=== PATIENT | female | born 1965 | race Caucasian/White ===

== ENCOUNTER 2020-08-17 09:07 | Emergency (ER) | payer BC, SELFPAY ==
[2020-08-17] VITALS (8 sets, daily range): BP systolic 120–136; BP diastolic 76–77; PULSE 63–88; RESP 12–18; TEMP 37.3; O2SAT 98–100
--- NOTE | ~2020-08-17 | CT_ITS ---
EXAMINATION: CTA chest PE abdomen pel EXAM DATE: 08/17/2020 11:28 INDICATION: Chest pain, sob, abd pain, bloody diarrhea. TECHNIQUE: Spiral CTA of the chest (pulmonary arteries) was performed with 100 cc Omnipaque 350 intr avenous contrast injection. Images were acquired during the pulmonary arterial phase. Coronal maxi mum intensity projection 3D-reconstructions were created by the technologist on dedicated workstation . Axial, coronal and sagittal reformatted images were reviewed. Spiral CT of the abdomen and pelvis was then performed with the same intravenous contrast injection. Axial, coronal and sagittal reform atted images were reviewed. The dose-length product (DLP) for this examination was 629.63 mGy-cm. T he exposure was tailored according to patient size (auto mA exposure control), and iterative reconst ruction (ASIR) was used as additional dose reduction technique. There is no prior study for comparis on. FINDINGS: CHEST: Pulmonary arteries are well opacified and without intraluminal filling defects. No thoracic aortic dissection. The lungs are clear. There are no pleural or pericardial effusions. Tracheob ronchial tree is patent. There is no mediastinal, hilar or axillary lymphadenopathy. There is no pneumothorax. Heart normal in size. No evidence of coronary arterial calcification. ABDOMEN PELVIS: There is a 1.8 cm right adrenal gland adenoma. The liver, spleen, and pancreas are u nremarkable. Gallbladder is unremarkable. No biliary obstruction. Portal and splenic veins are pat ent. Kidneys enhance symmetrically. There is no hydronephrosis. The uterus is retroverted and mor phologically normal. The bladder is unremarkable. There is no retroperitoneal or pelvic lymphadeno lisa. The appendix is normal. The stomach and small bowel are unremarkable. There is descending and to a lesser extent sigmoid colonic edema suspected. There are some sigmoid colonic fluid. Appearance is co nsistent with enterocolitis. No free intraperitoneal gas. There are no osteoblastic or osteolytic lesions identified. IMPRESSION: 1. Enterocolitis, with some edema of the descending and sigmoid colon wall. 2. No pulmonary emboli. Reviewed, dictated and finalized at location B.
--- NOTE | 2020-08-17 09:21 | ECG_ITS ---
Measurements Intervals [place] Rate: 74 P: -6 OR: 126 QRS: 22 QRSD: 87 T: 15 QT: 383 QTc: 427 Interpretive Statements SINUS RHYTHM WITH SINUS ARRHYTHMIA BASELINE ARTIFACT- I, II, III, AVR, AVF, V1-V6 NORMAL ECG Electronically Signed On 08-17-2020 9:26:23 CDT by Lee Barnard D.O.
[2020-08-17 09:33] LABS: Basophils Percent Auto 0.4 % (0.2-1.2); Eosinophils Absolute Auto 0.1 K/mm3 (0-0.3); Eosinophils Percent Auto 1.4 % (0-4.4); Hematocrit 45.6 % (37.0-47.0); Hemoglobin 15.5 g/dL (12.0-15.0); Immature Granulocyte Absolute 0.02 K/mm3 (0.00-0.031); Immature Granulocyte Percent A 0.2 % (0-0.5); Lymphocytes Absolute Auto 1.25 K/mm3 (0.9-3.2); Lymphocytes Percent Auto 14.8 % (18.3-44.2); Mean Corpuscular Hemoglobin 31.4 pg (26-34); Mean Corpuscular Volume 92.3 fl (80-100); Mean Platelet Volume 10.3 fl (7.4-10.4); Monocytes Absolute Auto 0.5 K/mm3 (0.1-0.6); Monocytes Percent Auto 5.5 % (2.6-8.5); Neutrophils Absolute Auto 6.6 K/mm3 (1.3-6.7); Neutrophils Percent Auto 77.7 % (45.5-73.1); Platelet Count Result 237 k/mm3 (150-375); Red Blood Count 4.94 M/mm3 (4.2-5.4); Red Cell Distribution Width 12.5 % (11.5-14.5); White Blood Count 8.4 K/mm3 (4.5-10.0)
[2020-08-17 09:43] LABS: Alanine Aminotransferase 13 U/L (4-35); Albumin Level 4.3 g/dL (3.5-5.1); Alkaline Phosphatase 58 U/L (38-126); Anion Gap 8 mmol/L (8-16); Aspartate Amino Transferase 19 U/L (14-36); Bilirubin,Total 0.3 mg/dL (0.2-1.3); Blood Urea Nitrogen 22 mg/dL (7-17); Calcium 9.8 mg/dL (8.4-10.2); Carbon Dioxide 24 mmol/L (22-30); Chloride 110 mmol/L (98-107); Estimated CRCL calculation 92 ml/min; Estimated Glomerular Filt Rate > 60; Glucose 123 mg/dL (65-105); Lipase 64 U/L (23-300); Sodium 142 mmol/L (137-145)
[2020-08-17 10:01] LABS: Add Urine Microscopic? YES; Appearance Urine Clear (Clear); Bilirubin Urine Negative (Negative); Blood Urine 2+ (Negative); Color Urine Yellow (Yellow); Glucose Urine UA Negative (Negative); Ketones Urine Negative (Negative); Leukocyte Esterase Ur Trace LEU/UL (Negative); Nitrate Urine Negative (Negative); Protein Urine Negative (Negative); Specific Grav Ur 1.018 (1.001-1.035); Squamous Epithelial Cell Urine Rare /hpf (Few); Urobilinogen Urine Negative mg/dL (<2.0)
--- NOTE | 2020-08-17 10:48 | ED.ABDPAIN ---
HPI - Abdominal Pain General Chief Complaint: Abdominal Pain Stated Complaint: sob, back pain, abd pain, bloody stool Time Seen by Provider: 08/17/20 10:13 Source: patient Mode of arrival: ambulatory Limitations: no limitations History of Present Illness HPI narrative: This is a 55-year-old female that presents to the emergency department for chest pain and back pain intermittently over the last couple of months. Reports the pain is sharp in nature and lasts only briefly. No known alleviating or exacerbating factors. Does report a cough and some shortness of breath. She does have history of COPD and is a current smoker. Also reports since yesterday she has been having some abdominal discomfort. She had a couple of loose stools which contain bright red blood. Denies fever, chest pain, vomiting, or dysuria. Related Data Allergies Allergy/AdvReac Type Severity Reaction Status Date / Time No Known Drug Allergies Allergy Unknown Verified 10/28/17 12:04 Review of Systems Review of Systems: Narrative: CONSTITUTIONAL: Denies fever CARDIOVASCULAR: Reports chest pain. Denies edema. RESPIRATORY: Reports cough and dyspnea. GASTROINTESTINAL: Reports abdominal pain, diarrhea. Denies nausea or vomiting GENITOURINARY: Denies dysuria All systems reviewed & are unremarkable except as noted in HPI and below PMFSH Past Medical History Medical History (Updated 08/17/20 @ 12:36 by Griselda Canales PA-C) History of COPD Family History Family History (Updated 10/27/13 @ 07:13 by DOCTOR UNKNOWN) Grandparent Hypertension Father Family history of coronary artery disease Patient's father is Other Family history of malignant neoplasm of cervix Family history of malignant neoplasm of male breast Social History Social History (Updated 08/17/20 @ 10:51 by Griselda Canales PA-C) Smoking status: Current every day smoker Alcohol intake: never Substance use: current Substance use type: marijuana Exam Narrative: Exam Narrative: GENERAL: Well-appearing, well-nourished, and in no acute distress. HEAD: Normocephalic, atraumatic. EYES: EOMI. ENT: Nares clear, no rhinorrhea or epistaxis. Mucous membranes moist. Oropharynx without tonsillar hypertrophy exudate or other lesions. Bilateral TMs pearly abreu non-bulging NECK: Supple. No adenopathy or masses. CHEST: Clear to auscultation. No respiratory distress. No wheezes rales or rhonchi HEART: Regular rate and rhythm. No murmur heard. Normal peripheral pulses. ABDOMEN: Soft, nontender, nondistended, normal active bowel sounds. No CVA tenderness EXTREMITIES: Normal range of motion. No edema. SKIN: Warm, dry, no rash. NEURO: No focal deficits. Alert and oriented x3. PSYCH: Normal mood and affect RECTAL: Hemoccult positive. No hemorrhoids or fissures noted Course Vital Signs Vital signs: Vital Signs Temperature 99.2 F 08/17/20 09:11 Pulse Rate 85 08/17/20 09:11 Respiratory Rate 18 08/17/20 09:11 Blood Pressure 136/77 08/17/20 09:11 Pulse Oximetry 100 08/17/20 09:11 Temperature 99.2 F 08/17/20 09:11 Pulse Rate 88 08/17/20 11:00 Respiratory Rate 18 08/17/20 11:00 Blood Pressure 120/76 08/17/20 11:00 Pulse Oximetry 99 08/17/20 11:00 MDM - Abdominal Pain MDM Narrative Medical decision making narrative: Patient presents to the emergency department for chest pain and back pain ongoing for months. Also complaining of abdominal discomfort and blood in the stool. She is afebrile and nontoxic-appearing. Vitals are stable. CBC and metabolic panel without concerning findings. Lipase is normal. UA without evidence of infection. BNP is not elevated. EKG without concerning changes and baseline troponin is negative. She denies any current chest pain. CTA was obtained as D-dimer was elevated. This is without evidence of PE. Does show enterocolitis. Patient is Hemoccult positive. Her vitals are stable. She is not on any
[2020-08-17 10:57] LABS: INR 0.9; Prothrombin Time 12.6 Seconds (11.1-14.7)
[2020-08-17 10:58] LABS: Partial Thromboplastin Time 25.6 SECONDS (22.3-36.8)
[2020-08-17 11:00] LABS: D Dimer 0.58 ug/mL (<0.48)
[2020-08-17] MEDS: PANTOPRAZOLE SODIUM IV 40 MG VIAL IV PUSH (11:36)
[2020-08-17] MEDS: ONDANSETRON INJ 4 MG/2 ML VIAL IV PUSH (11:36)
[2020-08-17 12:01] LABS: NT Pro B Type Natriuretic Pept 34 pg/mL (5-100)
[2020-08-17 12:04] LABS: Troponin I < 0.012 ng/mL (0.000-0.034)
--- NOTE | 2020-08-17 12:40 | PC.NURSE ---
Pt.climbing out of bed, removing themselves off the monitor, stating You guys have done nothing for me . Pt. informed about RX for antibiotics for the infection and given a GI specialist and their PCP to follow up with. Pt. is being understanding.
== END 2020-08-17 12:50 | disposition home or self-care (01) ==
PROVIDERS: Physician Assistant; Emergency Provider Family Medicine; PCP Family Medicine
DX: R07.89 Other chest pain (principal); K52.9 Noninfective gastroenteritis and colitis, unspecified; J44.9 Chronic obstructive pulmonary disease, unspecified; F17.200 Nicotine dependence, unspecified, uncomplicated
CPT/HCPCS: 36415; 71275; 74177; 80053; 81001; 83690; 83880; 84484; 85025; 85380; 85610; 85730; 93005; 96374; 96375; 99284; C9113; J0131; J2405; Q9967

== ENCOUNTER 2021-12-23 13:30 | Outpatient (CLI) | payer BC, SELFPAY ==
--- NOTE | ~2021-12-23 | CT_ITS ---
EXAMINATION: CT abdomen pelvis wo/w con DATE: 12/23/2021 14:17 INDICATION: Gross hematuria. TECHNIQUE: Computed tomography (CT) of the abdomen and pelvis was performed without and with intraven ous contrast using a total of 130 mL Omnipaque-350 intravenous contrast with a double-bolus technique for simultaneous opacification of the renal parenchyma and renal collecting system. Automated exposu re control and iterative reconstruction technique were employed. The dose-length product was 1421.45 mGy-cm. COMPARISON: CT abdomen and pelvis 08/17/2020 FINDINGS: The visualized portions of the lung bases demonstrate mild atelectasis. No pleural effusion. The hear t size is normal. No pericardial effusion. There are cysts in the liver measuring up to 5 mm. The gal lbladder, spleen, pancreas, and left adrenal gland are normal. There is a 2.3 cm mass in right adrena l gland measuring low-attenuation, consistent with an adenoma. Right kidney is normal. There are cyst s in left kidney measuring up to 11 mm. There is no urolithiasis. The right ureter is not well opacif ied, but is normal. The distal left ureter is not well opacified, but is normal. There are masses at the anterior and left lateral wilson of the bladder with the larger measuring 2.4 x 1.7 cm. There are multiple fibroids in the uterus measuring up to 1.7 cm. There is a 2.6 cm cyst in right ovary, likely benign. There is diverticulosis of the colon without evidence of diverticulitis. There are no dilate d loops of bowel. The appendix is normal. There are no pathologically enlarged lymph nodes. There is no free intraperitoneal fluid. IMPRESSION: 1. Bladder masses, consistent with urothelial carcinoma. Reviewed, dictated and finalized at location A.
[2021-12-23 13:52] LABS: Estimated Glomerular Filt Rate > 60
== END 2021-12-23 13:31 ==
PROVIDERS: PCP Family Medicine; Visit Provider Nurse Practitioner
DX: R31.0 Gross hematuria (principal)
CPT/HCPCS: 74178; Q9967

== ENCOUNTER 2022-08-12 14:44 | Emergency (ER) | payer BC, SELFPAY ==
--- NOTE | ~2022-08-12 | CT_ITS ---
EXAMINATION: CT abdomen pelvis w con DATE: 08/12/2022 17:04 INDICATION: Fever. Nausea and vomiting. TECHNIQUE: Computed tomography (CT) of the abdomen and pelvis was performed with 100 mL Omnipaque 350 intravenous contrast. Automated exposure control and iterative reconstruction technique were employe d. The dose-length product was 412.19 mGy-cm. COMPARISON: CT abdomen and pelvis 12/23/2021 FINDINGS: The visualized portions of the lung bases demonstrate mild atelectasis. No pleural effusion . The heart size is normal. No pericardial effusion. There is a catheter tip in right atrium. There a re cysts in the liver measuring up to 4 mm. The gallbladder, spleen, pancreas, and adrenal glands are normal. There is mild right hydronephrosis. There is a delayed right-sided contrast nephrogram. Ther e is an ileal conduit. The right internal/external ureteral stent is kinked in the ileal conduit. The re are cysts in left kidney measuring up to 8 mm. There is a left internal/external ureteral stent in expected position. There is diverticulosis of the colon without evidence of diverticulitis. There is subcutaneous fat stranding in the epigastric region, likely inflammation at a recent surgical site. In the right extraperitoneal pelvis, there is a 8.1 x 2.9 x 3.2 cm fluid collection. There are no pat hologically enlarged lymph nodes. There is mild thoracic and lumbar spondylosis. IMPRESSION: 1. Mild right hydronephrosis with delayed contrast nephrogram. Note that the right internal/external ureteral stent is kinked. 2. 8.1 x 2.9 x 3.2 cm fluid collection in the right extraperitoneal pelvis, likely a subacute hematom a or seroma. Reviewed, dictated and finalized at location A. IMPRESSION: 1. Mild right hydronephrosis with delayed contrast nephrogram. Note that the ri ght internal/external ureteral stent is kinked. 2. 8.1 x 2.9 x 3.2 cm fluid collection in the right extraperitoneal pelvis, lik shweta a subacute hematoma or seroma.
[2022-08-12 14:49] VITALS: BP 118/60; PULSE 116; RESP 18; TEMP 36.9; O2SAT 97
[2022-08-12] MEDS: ONDANSETRON INJ 4 MG/2 ML VIAL IV PUSH (16:03)
[2022-08-12] MEDS: LACTATED RINGERS 1,000 ML 999 ML IV CONT ×2 (16:03→17:40)
--- NOTE | 2022-08-12 16:10 | ED.RECABL ---
HPI - Recheck/Abnormal Lab/Rx General Chief Complaint: Recheck/Abnormal Lab/Rx Stated Complaint: post op pain (bladder surgery at [facility]) Time Seen by Provider: 08/12/22 14:55 History of Present Illness HPI narrative: Patient had cystectomy with urostomy done at [facility] 2 weeks ago, several days ago she started feeling unwell, with malaise and fever, yesterday was nauseous and threw up and could not keep water or soda down. She called her doctor who told her to go to the ER. Related Data Allergies Allergy/AdvReac Type Severity Reaction Status Date / Time No Known Drug Allergies Allergy Unknown Unknown Verified 08/12/22 16:04 Review of Systems Review of Systems: CONST: Malaise HEENT: No sore throat C/V: No chest pain RESP: No cough GI: Nausea and vomiting : Normal urine output in urostomy M/S: No joint pain. SKIN: No rash. NEURO: [No headache or focal numbness or weakness] PSYCH: [No depression] [facility] Past Medical History Medical History History of COPD Family History Family History Grandparent Hypertension Father Family history of coronary artery disease Patient's father is Other Family history of malignant neoplasm of cervix Family history of malignant neoplasm of male breast Social History Social History Smoking status: Current every day smoker Alcohol intake: never Substance use: current Substance use type: marijuana Exam Narrative: EXAMINATION OF ORGAN SYSTEMS/BODY AREAS: Constitutional: Vital signs per nursing GENERAL:[No acute distress, non-toxic appearing.] HEAD: Normal with no signs of head trauma. EYES: EOMI, conjunctiva normal ENT: Hearing grossly intact LUNGS: Nonlabored breathing. HEART: [Regular rate and rhythm] ABD: [Soft], [nontender to palpation]; urostomy draining clear urine EXT: Normal range of motion SKIN: [No rashes or lesions.] NEURO: [Alert and oriented x 3. No gross focal sensory or strength deficits.] PSYCH: Normal affect Course Vital Signs Vital signs: Vital Signs Temperature 98.5 F 08/12/22 14:49 Pulse Rate 116 H 08/12/22 14:49 Respiratory Rate 18 08/12/22 14:49 Blood Pressure 118/60 08/12/22 14:49 Pulse Oximetry 97 08/12/22 14:49 Oxygen Delivery Room Air 08/12/22 14:49 Temperature 98.5 F 08/12/22 14:49 Pulse Rate 116 H 08/12/22 14:49 Respiratory Rate 18 08/12/22 14:49 Blood Pressure 118/60 08/12/22 14:49 Pulse Oximetry 97 08/12/22 14:49 Oxygen Delivery Room Air 08/12/22 14:49 MDM - Recheck/Abnormal Lab/Rx MDM Narrative Medical decision making narrative: 57-year-old female presenting after cystectomy with urostomy at outside hospital 13 days ago, feeling malaise with fevers, vital signs notable for tachycardia, on exam her abdomen is soft and nontender, urostomy in place, I am concerned for likely infection including UTI or postsurgical infection. Labs notable for leukocytosis of 20, UA with quite turbid urine and large amount of WBCs, RBCs, bacteria, leukocyte Estrace. She started on ceftriaxone, I did also obtain a CT to rule out any other issues, there is a collection which I suspect is likely postsurgical, however given her leukocytosis, I did call her urology team at [facility], discussed with Dr. Phan who recommended transferring the patient to [facility] since that she may need further care and possible drainage. He agrees with ceftriaxone only at this time. Patient updated on this plan and is agreeable with it. Lab Data 08/12/22 16:05 08/12/22 16:05 Labs: Lab Results 08/12/22 Range/Units 16:05 WBC 20.1 H (4.5-10.0) K/mm3 RBC 3.28 L (4.2-5.4) M/mm3 Hgb 10.8 L D (12.0-15.0) g/dL Hct 31.1 L (37.0-47.0) % MCV 94.8 (80-100) fl MCH 32.9 (26-34) pg MCHC 34.7 (32-36) g/d
[2022-08-12 16:11] LABS: Basophils Absolute Auto 0.1 K/mm3 (0.0-0.1); Basophils Percent Auto 0.3 % (0.2-1.2); Eosinophils Percent Auto 0.1 % (0-4.4); Hematocrit 31.1 % (37.0-47.0); Hemoglobin 10.8 g/dL (12.0-15.0); Immature Granulocyte Absolute 0.13 K/mm3 (0.00-0.031); Immature Granulocyte Percent A 0.6 % (0-0.5); Lymphocytes Absolute Auto 0.66 K/mm3 (0.9-3.2); Lymphocytes Percent Auto 3.3 % (18.3-44.2); Mean Corpuscular HGB Conc 34.7 g/dl (32-36); Mean Corpuscular Hemoglobin 32.9 pg (26-34); Mean Corpuscular Volume 94.8 fl (80-100); Mean Platelet Volume 9.6 fl (7.4-10.4); Monocytes Percent Auto 5.1 % (2.6-8.5); Neutrophils Absolute Auto 18.2 K/mm3 (1.3-6.7); Neutrophils Percent Auto 90.6 % (45.5-73.1); Platelet Count Result 346 k/mm3 (150-375); Red Blood Count 3.28 M/mm3 (4.2-5.4); Red Cell Distribution Width 11.9 % (11.5-14.5); White Blood Count 20.1 K/mm3 (4.5-10.0)
[2022-08-12 16:18] LABS: Alanine Aminotransferase 18 U/L (6-35); Albumin Level 3.8 g/dL (3.5-5.1); Alkaline Phosphatase 83 U/L (38-126); Anion Gap 6 mmol/L (8-16); Aspartate Amino Transferase 26 U/L (14-36); Bilirubin,Total 0.4 mg/dL (0.2-1.3); Blood Urea Nitrogen 18 mg/dL (7-17); Calcium 8.7 mg/dL (8.4-10.2); Carbon Dioxide 30 mmol/L (22-30); Chloride 99 mmol/L (98-107); Estimated CRCL calculation 59 ml/min; Estimated Glomerular Filt Rate > 60; Glucose 124 mg/dL (65-110); Potassium 3.7 mmol/L (3.4-5.0); Sodium 135 mmol/L (137-145)
[2022-08-12 16:26] LABS: Appearance Urine Turbid (Clear); Bacteria Urine 4+ /hpf; Bilirubin Urine Negative (Negative); Blood Urine 3+ (Negative); Color Urine Yellow (Yellow); Glucose Urine UA Negative (Negative); Ketones Urine Trace mg/dL (Negative); Leukocyte Esterase Ur 3+ LEU/UL (Negative); Need Manual Microscopic Reviewed; Nitrate Urine Positive (Negative); Protein Urine 2+ mg/dL (Negative); RBC Urine >100 /hpf (0-2); Specific Grav Ur 1.016 (1.001-1.035); Squamous Epithelial Cell Urine None seen /hpf (Few); Urobilinogen Urine 0.2 mg/dL (<2.0); WBC Urine >100 /hpf; pH Urine 5.5 (5.0-9.0)
[2022-08-12 16:27] LABS: Add Urine Microscopic? YES
--- NOTE | 2022-08-12 17:43 | PC.NURSE ---
1731 waiting for bed assignment.
[2022-08-12 19:00] VITALS: BP 99/47
[2022-08-12 19:15] VITALS: BP 99/49; PULSE 87; RESP 20; O2SAT 99
[2022-08-12 19:20] VITALS: O2SAT 99
[2022-08-12] MEDS: ACETAMINOPHEN 500 MG TABLET 1000 MG PO (19:29)
[2022-08-12 20:30] VITALS: BP 101/53; PULSE 92; RESP 18; O2SAT 99
== END 2022-08-12 20:30 | disposition short-term general hospital (02) ==
PROVIDERS: Emergency Provider Emergency Medicine; PCP Family Medicine
DX: N39.0 Urinary tract infection, site not specified (principal); Z98.890 Other specified postprocedural states; C67.9 Malignant neoplasm of bladder, unspecified; Z90.6 Acquired absence of other parts of urinary tract; Z93.6 Other artificial openings of urinary tract status; J44.9 Chronic obstructive pulmonary disease, unspecified; Z96.0 Presence of urogenital implants; F17.200 Nicotine dependence, unspecified, uncomplicated; N13.30 Unspecified hydronephrosis; R93.5 Abnormal findings on diagnostic imaging of other abdominal regions, including retroperitoneum
CPT/HCPCS: 36415; 74177; 80053; 81001; 85025; 87077; 87086; 87147; 87186; 96361; 96365; 96375; 99285; A9270; J0696; J2405; J7120; Q9967

== ENCOUNTER 2024-01-12 09:54 | Outpatient (CLI) | payer BC, SELFPAY ==
--- NOTE | ~2024-01-12 | XR_ITS ---
3 VIEWS LUMBAR SPINE Ordering provider: Shaji Sewell ([place]), History: . low back pain . Comparison: None. FINDINGS: VERTEBRAL BODIES: No visible fracture or subluxation. DISK SPACES: Normal. SOFT TISSUES: Normal. IMPRESSION: No acute osseous abnormality lumbar spine. Reviewed, dictated and finalized at location A. HT DISPATCHER
== END 2024-01-12 09:55 | disposition home or self-care (01) ==
LOC: ANHLAB 10:01 → ANHIMG 10:02
PROVIDERS: PCP Family Medicine; Visit Provider Internal Medicine
DX: M54.50 Low back pain, unspecified (principal)
CPT/HCPCS: 72100

== ENCOUNTER 2024-06-08 15:44 | Emergency (ER) | payer BC, SELFPAY ==
[2024-06-08 15:52] VITALS: BP 139/65; PULSE 73; RESP 16; TEMP 36.6; O2SAT 100
--- OUTSIDE RECORDS SUMMARY | 2024-06-08 16:57 | XMS_ITS ---
Author Organization [facility] [address] [place] [address] Care Team Providers Care Mink Farmer Name Role Phone Kim Griffiths MD Unavailable [phone] Anibal Sewell MD Primary Care Provider [phone] Active Problems Problem Noted Date Diagnosed Date Benign colon polyp 10/27/2023 Rectal pain 09/07/2023 Visual disturbance 03/25/2023 Hydronephrosis with ureteral stricture 3 Hydronephrosis 12/08/2022 GERD (gastroesophageal reflux disease) 3 Assessment & Plan (09/25/2022 6:58 PM CDT): Takes prilosec at home Will substitute with oral pantoprazole while inpatient Bacteremia due to Klebsiella pneumoniae 09/25/19 23 Assessment & Plan (09/28/2022 12:02 AM CDT): 1 week prior to presentation, she was having foul smelling urine and fever, followed by non-blood vomiting, she started that her urostomy has had cloudy and very smelly urine for the past few weeks as well, of note that she recently finished a course of Macrobid on 08/29. labs notable for cr 3.79, wbc 28.3, UA + for wbc, rbc, bacteria + 4 -initially stared on vanc and cefe. Vanc dc'ed. S/p 1 dose of amikacin -BCx2 from 09/23 growing K. Pneumonia. UC >100,000 K. Pneumo -repeat BCx2 09/25 NTD -s/p cefepime. Will transition to po cipro 500mg bid starting tomorrow for 7 days based on susceptibilities -US kidney 09/24 - Mild right-sided hydronephrosis, not significantly changed from 08/12/2022 CT -CT abd/p w/o contrast - Mild bilateral, R>L, hydronephrosis increased from prior CT. No stone seen. Slight increase in right perinephric and periureteral stranding, unclear whether related to obstruction or superimposed infection. - follow cultures. - cancelled TTE that was ordered by prior MD rule out IE. No murmur on exam or other supportive findings. Klebsiella not known to be a common cause of IE - Urology following, appreciate recs. FL Loopogram showed delayed reflux into the right ureter but no obvious stenosis seen. Per radiology team, if stricture present it would be at the distal most end of ureter which was difficult to image as that part was obscured by surgical anastomosis site. 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 They stated they will follow up in 2 weeks with further investigation SARAH (acute kidney injury) 09/24/2022 Assessment & Plan (09/25/2022 6:59 PM CDT): Cr 3.79 on arrival, baseline around 0.8 - continue IVF, downtrending, likely prerenal in setting of sepsis and nausea/vomiting prior to admission - complaining of dry mouth. Likely dehydrated. Ordered prn artificial saliva - HAGMA likely from SARAH, NAGMA likely from RTA (positive urine anion gap) and ureteroiliostomy. S/p bicarbx1; administer as clinically warranted, improving Hx of bladder cancer 09/23/2022 Pelvic fluid collection 08/12/2022 Bladder cancer 07/30/2022 Generalized anxiety disorder 04/02/2022 Severe episode of recurrent major depressive disorder, without psychotic features 04/02/2022 Malignant neoplasm of overlapping sites of bladd er 03/05/2022 Malignant neoplasm of overlapping sites of bladd er 02/12/2022 Assessment & Plan (09/24/2022 6:26 AM CDT): bladder cancer s/p neoadjuvant and cystectomy (07/30/22) with bladder conduits - onc hx detained in history section, fup with Dr malcolm, and dr Patricia Bladder mass 12/31/2021 Overview (12/31/2021): Added automatically from request for surgery [id number] Chronic obstructive pulmonary disease 10/07/2021 Pseudophakia of right eye 03/24/2018 Postop check 03/11/2018 Pseudophakia of left eye 01/06/2018 Overview (01/06/2018): - status post (s/p) phaco/IOL OS 01/06/18 Assessment & Plan (01/07/2018 10:37 AM UI APPLICATION DEVELOPER): POD1 EXTRACTION CATARACT - PHACOEMULSIFICATION AND LENS IMPLANT - Left Postoperative instructions were given. The patient is to use: ofloxacin QID X 1 week Prednisolone Acetate 1% QID Ketorolac QID Patient is to wear the shield at bedtime X 1 week. Signs, symptoms of retinal detachment, tear, hole, and endophthalmitis were reviewed and the patient is to call immediately for concerns. We discussed that things should improve until they stabilize. Should there be any worsening of pain, vision, or redness the patient is to call. Followup 1 week or sooner prn issues for DC oflox, taper PF, finish NSAID OD scheduled but wants to reschedule Nuclear sclerotic cataract of both eyes 12/05/19 18 Overview (12/04/2017): Added automatically from request for surgery [id number] Nuclear sclerosis of both eyes 12/01/2017 Assessment & Plan (12/01/2017 2:36 PM CDT): Limited vision ? left eye (OS) optic neuropathy. Discussed NS/PSC left eye (OS) may be contributing to vision loss but uncertain. Discussed left eye (OS) first then right eye (OD) to follow. The patient understands the risks, benefits, alternatives and wishes to proceed with cataract surgery. We discussed the target and the patient elects target plano. We discussed toric and multifocal lens options as well as laser assisted wounds however I prefer a manual technique here. The patient understands glasses are a possibility and is comfortable proceeding with a monofocal lens. Book Phaco/IOL/ left eye. right eye (OD) to follow 3 weeks later. IOLM Optic neuropathy, left 10/19/2017 Functional visual loss 10/19/2017 Optic neuritis 10/19/2017 Allergic rhinitis 09/08/2017 Chronic obstructive lung disease 09/08/2017 Depressive disorder 09/08/2017 Nicotine dependence 09/08/2017 Overweight 09/08/2017 Pain in thoracic spine 09/08/2017 Vitamin D deficiency 09/08/2017 Breast pain 11/20/2016 Mitral valve disease 07/08/2014 Chest pain 06/29/2014 Perimenopause 10/17/2013 Depression 07/16/2013 Overview (06/06/2016): Depression Assessment & Plan (09/24/2022 6:25 AM CDT): Continue wellbutrin Menstrual migraine 07/16/2013 Overview (06/06/2016): Menstrual migraine Atypical angina 06/24/2013 Abnormal electrocardiography 06/24/2013 Hyperlipidemia 06/24/2013 Pain in shoulder 06/23/2013 Current Treatment and Therapy Plans ALTEPLASE (CATHFLO ACTIVASE) - ORDERS FOR OCCLUDED CATHETERS* Plan Start Date: 04/14/2022 Plan Provider:Mychal Moeller MD PhD Linked Problems Malignant neoplasm of overla pping sites of bladder (HCC) Treatment Medications No medications scheduled. Alteplase (CATHFLO ACTIVASE) - orders for occluded catheters* Plan Start Date: 05/05/2022 Plan Provider:Az Rae MD PhD Linked Problems Malignant neoplasm of overla pping sites of bladder (HCC) Treatment Medications No medications scheduled. Hydration Therapy Plan* Plan Start Date:05/26/2022 Plan Provider:Kim Griffiths MD Linked Problems Malignant neoplasm of overla pping sites of bladder (HCC)Malignant neoplasm of overlapping sites of bladder (HCC) Treatment Medications No medications scheduled. Past Treatment and Therapy Plans Oncology Chemotherapy Treatment Plan Name Start Date Discontinue Date Treatment Medications Discontinue Reason Plan Provider Cycles Nivolumab 480 mg 28 Day Cycles 3 05/18/2024 nivolumab (OPDIVO)nivoluma b (OPDIVO) in 50 mL IVPB Therapy Complete Kim Griffiths MD 12 of 12 cycles started Gemcitabine / CISplatin 21 Day Cycles - Bladder 03/10/2022 09/05/2022 CISplatin (PLATINOL)CISpla tin (PLATINOL) IVPB in 250 mLgemcitabine (GEMZAR)gemcitab ine IVPB in 250 mL (using 100 mg/ml gemcitabine) ([id number]) Therapy Complete Kim Griffiths MD 4 of 4 cycles started Lifetime Dose Tracking * Chemical Lifetime Dose Automatic Entry Manual Entr y Fluoro Time 4.3 minutes 4.3 minutes 0 minutes Air kerma at the reference point (Ka,r) 96.5 mGy 9 6.5 mGy 0 mGy DLP 8,247 mGycm 8,247 mGycm 0 mGycm Resolved Problems Problem Noted Date Diagnosed Date Resolved Date High grade urothelial carcin kelsy present on urine cytology 02/12/2022 02/12/2022
--- OUTSIDE RECORDS SUMMARY | 2024-06-08 16:57 | XMS_ITS | Encounter Summary ---
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 Name Role Phone Marcus Bentley MD Primary Care Provider [phone] Kim Griffiths MD Unavailable [phone] Chapin Patricia MD Unavailable [phone] No, Physician Primary Care Provider [phone] Anibal Sewell MD Primary Care Provider [phone] Encounter Details Date Type Department Care Team (Late st Contact Info) Description 08/04/2022 Telephone [facility] Surgeon [address] [place] [address] Anatoly Leija MD [address] [place], [place] [id number] Social History Tobacco Use Types Packs/Day Years Used Date Smoking Tobacco: Every Day Cigarettes 0.5 40 Passive Smoke Exposure: Past Smokeless Tobacco: Never Comments:Counseled on import ance of quitting, advised to speak with pcp for assistance, instructed not to smoke for 24 hrs prior to surgery. Hasn't smoked in 1.5 weeks 04/14/2022 Alcohol Use Standard Drinks/Week Comments No 0 (1 standard drink = 0.6 oz pure alcohol) recovering alcoholic- none in 26 years AUDIT-C Answer Date Recorded Q1: How often do you have a drink containing alcohol? Never 07/16/2022 Q2: How many drinks containi ng alcohol do you have on a typical day when you are drinking? Patient does not drink 05/17/202 3 Q3: How often do you have si x or more drinks on one occasion? 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 Was working for [employer] in [employer] (until 11/2021). Not on file Not on file Not on file documented as of this encounter Plan of Treatment Not on file documented as of this encounter Visit Diagnoses Not on filedocumented in this encounter Additional Health Concerns Infection Onset Date Last Indicated Resolved Time COVID: Suspected 08/13/2022 08/13/2022 08/13/2022 9:55 AM CDT documented as of this encounter Care Teams Mold Car Pusher Relationship Specialty Start Date End Date Marcus Bentley MD [address] [place] [address] [place] [address] PCP - General Family Medicine 07/08/20 07/12/23 No, Physician PCP - General 07/16/23 08/09/23 Anibal Sewell MD [address] [place] [address] [address] [place] [address] PCP - General Internal Medicine 08/10/23 Kim Griffiths MD [address] [place] [address] [place] [address] Medical Oncologist/Customer Success Director Medical Oncology 02/27/22 Chapin Patricia MD [address] [place] [address] [place] [address] Consulting Physician Urology 08/04/22 10/11/23 documented as of this encounter
--- OUTSIDE RECORDS SUMMARY | 2024-06-08 16:57 | XMS_ITS | Data Portability ---
Author Organization [facility] [employer] Address [address] [facility] [address] [place] [address] Care Team Providers Care Mobile Crane Operator Name Role Phone CYDNEY UNDERWOOD International Editorial Producer [phone] MISHA RIDER Psychiatrist KIM GRIFFITHS Medical Oncologist VENANCIO PATRICIA Urologist Assessment Encounter Date Assessment Date Assessment LastModified by Organization Details LastModified Time 07/28/2023 07/28/[address] Evelyn Elizondo -- Not available 07/28/2023 16:07:35 10/07/2023 10/07/2023 Patient presented for follow up. Studies ordered as below. Discussed plan with patient/careg romulo, who expressed understanding . Follow up as noted below. PCP Dr Evelyn Elizondo -- Not available 10/07/2023 11:56:42 01/14/2024 01/14/2024 Patient presented for follow up. Studies ordered as below. Discussed plan with patient/careg romulo, who expressed understanding . Follow up as noted below. Not available 01/14/2024 11:04:06 05/05/2024 05/05/2024 Patient presented for follow up. Studies ordered as below. Discussed plan with patient/careg iver, who expressed understanding . Follow up as noted below. Not available 05/05/2024 21:34:01 Plan of Treatment Reminders Order Date Submit Date Provider Last Modified By Organization Details Last Modified Time Details Appointments None recorded. Lab HbA1c (hemoglobi n A1c), blood 2024 025 [employer] [facility], [address], [address], [place], [address], 5 21:32:25 uric acid, serum or plasma 2024 025 [facility], [facility], [facility] [address], [address], [place], [address], 5 21:32:25 lipid panel, serum 2023 024 [facility], [address], [address], [place], [address], 4 11:30:08 CBC w/ auto diff 2023 024 [facility], [facility] [address], [address], [place], [address], 4 11:30:09 CMP, serum or plasma 2023 024 [facility], [address], [address], [place], [address], 4 08:43:22 urinalysis complete, reflex culture 2023 024 [facility], [address], [address], [place], [address], 4 08:43:22 uric acid, serum or plasma 2023 024 [facility], [address], [address], [place], [address], 4 11:30:10 HIV 1 + 2, meaningful use set 2023 024 [facility], [address], [address], [place], [address], 4 08:43:22 HbA1c (hemoglobi n A1c), blood 2023 024 [facility], [address], [address], [place], [address], 4 11:30:11 hepatitis C virus Ab, serum 2023 024 [facility], [address], [address], [place], [address], 4 11:30:06 vitamin B6 (pyridoxin e), plasma 2023 024 [facility], [address], [address], [place], [address], 4 08:20:12 vitamin B1 (thiamine) , blood 2023 024 [facility], [address], [address], [place], [address], 4 08:20:12 vitamin B12, serum 2023 024 [facility], [address], [address], [place], [address], 4 08:20:12 HIV 1 + 2, meaningful use set 2023 024 [facility], [address], [address], [place], [address], 4 08:20:11 vitamin D, 25-hydroxy , total, serum 2023 024 [facility], [address], [place], [address], 4 08:20:12 hepatitis C virus Ab, serum 2023 024 [facility], [address], [place], [address], 4 03:29:51 TSH + free T4, serum 2023 024 [facility], [address], [address], [place], [address], 4 08:20:12 T3, free, serum or plasma 2023 024 [facility], [address], [address], [place], [address], 4 08:20:12 CBC w/ auto diff 2023 024 [facility], [address], [place], [address], 4 03:29:51 CMP, serum or plasma 2023 024 [facility], [address], [address], [place], [address], 4 08:20:12 lipid panel, serum 2023 024 [facility], [address], [place], [address], 4 03:29:46 vitamin B1 (thiamine) , blood [address], [address] [place] [address], [address], 4 08:29:18 vitamin B6 (pyridoxin e), plasma [address], [address] [place] [address], [address], 4 08:29:18 vitamin B12, serum [address], [address] [place] [address], [address], 4 08:29:18 HIV 1 + 2, meaningful use set 2023 024 [facility], [address] [place] [address], [address], 4 16:18:42 vitamin D, 25-hydroxy , total, serum [address], [address] [place] [address], [address], 4 08:29:17 hepatitis C virus Ab, serum 2023 024 [facility], [address] [place] [address], [address], 4 16:18:42 TSH + free T4, serum [address], [address] [place] [address], [address], 4 08:29:18 T3, free, serum or plasma [address], [address] [place] [address], [address], 4 08:29:18 CBC w/ auto diff 2023 024 [facility], [address] [place] [address], [address], 4 16:18:42 CMP, serum or plasma [address], [address] [place] [address], [address], 4 08:29:18 lipid panel, serum 2023 024 [facility], [address] [place] [address], [address], 16:18:43 urinalysis complete, reflex culture 2017 018 [email or web address] Not available 8 08:38:[address] referral 2024 025 fátima Wynn MD, [address], [place], [address], 07:57:28 physical therapist referral 2024 025 [facility] [place], [address], [place], [address], 21:49:55 dermatolog ist referral 2024 025 [facility], [facility], [place], [address], 21:52:[address] referral [address] [facility] Simeon Wynn MD, [address], [place], [address], 11:29:24 pain management referral 2023 024 [facility], [facility] [address], [place], [address], 4 10:29:[address] referral 2023 024 [email or web address] Simeon Wynn MD, [address], [place], [address], 19:05:33 oncologist referral 2023 024 [facility] Kim Griffiths MD, [address], [facility], [place], [address], 20:28:28 urologist referral 2023 024 ARTHUR Ortega MD, [address], [address], [place], [address], 4 15:50:02 ophthalmol ogist referral 2023 024 [email or web address] Vilchis, [address] [place], [address], 4 20:38:[address] referral 2023 024 fát[place], [address], [address], [place], [address], 4 08:23:[address] referral 2023 024 [email or web address] Wynn MD, [address], [place], [address], 4 17:11:04 oncologist referral 2023 024 fátima Griffiths MD, [address] [facility], [address], [place], [address], 4 16:33:42 urologist referral 2023 024 fátima Ortega MD, [address] [facility] [address], [address] [place], [address], 4 16:33:42 ophthalmol ogist referral 2023 024 fátima Vilchis, [address] [place], [address], 4 09:54:[address] referral 2023 024 [email or web address], [address], [address], [place], [address], 4 17:11:03 gastroente rologist referral - -- pt has diarrhea 2023 fátima Patricia MD, 3 [facility], [address], [address], 4 16:33:42 Procedures None recorded. Surgeries None recorded. Imaging MRI, lumbar spine, w/o contrast 2024 [facility], [address] [place] [address], [address], 5 08:10:59 LDCT, chest, for lung cancer screening - -- due on 04/29/242024 [facility], [address] [place] [address], [address], 5 08:10:59 US, screening for abdominal aortic aneurysm 2024 [facility], [address] [place] [address], [address], 5 08:10:59 XR, foot, 3 or more view - -- Rt great toe pain 2024 [facility], [address] [place] [address], [address], 5 08:10:59 DEXA 2024 025 [facility], [address] [place] [address], [address], 5 08:10:59 MAMMO, screening, digital, bilateral 2024 [facility], [address] [place] [address], [address], 5 21:34:34 XR, foot, 3 or more view 2023 024 [facility], [address] [place], [address], 4 08:43:15 LDCT, chest, for lung cancer screening - -- due on 04/29/242023 025 [facility], [address] [place] [address], [address], 5 08:26:47 US, screening for abdominal aortic aneurysm 2023 024 [facility], [address] [place] [address], [address], 4 08:43:15 DEXA 2023 [facility], [address] [place] [address], [address], 4 08:43:15 MAMMO, screening, digital, bilateral 2023 024 [facility], [address] [place] [address], [address], 4 11:33:00 XR, lumbar spine 2023 024 [facility], [address] [place] [address], [address], 4 08:20:03 MAMMO, screening, digital, bilateral 2023 024 [facility], [address] [place] [address], [address], 4 12:05:11 MAMMO, screening, digital, bilateral 2023 024 [facility], [address] [place] [address], [address], 4 16:33:41 Medication Orders duloxetine 30 mg capsule,de layed release 2023 025 [facility], [address] [place] [address], [id number], 5 20:59:48 duloxetine 60 mg capsule,de layed release 2023 025 [facility]53646, [address] [place] [address], [id number], 5 21:00:40 clotrimazo le 1 % topical cream 2023 025 [facility]00956, [address] [place] [address], [id number], 5 17:14:30 Diflucan 150 mg tablet 2023 025 [facility] #15369, [address] [place] [address], [id number], 5 17:21:31 duloxetine 30 mg capsule,de layed release [address] [facility]98708, [address] [place] [address], [id number], 5 20:59:38 duloxetine 60 mg capsule,de layed release [address] [facility]44869, [address] [place] [address], [id number], 5 21:00:32 Breztri Aerosphere 160 mcg-9mcg-4 .8mcg/actu ation HFA aerosol inhaler [address] [facility]36299, [address] [place], [place], [id number], 4 13:45:48 Airsupra 90 mcg-80 mcg/actuat ion HFA aerosol inhaler [address] [facility]87733, [address] [place], [place], [id number], 4 13:45:01 Breztri Aerosphere 160 mcg-9mcg-4 .8mcg/actu ation HFA aerosol inhaler [address] [facility]09989, [address] [place], [place], [id number], 4 13:45:48 Airsupra 90 mcg-80 mcg/actuat ion HFA aerosol inhaler [address] [facility]36775, [address] [place], [place], [id number], 4 13:45:01 duloxetine 30 mg capsule,de layed release [address] [facility]66101, [address] [place], [place], [id number], 5 20:59:38 duloxetine 60 mg capsule,de layed release [address] [facility] #49947, [address] [place], [place], [id number], 5 21:00:32 Auvelity 45 mg-105 mg tablet, extended release [address] [facility] [employer], [facility], [address] [facility], [address] [address], [place], [address], 4 11:45:21 Chantix Starting Month Box 0.5 mg (11)-1 mg (42) tablets in dose pack [address]3259, [address] [place], [address], 4 11:46:31 Chantix Continuing Month Box 1 mg tablet [address]3259, [address] [place], [address], 4 11:46:55 amitriptyl ine 25 mg tablet [address] #3259, [address] [place], [address], 11:47:03 Patient TargetsNo targets recorded. Patient Instructions Encounter Date Encounter Id Patient Instructions Last Modified By Organization Details Last Modified Time 08/20/2017 [id number] frequent urination: care instructions [facility] Not available 08/20/2017 16:36:34 learning about mood disorders Not available 08/20/2017 16:36:34 chronic obstructive pulmonary disease (COPD): care instructions [facility] Not available 08/20/2017 16:36:34 learning about copd and how to prevent lung infections Not available 08/20/2017 16:36:34 07/28/2023 [id number] spirometry testing* BI Not available 07/31/2023 09:37:38 advised to quit smoking Not available 07/28/2023 16:17:06 advised to lose weight Not available 07/28/2023 16:17:06 .opened chart around 12:30 pm, entered room around 1:50 pm, and finished charting around 3:18 pm Not available 07/28/2023 16:18:30 10/07/2023 [id number] advised to quit smoking Not available 10/07/2023 11:57:31 advised to lose weight Not available 10/07/2023 11:57:32 01/14/2024 [id number] advised to quit smoking Not available 01/14/2024 11:29:23 advised to lose weight Not available 01/14/2024 11:29:23 05/05/2024 [id number] advised to quit smoking Not available 05/05/2024 21:31:43 advised to lose weight Not available 05/05/2024 21:31:44 I spent 1 hour 9 min w/ patient on Telehealth (not including charting) Not available 05/05/2024 21:44:02 Reason for Referral Referring Physician: Rylie Sal, Encounter Date: 07/28/2023 Hvac Services Professional Referral for Pe rineal pain Referring Physician: Rylie Sal, Encounter Date: 07/28/2023 International Editorial Producer Referral for Functional visual loss Referring Physician: Rylie Sal, Encounter Date: 07/28/2023 Urologist Referral for 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 Referring Physician: Rylie Sal, Encounter Date: 07/28/2023 Hvac Services Professional Referral for Gy necologic examination Referring Physician: Rylie Sal, Encounter Date: 07/28/2023 Real Estate Office Supervisor Referral for Screening for malignant neoplasm of colon -- pt has diarrhea Referring Physician: Rylie Sal, Encounter Date: 07/28/2023 Referring Physician: Rylie Sal, Encounter Date: 10/07/2023 Hvac Services Professional Referral for Pe rineal pain Referring Physician: Rylie Sal, Encounter Date: 10/07/2023 International Editorial Producer Referral for Functional visual loss Referring Physician: Rylie Sal, Encounter Date: 10/07/2023 Urologist Referral for 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 Referring Physician: Rylie Sal, Encounter Date: 10/07/2023 Hvac Services Professional Referral for Gy necologic examination Referring Physician: Rylie Sal, Encounter Date: 10/07/2023 Pain Management Referral for Trochanteric bursitis of right hip Referring Physician: [facility], Encounter Date: 01/14/2024 Hvac Services Professional Referral for Gy necologic examination Referring Physician: [facility], Encounter Date: 01/14/2024 Hvac Services Professional Referral for Gy necologic examination Referring Physician: [facility], Encounter Date: 05/05/2024 Mold Machine Operator Referral for P ruritic rash Referring Physician: An[facility], Encounter Date: 05/05/2024 Physical Therapist Referral for Low back pain Referring Physician: An[facility], Encounter Date: 05/05/2024 Results Created Date Observation Date Name Description Value Unit Range Abnormal Flag Note LastModifiedBy Organization Detail LastModifiedTime 08/04/1908/04/2023 paula metry testi ng* Spirometry Not Available [facility], [facility] [address] [facility] [address], [place], [address], 07/28/2023 16:09:23 01/12/20 24 01/16/2024 LIPID PANEL , STAND MINNIE cholesterol, total 178 mg/dL <200 normal Not Available [employer] [address] [address] [place], [address], 01/16/2024 03:29:46 01/12/20 24 01/16/2024 LIPID PANEL , STAND MINNIE HDL cholesterol 55 mg/dL > or = 50 normal Not Available [facility] [address] [place], [address], 01/16/2024 03:29:46 01/12/20 24 01/16/2024 LIPID PANEL , STAND MINNIE triglyceride s 152 mg/dL <150 high Not Available [facility] [address] [place], [address], 01/16/2024 03:29:46 01/12/20 24 01/16/2024 LIPID PANEL , STAND MINNIE LDL-choleste rol 98 mg/dL _(corey c) normal Refer ence range : <100 Patrick able range <100 mg/dL for prima ry preve ntion ; <70 mg/dL for patie nts with CHD or diabe tic patie nts with > or = 2 CHD risk facto rs. LDL-C is now calcu lated using the Liz n-Hop kins calcu robert n, which is a valid ated novel metho d provi ding rashad r accur acy than the Fried lily equat ion in the estim ation of LDL-C . Liz covington SS et al. TITO. 2013; 310(2 9): 2061- 2068 (http ://ed ucati on.[employer] shannanROI land investment. com/f aq/FA Q164) Not Available [facility] [address] [address] [place], [address], 01/16/2024 03:29:46 01/12/20 24 01/16/2024 LIPID PANEL , STAND MINNIE chol/HDLC ratio 3.2 (calc ) <5.0 normal Not Available [facility] [address] [place], [address], 01/16/2024 03:29:46 01/12/20 24 01/16/2024 LIPID PANEL , STAND MINNIE non HDL cholesterol 123 mg/dL _(corey c) <130 normal For patie nts with diabe vane plus 1 major ASCVD risk facto r, treat ing to a non-H DL-C goal of <100 mg/dL (LDL- C of <70 mg/dL ) is consi dered a thera peuti c optio n. Not Available [facility] [address] [place], [address], 01/16/2024 03:29:46 01/12/20 24 01/16/2024 HIV 1/2 ANTIG EN/AN TIBOD Y,FOU RTH GENER ATION W/RFL HIV Ag/Ab, 4TH gen NON-RE ACTIVE non-re active normal HIV-1 antig en and HIV-1 /HIV- 2 antib odies were not detec dilan. There is no labor atory evide nce of HIV infec tion. PLEAS E NOTE: This infor matio n has been discl osed to you from recor ds whose confi denti ality may be prote cted by state law. If your state requi res such prote ction , then the state law prohi bits you from norma tim schwab furth er discl osure of the infor matio n witho ut the speci fic writt en conse nt of the perso n to whom it perta ins, or as other cuenca permi tted by law. A gener al autho rizat ion for the relea se of medic al or other infor matio n is NOT suffi cient for this purpo se. For addit ional infor matio n pleas e refer to http: //[facility] catzina n.que stdia gnost ics.c om/fa q/FAQ 106 (This link is being provi ded for infor matio nal/ educa leeann l purpo ses only. ) The perfo rmanc e of this assay has not been clini toñito valid ated in patie nts less than 2 years old. Not Available [facility] [employer] [facility] [address], [address], 01/16/2024 03:29:48 01/12/20 24 01/16/2024 TSH+F REE T4 TSH 0.72 mIU/L 0.40-4 .50 normal Not Available [facility] [address], [address], 01/16/2024 03:29:48 01/12/20 24 01/16/2024 TSH+F REE T4 T4, free 1.3 NG/dL 0.8-1. 8 normal Not Available [employer] [facility] [address], [address], 01/16/2024 03:29:48 01/12/20 24 01/16/2024 COMPR EHENS TENZIN METAB OLIC PANEL glucose 105 mg/dL 65-99 high Fasti ng refer ence inter niya For someo ne witho ut known diabe vane, a gluco se value betwe en 100 and 125 mg/dL is consi stent with predi abete s and shoul d be confi rmed with a follo w-up test. Not Available [address] [address] [place], [address], 01/16/2024 03:29:50 01/12/20 24 01/16/2024 COMPR EHENS TENZIN METAB OLIC PANEL urea nitrogen (BUN) 16 mg/dL 7-25 normal Not Available [facility] [address] [address] [place], [address], 01/16/2024 03:29:50 01/12/20 24 01/16/2024 COMPR EHENS TENZIN METAB OLIC PANEL creatinine 0.89 mg/dL 0.50-1 .03 normal Not Available [address] [address] [place], [address], 01/16/2024 03:29:50 01/12/20 24 01/16/2024 COMPR EHENS TENZIN METAB OLIC PANEL eGFR 75 mL/mi n/1.7 3m2 > or = 60 normal Not Available [address] [address] [place], [address], 01/16/2024 03:29:50 01/12/20 24 01/16/2024 COMPR EHENS TENZIN METAB OLIC PANEL BUN/creatini ne ratio SEE NOTE: (calc ) 6-22 Not Repor dilan: BUN and Creat inine are withi n refer ence range . Not Available [facility] [address] [address] [place], [address], 01/16/2024 03:29:50 01/12/20 24 01/16/2024 COMPR EHENS TENZIN METAB OLIC PANEL sodium 141 mmol/ L 135-14 6 normal Not Available [facility] [address] [address] [place], [address], 01/16/2024 03:29:50 01/12/20 24 01/16/2024 COMPR EHENS TENZIN METAB OLIC PANEL potassium 3.9 mmol/ L 3.5-5. 3 normal Not Available [address], [address], 01/16/2024 03:29:50 01/12/20 24 01/16/2024 COMPR EHENS TENZIN METAB OLIC PANEL chloride 107 mmol/ L 98-110 normal Not Available [address], [address], 01/16/2024 03:29:50 01/12/20 24 01/16/2024 COMPR EHENS TENZIN METAB OLIC PANEL carbon dioxide 23 mmol/ L 20-32 normal Not Available [address], [address], 01/16/2024 03:29:50 01/12/20 24 01/16/2024 COMPR EHENS TENZIN METAB OLIC PANEL calcium 9.7 mg/dL 8.6-10 .4 normal Not Available [address], [address], 01/16/2024 03:29:50 01/12/20 24 01/16/2024 COMPR EHENS TENZIN METAB OLIC PANEL protein, total 7.0 g/dL 6.1-8. 1 normal Not Available [address], [address], 01/16/2024 03:29:50 01/12/20 24 01/16/2024 COMPR EHENS TENZIN METAB OLIC PANEL albumin 4.4 g/dL 3.6-5. 1 normal Not Available [address], [address], 01/16/2024 03:29:50 01/12/20 24 01/16/2024 COMPR EHENS TENZIN METAB OLIC PANEL globulin 2.6 g/dL_ (calc ) 1.9-3. 7 normal Not Available [address], [address], 01/16/2024 03:29:50 01/12/20 24 01/16/2024 COMPR EHENS TENZIN METAB OLIC PANEL albumin/glob ulin ratio 1.7 (calc ) 1.0-2. 5 normal Not Available [address], [address], 01/16/2024 03:29:50 01/12/20 24 01/16/2024 COMPR EHENS TENZIN METAB OLIC PANEL bilirubin, total 0.7 mg/dL 0.2-1. 2 normal Not Available [address], [address], 01/16/2024 03:29:50 01/12/20 24 01/16/2024 COMPR EHENS TENZIN METAB OLIC PANEL alkaline phosphatase 78 U/L 37-153 normal Not Available [address], [address], 01/16/2024 03:29:50 01/12/20 24 01/16/2024 COMPR EHENS TENZIN METAB OLIC PANEL AST 17 U/L 10-35 normal Not Available [address], [address], 01/16/2024 03:29:50 01/12/20 24 01/16/2024 COMPR EHENS TENZIN METAB OLIC PANEL ALT 15 U/L 6-29 normal Not Available [address], [address], 01/16/2024 03:29:50 01/12/20 24 01/16/2024 CBC (INCL UDES DIFF/ PLT) white blood cell count 8.2 thous and/u L 3.8-10 .8 normal Not Available [address], [address], 01/16/2024 03:29:50 01/12/20 24 01/16/2024 CBC (INCL UDES DIFF/ PLT) red blood cell count 4.92 seven on/uL 3.80-5 .10 normal Not Available [address], [address], 01/16/2024 03:29:50 01/12/20 24 01/16/2024 CBC (INCL UDES DIFF/ PLT) hemoglobin 15.5 g/dL 11.7-1 5.5 normal Not Available [address], [address], 01/16/2024 03:29:50 01/12/20 24 01/16/2024 CBC (INCL UDES DIFF/ PLT) hematocrit 46.3 % 35.0-4 5.0 high Not Available [address], [address], 01/16/2024 03:29:50 01/12/20 24 01/16/2024 CBC (INCL UDES DIFF/ PLT) MCV 94.1 fL 80.0-1 00.0 normal Not Available [address], [address], 01/16/2024 03:29:50 01/12/20 24 01/16/2024 CBC (INCL UDES DIFF/ PLT) MCH 31.5 pg 27.0-3 3.0 normal Not Available [address], [address], 01/16/2024 03:29:50 01/12/20 24 01/16/2024 CBC (INCL UDES DIFF/ PLT) MCHC 33.5 g/dL 32.0-3 6.0 normal For adult s, a sligh t decre ase in the calcu lated MCHC value (in the range of 30 to 32 g/dL) is most likel y not clini toñito signi wilbur t; howev er, it shoul d be inter prete d with cauti on in corre [facility] n with other red cell lewis eters and the patie nt's clini corey condi tion. Not Available [address], [address], 01/16/2024 03:29:50 01/12/20 24 01/16/2024 CBC (INCL UDES DIFF/ PLT) RDW 12.8 % 11.0-1 5.0 normal Not Available [address], [address], 01/16/2024 03:29:50 01/12/20 24 01/16/2024 CBC (INCL UDES DIFF/ PLT) platelet count 225 thous and/u L 140-40 0 normal Not Available [address], [address], 01/16/2024 03:29:50 01/12/20 24 01/16/2024 CBC (INCL UDES DIFF/ PLT) MPV 10.5 fL 7.5-12 .5 normal Not Available [address], [address], 01/16/2024 03:29:50 01/12/20 24 01/16/2024 CBC (INCL UDES DIFF/ PLT) absolute neutrophils 6298 cells /uL 1500-7 800 normal Not Available [address], [address], 01/16/2024 03:29:50 01/12/20 24 01/16/2024 CBC (INCL UDES DIFF/ PLT) absolute lymphocytes 1419 cells /uL 850-39 00 normal Not Available [address], [address], 01/16/2024 03:29:50 01/12/20 24 01/16/2024 CBC (INCL UDES DIFF/ PLT) absolute monocytes 287 cells /uL 200-95 0 normal Not Available [address], [address], 01/16/2024 03:29:50 01/12/20 24 01/16/2024 CBC (INCL UDES DIFF/ PLT) absolute eosinophils 148 cells /uL 15-500 normal Not Available [address], [address], 01/16/2024 03:29:50 01/12/20 24 01/16/2024 CBC (INCL UDES DIFF/ PLT) absolute basophils 49 cells /uL 0-200 normal Not Available [address], [address], 01/16/2024 03:29:50 01/12/20 24 01/16/2024 CBC (INCL UDES DIFF/ PLT) neutrophils 76.8 % normal Not Available [address], [address], 01/16/2024 03:29:50 01/12/20 24 01/16/2024 CBC (INCL UDES DIFF/ PLT) lymphocytes 17.3 % normal Not Available [address], [address], 01/16/2024 03:29:50 01/12/20 24 01/16/2024 CBC (INCL UDES DIFF/ PLT) monocytes 3.5 % normal Not Available [address], [address], 01/16/2024 03:29:50 01/12/20 24 01/16/2024 CBC (INCL UDES DIFF/ PLT) eosinophils 1.8 % normal Not Available [address], [address], 01/16/2024 03:29:50 01/12/20 24 01/16/2024 CBC (INCL UDES DIFF/ PLT) basophils 0.6 % normal Not Available [address], [address], 01/16/2024 03:29:50 01/12/20 24 01/16/2024 HEPAT ITIS C AB W/REF L TO HCV RNA, QN, PCR hepatitis C antibody NON-RE ACTIVE non-re active normal HCV antib guero was non-r eacti ve. There is no labor atory evide nce of HCV infec tion. In most cases , no furth er actio n is requi red. Howev er, if recen t HCV expos ure is suspe cted, a test for HCV RNA (test code 75050 ) is sugge sted. For addit ional infor madhav covington pleas e refer to http: //[facility] esa fernandez stdia gnost ics.c om/fa q/FAQ 22v1 (This link is being provi ded for infor madhav layne/ educa leeann l purpo ses only. ) Not Available [address], [address], 01/16/2024 03:29:51 01/12/20 24 01/16/2024 VITAM IN B12 vitamin B12 418 pg/mL 200-11 00 normal Not Available [address], [address], 01/16/2024 03:29:52 01/12/20 24 01/16/2024 T3, FREE T3, free 3.8 pg/mL 2.3-4. 2 normal Not Available [address], [address], 01/16/2024 03:29:53 01/12/20 24 01/16/2024 VITAM IN D,25- OH,TO LAM,I A vitamin D,25-oh,tota l,ia 12 NG/mL 30-100 low Vitam in D Statu s 25-OH Vitam in D: Defic iency : <20 ng/mL Insuf ficie ncy: 20 - 29 ng/mL Optim al: > or = 30 ng/mL For 25-OH Vitam in D testi ng on patie nts on D2-breen pplem entat ion and patie nts for whom quant itati on of D2 and D3 fract ions is requi red, the [facility] Ass[facility] eD(TM ) 25-OH VIT D, (D2,D 3), LC/MS /MS is recom jameson d: order code 47726 (greta ents >2yrs ). See Note 1 Note 1 For addit ional infor coco coronado refer to http: //[facility] esa covington.Hever stDia gnost ics.c om/fa q/FAQ 199 (This link is being provi ded for infor madhav layne/ educariana guamanleeann l purpo ses only. ) Not Available [employer] [facility] [address] [place], [address], 01/16/2024 03:29:54 01/12/20 24 01/16/2024 VITAM IN B6, PLASM A vitamin B6, plasma 6.7 NG/mL 2.1-21 .7 (Note ) Vitam in suppl ement ation withi n 24 hours prior to blood draw may affec t the accur acy of resul ts. This test was devevelyn barcenased and its addie tical perfo rmanc e kathleen cteri stics have been deter mined by [facility]. It has not been clear ed or appro nereyda by the FDA. This assay has been valid ated pursu ant to the CLIA regul ation s and is used for clini corey purpo ses. MDF med fusio n [address] [facility] [address] [facility] [address] [phone] Aaliyah Stark MD, PhD Not Available [employer] [facility] [address] [place], [address], 01/16/2024 03:29:54 01/12/20 24 01/16/2024 VITAM IN B1 (THIA MINE) , BLOOD , LC/MS /MS vitamin B1 (thiamine), blood, lc/MS/MS 93 nmol/ L 78-185 (Note ) Vitam in suppl ement ation withi n 24 hours prior to blood draw may affec t the accur acy of the resul ts. This test was devel oped and its addie tical perfo rmanc e kathleen cteri stics have been deter mined by [facility]. It has not been clear ed or appro nereyda by FDA. This assay has been valid ated pursu ant to the CLIA regul ation s and is used for clini corey purpo ses. MDF med fusio n [address] [facility] [address] [place] [address] [phone] Ithie l Reddy Stark MD, PhD Not Available [employer] [facility] [address] [place], [address], 01/16/2024 03:29:55 07/28/19 24 04/30/2023 CT, chest + abdom en + pelvi s, w/ contr ast No observ ation record ed. [email or web address] Not Available 2023 16:21:18 07/31/19 24 07/28/2023 paula metry testi ng* No observ ation record ed. [facility], [facility] [address], [place], [address], 08/04/2023 13:47:10 01/15/20 24 01/12/2024 XR, lumba r spine No observ ation record ed. [facility] [address] [address], [place], [address], 05/05/2024 21:20:16 05/10/19 25 02/26/2024 CT, chest + abdom en + pelvi s, w/ contr ast No observ ation record ed. [email or web address] Not Available 2024 18:32:15 Result Notes None recorded. Problems Name Problem SNOMED Code Status Onset Date Resolution Date Notes Provider Name and Address Organization Details Recorded Time Trochante scarlet bursitis of right hip 060965977224 100 Active 2024 Anibal Sewell MD [address], [place], [address], [facility] 03/06/202 5 21:31:59 Depressiv e disorder 64111807 [facility] 14:[facility] Pain in thoracic spine 695320635 [facility] 14:49:22 Allergic rhinitis 45919754 [facility] 14:49:34 Chronic obstructi ve pulmonary disease 66249442 [facility] 14:49:43 Vitamin D deficienc y 97042366 [facility] 14:49:52 Overweigh t 660751361 [facility] 14:50:00 Nicotine dependenc e 02521293 Active [facility] 14:50:12 Optic neuritis 03377234 Active [address] Cydney Underwood on 09/2017. Pt has stable neuro ophthalmi c exam. 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 Does have cataracts that are symtomati c. Dr Underwood referred pt to Dr Dennison for cataract extractio n. See pt in 1 year or as needed Anibal Sewell MD [address], [place], [address], [facility] 8 16:08:33 Problem Notes None recorded. Procedures Surgical History Date Name Laterality Status Provider Name and Address Organization Details Recorded Time 01/13/20 24 Date of Last Pap Smear completed Mary Alcantara [facility] 01/13/2024 18:06:29 07/31/19 23 radical cystectomy completed Anibal Sewell MD [address], [place], [address], [facility] 07/28/2023 15:49:13 03/02/19 23 ureterectomy completed Mary Alcantara [facility] 07/29/2023 19:23:22 01/15/20 22 Date of Last Mammogram completed Mary Alcantara [facility] 07/28/2023 15:26:06 10/29/19 Hysteroscopy completed Anibal Sewell MD [address], [place], [address], [place] [facility] 11/06/2017 22:23:15 Imaging Results Imaging Date Name Status LastModified by Organiz ation Details LastModified Time 04/30/2023 CT, chest + abdomen + pelvis, w/ contrast completed [email or web address] Information not available 07/28/2023 16:21:18 07/28/2023 [facility] [address], [place], [address], 08/04/2023 13:47:10 01/12/2024 XR, lumbar spine completed [facility] [address], [address], 05/05/2024 21:20:16 02/26/2024 CT, chest + abdomen + pelvis, w/ contrast completed Information not available 05/10/2024 18:32:15 Procedure Notes None recorded. Medical Equipment None Reported. Allergies Allergen ID Allergen Name Allergen Category Reaction Reaction Severity Criticality Documentation Date Start Date Code Code System Note Provider Name and Address Organization Details Recorded Time 3237 Prozac medicatio n Not available Not available Not available 10/05/2015 59069 RxNorm -- pt carol fy that Proza c makes her nervo us ( no angio edema or anaph ylaxi s) Anibal Sewell MD [address], [place], [address], [facility] 7 16:28:50 3238 Substance with sulfonami de structure and antibacte rial mechanism of action (substanc e) medicatio n Not available Not available Not available 10/05/2015 28360 8003 SNOMED Mary minaya, [facility] 6 14:48:59 Medications Name Sig Start Date Stop Date Status Note LastModified by Organization Details LastModified Time quetiapin e 25 mg tablet TAKE 1 TABLET BY MOUTH AT BEDTIME active Not Available Not Available No t Available bupropion HCl SR 150 mg tablet,12 hr sustained -release TAKE 1 TABLET BY MOUTH TWICE DAILY active Not Available Not Available No t Available fluticaso ne 250 mcg-salme terol 50 mcg/dose blistr powdr for inhalatio n Inhale 1 puff twice a day by inhalati on route. active Not Available Not Available No t Available fluconazo le 150 mg tablet 03/20 completed Not Available Not Available Not Available meloxicam 15 mg tablet TAKE 1 TABLET BY MOUTH DAILY active Not Available Not Available No t Available triamcino lone acetonide 0.025 % lotion active Not Available Not Available Not Available hydroxyzi ne HCl 50 mg tablet Take 1 tablet every 12 hours by oral route. 10/06 completed Not Available Not Available Not Available ciproflox acin 500 mg tablet TAKE 1 TABLET BY MOUTH TWICE DAILY FOR 7 DAYS 07/27 completed Not Available Not Available Not Available sulfameth oxazole 800 mg-trimet hoprim 160 mg tablet 08/20 completed Not Available Not Available Not Available peg-elect rolyte solution 420 gram oral solution active Not Available Not Available Not Available triamcino lone acetonide 0.1 % topical cream APPLY TO DRY ITCHY AREAS FOUR TIMES DAILY 10/06 completed -- on lotion now Not Available Not Available Not Available amitripty line 25 mg tablet Take 1 tablet every day by oral route. 10/06 completed Not Available Not Available Not Available magnesium oxide 400 mg (241.3 mg magnesium ) tablet TAKE 2 TABLETS BY MOUTH FOR 1 DOSE 07/27 completed Not Available Not Available Not Available estradiol 1 mg tablet 07/27 completed Not Available Not Available Not Available meclizine 25 mg tablet Take 1 tablet 3 times a day by oral route for 30 days. 10/06 completed Not Available Not Available Not Available cephalexi n 500 mg capsule 07/27 completed Not Available Not Available Not Available pantopraz ole 40 mg tablet,de layed release 07/27 completed Not Available Not Available Not Available clotrimaz ole-betam ethasone 1 %-0.05 % topical cream APPLY TOPICALL Y TO THE AFFECTED AND SURROUND ING AREAS TWICE DAILY IN THE MORNING AND IN THE EVENING FOR 2 WEEKS active Not Available Not Available No t Available nicotine 21 mg/24 hr daily transderm al patch active Not Available Not Available Not Available hydroxyzi ne HCl 25 mg tablet TAKE 1 TABLET BY MOUTH THREE TIMES DAILY NEEDED active Not Available Not Available No t Available gabapenti n 100 mg capsule TAKE 1 CAPSULE BY MOUTH THREE TIMES DAILY active Not Available Not Available No t Available Transderm -Scop 1 mg over 3 days transderm al patch 02/11 completed Not Available Not Available Not Available polyethyl shana glycol 3350 17 gram/dose oral powder 07/27 completed Not Available Not Available Not Available estradiol 0.01% (0.1 mg/gram) vaginal cream active Not Available Not Available Not Available albuterol sulfate HFA 90 mcg/actua tion aerosol inhaler 2 puffs up to 4 times a days as needed only; Must go to the Emergenc [facility] Room if no relief after the 4th treatmen t. active Not Available Not Available No t Available ondansetr on 4 mg disintegr ating tablet 07/27 completed Not Available Not Available Not Available cefdinir 300 mg capsule 1 pill every 12 hours 08/20 completed Not Available Not Available Not Available fluticaso ne propionat e 50 mcg/actua tion nasal spray,margarita pension 07/27 completed Not Available Not Available Not Available clotrimaz ole 1 % topical cream APPLY TOPICALL Y TO THE AFFECTED AND SURROUND ING AREAS TWICE DAILY IN THE MORNING AND IN THE EVENING 03/20 completed -- changed to clotrima zole-bet amethaso ne combo cream Not Available Not Available Not Available cholecalc iferol (vitamin D3) 125 mcg (5,000 unit) capsule Take 1 capsule every day by oral route. 2023 active Not Available Not Available Not Avai lable amoxicill in 875 mg-potass ium clavulana te 125 mg tablet 02/11 completed Not Available Not Available Not Available oxycodone 5 mg tablet 07/27 completed Not Available Not Available Not Available escitalop manjula 20 mg tablet TAKE 1 TABLET BY MOUTH EVERY EVENING 10/06 completed -- pt self d/c bc of fatigue Not Available Not Available Not Available bupropion HCl XL 300 mg 24 hr tablet, extended release 07/27 completed Not Available Not Available Not Available bupropion HCl XL 150 mg 24 hr tablet, extended release Take 1 tablet every day by oral route. 10/06 completed -- pt reports it did not work Not Available Not Available Not Available nitrofura ntoin monohydra te/macroc rystals 100 mg capsule 07/27 completed Not Available Not Available Not Available duloxetin e 30 mg capsule,d elayed release 1 pill once daily x 10 days; then 2 pills daily until finished 05/05 completed -- not efficaci ous Not Available Not Available Not Available duloxetin e 60 mg capsule,d elayed release Take 1 capsule every day by oral route. 05/05 completed -- pt states it did not work Not Available Not Available Not Available Xopenex HFA 45 mcg/actua tion aerosol inhaler Inhale 2 puffs every 6 hours by inhalati on route for 30 days. 07/27 completed Not Available Not Available Not Available Mucinex 1,200 mg tablet, extended release Take 1 tablet every 12 hours by oral route. 08/20 completed Not Available Not Available Not Available Chantix Continuin g Month Box 1 mg tablet Take 1 tablet twice a day by oral route. 10/06 completed -- pt now taking Not Available Not Available Not Available Chantix Starting Month Box 0.5 mg (11)-1 mg (42) tablets in dose pack ud 10/06 completed Not Available Not Available Not Available Eliquis 5 mg tablet 07/27 completed Not Available Not Available Not Available Trintelli x 10 mg tablet TAKE 1 TABLET BY MOUTH EVERY DAY 07/27 completed Not Available Not Available Not Available Spravato 56 mg (28 mg x 2) nasal spray active -- pt reported she is no longer on it as she did not feel it worked. Not Available Not Available Not Available Spravato 84 mg (28 mg x 3) nasal spray active Not Available Not Available Not Available Breztri Aerospher e 160 mcg-9mcg- 4.8mcg/ac tuation HFA aerosol inhaler Inhale 2 puffs twice a day by inhalati on route. 01/29 completed Changed Breztri to Fluticas one-Salm eterol due to cost. Not Available Not Available Not Available Auvelity 45 mg-105 mg tablet, extended release Take by oral route for 90 days. 10/06 completed -- pt reports that she back on Howiebutri n as the Auvelity is not working. Not Available Not Available Not Available Airsupra 90 mcg-80 mcg/actua tion HFA aerosol inhaler 2 puffs up to 4 times a days as needed only; Must go to the Emergenc y Room if no relief after the 4th treatmen t. 01/29 completed Changed Airsupra to Albutero l due to cost. Not Available Not Available Not Available Vitals Date Recorded Body weight Body mass index (BMI) Body height Respiratory rate Body temperature Heart rate Systolic blood pressure Diastolic blood pressure Provider Name and Address Organization Details Last Updated DateTime 4 [address]506.4 1 g 26.8 kg/m2 162.56 cm 16 /min 97.8 [degF] 82 /min 127 mm[Hg] 86 mm[Hg] [facility] 4 15:28:44 Date Recorded Body height Heart rate Respiratory rate Body temperature Body mass index (BMI) Body weight Systolic blood pressure Diastolic blood pressure Provider Name and Address Organization Details Last Updated DateTime 4 162.56 cm 99 /min 16 /min 97.5 [degF] 26.8 kg/m2 89768.4 1 g 112 mm[Hg] 62 mm[Hg] [facility] 4 17:34:22 Date Recorded Body height Respiratory rate Body temperature Body mass index (BMI) Body weight Systolic blood pressure Diastolic blood pressure Provider Name and Address Organization Details Last Updated DateTime 4 162.56 cm 16 /min 97.1 [degF] 26.4 kg/m2 55394.2 2 g 107 mm[Hg] 73 mm[Hg] [facility] 4 10:30:06 Date Recorded Heart rate Provider Name an d Address Organization Details Last Updated DateTime 10/07/2023 80 /min Anibal Sewell MD [address] [facility] [address], [place], [address], [facility] 10/07/2023 11:39:51 Date Recorded Body height Heart rate Respiratory rate Body temperature Body mass index (BMI) Body weight Systolic blood pressure Diastolic blood pressure Provider Name and Address Organization Details Last Updated DateTime 4 162.56 cm 82 /min 16 /min 97.3 [degF] 25.4 kg/m2 48607.6 7 g 127 mm[Hg] 82 mm[Hg] Mary Alcantara [facility] 4 10:03:41 Date Recorded Body height Respiratory rate Body mass index (BMI) Body weight Heart rate Systolic blood pressure Diastolic blood pressure Provider Name and Address Organization Details Last Updated DateTime 8 162.56 cm 16 /min 29.7 kg/m2 02672.4 8 g 73 /min 124 mm[Hg] 85 mm[Hg] Raysa Loza [facility] 8 15:55:33 Social History Question Answer Notes LastModified by Organization Details LastModified Time Tobacco Smoking Status Current Every Day Smoker Not Available [facility] 12/16/2019 03:11:40 Do You Have An Advance Directive? No Information not available 07/28/2023 What Is Your Level Of Alcohol Consumption? None Recovering Alcoholic...s astrid For 32 Years Now Information not available 07/29/2023 Do You Wear A Helmet When Biking? No Information not available 07/28/2023 Are You Blind Or Do You Have Difficulty Seeing? 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 Yes Information not available 07/28/2023 What Is Your Level Of Caffeine Consumption? Heavy Information not available 07/28/2023 What Type Of Door Glass Installer Do You Use? None Information not available 07/28/2023 What Is Your Code Status? DNR Information not available 07/28/2023 In The 14 Days Before Symptom Onset, Have You Had Close Contact With A Laboratory-confi ed COVID-19 While That Case Was Ill? No Information not available 07/28/2023 In The 14 Days Before Symptom Onset, Have You Had Close Contact With A Person Who Is Under Investigation For COVID-19 While That Person Was Ill? No Information not available 07/28/2023 Have You Been To An Area Known To Be High Risk For COVID-19? No Information not available 07/28/2023 Are You Currently Employed? No [employer]//off Work Due To Cancer Information not available 07/28/2023 Are You Deaf Or Do You Have Serious Difficulty Hearing? No Information not available 07/28/2023 What Type Of Diet Are You Following? REGULAR Information not available 07/28/2023 Which Illicit Or Recreational Drugs Have You Used? Marijuana Information not available 07/29/2023 Have You Processed Blood Or Body Fluids From An Ebola Virus Disease Patient Without Appropriate PPE? No Information not available 07/28/2023 Do You Reside In Or Have You Traveled To An Area Where Ebola Virus Transmission Is Active? No Information not available 07/28/2023 What Is The Highest Grade Or Level Of School You Have Completed Or The Highest Degree You Have Received? [id number] Information not available 07/29/2023 Have There Been Any Changes To Your Family Or Social Situation? Yes Mother 4 Months Ago Information not available 07/28/2023 What Is The Fluoride Status Of Your Home? Fluoridated Information not available 07/28/2023 Are There Any Guns Present In Your Home? No Information not available 07/28/2023 Do You Use Insect Repellent Routinely? No Information not available 07/28/2023 What Was The Date Of Your Most Recent Tobacco Screening? 01/14/2024 Information not available 01/14/2024 How Many Children Do You Have? 0 Information not available 07/28/2023 Do You Have Any Pets? Yes Information not available 07/28/2023 What Is Your Relationship Status? Single Information not available 07/28/2023 Do You Use Your Seat Belt Or Car Seat Routinely? Yes Information not available 07/28/2023 Are You Sexually Active? No Information not available 07/28/2023 Do You Have Smoke And Carbon Monoxide Detectors In Your Home? Yes Information not available 07/28/2023 At What Age Did You Start Smoking Tobacco? 12 Information not available 07/28/2023 Are You Passively Exposed To Smoke? No Information not available 07/28/2023 How Much Tobacco Do You Smoke? 1 PPD [id number] Information not available 12/16/2019 What Types Of Sporting Activities Do You Participate In? No Information not available 07/28/2023 Do You Feel Stressed (tense, Restless, Nervous, Or Anxious, Or Unable To Sleep At Night)? [id number] Information not available 07/28/2023 Do You Use Any Illicit Or Recreational Drugs? Yes Information not available 07/29/2023 Do You Use Sunscreen Routinely? No Information not available 07/28/2023 How Many Years Have You Smoked Tobacco? 18 [id number] Information not available 12/16/2019 Do You Or Have You Ever Used Any Other Forms Of Tobacco Or Nicotine? No Information not available 07/28/2023 Sex: Unknown Functional Status Question Answer Note LastModified by Organizat ion Details LastModified Time Do you have difficulty walking or climbing stairs? Yes Information not available 07/28/2023 Do you have transportation difficulties? Yes gets medical rides Information not available 07/28/2023 Do you have difficulty doing errands alone? Yes Information not available 07/28/2023 Are you able to care for yourself? Yes needs help at times Information not available 07/28/2023 Do you have difficulty dressing or bathing? Yes sometimes Information not available 07/28/2023 What is your exercise level? None Information not available 07/28/2023 Mental Status Question Answer Note LastModified by Organization D etails LastModified Time Do you have difficulty concentrating, remembering or making decisions? Yes Information no t available 07/28/2023 Family History Relationship Description Onset Age of this Age Resolved Age Notes LastModified by Organization Details LastModified Time Maternal Aunt Malignant tumor of breast [email or web address] Not available 2015 14:51:10 Mother Asthma [email or web address] Not available 14:31:21 Mother Hypertensive disorder [email or web address] Not available 2023 14:31:37 Mother Arthritis [email or web address] Not available 07/28/2023 14:32:38 Maternal Grandmother Arthritis [email or web address] Not available 07/01 14:32:37 Maternal Grandmother Depressive disorder [email or web address] Not available 2023 14:32:52 Maternal Grandfather Alcohol abuse [email or web address] Not available 2023 14:33:22 Maternal Grandfather Heart disease [email or web address] Not available 2023 14:34:45 Father Alcohol abuse [email or web address] Not available 2023 14:33:22 Father Osteoporosis [email or web address] Not availa ble 07/28/2023 14:35:10 Paternal Grandfather Family history of malignant neoplasm brain mbenfer Not available 2023 14:34:05 Paternal Grandfather Heart disease mbenfer Not available 2023 14:34:45 Medical History Condition Response Anxiety Disorder Y Cancer Y Pulmonary Embolism Gynecological History Statement/Question Response If Post Menopausal, Age at Menopause 55 Date of Last Pap Smear 01/13/2024 Date of Last Mammogram 01/14/2022 Date of Last Colonoscopy Obstetrics History GPAL:G 0 P 0 0 0 0 Past Encounters Encounter ID Performer Location Encounter Start Date Encounter Closed Date Diagnosis/Indication Diagnosis SNOMED-CT Code Diagnosis ICD10 Code Diagnosis Note [id number] Anibal Sewell MD [facility], [facility] [address] [place] [address] 01/17/2016 15:58:39 01/17/2016 18:18:02 Depressive disorder 52318065 F32.89 -- pt willing to add Bupropion b/c she has lack of motivation . Chronic ob structive pulmonary disease 31102517 J44.9 -- stable w/o exascerbat ion Vitamin D deficiency 347 69278 E55.9 Nicotine dependence 5629 4008 F17.200 -- advised to Quit smoking Optic neuritis 95164331 H46.9 (almost blind in her left eye) -- saw Ophthalmol ogist at [place] Dr Underwood Hyperlipid emia screening 253459529 Z13.220 Serum hansa min B12 below reference range 593589661 R79.89 Screening for cancer 158 95571 Z12.9 Active or passive immunization 888511594 Z23 [id number] Anibal Sewell MD [facility], [facility] [address] [place] [address] 10/06/2016 15:01:35 10/06/2016 16:26:23 Depressive disorder 54534618 F32.9 -- pt willing to add Bupropion b/c she has lack of motivation . Adult heal th examination 709634720 Z00.00 Chronic ob structive pulmonary disease 98537127 J44.9 -- stable w/o exascerbat ion Optic neuritis 32689044 H46.9 (almost blind in her left eye) -- saw Ophthalmol ogist at [place] Dr Underwood Nicotine dependence 5629 4008 F17.200 -- advised to Quit smoking because of increased risk for Stroke, cancers, emphysema/ bronchitis , aneurysm, & premature . Vitamin D deficiency 347 52846 E55.9 Serum hansa min B12 below reference range 315367157 R79.89 Hyperlipid emia screening 341126551 Z13.220 Active or passive immunization 770788607 Z23 Screening for malignant neoplasm of colon 795893375 Z12.11 Screening for malignant neoplasm of breast 334403727 Z12.31 Screening for malignant neoplasm of cervix 937178457 Z12.4 Body mass index 30+ - obesity 724333641 Z68.39 -- advised weight loss; pt lost 4 # since her last visit-- pt's BMI today is 30 (ideal is between 20-25). Acute sinusitis 86742565 J01.90 [id number] Anibal Sewell MD [facility], [employer] [address] [place] [address] 08/20/2017 14:52:26 08/20/2017 16:38:58 Migraine 64534432 G43.909 (15 to 20 days of migraines a month) Chronic ob structive pulmonary disease 82234964 J44.9 -- stable w/o exascerbat ion Depressive disorder 3548 9007 F32.9 -- Psychiatri st Dr Daphney Esposito has got insurance approval to have pt start Transcrani al Magnetic Stimulatio n. Increased frequency of urination 401196371 R35.0 ? interstitu al cystitis Nicotine dependence 5629 4008 F17.200 -- advised to Quit smoking because of increased risk for Stroke, cancers, emphysema/ bronchitis , aneurysm, & premature . 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 Reviewed at [facility]. There are filling defects in the left lateral and anterior bladder. Left lateral bladder mass measures 2.9 x 1.5 cm. There is fat stranding adjacent to mass best appreciate d on the coronal plane. An additional anterior dome bladder mass measures 0.8 x 0.3 cm. Jan 03 2022: CT A/P with contrast. Multiple bladder masses are suspicious for malignancy . Stranding adjacent to the left lateral mass is concerning for extramural invasion. Jan 07 2022: cystoscopy and TURBT with Dr. Sunny Vasquez at [facility]. Tumor measuring 4 cm involving the left lateral wall, 1.5 mg tumor anteriorly . Resection of both tumors performed. Pathology reviewed at [facility]. High grade invasive papillary urothelial carcinoma. Tumor invades lamina propria and muscularis propria. At least pT2. Feb 27 2022: CT chest without contrast. No definite evidence of thoracic metastatic disease. CT urogram with changes of transureth ral resection of 2 bladder tumors with persistent nodular tissue within the left lateral wall of the bladder. There is also persistent polypoid soft tissue within the inferior bladder near the urethra, which would be better assessed on cystoscopy . No evidence of upper urinary tract tumors or metastatic disease within the abdomen or pelvis. underwent chemothera py Apr 30 2023: CT C/A/P with contrast. No evidence of metastatic disease in the chest abdomen pelvis. Postsurgic al changes of cystectomy and right lower quadrant ileal conduit with interval removal of right sided nephrouret eral stent but mild residual urothelial enhancemen t and thickening . Following oncologist Kim Griffiths @ [facility]. Last appt on 07/13/2023 -- currently has Urostomy Bag with clean stoma and clear light urine Pt supposed to f/u w/ urologist as well Perineal pain 077117848 R10.2 described as left sided gluteal pain. She is not sure if it vaginal pain.Per oncologist , no concerning findings on most recent CT scan to correlate with symptoms. Peripheral sensory neuropathy 758799509 G62.9 involving the bilateral feet- unchanged- continue gabapentin 100 mg TID. 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 Pt has been stable for over 8 years with no further visual or neurologic events. Dr Underwood suggested patient to f/u w/ Dr Vilchis in August 2023 to establish a [facility] eye care provider. Severe ivanna or depression 339612135 F32.2 Patient has previously tried: Prozac-SEs Zoloft-SEs (no appetite) Effexor-SE s Celexa-SEs Lexapro-SE s Cymbalta-S Es Remeron-SE s Viibryd--S Es Amitriptyl ine About 10 years ago she was hospitaliz ed for depression and suicidal ideation.R eceived ECT and it was helpful. Had headaches and some confusion as side effects.[facility] program twice one years agoDid intensive outpatient program via zoom last year through [facility] ( records on file)She had TMS with Dr. Barrios in [facility] 5 - 6 year ago. She improved. Maintain Wellbutrin XL 300mg/day for mood and Hydroxyzin e 10mg TID PRN anxiety. On TMS waitlist. -- will start pt on Auvelity samples while consider Ketamin.-- Auvelity needs to be started 1 tab every AM x 3 days; then 1 tab every 12 hours Nicotine dependence 5629 4008 F17.200 -- advised to Quit smoking because of increased risk for Stroke, cancers, emphysema/ bronchitis , aneurysm, & premature . 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 Hepatitis C screening 41 2926193 Z11.59 HIV screening 480526395 Z11.4 CDC recommends that everyone between the ages of 13 and 64 get tested for HIV at least once as part of routine health care. 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 Reviewed at [facility]. There are filling defects in the left lateral and anterior bladder. Left lateral bladder mass measures 2.9 x 1.5 cm. There is fat stranding adjacent to mass best appreciate d on the coronal plane. An additional anterior dome bladder mass measures 0.8 x 0.3 cm. Jan 03 2022: CT A/P with contrast. Multiple bladder masses are suspicious for malignancy . Stranding adjacent to the left lateral mass is concerning for extramural invasion. Jan 07 2022: cystoscopy and TURBT with Dr. Sunny Vasquez at [facility]. Tumor measuring 4 cm involving the left lateral wall, 1.5 mg tumor anteriorly . Resection of both tumors performed. Pathology reviewed at [facility]. High grade invasive papillary urothelial carcinoma. Tumor invades lamina propria and muscularis propria. At least pT2. Feb 27 2022: CT chest without contrast. No definite evidence of thoracic metastatic disease. CT urogram with changes of transureth ral resection of 2 bladder tumors with persistent nodular tissue within the left lateral wall of the bladder. There is also persistent polypoid soft tissue within the inferior bladder near the urethra, which would be better assessed on cystoscopy . No evidence of upper urinary tract tumors or metastatic disease within the abdomen or pelvis. underwent chemothera py Feb 29 2024: CT C/A/P with contrast. No evidence of metastatic disease in the chest abdomen pelvis. Postsurgic al changes of cystectomy and right lower quadrant ileal conduit with interval removal of right sided nephrouret eral stent but mild residual urothelial enhancemen t and thickening . Following oncologist Kim Griffiths @ [facility]. Last appt on 07/13/2023 -- currently has Urostomy Bag with clean stoma and clear light urine Pt supposed to f/u w/ urologist as well Perineal pain 995206624 R10.2 described as left sided gluteal pain. She is not sure if it vaginal pain.Per oncologist , no concerning findings on most recent CT scan to correlate with symptoms. Peripheral sensory neuropathy 611155760 G62.9 involving the bilateral feet- unchanged - continue gabapentin 100 mg TID. Functional visual loss 704718926 H54.7 w/ optic neuropathy (L)Was seen by ophthal Dr Cydney Underwood on 03/25/2023 . Pt has been stable for over 8 years with no further visual or neurologic events. Dr Underwood suggested patient to f/u w/ Dr Vilchis in August 2023 [facility]. Severe ivanna or depression 191079259 F32.2 Patient has previously tried: Prozac-SEs Zoloft-SEs (no appetite) Effexor-SE s Celexa-SEs Lexapro-SE s Cymbalta-S Es Remeron-SE s Viibryd--S Es Amitriptyl ine About 10 years ago she was hospitaliz ed for depression and suicidal ideation.R eceived ECT and it was helpful. Had headaches and some confusion as side effects.[facility] program twice one years agoDid intensive outpatient program via zoom last year through [facility] ( records on file)She had TMS with Dr. Barrios in [place] 5 - 6 year ago. She improved. Maintain Wellbutrin XL 300mg/day for mood and Hydroxyzin e 10mg TID PRN anxiety. On TMS waitlist. -- will start pt on Auvelity samples while consider Ketamin.-- Auvelity needs to be started 1 tab every AM x 3 days; then 1 tab every 12 hours Nicotine dependence 5629 4008 F17.200 -- advised to Quit smoking because of increased risk for Stroke, cancers, emphysema/ bronchitis , aneurysm, & premature . 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 Hepatitis C screening 41 6688159 Z11.59 HIV screening 879378515 Z11.4 CDC recommends that everyone between the ages of 13 and 64 get tested for HIV at least once as part of routine health care. Active or passive immunization 781866350 Z23 Screening for malignant neoplasm of colon 584807049 Z12.11 -- pt reported she has colonoscop y scheduled for [place] 2 weeks from 10/07/23 Screening for malignant neoplasm of breast 357068916 Z12.31 Gynecologi c examination 87021828 Z01.419 [id number] Anibal Sewell MD [facility] [address] [place] [address] 01/14/2024 09:13:21 01/14/2024 11:10:33 Low back pain 710370865 M54.50 -- pt just had xrays at [facility] but report not available- - has not taken her Duloxetine recently as she lost her pills Trochanter ic bursitis of right hip 9859804600 50073 M70.61 -- tender to touch at Rt lateral hip, and cannot lay on Rt hip at night. Tinea corporis 18870410 B35.4 (under Rt Breast) Pain of to e of right foot 1929353613 23798 M79.674 Chronic ob structive pulmonary disease 46528732 J44.9 -- stable w/o exacerbati on Body mass index 25-29 - overweight 980797567 Z68.25 -- pt lost 6 # since her last visit & is minimally overweight -- pt's BMI today is 25.4 (ideal is between 20-25) Hepatitis C screening 41 3283558 Z11.59 HIV screening 792002473 Z11.4 CDC recommends that everyone between the ages of 13 and 64 get tested for HIV at least once as part of routine health care. Active or passive immunization 353232108 Z23 Screening for malignant neoplasm of colon 412383582 Z12.11 -- pt reported she had colonoscop y scheduled for [place] 2 weeks from 10/07/23 Screening for malignant neoplasm of breast 316997621 Z12.31 Gynecologi c examination 76633744 Z01.419 -- on 01/14/24, pt reported she has female wellness exam with Dr. Bush yesterday. Screening for osteoporosis 393433760 Z13.820 Depressive disorder 3548 9007 F32.9 -- Previously pt reported that her psychiatri st Dr Daphney Esposito has got insurance approval to have pt start Transcrani al Magnetic Stimulatio n.-- today, pt reported she has major depression & anxiety; and she is starting ketamine treatments next Thursday01/18/24 Pain of ri ght knee region 7919058552 93336 M25.561 -- pt has appt w/ Ortho Dr. Padilla on 01/25/24.- - pt has no apparent difficulty getting up from chair or walking out in the hallway. 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 Reviewed at [facility]. There are filling defects in the left lateral and anterior bladder. Left lateral bladder mass measures 2.9 x 1.5 cm. There is fat stranding adjacent to mass best appreciate d on the coronal plane. An additional anterior dome bladder mass measures 0.8 x 0.3 cm. Jan 03 2022: CT A/P with contrast. Multiple bladder masses are suspicious for malignancy . Stranding adjacent to the left lateral mass is concerning for extramural invasion. Jan 07 2022: cystoscopy and TURBT with Dr. Sunny Vasquez at [facility]. Tumor measuring 4 cm involving the left lateral wall, 1.5 mg tumor anteriorly . Resection of both tumors performed. Pathology reviewed at [facility]. High grade invasive papillary urothelial carcinoma. Tumor invades lamina propria and muscularis propria. At least pT2. Feb 27 2022: CT chest without contrast. No definite evidence of thoracic metastatic disease. CT urogram with changes of transureth ral resection of 2 bladder tumors with persistent nodular tissue within the left lateral wall of the bladder. There is also persistent polypoid soft tissue within the inferior bladder near the urethra, which would be better assessed on cystoscopy . No evidence of upper urinary tract tumors or metastatic disease within the abdomen or pelvis. underwent chemothera py Apr 30 2023: CT C/A/P with contrast. No evidence of metastatic disease in the chest abdomen pelvis. Postsurgic al changes of cystectomy and right lower quadrant ileal conduit with interval removal of right sided nephrouret eral stent but mild residual urothelial enhancemen t and thickening . Following oncologist Kim Griffiths @ [facility]. Last appt on 07/13/2023 -- currently has Urostomy Bag with clean stoma and clear light urine -- pt reported that she is still followng w/ urologist Nicotine d ependence with current use 244758839 F17.210 Optic neuritis 93176978 H46.9 (blind in her left eye) -- saw Ophthalmol ogist at [place] Dr Underwood around Apr 2023 Hyperlipid emia screening 626792159 Z13.220 [id number] Anibal Sewell MD [facility], [facility] [address] [place] [address] 05/05/2024 16:08:00 05/12/2024 16:28:20 Low back pain 047444018 M54.50 -- pt just had xrays at [facility] but report not available- - previously , pt has not taken her Duloxetine ; on her 01/14/24 clinic visit she said she lost her pills-- today 05/05/24, pt reports that the Duloxetine is not working; pt states she not taking it anymore. When I asked pt how she is taking her Duloxetine , pt got furious and accused me of calling her a liar. Pt states she is not taking it (Duloxetin e) anymore.-- later on in the telehealth visit pt states her psych has put her on Cymbalta 90 mg and her mood & energy has improved (pt did not realized that Cymbalta is Duloxetine ).-- pt has written down the phone # of the physical therapist I referred her to Trochanter ic bursitis of right hip 7008136356 21572 M70.61 -- tender to touch at Rt lateral hip, and cannot lay on Rt hip at night.-- pain has improved a lot and is very mild (rates it 1-2/10)-- pt also does not want any shot to her hip due to cost (and sx is almost gone) Tinea corporis 73560736 B35.4 (under Rt Breast) -- A1c ordered but pt states she had not done it yet-- pt reports the Clotirmazo le and Diflucan clears the rash; but rash comes back later; pt does not want med refill-- pt states she will discuss this w/ her Dermatolog y Pain of to e of right foot 7032990285 09119 M79.674 -- uric acid lab ordered but pt did not get done.-- pt felt that her Rt foot has also improved a lot Chronic ob structive pulmonary disease 92001514 J44.9 -- stable w/o exacerbati on and has not used her rescue inhaler for over 2 months.-- pt feels her breathing has improved since she has cut down her smoking to half ppd 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 Reviewed at [facility]. There are filling defects in the left lateral and anterior bladder. Left lateral bladder mass measures 2.9 x 1.5 cm. There is fat stranding adjacent to mass best appreciate d on the coronal plane. An additional anterior dome bladder mass measures 0.8 x 0.3 cm. Jan 03 2022: CT A/P with contrast. Multiple bladder masses are suspicious for malignancy . Stranding adjacent to the left lateral mass is concerning for extramural invasion. Jan 07 2022: cystoscopy and TURBT with Dr. Sunny Vasquez at [facility]. Tumor measuring 4 cm involving the left lateral wall, 1.5 mg tumor anteriorly . Resection of both tumors performed. Pathology reviewed at [facility]. High grade invasive papillary urothelial carcinoma. Tumor invades lamina propria and muscularis propria. At least pT2. Feb 27 2022: CT chest without contrast. No definite evidence of thoracic metastatic disease. CT urogram with changes of transureth ral resection of 2 bladder tumors with persistent nodular tissue within the left lateral wall of the bladder. There is also persistent polypoid soft tissue within the inferior bladder near the urethra, which would be better assessed on cystoscopy . No evidence of upper urinary tract tumors or metastatic disease within the abdomen or pelvis. underwent chemothera py Apr 30 2023: CT C/A/P with contrast. No evidence of metastatic disease in the chest abdomen pelvis. Postsurgic al changes of cystectomy and right lower quadrant ileal conduit with interval removal of right sided nephrouret eral stent but mild residual urothelial enhancemen t and thickening . Following oncologist Kim Griffiths @ [facility]. Last appt on 07/13/2023 -- currently has Urostomy Bag with clean stoma and clear light urine -- pt reported that she is still followng w/ urologist Pain of ri ght knee region 6966865786 40691 M25.561 -- pt has appt w/ Ortho Dr. Padilla on 01/25/24.- - pt has no apparent difficulty getting up from chair or walking out in the hallway. Optic neuritis 94838274 H46.9 (blind in her left eye) -- saw Ophthalmol ogist at [place] Dr Underwood around 02/29/24 Nicotine d ependence with current use 223099803 F17.210 -- pt reports she has decreased her cigarettes to 0.5 ppd now Body mass index 25-29 - overweight 451880034 Z68.25 -- pt lost 6 # since her last visit & is minimally overweight -- pt's BMI today is 25.4 (ideal is between 20-25) Hyperlipid emia screening 051200521 Z13.220 -- LDL was 90 on 01/12/24; based on BP of 127/82 the current ASCVD risk calculatio n is Screening for osteoporosis 636323005 Z13.820 Hepatitis C screening 41 8669329 Z11.59 -- tested negative for Hepatitis C on 01/12/24 HIV screening 865321297 Z11.4 -- tested negative for HIV on 01/12/24 Active or passive immunization 237581507 Z23 Screening for malignant neoplasm of colon 795447120 Z12.11 -- pt reported she had colonoscop y done fall but colonoscop y was incomplete as her bowel still had stool; pt reported she has not made appt for repeat colonoscop y yet. Screening for malignant neoplasm of breast 313912507 Z12.31 Gynecologi c examination 88100205 Z01.419 -- on 01/14/24, pt reported she has female wellness exam with Dr. Bush yesterday. Pruritic rash 23576303 L 28.2 (hard to evaluate due to pt in dark room) -- pt request referral to Dermatolog y-- pt feels she has itching and dry skin all over-- she has not made appt w/ wound clinic as advised by Urology (for the Urostomy Bag)-- pt has written down the phone # of the Dermatolog ist I referred her to Mixed anxi ety and depressive disorder 723413259 F41.8 -- pt reported she had ECT at [place] over 10 years ago (but does not want to do ECT anymore due to nobody to drive her there).-- Previously pt reported that her psychiatri st Dr Evan Barrios has got insurance approval to have pt start Transcrani al Magnetic Stimulatio n, but it cost a lot and she does not want it.-- Spravato did not help her but increased her energy-- pt started on Ketamine at [place] but she does not want to drive to [place] anymore (no longer with Dr Evan Barrios; Dr Barrios has discharged her due to her not pay a bill and will not accept her back as a patient.-- today, pt reported that since starting Cymbalta, her depression & anxiety has improved but very slowly Health Concerns Section Related Observation LastModified by Organization Detai ls LastModified Time None Recorded Concern Status LastModified by Organization Details LastModified Time None Recorded Advance Directives Directive N: Payers Encounter Date Sequence Insurance Name Policy Number Policy Perdomo Covered Member ID Perdomo Member ID Guarantor Name 08/20/2017 1 [place] [id number] Gladys L Haven [id number] Gladys L Haven 07/28/2023 1 [place] [id number] Gladys L Haven [id number] Gladys L Haven 10/07/2023 1 [employer]) [id number] [address] [id number] 01/14/2024 1 [place]) [id number] Gladys L [address] [id number] 05/05/2024 1 [place] [id number] Gladys L [address] [id number] Notes Date Note Type Note Provider Name and Address Organization Details Recorded Time 08/20/2017 text/html HeadacheReported bypatient.Location:uni lateral (start unillaterally then bilaterally) Quality:not the worst headache ever; similar to previous headaches;throbbing Severity:-- mild to severe Duration:intermittent Onset/Timing:gradual; intermittent episodes lasting: Context:not related to trauma Aggravating factors:loud noise Alleviating factors:laying in a dark room Associated Symptoms:tearing/water y eyes; no confusion; no slurred speech; no double vision; normal feeling/sensation;naus ea(occasional);photoph obia Anibal Sewell MD [address], [place], [address], [facility] 08/20/2017 16:43:04 07/28/2023 text/html Pt with h/o prim nicole urothelial carcinoma, perineal pain, peripheral neuropathy, depression and several other issues, comes in to get re-aquainted medically. Her PCP has just . Pt feels well overall and has no new c/o in the last 6 months.. Pt has no new sx and no increasing sx. Patient denies any jaw or neck discomfort, left arm pain/left arm discomfort, chest discomfort/pain, diaphoresis, breathing symptoms/chest tightness, indigestion sx, n/v, any angina equivalent symptoms, etc. Anibal Sewell MD [address], [place], [address], [facility] 07/28/2023 16:24:58 10/07/2023 text/html Pt comes in for LBP, COPD, Vit D def, and weight monitoring. Pt feels well and has no c/o. Pt has no new sx and no increasing sx. Patient denies any jaw or neck discomfort, left arm pain/left arm discomfort, chest discomfort/pain, diaphoresis, breathing symptoms/chest tightness, indigestion sx, n/v, any angina equivalent symptoms, etc. Anibal Sewell MD [address], [place], [address], [facility] 10/07/2023 12:06:52 01/14/2024 text/html Pt reported she has major depression & anxiety; and she is starting ketamine treatments next Thursday.Pt also experiencing extreme right knee Rt knee pain pt has appt w/ Ortho Dr. Padilla on 01/25/24. Pt also reported she has female wellness exam with Dr. Bush yesterday. Today, she is here for toes pain, right lateral hip pain & LBP radiating to Rt buttock. Pt also reports that she has rashes beneath her Rt breast. Pt has not been using her Breztri or Airsupra as she lost her prescriptions. Patient denies any jaw or neck discomfort, left arm pain/left arm discomfort, chest discomfort/pain, diaphoresis, breathing symptoms/chest tightness, indigestion sx, n/v, any angina equivalent symptoms, etc. Anibal Sewell MD [address] [facility] [address], [place], [address], [facility] 01/14/2024 11:31:49 05/05/2024 text/html Pt on Node1 for itch rash all over but now it is only dry skin. Pt also on Telehealth to f/u on LBP, Rt hip pain (almost gone), Rt foot/toe pain (barely any sx), COPD, Nicotine dependence (cut down to 0.5 ppd), anxiety/depression (some improvement). Pt feels well and has no c/o. Pt has no new sx and no increasing sx. Patient denies any jaw or neck discomfort, left arm pain/left arm discomfort, chest discomfort/pain, diaphoresis, breathing symptoms/chest tightness, indigestion sx, n/v, or confusion. Anibal Sewell MD [address], [place], [address], [facility] 05/05/2024 21:44:17 OBGyn Episode No OBEpisode recorded.
--- OUTSIDE RECORDS SUMMARY | 2024-06-08 16:57 | XMS_ITS | Referral Summary ---
Author Organization [facility] 2 Address [address] [place] [address] Care Team Providers Care Business Controller Name Role Phone Kim Griffiths MD Unavailable [phone] Anibal Sewell MD Primary Care Provider [phone] Encounters Date Type Department Care Team Description 06/08/2024 2:15 PM CDT Office Visit [facility] Medical [facility] Care at [address] [address] Lorin Valentine PA Dizziness (Primary Dx); Rectal mass 06/01/2024 Telephone [facility] Radiology [address] [place] [address] Sonya Ross, ALICIA 05/30/2024 11:15 AM CDT Clinical Support [facility] - Lab Collection [address] [place] [id number] Malignant neoplasm of overlapping sites of bladder (HCC); Malignant neoplasm of urinary bladder, unspecified site (HCC) 05/30/2024 1:00 PM CDT Office Visit [facility] Oncology [address] [place] [address] 5 [place] [address] Kim Griffiths MD Malignant neoplasm of overlapping sites of bladder (HCC) (Primary Dx); Malignant neoplasm of urinary bladder, unspecified site (HCC) 05/30/2024 12:00 PM CDT Clinical Support [facility] On[facility] Lab [address] [place] [phone] Malignant neoplasm of overlapping sites of bladder (HCC); Malignant neoplasm of urinary bladder, unspecified site (HCC) 05/30/2024 9:57 AM CDT - 05/30/2024 11:59 PM CDT Hospital Encounter [facility] - [place] [address] [facility] Floor 8 [place] [address] Malignant neoplasm of overlapping sites of bladder (HCC); Malignant neoplasm of urinary bladder, unspecified site (HCC) Discharge Disposition: Discharge to home or self care 05/27/2024 1:00 PM CDT Telemedicine [facility] Psychiatry [address] [place] [address] Outpatient Health [address] [place] [phone] Merry Hunter NP Major depressive disorder, recurrent episode, moderate (HCC) (Primary Dx); Generalized anxiety disorder; Grief; Nicotine use disorder 05/26/2024 Orders Only [facility] Oncology [address] [place] [address] 5 [place] [address] Kim Griffiths MD Malignant neoplasm of overlapping sites of bladder (HCC) (Primary Dx); Malignant neoplasm of urinary bladder, unspecified site (HCC) 2024 Social Work [facility] Oncology [facility] 5 [place] [address] Lucy Cabrera LCSW 05/18/2024 Telephone [facility] Oncology [address] [place] [address] 5 [place] [address] Kim Griffiths MD 05/18/2024 Orders Only [facility] Oncology [address] [place] [address] 5 [place] [address] Kim Griffiths MD 04/29/2024 1:00 PM [facility] Telemedicine [facility] Psychiatry [address] [place] [address] Outpatient Health [address] [place] [phone] Merry Hunter NP Severe episode of recurrent major depressive disorder, without psychotic features (HCC) (Primary Dx); Generalized anxiety disorder; Grief; Nicotine use disorder 04/04/2024 2:30 PM [facility]S Telemedicine [facility] Psychiatry [address] [place] [address] Outpatient Health [address] [place] [phone] Merry Hunter, TWIN Severe episode of recurrent major depressive disorder, without psychotic features (HCC) (Primary Dx); Generalized anxiety disorder; Grief; Nicotine use disorder 03/29/2024 Telephone [facility] Psychiatry [facility] Out[facility] Health [address] [place] [address] Merry Hunter, TWIN 03/29/2024 Telephone [facility] Psychiatry [facility] [address] [place] [address] Merry Hunter, TWIN 03/18/2024 Documentation [facility] Ophthalmology [facility] Health 6th [place] [address] Virginia Guo 03/11/2024 1:00 PM [facility] Telemedicine [facility] Psychiatry [facility] [address] [place] [address] Merry Hunter NP Severe episode of recurrent major depressive disorder, without psychotic features (HCC) (Primary Dx); Generalized anxiety disorder; Grief; Nicotine use disorder from Last 3 Months Allergies No known active allergies Medications dextrose-fructose- sod citrate (Nauzene) [phone] mg tablet,chewableInd ications:Dyspepsia ,nausea Take 230 mg by mouth as needed (nausea) Active simethicone (Gas Relief, simethicone,) 125 mg capsuleIndications :Flatulence Take 1 capsule (125 mg total) by mouth as needed for flatulence Active ondansetron ODT (ZOFRAN-ODT) 4 mg disintegrating tablet Take 1 tablet (4 mg total) by mouth every 8 (eight) hours as needed for nausea or vomiting 30 tablet 1 12/23/19 Active Additional Information Patient not taking.Informant: Self, Reported on 06/08/2024 polyethylene glycol (MIRALAX) 17 gram/dose bulk powder Take 17 g by mouth daily as needed (constipation, while taking narcotic medications) 200 g 12/27/19 Active famotidine (PEPCID) 20 mg tablet Take 1 tablet (20 mg total) by mouth daily 30 tablet 11 11/20/20 23 Active estradioL (ESTRACE) 0.01 % (0.1 mg/gram) vaginal cream Insert 2 g into the vagina daily 06/17/19 24 Active hydrOXYzine (ATARAX) 25 mg tabletIndications: anxiety Take 1 tablet (25 mg total) by mouth every 8 (eight) hours as needed for anxiety Take 1-2 tablets three times daily as needed for anxiety 90 tablet 1 01/06/20 24 Active esketamine (Spravato) 14 mg/actuation nasal sprayIndications:M hemalatha depressive disorder, recurrent severe without psychotic features (HCC) Administer 3 sprays into each nostril 2 (two) times a week 3 each 3 01/21/20 24 Active nicotine (NICODERM CQ) [address] 1 patch on the skin daily 30 patch 02/12/20 24 Active clotrimazole 1 % cream APPLY TOPICALLY TO THE AFFECTED AND SURROUNDING AREAS TWICE DAILY IN THE MORNING AND IN THE EVENING 02/21/20 24 Active QUEtiapine (SEROquel) 25 mg tabletIndications: Depression Treatment Adjunct,Generalize d Anxiety Disorder Take 0.5 tablets (12.5 mg total) by mouth nightly 04/29/[address] (CYMBALTA) 60 mg capsule 06/01/[address] (CYMBALTA) 30 mg capsule Take 1 capsule (30 mg total) by mouth daily 03/20/19 25 Active fluticasone propion-salmeteroL (ADVAIR DISKUS) 250-50 mcg/dose diskus inhaler Inhale 1 puff twice a day by inhalation route. Active gabapentin (NEURONTIN) 100 mg capsule Take 1 capsule (100 mg total) by mouth 3 (three) times a day Active meloxicam (MOBIC) 15 mg tablet Take 1 tablet (15 mg total) by mouth daily 03/20/19 25 Active triamcinolone acetonide 0.025 % lotion Active cholecalciferol (VITAMIN D-3) 5,000 unit capsule Take 1 capsule every day by oral route. 01/24/20 24 Active Hospital, Clinic, or Other Facility Administered Medication Ordered Dose Route Frequency Start Date End Date Status esketamine (SPRAVATO) 14 mg/actuation nasal spray 3 sprayIndications:Ivory penny depressive disorder, recurrent episode, moderate (HCC) 3 spray each nostril Once per day on Thursday01/25/2024 Active Active Problems Problem Noted Date Diagnosed Date [...] was obscured by surgical anastomosis site. 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 They stated they will follow up in 2 weeks with further investigation SARAH (acute kidney injury) 09/24/2022 Assessment & Plan (09/25/2022 6:59 PM CDT): Cr 3.79 on arrival, baseline around 0.8 - continue IVF, downtrending, likely prerenal in setting of sepsis and nausea/vomiting prior to admission - complaining of dry mouth. Likely dehydrated. Ordered prn artificial saliva - HAGMA likely from [facility], NAGMA likely from [facility] (positive urine anion [...] (12/31/2021): Added automatically from request for surgery [id number] Chronic obstructive pulmonary disease 10/07/2021 Pseudophakia of right eye 03/24/2018 Postop check 03/11/2018 Pseudophakia of left eye 01/06/2018 Overview (01/06/2018): - status post (s/p) phaco/IOL OS 01/06/18 Assessment & Plan (01/07/2018 10:37 AM PEGGER DOBBY LOOMS): POD1 EXTRACTION CATARACT - PHACOEMULSIFICATION AND LENS [...] (12/04/2017): Added automatically from request for surgery [id number] Nuclear sclerosis of both eyes 12/01/2017 Assessment [...] 06/24/2013 Hyperlipidemia 06/24/2013 Pain in shoulder 06/23/2013 Resolved Problems Problem Noted Date Diagnosed Date Resolved Date 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 Hasn't smoked in 1.5 weeks 04/14/2022 Alcohol Use Standard Drinks/Week Comments No 0 (1 standard drink = 0.6 oz pure alcohol) recovering alcoholic- none in 26 years OASIS D0700: Social Isolation Answer Da te Recorded Frequency of experiencing loneliness or isolatio n Never 09/16/2022 OASIS A1250: Transportation Answer Date Recorded Lack of Transportation (Medical) No 09/16/2022 Lack of Transportation (Non-Medical) No 09/16/2022 Patient Unable or Declines to Respond No 09/16/2022 OASIS B1300: Health Literacy Answer Peterson e Recorded Frequency of needing help to read materials from doctor or pharmacy Never 09/16/2022 Social Connection and Isolat ion Panel [NHANES] Answer Date Recorded In a typical week, how many times do you talk on the phone with family, friends, or neighbors? More than three times a week 08/13/2022 How often do you get togethe r with friends or relatives? More than three times a week 08/13/2022 How often do you attend chur ch or christianity services? Never 08/13/2022 Do you belong to any clubs o r organizations such as jewish groups, unions, fraternal or athletic groups, or school groups? No 08/13/2022 How often do you attend meet ings of the clubs or organizations you belong to? Never 08/13/2022 Are you , , di vorced, , never , or living with a partner? Never 08/13/2022 AUDIT-C Answer Date Recorded Q1: How often do you have a drink containing alcohol? Never 02/29/2024 Q2: How many drinks containi ng alcohol do you have on a typical day when you are drinking? Patient does not drink Q3: How often do you have si x or more drinks on one occasion? Never 02/29/2024 Overall Financial Resource Strain (CARDIA) Answe r Date Recorded How hard is it for you to pa y for the very basics like food, housing, medical care, and heating? Not hard at all 08/13/2022 PHQ-2 Answer Date Recorded PHQ-2 Total Score (If total score is 3 or more points, staff should administer the PHQ-9) 0 08/13/2022 Hunger Vital Sign Answer Date Recorded Within the past 12 months, y ou worried that your food would run out before you got the money to buy more. Never true 08/14/19 Within the past 12 months, t he food you bought just didn't last and you didn't have money to get more. Never true 08/13/2022 PRAPARE - Transportation Answer Date Re corded In the past 12 months, has l ack of transportation kept you from medical appointments or from getting medications? No 07/31 In the past 12 months, has l ack of transportation kept you from meetings, work, or from getting things needed for daily living? No 08/13/2022 Housing Stability Vital Sign Answer Peterson e Recorded In the last 12 months, was t here a time when you were not able to pay the mortgage or rent on time? No 08/13/2022 In the last 12 months, how many places have you lived? 1 08/13/2022 In the last 12 months, was t here a time when you did not have a steady place to sleep or slept in a care home (including now)? No 08/13/2022 Personal Safety Answer Date Recorded Have you ever been in or are you currently in a harmful physical or emotional relationship or is someone making you feel afraid or unsafe? Denies 10/23/2023 Comments No Sex and Gender Information Value Date Recorded Sex Assigned at Not on file Legal Sex Female 2:13 AM [facility] [employer]S Gender Identity Not on file Sexual Orientation Not on file Occupation Industry Job Start Date Job End Date Unemployed/working on [employer]. Was working for [employer] in [place] (until 11/2021). Not on file Not on file Not on file Last Filed Vital Signs Vital Sign Reading Time Taken Comments Blood Pressure 120/75 06/08/2024 2:07 PM CDT Pulse 78 06/08/2024 2:07 PM CDT Temperature 36.7 C (98 F) 06/08/2024 2:07 PM CDT Respiratory Rate 20 06/08/2024 2:07 PM CDT Oxygen Saturation 99% 06/08/2024 2:07 PM CDT Inhaled Oxygen Concentration - - Weight 68.5 kg (151 lb) 06/08/2024 2:07 PM CDT Height 162.6 cm (5' 4 ) 06/08/2024 2:07 PM CDT Body Mass Index 25.92 06/08/2024 2:07 PM CDT Plan of Treatment Not on file Medical Devices Implanted Type Area Lead Neurodiagnostic Technologist Device Identifier Shelf Expiration Date Model / Serial / Lot [employer] Symmetry Vesolock Large Clip Internal [id number] - Sn/A - [id number] Implanted:Qty: 1 on 07/30/2022 by Chapin Patricia MD at [facility] Clip N/A: Pelvis [employer] [id number] 03/02/2025 [id number] / N/A / [id number] [employer] Symmetry Vesolock Large Clip Internal [id number] - Sn/A - [id number] Implanted:Qty: 1 on 07/30/2022 by Chapin Patricia MD at [facility] Clip N/A: Pelvis [employer] [id number] 03/02/2025 [id number] / N/A / [id number] [employer] Symmetry Vesolock Large Clip Internal [id number] - Sn/A - [id number] Implanted:Qty: 1 on 07/30/2022 by Chapin Patricia MD at [facility] Clip N/A: Pelvis [employer] [id number] 03/02/2025 [id number] / N/A / [id number] [employer] Sn60wf.235 Acrysof Iq Natural Stableforce Acrysert 6mm 13mm 1 Piece Foldable - [id number] - [id number] Implanted:Qty: 1 on 01/06/2018 by Nora Dennison MD at [facility] Lens Left: Eye [employer] [id number] 07/30/2022 SN60WF .23 5 / [id number] / 0 [employer] Sn60wf.240 Acrysof Iq Natural Stableforce Acrysert 6mm 13mm 1 Piece Foldable - [id number] - [id number] Implanted:Qty: 1 on 03/10/2018 by Nora Dennison MD at [facility] Lens Right: Eye [employer] [id number] 07/30/2022 SN60WF .24 0 / [id number] / 0 [employer] Estee 7fr 80cm Open Tip Luer Lock Adapter Guidewire Graduate Straight Latex Free 160-210 - Sn/A - [id number] Implanted:Qty: 2 on 07/30/2022 by Chapin Patricia MD at [facility] Explanted:Qty: 1 on 12/25/2022 by Chapin Patricia MD Stent Bilateral: Kidney [employer] [id number] 03/26/2026 160-210 / N/A / [id number] Description:Right J stent re placed in surgery on 12/25/22 leaving Left J stent inplace. Angio Dynamics Xcela Power Port 8fr [id number] - [id number] Implanted:Qty: 1 on 03/04/2022 at [facility] Ang[employer] 11/19/2026 [id number] / / [id number] Explanted Type Area Lead Neurodiagnostic Technologist Device Identifier Shelf Expiration Date Model / Serial / Lot [employer] Estee 7fr 80cm Open Tip Luer Lock Adapter Guidewire Graduate Straight Latex Free 160-210 - [id number] - [id number] Implanted:Qty: 1 on 12/25/2022 by Chapin Patricia MD at [facility] Explanted:Qty: 1 on 01/26/2023 by Chapin Patricia MD Stent Right: Ureter [employer]ee [id number] 08/31/2026 [id number] / [id number] / [id number] Description:Left J stent in place from 07/30/22 per op notes Procedures Procedure Name Priority Date/Time Associated Diagnosis Comments DIFFERENTIAL AUTO Routine 05/30/2024 12: 09 PM CDT Malignant neoplasm of overlapping sites of bladder (HCC) Malignant neoplasm of urinary bladder, unspecified site (HCC) CBC WITH AUTO DIFFERENTIAL Routine 05/30/2024 12:09 PM CDT Malignant neoplasm of overlapping sites of bladder (HCC) Malignant neoplasm of urinary bladder, unspecified site (HCC) EGFR Routine 05/30/2024 12:03 PM CDT Malignant neoplasm of overlapping sites of bladder (HCC) Malignant neoplasm of urinary bladder, unspecified site (HCC) COMPREHENSIVE METABOLIC PANEL Routine 05/30/2024 12:03 PM CDT Malignant neoplasm of overlapping sites of bladder (HCC) Malignant neoplasm of urinary bladder, unspecified site (HCC) SIGNATERA ONLY Routine 05/30/2024 11:55 AM CDT Malignant neoplasm of overlapping sites of bladder (HCC) Malignant neoplasm of urinary bladder, unspecified site (HCC) CT CHEST ABDOMEN PELVIS W CONTRAST Schedule Routine, Read Routine (OP Routine) 05/30/2024 10:36 AM CDT Malignant neoplasm of overlapping sites of bladder (HCC) Malignant neoplasm of urinary bladder, unspecified site (HCC) COLONOSCOPY 10/23/2023 2:31 PM CDT PAP AND HIGH RISK HPV, REFLEX TO GENOTYPING Routine 01/01/2022 11:12 AM CDT Screening for malignant neoplasm of cervix SCREENING MAMMOGRAM W ADIEL Routine 10/17/2013 2:31 PM CDT from Last 3 Months or Most Recently Relevant to Health Maintenance Results * Differential, auto (05/30/2024 12:09 PM CDT) Neutrophil abs 5.2 1.5 - 6.5 K/cumm Comment:Testing performed by : [facility], [address] [place] [address] Lymphocyte abs 1.2 0.8 - 3.3 K/cumm [facility] Comment:Testing performed by : [facility], [address] [place] [phone] Monocyte abs 0.3 0.2 - 0.8 K/cumm [facility] Comment:Testing performed by : [facility], [address] [place], [place] [id number] Eosinophil abs 0.1 0.0 - 0.5 K/cumm [facility] Comment:Testing performed by : [facility], [address] [place] [phone] Basophil abs 0.0 0.0 - 0.1 K/cumm [facility] Comment:Testing performed by : [facility], [address] [place], [place] [phone] Neutrophil pct 76.2 % [facility] Comment: Interpretive Data Percent cell count reference ranges are not reported, since discordance with absolute values may lead to misinterpretation of CBC data. Current Interpretive Data was last revised on 2017. Testing performed by: [facility], [address] [place] [phone] Lymphocyte pct 17.1 % [facility] Comment: Interpretive Data Percent cell count reference ranges are not reported, since discordance with absolute values may lead to misinterpretation of CBC data. Current Interpretive Data was last revised on 2017. Testing performed by: [facility], [address] [place] [phone] Monocyte pct 4.4 % [facility] Comment: Interpretive Data Percent cell count reference ranges are not reported, since discordance with absolute values may lead to misinterpretation of CBC data. Current Interpretive Data was last revised on 2017. Testing performed by: [facility], [address] [place] [phone] Eosinophil pct 1.6 % [facility] Comment: Interpretive Data Percent cell count reference ranges are not reported, since discordance with absolute values may lead to misinterpretation of CBC data. Current Interpretive Data was last revised on 2017. Testing performed by: [facility], [address] [place] [phone] Basophil pct 0.7 % [facility] Comment: Interpretive Data Percent cell count reference ranges are not reported, since discordance with absolute values may lead to misinterpretation of CBC data. Current Interpretive Data was last revised on 2017. Testing performed by: [facility], [address] [place] [phone] Blood 05/30/2024 12:0 9 PM CDT 05/30/2024 12:11 PM CDT us Kim Griffiths MD LAB BLOOD ORDERABLES F inal Result [facility] Department [place] [address] * CBC with auto differential (05/30/2024 12:09 PM CDT) WBC 6.8 3.8 - 9.9 K/cumm Comment:Testing performed by : [facility], [address] [place] [phone] Hgb 14.2 11.9 - 15.5 g/dL [facility] Comment:Testing performed by : [facility], [address] [place] [phone] Hct 41.2 35.6 - 45.5 % [facility] Comment:Testing performed by : [facility], [address] [place] [phone] Plt 197 150 - 400 K/cumm [facility] Comment:Testing performed by : [facility], [address] [place] [phone] MPV 8.2 6.8 - 10.4 fL [facility] Comment:Testing performed by : [facility], [address] [place], [place] [phone] RBC 4.39 3.90 - 5.20 M/cumm [facility] Comment:Testing performed by : [facility], [address] [place], [place] [phone] MCV 93.7 81.3 - 96.4 fL [facility] Comment:Testing performed by : [facility], [address] [place], [place] [phone] MCH 32.3 27.1 - 33.3 pg [facility] Comment:Testing performed by : [facility], [address] [place] [address] MCHC 34.4 32.3 - 35.7 g/dL [facility] Comment:Testing performed by : [facility], [address] [place], [place] [phone] RDW CV 13.3 11.1 - 14.9 % [facility] Comment:Testing performed by : [facility], [address] [place], [place] [phone] NRBC abs 0.00 0.00 - 0.01 K/cumm [facility] Comment:Testing performed by : [facility], [address] [place], [place] [phone] Blood 05/30/2024 12:0 9 PM CDT 05/30/2024 12:11 PM CDT us Kim Griffiths MD LAB BLOOD ORDERABLES F inal Result [facility] Department [place] [address] * eGFR (05/30/2024 12:03 PM CDT) eGFR 73 >=60 mL/min/1. 73 m2 Comment: Interpretive Data Reference Interval Normal >/= 90 mL/min/1.73m2 Mildly decreased* 60 - 89 mL/min/1.73m2 Mildly to moderately decreased 45 - 59 mL/min/1.73m2 Moderately to severely decreased 30 - 44 mL/min/1.73m2 Severely decreased 15 - 29 mL/min/1.73m2 Kidney Failure < 15 mL/min/1.73m2 *Relative to young adult level Estimated glomerular filtration rate is determined by the 2020 CKD-EPI equation recommended by the National Kidney Foundation (A Unifying Approach to GFR Estimation: Recommendations of the NKF-ASK Task Force on Reassessing the Inclusion of Race in Diagnosing Kidney Disease, JASN 2020). The CKD-EPI equation should not be used for patients with unstable renal function and has not been validated in children and those over 70. Current interpretive data was last reviewed 2020. Blood 05/30/2024 12:0 3 PM CDT 05/30/2024 12:12 PM CDT us Kim Griffiths MD LAB BLOOD ORDERABLES F inal Result [facility] Department [place] [address] * Comprehensive metabolic panel (05/30/2024 12:03 PM CDT) Sodium 140 135 - 145 mmol/L Potassium, pl 4.2 3.3 - 4.9 mmol/L [facility] Chloride 104 97 - 110 mmol/L [facility] CO2 26 22 - 32 mmol/L [facility] Anion gap 10 2 - 15 mmol/L [facility] BUN 25 6 - 25 mg/dL [facility] Creatinine 0.91 0.60 - 1.10 mg/dL [facility] Glucose 137 70 - 199 mg/dL [facility] Comment: Interpretive Data Fasting glucose >/= 126 mg/dl is diagnostic for diabetes. Fasting is defined as no caloric intake for at least 8 hours. Fasting glucose between 100 mg/dl to 125 mg/dl is diagnostic of prediabetes. In a patient with classic symptoms of hyperglycemia or hyperglycemic crisis, a random glucose >/= 200 mg/dl is diagnostic for diabetes. In the absence of unequivocal hyperglycemia, results should be confirmed by repeat testing. The classification and Diagnosis of Diabetes Diabetes Care 202; 46: S19-S40. Current interpretive data was last revised 2022. Calcium 9.4 8.5 - 10.3 mg/dL [facility] Bilirubin, total 0.2 0.1 - 1.2 mg/dL [facility] Protein, pl 7.0 6.5 - 8.5 g/dL [facility] Albumin 3.9 3.5 - 5.0 g/dL [facility] Alk phos 85 40 - 130 Units/L [facility] ALT 17 7 - 45 Units/L [facility] AST 19 10 - 45 Units/L [facility] Blood 05/30/2024 12:0 3 PM CDT 05/30/2024 12:12 PM CDT us Kim Griffiths MD LAB BLOOD ORDERABLES F inal Result [facility] Department [place] [address] * Signatera Only Single Draw (05/30/2024 11:55 AM CDT) SIGNATERA TEST RESULT NEGATIVE 07/2024 10:13 PM CDT [facility] SIGNATERA MTM READOUT 0 MTM/ml 07/2024 10:13 PM CDT [facility] Comment: Limitations Signatera is a personalized, tumor-informed test for the longitudinal detection of circulating tumor DNA (ctDNA). Interval testing is recommended for all patients. Studies have demonstrated that when ctDNA is detected (Signatera Positive) following surgery or definitive treatment, the risk for disease relapse is high without further treatment. Conversely, when ctDNA is not detected, the patient may be considered at lower risk for relapse. For those with multiple timepoints, upward trending ctDNA levels are suggestive of increasing tumor burden (1,2). For a single time point in isolation, the absolute MTM/mL value has no known clinical significance and should not be compared across patients. Test results should be interpreted in context of other clinicopathological features. ctDNA detection sensitivity may be limited due to blood collection within two weeks of surgery and while the patient is on therapy. Signatera is a quantitative test and reports in units of mean tumor molecules per ml (MTM/mL), which is comprised of three measured components (plasma volume, cell free DNA (cfDNA) concentration, and Variant Allele Frequency (VAF)). The MTM/mL number will be qualified if any measured component falls outside the analytical measurement range for that component. The analytical sensitivity is 95% at the limit of detection (0.3 MTM/mL). Results obtained are specific to the assessed time point. A negative test result does not definitively indicate the absence of cancer. This test is not designed to detect or report germline variation, nor does it infer hereditary cancer risk for the patient. Each Signatera assay is designed to a single tumor for a given patient. At this time, multiple personalized Signatera assays cannot be developed for the same patient. This test is designed to detect ctDNA from the assayed tumor only; new primary tumors will not be detected. There is a low risk that a new primary may share a variant that could interfere with the Signatera test. Testing cannot be performed in patients who are , have a history of bone marrow transplant, or history of blood transfusion within three months. This test is expected to have limited sensitivity in cancer types such as GIST, renal cell carcinomas, primary brain tumors, and lymphoma due to limited ctDNA shed. 1 Nguyen SV, Jamal PATTENC, Masha SAAVEDRA, et al. Personalized circulating tumor DNA analysis as a predictive biomarker in solid tumor patients treated with pembrolizumab. Nature Cancer. 2020;1(9):873-881. 2 Luis Alberto SANCHEZ, Elissa Covington, et al., Circulating Tumor DNA in Stage III Colorectal Cancer, beyond Minimal Residual Disease Detection, toward Assessment of Adjuvant Therapy Efficacy and Clinical Behavior of Recurrences. Clin Cancer Res. 2020; 28(3):507-517. Methodology FFPE samples are assessed by a pathologist to identify tumor margins and percent tumor content. Tumor DNA is extracted using Qiagen AllPrep. Whole genomic DNA is isolated from peripheral blood using QIAamp DNA Blood Mini Kit to provide a baseline DNA sequence. Circulating tumor DNA (ctDNA) is extracted from plasma derived from whole blood samples collected in cell-free DNA blood tubes (Derivix) using the QIAsymphony automated or manual extraction method (Qiagen). Using a proprietary algorithm, putative, clonal variants present in the tumor but absent in the germline DNA are identified to design the customized multiplex PCR assay. Whole-exome sequencing is performed on tumor and peripheral blood DNA using the proprietary Trak.io whole-exome sequencing assay. Pathology services are performed at [facility], [address] [place] [address], [address], [address], and whole exome sequencing is performed at [facility] (CLIA ID# [id number]), [address] [place] [address]. Disclaimer The extraction, library preparation, and sequencing for this test were performed by [facility] [address] [facility] [address], [place] [address] (CLIA ID [id number]). The data analysis and reporting for this test were performed by [facility] [address], [place] [address] (CLIA ID [id number]). This test was developed and its performance characteristics determined by [facility]. The test has not been cleared or approved by the U.S. Food and Drug Administration (FDA). CAP accredited, ISO 06206 certified, and CLIA certified. Pathology services and whole exome sequencing for this test were performed by [facility], [address] [place] [id number] (CLIA ID [id number]). 2020 [employer]. All Rights Reserved. Blood specimen (specimen) Venous blood specimen / Unknown 05/30/2024 11:55 AM CDT 06/05/2024 10:12 PM CDT us Kim Griffiths MD LAB GENETIC TESTING Fi nal Result [facility] [address] [place] [address], [facility] * CT Chest Abdomen Pelvis W Contrast (05/30/2024 10:36 AM CDT) Anatomical Region Laterality Modality Body N/A Computed Tomogra phy 05/30/2024 10:5 0 AM CDT Impressions 05/30/2024 10:50 AM CDT 1. Surgical changes of cystectomy. No evidence of recurrent or metastatic disease in the chest abdomen or pelvis. Electronically signed by: Kinjal Mckeon M.D. Narrative 05/30/2024 10:50 AM CDT EXAMINATION: Computed tomography of the chest, abdomen and pelvis with intravenous contrast HISTORY: Bladder cancer surveillance TECHNIQUE: Transaxial computed tomographic images of the chest, abdomen and pelvis were obtained with intravenous contrast according to the standard protocol after the uneventful administration of 68 mL Opti-Ray 350 intravenous contrast. COMPARISON: CT chest abdomen and pelvis, 02/26/2024 FINDINGS: Chest: Central airways are clear. Calcified granuloma in the right lower lobe. No soft tissue nodule/masses, consolidation, pleural effusion or pneumothorax. No central pulmonary embolism. The thoracic aorta is normal in caliber with mild atherosclerosis. No coronary artery opacification. The heart is normal in size without pericardial effusion. There is a right subclavian approach chest wall medical port with distal tip terminating within the superior cavoatrial junction. Stable 1.2 cm hypoattenuating lesion in the left thyroid gland. The esophagus is within normal limits. No thoracic lymphadenopathy. Abdomen/Pelvis: 4 mm hypoattenuating lesion in hepatic segment 6 which is too small to characterize but may represent a simple cyst. No suspicious hepatic lesions. Gallbladder, spleen, left adrenal gland, and pancreas are within normal limits. 2.1 cm and 0.5 cm hypoenhancing right adrenal gland lesions which have remained stable since 12/23/2021 and likely represent adenomas. Atrophic appearance of the right kidney. The left kidney is normal in size and enhancement with hypoattenuating lesions which are favored to represent simple cysts. No hydronephrosis or nephrolithiasis. Postsurgical changes of cystectomy with formation of an ileal conduit. The uterus is present. There are fibroids present. No adnexal masses. The stomach is normal. The small and large bowel are normal in caliber and without focal wall thickening. Colonic diverticulosis. The appendix is normal. No ascites or pneumoperitoneum. No lymphadenopathy. The abdominal aorta is normal in caliber with mild atherosclerosis. No suspicious osseous lesions. Procedure Note Kinjal Mckeon MD - 05/30/2024 EXAMINATION: Computed tomography of the chest, abdomen and pelvis with intravenous contrast HISTORY: Bladder cancer surveillance TECHNIQUE: Transaxial computed tomographic images of the chest, abdomen and pelvis were obtained with intravenous contrast according to the standard protocol after the uneventful administration of 68 mL Opti-Ray 350 intravenous contrast. COMPARISON: CT chest abdomen and pelvis, 02/26/2024 FINDINGS: Chest: Central airways are clear. Calcified granuloma in the right lower lobe. No soft tissue nodule/masses, consolidation, pleural effusion or pneumothorax. No central pulmonary embolism. The thoracic aorta is normal in caliber with mild atherosclerosis. No coronary artery opacification. The heart is normal in size without pericardial effusion. There is a right subclavian approach chest wall medical port with distal tip terminating within the superior cavoatrial junction. Stable 1.2 cm hypoattenuating lesion in the left thyroid gland. The esophagus is within normal limits. No thoracic lymphadenopathy. Abdomen/Pelvis: 4 mm hypoattenuating lesion in hepatic segment 6 which is too small to characterize but may represent a simple cyst. No suspicious hepatic lesions. Gallbladder, spleen, left adrenal gland, and pancreas are within normal limits. 2.1 cm and 0.5 cm hypoenhancing right adrenal gland lesions which have remained stable since 12/23/2021 and likely represent adenomas. Atrophic appearance of the right kidney. The left kidney is normal in size and enhancement with hypoattenuating lesions which are favored to represent simple cysts. No hydronephrosis or nephrolithiasis. Postsurgical changes of cystectomy with formation of an ileal conduit. The uterus is present. There are fibroids present. No adnexal masses. The stomach is normal. The small and large bowel are normal in caliber and without focal wall thickening. Colonic diverticulosis. The appendix is normal. No ascites or pneumoperitoneum. No lymphadenopathy. The abdominal aorta is normal in caliber with mild atherosclerosis. No suspicious osseous lesions. IMPRESSION: 1. Surgical changes of cystectomy. No evidence of recurrent or metastatic disease in the chest abdomen or pelvis. Electronically signed by: Kinjal Mckeon M.D. us Kim Griffiths MD IM CT PROCEDURES Catarina l Result * Colonoscopy (10/23/2023 2:31 PM CDT) Anatomical Region Laterality Modality Other Narrative Procedure Note Rajeev Martin MD PhD - 10/23/2023 2:31 PM CDT [facility] END[facility] Patient Name: Gladys Salmon Procedure Date: 10/23/2023 2:31 PM Date of : 1965 Admit Type: Outpatient Age: 58 Gender: Female Attending MD: Rajeev Martin MD,PHD Room: [facility] ENDOSCOPY ROOM 8 Note Status: Finalized Procedure: Colonoscopy Indications: Screening for colorectal malignant neoplasm.Diarrhea and received recent nivolimab. Referring MD: Kim Griffiths M.D. Providers: Rajeev Martin MD, PHD Medicines: Monitored Anesthesia Care Complications: No immediate complications. Estimated Blood Loss: Estimated blood loss was minimal. Procedure: Pre-Anesthesia Assessment: - Prior to the procedure, a History and Physicalwas performed, and patient medications, allergies and sensitivities were reviewed. The patient'stolerance of previous anesthesia was reviewed. - The risks and benefits of the procedure and the sedation options and risks were discussed with the patient. All questions were answered and informed consent was obtained. - After reviewing the risks and benefits, thepatient was deemed in satisfactory condition to undergo the procedure. - Immediately prior to administration ofmedications, the patient was re-assessed for adequacy to receive sedatives. The benefits, risks and alternatives of theprocedure and sedation were discussed and informed consentwas obtained. All questions were answered. Please referto the signed informed consent document in the medical record. The scope was passed under direct vision.The CF [id number] endoscope was introduced through the anus with the intention of advancing to thececum. The scope was advanced to the splenic flexurebefore the procedure was aborted. Medications were notgiven. The colonoscopy was performed with difficulty dueto poor bowel prep. The bowel preparation used was GoLYTELY via split dose instruction. The quality of the bowel preparation was poor. Findings: The perianal and digital rectal examinations were normal. A 10 mm polyp was found in the descending colon. The polyp was semi-pedunculated. The polyp was removed with a cold snare. Resection and retrieval were complete. Copious quantities of stool was found in the entire colon. Biopsieswere taken with a cold forceps for histology. Internal hemorrhoids were found during retroflexion. Impression: Normal appearing mucosa as far as I could go until encountering solid stool and procedure was aborted.I biopsied to rule out checkpoint inhibitor related diarrhea or microscopic colitis. I took off onepolyp I saw; however, most of the mucosa was obscrued by stool this was not adequate for screening., Therectum was also full of stool and as such I couldn'tevaluate for her complaints or rectal pain. - One 10 mm polyp in the descending colon, removed with a cold snare. Resected and retrieved. - Stool in the entire examined colon. Biopsied. - Internal hemorrhoids. Recommendation: - Await pathology results. - Will need two day prep for screening colonoscopyif one is desired - Cancer history noted. This was inadequate for screening and procedure wasprematurely aborted. Electronically signed by Rajeev Martin MD PHD Rajeev Martin MD, PHD 10/23/2023 3:03:10 PM . Number of Addenda: 0 Note Initiated On: 10/23/2023 2:31 PM us Rajeev Martin MD PhD ENDOSCOPY PROCEDURES F inal Result * Pap and High Risk HPV, reflex to Genotyping (01/01/2022 11:12 AM CDT) Thin prep (Pap test) 01/01/2022 11:12 AM CDT 01/01/2022 11:12 AM CDT Narrative PATHOLOGY [facility] - 01/03/2022 12:28 PM CDT [facility] Department of Pathology [address] [place], [place] [id number] Final Report with Addendum Note to Patients: This report may contain a detailed description of human tissue sent by a health care provider to the laboratory for pathologic evaluation. The content of this report is essential for diagnosis and may provide important critical findings. This information may be unfamiliar to patients to review without a medical professional present. It is advised that the patient review this report in the presence of a health care provider who can answer questions and explain the details. Patient Name: GLADYS SALMON Address: [address] [place] [address] Gender: F : 1965 (Age: 56) Service: Laboratory Location: [facility] #: [id number] Patient Type: SPECIMEN Taken: 01/01/2022 Received: 01/01/2022 Accessioned:: 01/02/2022 Reported: 01/03/2022 Physician(s): Melva Vallejo Diagnosis: Source of Specimen: SCREENING THIN PREP IMAGED PAP w/ HPV Specimen Adequacy: - Specimen satisfactory for interpretation; indeterminate endocervical component due to marked atrophy General Category: - Negative for intraepithelial lesion or malignancy Interpretation/Results: - Numerous inflammatory cells present EMANUEL Carter(ASCP) Report Electronically Reviewed and Signed Out By EMANUEL Carter(ASCP) 01/03/2022 12:28:18Addenda: HPV Test Interpretation NEGATIVE for types 16, 18, 31, 33, 35, 39, 45, 51, 52, 56, 58, 59, 66 and 68. Test performed utilizing Gen-Probe Aptima assay. EMANUEL Tipton(ASCP)Report Electronically Reviewed and Signed Out By EMANUEL Tipton(ASCP) 01/03/2022 10:10:18 Specimen(s) Received: A: SCREENING THIN PREP IMAGED PAP w/ HPV Clinical History: Last Menstrual Period: 2017 Menstrual History: Post-menopausal The Pap test is a screening test used to aid in the detection of cervical cancer and its precursors. It should not be the sole means by which malignant and premalignant lesions are diagnosed. Both false negative and false positive results may occur. It also has poor sensitivity for the detection of endometrial lesions and should not be used to evaluate suspected endometrial abnormalities. For these reasons it is most important to obtain Pap tests at regular intervals. The performance characteristics of some immunohistochemical stains, fluorescence in-situ hybridization tests and immunophenotyping by flow cytometry cited in this report (if any) were determined by the Surgical Pathology Department at [facility] as part of an ongoing clinical quality rn program and in compliance with federally mandated regulations drawn from the Clinical Laboratory Improvement Act of 1988 (CLIA '88). Some of these tests rely on the use of analyte specific reagents and are subject to specific labeling requirements by the US Food and Drug Administration. Such diagnostic tests may only be performed in a facility that is certified by the Department of Health and Human Services as a high complexity laboratory under CLIA '88. The FDA has determined that such clearance or approval is not necessary. This test is used for clinical purposes. It should not be regarded as investigational or for research. Nevertheless, federal rules concerning the medical use of analyte specific reagents require that the following disclaimer be attached to the report: This test was developed and its performance characteristics determined by the Surgical Pathology Department [facility]. It has not been cleared or approved by the U. S. Food and Drug Administration. Melva Vallejo MD LAB CYTOLOGY ORDERABLES Final Result PATHOLOGY [address] [place] [address] * Screening Mammogram W Adiel (10/17/2013 2:31 PM CDT) Anatomical Region Laterality Modality Breast N/A Mammography 10/17/2013 2:31 PM CDT Narrative 10/18/2013 9:48 AM CDT LORIN HALL M.D. FINAL REPORT ACC# Date Time Exam [id number] Oct 17, 2013 14:31:00 [facility] [id number] Bilateral screen w adiel Technologist(s): Antonietta Solis; ; EXAMINATION: Mammogram Technique: Bilateral Bilateral Full-Field Digital Screening Mammogram and Digital Breast Tomosynthesis were performed. Views obtained: bilateral craniocaudal and bilateral mediolateral oblique. Computer Aided Detection of the 2D images was performed with Livemap.3 version 9.3. Mammogram Findings: The present examination has been compared to prior imaging studies performed at [facility] on 04/21/2011, 10/18/2009 and 09/25/2009. The breasts are heterogeneously dense which could obscure a lesion on mammography. There is no suspicious abnormality in either breast. IMPRESSION: Annual screening mammography is recommended. OVERALL FINAL ASSESSMENT: BI-RADS CATEGORY 1: Negative. Requested By: Dictated By: LORIN AHLL M.D. on Oct 18 2013 9:48A This document has been electronically signed by: LORIN HALL M.D. on Oct 18 2013 9:47A Procedure Note Provider, MD Radha - 06/29/2016 LORIN HALL M.D. FINAL REPORT ACC# Date Time Exam [id number] Oct 17, 2013 14:31:00 [facility] [id number] Bilateral screen w adiel Technologist(s): Antonietta Solis; ; EXAMINATION: Mammogram Technique: Bilateral Bilateral Full-Field Digital Screening Mammogram and Digital Breast Tomosynthesis were performed. Views obtained: bilateral craniocaudal and bilateral mediolateral oblique. Computer AidedDetection of the 2D images was performed with Livemap.3 version 9.3. Mammogram Findings: The present examination has been compared to prior imaging studies performed at [facility] on 04/21/2011, 10/18/2009 and 09/25/2009. The breasts are heterogeneously dense which could obscure a lesion on mammography. There is no suspicious abnormality in either breast. IMPRESSION: Annual screening mammography is recommended. OVERALL FINAL ASSESSMENT: BI-RADS CATEGORY 1: Negative. Requested By: Dictated By: LORIN AHLL M.D. on Oct 18 2013 9:48A This document has been electronically signed by: LORIN HALL M.D. on Oct 18 2013 9:47A us Historical Provider MD [facility] MAMMO PROCEDURES Catarina l Result from Last 3 Months or Most Recently Relevant to Health Maintenance Insurance [employer] Member Subscriber Plan / Payer (Ef fective 2022-Present) Name:Gladys Salmon Relation to Subscriber:Self Name:Gladys Salmon Payer ID:[id number] (NAIC) Type:Flight[employer] Address: [address] PLAN [employer] OOS Advance Directives For more information, please contact: [phone] * Full Code (Latest Code Status on File) Date Activated Date Inactivated Comments 10/23/2023 1:19 PM 10/23/2023 8:07 PM * Full Code Date Activated Date Inactivated Comments 12/25/2022 8:21 PM 12/26/2022 5:13 PM * Full Code Date Activated Date Inactivated Comments 09/24/2022 7:34 AM 09/27/2022 10:27 PM * Full Code Date Activated Date Inactivated Comments 08/12/2022 9:31 PM 08/15/2022 6:20 PM * Full Code Date Activated Date Inactivated Comments 07/30/2022 8:27 PM 08/04/2022 5:31 PM Care Teams Business 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
--- OUTSIDE RECORDS SUMMARY | 2024-06-08 16:57 | XMS_ITS | Clinical Summary ---
Author Organization [facility] 2 Address [address] [facility] JAKUB [place] [address] Care Team Providers Care Pharmacy Services Representative Name Role Phone Kim Griffiths MD Unavailable [phone] Anibal Sewell MD Primary Care Provider Allergies No known active allergies Medications dextrose-fructose- [...] nausea or vomiting 30 tablet 1 12/23/19 23 Active Additional Information Patient not taking.Informant: Self, Reported on 06/08/2024 polyethylene glycol (MIRALAX) 17 gram/dose bulk powder Take 17 g by mouth daily as needed (constipation, while taking narcotic medications) 200 g 12/27/19 23 Active famotidine (PEPCID) 20 mg tablet Take 1 tablet (20 mg total) by mouth daily 30 tablet 11 01/20/20 23 Active estradioL (ESTRACE) 0.01 % (0.1 mg/gram) vaginal cream Insert 2 g into the vagina daily 06/17/19 24 Active hydrOXYzine (ATARAX) 25 mg tabletIndications: anxiety Take 1 tablet (25 mg total) by mouth every 8 (eight) hours as needed for anxiety Take 1-2 tablets three times daily as needed for anxiety 90 tablet 1 01/06/20 24 Active esketamine (Spravato) 14 mg/actuation nasal sprayIndications:Ivory penny depressive disorder, recurrent severe without psychotic features (HCC) Administer 3 sprays into each nostril 2 (two) times a week 3 each 3 01/21/20 Active nicotine (NICODERM CQ) [address] [...] capsule every day by oral route. 01/24/20 Active Hospital, Clinic, or Other Facility Administered [...] was obscured by surgical anastomosis site. 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 They stated they will follow [...] (12/31/2021): Added automatically from request for surgery [id number] Chronic obstructive pulmonary disease 10/07/2021 Pseudophakia of right eye 03/24/2018 Postop check 03/11/2018 Pseudophakia of left eye 01/06/2018 Overview (01/06/2018): - status post (s/p) phaco/IOL OS 01/06/18 Assessment & Plan (01/07/2018 10:37 AM [employer]): POD1 EXTRACTION CATARACT - PHACOEMULSIFICATION AND LENS [...] (12/04/2017): Added automatically from request for surgery [id number] Nuclear sclerosis of both eyes 12/01/2017 Assessment [...] kelsy present on urine cytology 02/12/2022 02/12/2022 Encounters Date Type Department Care Team Description 06/08/2024 2:15 PM CDT Office Visit [facility] [address] [address] Lorin Valentine PA Dizziness (Primary Dx); Rectal mass 06/01/2024 Telephone [facility] Radiology 1 [place] [address] Sonya Ross RN 05/30/2024 1:00 PM CDT Office Visit [facility] Oncology [facility] Floor 5 [place] [address] Kim Griffiths MD Malignant neoplasm of overlapping sites of bladder (HCC) (Primary Dx); Malignant neoplasm of urinary bladder, unspecified site (HCC) 05/30/2024 12:00 PM CDT Clinical Support [facility] Oncology Lab [address] [facility] Floor 5 [place] [address] Malignant neoplasm of overlapping sites of bladder (HCC); Malignant neoplasm of urinary bladder, unspecified site (HCC) 05/30/2024 11:15 AM CDT Clinical Support [facility] - Lab Collection [address] [facility] Floor 5 [place] [address] Malignant neoplasm of overlapping sites of bladder (HCC); Malignant neoplasm of urinary bladder, unspecified site (HCC) 05/30/2024 9:57 AM CDT - 05/30/2024 11:59 PM CDT Hospital Encounter [facility] [place] [address] [facility] [address] [place] [address] Malignant neoplasm of overlapping sites of bladder (HCC); Malignant neoplasm of urinary bladder, unspecified site (HCC) Discharge Disposition: Discharge to home or self care 05/27/2024 1:00 PM CDT Telemedicine [facility] Psychiatry [address] [facility] [address] [place] [phone] Merry Hunter NP Major depressive disorder, recurrent episode, moderate (HCC) (Primary Dx); Generalized anxiety disorder; Grief; Nicotine use disorder 05/26/2024 Orders Only [facility] Oncology [facility] 5 [place] [address] Kim Griffiths MD Malignant neoplasm of overlapping sites of bladder (HCC) (Primary Dx); Malignant neoplasm of urinary bladder, unspecified site (HCC) 2024 Social Work [facility] Oncology [facility] 5 [place] [address] Lucy Cabrera LCSW 05/18/2024 Telephone [facility] Oncology [address] [place] [phone] Kim Griffiths MD 05/18/2024 Orders Only [facility] Oncology [address] [place] [phone] Kim Griffiths MD 04/29/2024 1:00 PM [employer] Telemedicine [facility] Psychiatry [address] [place] [address] Outpatient Health [facility] [place] [address] Merry Hunter NP Severe episode of recurrent major depressive disorder, without psychotic features (HCC) (Primary Dx); Generalized anxiety disorder; Grief; Nicotine use disorder 04/04/2024 2:30 PM [employer] Telemedicine [facility] Psychiatry [address] [place] [address] Outpatient Health [address] [place] [address] Merry Hunter NP Severe episode of recurrent major depressive disorder, without psychotic features (HCC) (Primary Dx); Generalized anxiety disorder; Grief; Nicotine use disorder 03/29/2024 Telephone [facility] Psychiatry [address] [place] [address] for Outpatient Health [address] [address] Merry Hunter NP 03/29/2024 Telephone [facility] Psychiatry [address] [place] [address] Outpatient Health [address] [phone] Merry Hunter NP 03/18/2024 Documentation [facility] Ophthalmology [address] [place] [address] Outpatient Health [address] [place] [phone] Virginia Guo 03/11/2024 1:00 PM [employer] Telemedicine [facility] Psychiatry [address] [facility] [address] [place] [address] Merry Hunter NP Severe episode of recurrent major depressive disorder, without psychotic features (HCC) (Primary Dx); Generalized anxiety disorder; Grief; Nicotine use disorder from Last 3 Months Immunizations Immunization Administration Dates Next Due Moderna SARS-CoV-2 Monovalent Vaccination (12+ Y RS) 07/05/2020 Surgical History Surgery Date Site/Laterality Comments SURGICAL TREATMENT FOR Surgical Treatment For - (Added by TW Conv) SINUS SURGERY TONSILLECTOMY CATARACT EXTRACTION W/ INTRAOCULAR LENS IMPLANT Left PORT PLACEMENT CHEST >5 YEARS 03/04/2022 N/A CYSTECTOMY W/ URETEROILEAL CONDUIT 06/30/2022 - 07/30/2022 ENDOMETRIAL ABLATION COLONOSCOPY Medical History Medical History Date Comments Personal history of other en docrine, nutritional and metabolic disease Other disorders of lung Chronic lung disease - (Added by TW Conv) Other specified anxiety disorders Depression with anxiety - (Added by TW Conv) Personal history of other di seases of the digestive system History of irritable bowel s yndrome - (Added by TW Conv) Hyperlipemia Gross hematuria Bladder mass Cancer (HCC) Depression Bladder cancer (HCC) GERD (gastroesophageal reflux disease) Smoker Family History Medical History Relation Name Comments Heart attack Father Heart disease Father Family history of heart disease - (Added by TW Conv) Heart disease Maternal Grandmother Family history of heart disease - (Added by TW Conv) Hypertension Maternal Grandmother Family history of hypertension - (Added by TW Conv) Deep vein thrombosis Mother Breast cancer Mother's Sister Family hist ory of malignant neoplasm of breast - DX AT AGE 61 (Added by TW Conv) Brain cancer Paternal Grandfather Anesthesia problems Neg Hx Malig Hypertension Neg Hx Malig Hyperthermia Neg Hx Pseudochol deficiency Neg Hx Relation Name Status Comments Father Maternal Grandmother Mother Alive Mother's Sister Paternal Grandfather Social History Tobacco Use Types Packs/Day Years [...] often do you attend chur ch or jain services? Never 08/13/2022 Do you belong to any clubs o r organizations such as buddhist groups, unions, fraternal or athletic groups, or [...] place to sleep or slept in a skilled nursing (including now)? No 08/13/2022 Personal Safety Answer Date Recorded Have you ever been in or are you currently in a harmful physical or emotional relationship or is someone making you feel afraid or unsafe? Denies 10/23/2023 Comments No Sex and Gender Information Value Date Recorded Sex Assigned at Not on file Legal Sex Female 2:13 AM [employer] Gender Identity Not on file Sexual Orientation Not on file Occupation Industry Job Start Date Job End Date Unemployed/working on [employer]. Was working for [employer] in [place] (until 11/2021). Not on file Not on file Not on file Obstetrics History Para Term AB IAB SAB Ectopic Multiple Livin g Live Births 2 2 2 0 0 0 Date Outcome GA Total Labor Labor/2nd/3rd Weight Sex Type Anes PTL Lucía A1 A5 Name Clin IAB D&C IAB D&C Last Filed Vital Signs Vital Sign Reading [...] 06/08/2024 2:07 PM CDT Plan of Treatment Health Maintenance Due Date Last Done Comments Hepatitis C Screening 1965 DTaP/Tdap/Td Vaccine (1 - Tdap) 1976 Hepatitis B Screening 05/26/1983 Regular Well Visit/Exam 18-64 05/26/1983 Pneumococcal vaccine <65 (1 of 2 - PCV) 1984 Breast Cancer Screening-Mammogram 10/17/2014 014 Lung Cancer Screening 05/26/2015 Zoster Vaccine (1 of 2) 05/26/2015 Cervical Cancer Screening 01/01/2023 01/01/2022 Depression Screening 08/13/2023 08/12/2022 Covid-19 Vaccine ( - 2023-2 5 season) 2023 05/01/2021, 07/05/2020, 07/05/2020, Additional history exists Influenza Vaccine (Season Ended) 2024 Colon Cancer Screening-Colonoscopy 10/22/2033 10/23/2023 Colon Cancer Screening-CT Colonography Discontinued 10/23/2023 Colon Cancer Screening-DNA Stool Discontinued 10/23/19 Colon Cancer Screening-FIT Discontinued 10/23/2023 Colon Cancer Screening-Sigmoidoscopy Discontinued 10/23/2023 Medical Devices Implanted Type Area Superintendent Overhead Distribution Device Identifier Shelf Expiration Date Model / Serial / Lot [employer] Symmetry Vesolock Large Clip Internal 33133s - Sn/A - [id number] Implanted:Qty: 1 on 07/30/2022 by Chapin Patricia MD at [facility] Clip N/A: Pelvis [employer] [id number] 03/02/2025 [id number] / N/A / [id number] [employer] Symmetry Vesolock Large Clip Internal 08122g - Sn/A - [id number] Implanted:Qty: 1 on 07/30/2022 by Chapin Patricia MD at [facility] Clip N/A: Pelvis [employer] [id number] 03/02/2025 [id number] / N/A / [id number] [employer] Symmetry Vesolock Large Clip Internal 60672b - Sn/A - [id number] Implanted:Qty: 1 on 07/30/2022 by Chapin Patricia MD at [facility] Clip N/A: Pelvis [employer] [id number] 03/02/2025 [id number] / N/A / [id number] [employer] Sn60wf.235 Acrysof Iq Natural Stableforce Acrysert 6mm 13mm 1 Piece Foldable - [id number] - [id number] Implanted:Qty: 1 on 01/06/2018 by Nora Dennison MD at [facility] Advanced Medicine Lens Left: Eye [employer] [id number] 07/30/2022 SN60WF .23 5 / [id number] / 0 [employer] Sn60wf.240 Acrysof Iq Natural Stableforce Acrysert 6mm 13mm 1 Piece Foldable - [id number] - [id number] Implanted:Qty: 1 on 03/10/2018 by Nora Dennison MD at [facility] Medicine Lens Right: Eye [employer] [id number] 07/30/2022 SN60WF .24 0 / [id number] / 0 Timber [employer] Estee 7fr 80cm Open Tip Luer Lock Adapter Guidewire Graduate Straight Latex Free 160-210 - Sn/A - [id number] Implanted:Qty: 2 on 07/30/2022 by Chapin Patricia MD at [facility] Explanted:Qty: 1 on 12/25/2022 by Chapin Patricia MD Stent Bilateral: Kidney [employer] Estee [id number] 03/26/2026 160-210 / N/A / [id number] Description:Right J stent re placed in surgery on 12/25/22 leaving Left J stent inplace. Angio Dynamics Xcela Power Port 8fr [id number] - [id number] Implanted:Qty: 1 on 03/04/2022 at [facility] Angio Dynamics 11/19/2026 [id number] / / [id number] Explanted Type Area Superintendent Overhead Distribution Device Identifier Shelf Expiration Date Model / Serial / Lot [employer] Estee 7fr 80cm Open Tip Luer Lock Adapter Guidewire Graduate Straight Latex Free 160-210 - [id number] - [id number] Implanted:Qty: 1 on 12/25/2022 by Chapin Patricia MD at [facility] Explanted:Qty: 1 on 01/26/2023 by Chapin Patricia MD Stent Right: Ureter [employer] Estee [id number] 08/31/2026 [id number] / [id number] Description:Left J stent in place from 07/30/22 [...] - 6.5 K/cumm Comment:Testing performed by : [facility], [address] [place] [address] Lymphocyte abs 1.2 0.8 - 3.3 K/cumm [facility] Comment:Testing performed by : [facility], [address] [place], [place] [phone] Monocyte abs 0.3 0.2 - 0.8 K/cumm [facility] Comment:Testing performed by : [facility], [address] [place], [place] [phone] Eosinophil abs 0.1 0.0 - 0.5 K/cumm [facility] Comment:Testing performed by : [facility], [address] [place] [phone] Basophil abs 0.0 0.0 - 0.1 K/cumm [facility] Comment:Testing performed by : [facility], [address] [place] [phone] Neutrophil pct 76.2 % [facility] Comment: Interpretive Data Percent cell count reference ranges are not reported, since discordance with absolute values may lead to misinterpretation of CBC data. Current Interpretive Data was last revised on 2017. Testing performed by: [facility], [address] [place] [phone] Lymphocyte pct 17.1 % [facility] Comment: Interpretive Data Percent cell count reference ranges are not reported, since discordance with absolute values may lead to misinterpretation of CBC data. Current Interpretive Data was last revised on 2017. Testing performed by: [facility], [address] [place] [phone] Monocyte pct 4.4 % AXEL LYNCH Comment: Interpretive Data Percent cell count reference ranges are not reported, since discordance with absolute values may lead to misinterpretation of CBC data. Current Interpretive Data was last revised on 2017. Testing performed by: [facility], [address] [place] [phone] Eosinophil pct 1.6 % AXEL LYNCH Comment: Interpretive Data Percent cell count reference ranges are not reported, since discordance with absolute values may lead to misinterpretation of CBC data. Current Interpretive Data was last revised on 2017. Testing performed by: [facility], [address] [place] [phone] Basophil pct 0.7 % AXEL LYNCH Comment: Interpretive Data Percent cell count reference ranges are not reported, since discordance with absolute values may lead to misinterpretation of CBC data. Current Interpretive Data was last revised on 2017. Testing performed by: [facility], [address] [place] [phone] Blood 05/30/2024 12:0 9 PM CDT 05/30/2024 12:11 PM CDT us Kim Griffiths MD LAB BLOOD ORDERABLES F inal Result AXEL LYNCH [facility] [place] [address] * CBC with auto differential (05/30/2024 12:09 PM CDT) WBC 6.8 3.8 - 9.9 K/cumm Comment:Testing performed by : [facility], [address] [place] [phone] Hgb 14.2 11.9 - 15.5 g/dL AXEL MARIE Comment:Testing performed by : [facility], [address] [place] [phone] Hct 41.2 35.6 - 45.5 % [facility]ER [facility] Comment:Testing performed by : [facility], [address] [place], [place] [phone] Plt 197 150 - 400 K/cumm [facility] Comment:Testing performed by : [facility], [address] [place], [place] [phone] MPV 8.2 6.8 - 10.4 fL [facility] Comment:Testing performed by : [facility], [address] [place], [place] [phone] RBC 4.39 3.90 - 5.20 M/cumm [facility] Comment:Testing performed by : [facility], [address] [place], [place] [phone] MCV 93.7 81.3 - 96.4 fL [facility] Comment:Testing performed by : [facility], [address] [place], [place] [phone] MCH 32.3 27.1 - 33.3 pg [facility] Comment:Testing performed by : [facility], [address] [place] [address] MCHC 34.4 32.3 - 35.7 g/dL [facility] Comment:Testing performed by : [facility], [address] [place] [address] RDW CV 13.3 11.1 - 14.9 % [facility] Comment:Testing performed by : [facility], [address] [place], [place] [phone] NRBC abs 0.00 0.00 - 0.01 K/cumm [facility]EL [facility] Comment:Testing performed by : [facility], [address] [place], [place] [phone] Blood 05/30/2024 12:0 9 PM CDT 05/30/2024 12:11 PM CDT us Kim Griffiths MD LAB BLOOD ORDERABLES F inal Result AXEL LYNCH [facility] [place] [address] * eGFR (05/30/2024 12:03 PM CDT) eGFR [...] LAB BLOOD ORDERABLES F inal Result [facility] [place] [address] * Comprehensive metabolic panel (05/30/2024 12:03 PM CDT) Sodium 140 135 - 145 mmol/L Potassium, pl 4.2 3.3 - 4.9 mmol/L [facility] Chloride 104 97 - 110 mmol/L [facility] CO2 26 22 - 32 mmol/L [facility] Anion gap 10 2 - 15 mmol/L [facility] BUN 25 6 - 25 mg/dL [facility] Creatinine 0.91 0.60 - 1.10 mg/dL [facility] Glucose 137 70 - 199 mg/dL [facility] Comment: Interpretive Data Fasting glucose >/= 126 [...] classification and Diagnosis of Diabetes Diabetes Care 2021; 46: S19-S40. Current interpretive data was last revised 2022. Calcium 9.4 8.5 - 10.3 mg/dL [facility] Bilirubin, total 0.2 0.1 - 1.2 mg/dL [facility] Protein, pl 7.0 6.5 - 8.5 g/dL [facility] Albumin 3.9 3.5 - 5.0 g/dL [facility] Alk phos 85 40 - 130 Units/L [facility] ALT 17 7 - 45 Units/L [facility] AST 19 10 - 45 Units/L [facility] Blood 05/30/2024 12:0 3 PM CDT 05/30/2024 12:12 PM CDT us Kim Griffiths MD LAB BLOOD ORDERABLES F inal Result [facility] [place] [address] * Signatera Only Single Draw (05/30/2024 11:55 AM CDT) Pathologist [facility] SIGNATERA TEST RESULT NEGATIVE 07/2024 10:13 PM [...] Cancer. 2020;1(9):873-881. 2 Luis Alberto SANCHEZ, Elissa Roche, et al., Circulating Tumor DNA in Stage III Colorectal Cancer, beyond Minimal Residual Disease Detection, toward Assessment of Adjuvant Therapy Efficacy and Clinical Behavior of Recurrences. Clin Cancer Res. 202; 28(3):507-517. Methodology FFPE samples are assessed by a pathologist to identify tumor margins and percent tumor content. Tumor DNA is extracted using Qiagen AllPrep. Whole genomic DNA is isolated from peripheral blood using QIAamp DNA Blood Mini Kit to provide a baseline DNA sequence. Circulating tumor DNA (ctDNA) is extracted from plasma derived from whole blood samples collected in cell-free DNA blood tubes ([employer]com) using the QIAsymphony automated or manual extraction method (Qiagen). Using a proprietary algorithm, putative, clonal variants present in the tumor but absent in the germline DNA are identified to design the customized multiplex PCR assay. Whole-exome sequencing is performed on tumor and peripheral blood DNA using the proprietary [employer] whole-exome sequencing assay. Pathology services are performed at [facility], [address] [place] [address] A, [address], and whole exome sequencing is performed at [employer] (CLIA ID# [id number]), [address] [place] [address]. Disclaimer The extraction, library preparation, and sequencing for this test were performed by [employer] [address] [facility] [address], [place] [address] (CLIA ID [id number]). The data analysis and reporting for this test were performed by [employer] [address], [place] [address] (CLIA ID [id number]). This test was developed and its performance characteristics determined by [employer]. The test has not been cleared or approved by the U.S. Food and Drug Administration (FDA). CAP accredited, ISO 71535 certified, and CLIA certified. Pathology services and whole exome sequencing for this test were performed by [employer] [facility], [address] [place] [address] (CLIA ID [id number]). 2020 [employer]. All Rights Reserved. Blood specimen (specimen) Venous blood specimen / Unknown 05/30/2024 11:55 AM CDT 06/05/2024 10:12 PM CDT us Kim Griffiths MD LAB GENETIC TESTING Fi nal Result JEANINE BARON [address] [place] [address], [facility] * CT Chest Abdomen Pelvis W Contrast (05/30/2024 10:36 AM CDT) Anatomical Region Laterality Modality Body N/A Computed Tomogra phy 05/30/2024 10:5 0 AM CDT Impressions 05/30/2024 10:50 AM CDT 1. Surgical changes of cystectomy. No evidence of recurrent or metastatic disease in the chest abdomen or pelvis. Electronically signed by: Kinjal Mcekon M.D. Narrative 05/30/2024 10:50 AM CDT EXAMINATION: [...] atherosclerosis. No suspicious osseous lesions. Procedure Note Mike, Kinjal Nielsen MD - 05/30/2024 EXAMINATION: Computed tomography of [...] Kinjal Mckeon M.D. us Kim Griffiths MD IMG CT PROCEDURES Catarina l Result * Colonoscopy (10/23/2023 2:31 PM CDT) Anatomical Region Laterality Modality Other Narrative Procedure Note Rajeev Martin MD PhD - 10/23/2023 2:31 PM CDT [facility] Patient Name: Gladys Salmon Procedure Date: 10/23/2023 2:31 PM Date of : 1965 Admit Type: Outpatient Age: 58 Gender: Female Attending MD: Rajeev Maritn MD,PHD Room: [facility] ENDOSCOPY ROOM 8 Note Status: Finalized [...] The scope was passed under direct vision.The [id number] endoscope was introduced through the anus [...] PATHOLOGY CH - 01/03/2022 12:28 PM CDT [facility] Department of Pathology [address] [place], [place] [id number] Final Report with Addendum Note to Patients: [...] the details. Patient Name: GLADYS SALMON Address: [address] [place] [address] Gender: F : 1965 (Age: 56) Service: Laboratory Location: [facility] #: [id number] Patient Type: SPECIMEN Taken: 01/01/2022 Received: 01/01/2022 Accessioned:: 01/02/2022 Reported: 01/03/2022 Physician(s): Melva Vallejo Diagnosis: Source of Specimen: SCREENING THIN PREP IMAGED PAP w/ HPV Specimen Adequacy: - Specimen satisfactory for interpretation; indeterminate endocervical component due to marked atrophy General Category: - Negative for intraepithelial lesion or malignancy Interpretation/Results: - Numerous inflammatory cells present EMANUEL Carter(ASCP) Report Electronically Reviewed and Signed Out By LAURITA CarterASCP) 01/03/2022 12:28:18Addenda: HPV Test Interpretation NEGATIVE for types 16, 18, 31, 33, 35, 39, 45, 51, 52, 56, 58, 59, 66 and 68. Test performed utilizing Gen-Probe Aptima assay. EMANUEL Tipton(ASCP)Report Electronically Reviewed and Signed Out By LAURITA [facility]) 01/03/2022 10:10:18 Specimen(s) Received: A: SCREENING THIN [...] determined by the Surgical Pathology Department at [facility] as part of an ongoing quality assurance advisor program and in compliance with federally mandated [...] characteristics determined by the Surgical Pathology Department [facility]. It has not been cleared or approved by the U. S. Food and Drug Administration. Melva Vallejo MD LAB CYTOLOGY ORDERABLES Final Result PATHOLOGY [address] [place] [address] * Screening Mammogram W Adiel (10/17/2013 2:31 PM CDT) Anatomical Region Laterality Modality Breast N/A Mammography 10/17/2013 2:31 PM CDT Narrative 10/18/2013 9:48 AM CDT LORIN HALL M.D. FINAL REPORT ACC# Date Time Exam [id number] Oct 17, 2013 14:31:00 [facility] [id number] Bilateral screen w adiel Technologist(s): Antonietta Solis; ; EXAMINATION: Mammogram Technique: Bilateral Bilateral Full-Field Digital Screening Mammogram and Digital Breast Tomosynthesis were performed. Views obtained: bilateral craniocaudal and bilateral mediolateral oblique. Computer Aided Detection of the 2D images was performed with [email or web address] version 9.3. Mammogram Findings: The present examination has been compared to prior imaging studies performed at [facility] on 04/21/2011, 10/18/2009 and 09/25/2009. The breasts are heterogeneously dense which could obscure a lesion on mammography. There is no suspicious abnormality in either breast. IMPRESSION: Annual screening mammography is recommended. OVERALL FINAL ASSESSMENT: BI-RADS CATEGORY 1: Negative. Requested By: Dictated By: LORIN HALL M.D. on Oct 18 2013 9:48A This document has been electronically signed by: LORIN HALL M.D. on Oct 18 2013 9:47A Procedure Note Provider, MD Radha - 06/29/2016 LORIN HALL M.D. FINAL REPORT ACC# Date Time Exam [id number] Oct 17, 2013 14:31:00 [facility] [id number] Bilateral screen w adiel Technologist(s): Antonietta Solis; ; EXAMINATION: Mammogram Technique: Bilateral Bilateral Full-Field Digital Screening Mammogram and Digital Breast Tomosynthesis were performed. Views obtained: bilateral craniocaudal and bilateral mediolateral oblique. Computer AidedDetection of the 2D images was performed with [email or web address] version 9.3. Mammogram Findings: The present examination has been compared to prior imaging studies performed at [facility] on 04/21/2011, 10/18/2009 and 09/25/2009. The breasts are heterogeneously dense which could obscure a lesion on mammography. There is no suspicious abnormality in either breast. IMPRESSION: Annual screening mammography is recommended. OVERALL FINAL ASSESSMENT: BI-RADS CATEGORY 1: Negative. Requested By: Dictated By: LORIN HALL M.D. on Oct 18 2013 9:48A This document has been electronically signed by: LORIN HALL M.D. on Oct 18 2013 9:47A [facility] Provider MD POSADAS MAMMO PROCEDURES Catarina l Result from Last 3 Months or Most Recently Relevant to Health Maintenance Insurance [employer] OOS [employer] O[employer] Member Subscriber Plan / Payer (Ef fective 2022-Present) Name:Gladys Salmon Relation to Subscriber:Self Name:Gladys Salmon Payer ID:[id number] ([facility]) Type:[employer] Address: [address] PLAN [employer] OOS Advance Directives For more information, please contact: [phone] * Full Code (Latest Code Status on [...] 8:27 PM 08/04/2022 5:31 PM Care Teams Pharmacy Services Representative Relationship Specialty Start Date End Date Anibal Sewell MD [address] [facility] [address] [place] [address] PCP - General Internal Medicine 08/10/23 Kim Griffiths MD Medical Oncologist/Hoop Puncher Medical Oncology 02/27/22
--- OUTSIDE RECORDS SUMMARY | 2024-06-08 16:57 | XMS_ITS | Encounter Summary ---
Author Organization [facility] Healthcare Address [address] [place] [address] Care Team Providers Care Lens Gauger Name Role Phone Kim Griffiths MD Unavailable [phone] Anibal Sewell MD Primary Care Provider [phone] Reason for Visit * Reason Comments Dizziness Not constant. Ears f eel clogged. Has been going on since last week. Boils On anus. No leakage. Encounter Details Date Type Department Care Team (Late st Contact Info) Description 06/08/2024 2:15 PM CDT Office Visit [facility] at [address] [address] Ksenia Valentine PA [address] [place] [address] [address] [place] [address] Dizziness (Primary Dx); Rectal mass Social History Tobacco Use Types Packs/Day Years [...] often do you attend chur ch or pentecostal services? Never 08/13/2022 Do you belong to any clubs o r organizations such as roman catholic groups, unions, fraternal or athletic groups, or [...] money to buy more. Never true 08/14/19 23 Within the past 12 months, t he [...] place to sleep or slept in a alf (including now)? No 08/13/2022 Personal Safety Answer Date Recorded Have you ever been in or are you currently in a harmful physical or emotional relationship or is someone making you feel afraid or unsafe? 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 Was working for [employer] in [place] (until 11/2021). Not on file Not on file Not on file documented as of this encounter Last Filed Vital Signs Vital Sign Reading [...] Mass Index 25.92 06/08/2024 2:07 PM CDT documented in this encounter Progress Notes * Ksenia Valentine PA - 06/08/2024 2:15 PM CDT Images from the original note were not included. Subjective/Objective Patient ID: Gladys Herrera is a 59 y.o. female. Chief Complaint Dizziness (Not constant. Ears feel clogged. Has been going on since last week. ) and Boils (On anus. No leakage. ) Pt presents w/ dizziness x 1 week. States it is worst when she moves her head around. Describes it as room spinning. Also admits to nasal congestion, ear fullness. No fever. No cp, sob. 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 No paraesthesias. Also reports boil on her anus. States it has been there x couple of weeks but worsened 1 week ago when she tried to pop it. Having normal bowel movements without significant pain. In remission from bladder cancer s/p bladder removal. Review of Systems All systems reviewed and are negative or non contributory for this patient's presentation today other than as stated in the HPI . Physical Exam Constitutional: General: She is not in acute distress. HENT: Head: Normocephalic and atraumatic. Right Ear: Tympanic membrane, ear canal and external ear normal. Left Ear: Tympanic membrane, ear canal and external ear normal. Mouth/Throat: Pharynx: Oropharynx is clear. Eyes: Extraocular Movements: Extraocular movements intact. Pupils: Pupils are equal, round, and reactive to light. Cardiovascular: Rate and Rhythm: Normal rate. Pulmonary: Effort: Pulmonary effort is normal. Musculoskeletal: General: Normal range of motion. Cervical back: Normal range of motion. Skin: General: Skin is warm and dry. Neurological: General: No focal deficit present. Mental Status: She is alert and oriented to person, place, and time. Cranial Nerves: No cranial nerve deficit. Motor: No weakness. Coordination: Coordination normal. Gait: Gait normal. Psychiatric: Mood and Affect: Mood normal. Behavior: Behavior normal. Vitals: 06/08/24 1407 BP: 120/75 Pulse: 78 Resp: 20 Temp: 36.7 ??C (98 ??F) TempSrc: Oral SpO2: 99% Weight: 68.5 kg (151 lb) Height: 162.6 cm (5' 4 ) Assessment/Plan -pt w/ hx of bladder CA, optic nerve damage, presents w/ dizziness x 1 week. 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 No focal neuro deficits, however unable to r/o cardiac or neurologic etiology -in addition to the dizziness, pt is also c/o boil on her anus. States it has been there a few weeks but she tried to pop it last week and it has gotten larger and more painful since that time. Concern for rectal abscess. Discussed with patient and will defer exam at this time as the plan is already for ER referral. -pt to ER for further evaluation of dizziness and possible rectal abscess Diagnoses and all orders for this visit: Dizziness (Primary) Rectal mass No results found for this or any previous visit (from the past 4 hours). Disposition ER - MILENA Rodriguez 06/08/24 2:42 PM Cosigned by Brain Blum MD at 06/08/2024 3:33 PM CDT documented in this encounter Plan of Treatment Not on file documented as of this encounter Visit Diagnoses Diagnosis Dizziness- Primary Dizziness and giddiness Rectal mass Other symptoms involving digestive system documented in this encounter Historical Medications * This list may reflect changes made after this encounter. cholecalciferol (VITAMIN D-3) 5,000 unit capsule Take 1 capsule every day by oral route. 01/24/2024 triamcinolone acetonide 0.025 % lotion meloxicam (MOBIC) 15 mg tablet Take 1 tablet (15 mg total) by mouth daily 03/20/2024 gabapentin (NEURONTIN) 100 mg capsule Take 1 capsule (100 mg total) by mouth 3 (three) times a day fluticasone propion-salmeter oL (ADVAIR DISKUS) 250-50 mcg/dose diskus inhaler Inhale 1 puff twice a day by inhalation route. DULoxetine DR (CYMBALTA) 30 mg capsule Take 1 capsule (30 mg total) by mouth daily 03/20/[address] (CYMBALTA) 60 mg capsule 05/31/2024 added in this encounter Care Teams Lens Gauger Relationship Specialty Start Date End Date Anibal Sewell MD [address] [place] [address] [place] [address] PCP - General Internal Medicine 08/10/23 Kim Griffiths MD Medical Oncologist/Electrical Troubleshooter Medical Oncology 02/27/22 documented as of this encounter
--- OUTSIDE RECORDS SUMMARY | 2024-06-08 16:57 | XMS_ITS | Encounter Summary ---
Author Organization [facility] Address [address] [place] [address] Phone Care Team Providers Care Addiction Treatment Counselor Name Role Phone Kim Griffiths MD Unavailable [phone] Anibal Sewell MD Primary Care Provider [phone] Encounter Details Date Type Department Care Team (Latest Contact Info) Description 11/30/2023 Orders Only [facility] Scanning, Provider Social History Tobacco Use Types Packs/Day Years [...] often do you attend chur ch or oriental orthodox services? Never 08/13/2022 Do you belong to any clubs o r organizations such as rastafari groups, unions, fraternal or athletic groups, or school groups? No 08/13/2022 How often do you attend meet ings of the clubs or organizations you belong to? Never 08/13/2022 Are you , , di vorced, , never , or living with a partner? Never 08/13/2022 AUDIT-C Answer Date Recorded Q1: How often do you have a drink containing alcohol? Never 10/23/2023 Q2: How many drinks containi ng alcohol do you have on a typical day when you are drinking? Patient does not drink Q3: How often do you have si x or more drinks on one occasion? Never 10/23/2023 Overall Financial Resource Strain (CARDIA) Answe r [...] place to sleep or slept in a [place] [facility] [place] (including now)? No 08/13/2022 Personal Safety Answer Date Recorded Have you ever been in or are you currently in a harmful physical or emotional relationship or is someone making you feel afraid or unsafe? 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 Was working for [employer] in [employer] (until 11/2021). Not on file Not on file Not on file documented as of this encounter Plan of Treatment Not on file documented as of this encounter Procedures Procedure Name Priority Date/Time Associated Diagnosis Comments SCAN - PATHOLOGY 11/30/2023 documented in this encounter Results * SCAN - PATHOLOGY (11/30/2023) us Provider Scanning Final Result documented in this encounter Visit Diagnoses Not on filedocumented in this encounter Care Teams Addiction Treatment Counselor Relationship Specialty Start Date End Date Anibal Sewell MD [address] [place] [address] [address] [place] [address] PCP - General Internal Medicine 08/10/23 Kim Griffiths MD Medical Oncologist/Molybdenum Steamer Operator Medical Oncology 02/27/22 documented as of this encounter
--- OUTSIDE RECORDS SUMMARY | 2024-06-08 16:57 | XMS_ITS | Encounter Summary ---
Author Organization [facility] Address [address] [place] [address] Phone Care Team Providers Care Community Specialist Name Role Phone Kim Griffiths MD Unavailable [phone] Anibal Sewell MD Primary Care Provider [phone] Encounter Details Date Type Department Care Team (Latest Contact Info) Description 12/11/2023 Orders Only [facility] Scanning, Provider [...] often do you attend chur ch or scientology services? Never 08/13/2022 Do you belong to any clubs o r organizations such as pentecostalism groups, unions, fraternal or athletic groups, or [...] place to sleep or slept in a snf (including now)? No 08/13/2022 Personal Safety Answer Date Recorded Have you ever been in or are you currently in a harmful physical or emotional relationship or is someone making you feel afraid or unsafe? 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 Was working for [employer] in [place] (until 11/2021). Not on file Not on file Not on file documented as of this encounter Plan of Treatment Not on file documented as of this encounter Procedures Procedure Name Priority Date/Time Associated Diagnosis Comments SCAN - PATHOLOGY 12/11/2023 11:45 AM CDT documented in this encounter Results * SCAN - PATHOLOGY (12/11/2023 11:45 AM CDT) us Provider Scanning Final Result documented in this encounter Visit Diagnoses Not on filedocumented in this encounter Care Teams Community Specialist Relationship Specialty Start Date End Date Anibal Sewlel MD [address] [facility] [address] [place] [address] PCP - General Internal Medicine 08/10/23 Kim Griffiths MD Medical Oncologist/Flatwork Washer Medical Oncology 02/27/22 documented as of this encounter
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
--- OUTSIDE RECORDS SUMMARY | 2024-06-08 16:57 | XMS_ITS | Encounter Summary ---
Author Organization [facility] Address [address] [place] [address] Phone Care Team Providers Care [employer] Director Name Role Phone Kim Griffiths MD Unavailable [phone] Anibal Sewell MD Primary Care Provider [phone] Encounter Details Date Type Department Care Team (Latest Contact Info) Description 02/29/2024 Orders Only [facility] Scanning, Provider [...] often do you attend chur ch or jehovah's witness services? Never 08/13/2022 Do you belong to any clubs o r organizations such as mu-ism groups, unions, fraternal or athletic groups, or [...] place to sleep or slept in a usp (including now)? No 08/13/2022 Personal Safety Answer Date Recorded Have you ever been in or are you currently in a harmful physical or emotional relationship or is someone making you feel afraid or unsafe? Denies 10/23/2023 Comments No Sex and Gender Information Value Date Recorded Sex Assigned at Not on file Legal Sex Female 2:13 AM [employer] Gender Identity Not on file Sexual Orientation Not on file Occupation Industry Job Start Date Job End Date Unemployed/working on [email or web address]. Was working for [employer] in [employer] (until 11/2021). Not on file Not on file Not on file documented as of this encounter Functional Status documented as of this encounter Plan of Treatment Not on file documented as of this encounter Procedures Procedure Name Priority Date/Time Associated Diagnosis Comments SCAN - PATHOLOGY 02/29/2024 documented in this encounter Results * SCAN - PATHOLOGY (02/29/2024) us Provider Scanning Edited Result - Final documented in this encounter Visit Diagnoses Not on filedocumented in this encounter Care Teams [employer] Director Relationship Specialty Start Date End Date Anibal Sewell MD [address] [facility] [address] [place] [address] PCP - General Internal Medicine 08/10/23 Kim Griffiths MD Medical Oncologist/Ssn/Ssbn Assistant Navigator Medical Oncology 02/27/22 documented as of this encounter
--- OUTSIDE RECORDS SUMMARY | 2024-06-08 16:58 | XMS_ITS | Data Portability ---
Author Organization [place] [facility] [employer], Main Office Address [address] [place] [address] Assessment No assessment recorded. Plan of Treatment Reminders Order Date Submit Date Provider Last Modified By Organization Details Last Modified Time Details Appointments None record ed. Lab None record ed. Referral None record ed. Procedures None record ed. Surgeries None record ed. Imaging None record ed. Medication Orders None record ed. Patient TargetsNo targets recorded. Patient InstructionsNo instructions recorded. Reason for Referral None Reported. Results Created Date Observation Date Name Description Value Unit Range Abnormal Flag Note LastModifiedBy Organization Detail LastModifiedTime 07/07/1907/06/2020 CMP, serum or plasm a sodium 139 mmol/ L 137-14 5 Not Available [facility] (Lab) [address] [place], [address], 07/06/2020 19:20:42 07/07/1907/06/2020 CMP, serum or plasm a potassium 4.1 mmol/ L 3.5-5. 1 Not Available [facility] (Lab) [address] [place], [address], 07/06/2020 19:20:42 07/07/1907/06/2020 CMP, serum or plasm a chloride 108 mmol/ L 98-107 high Not Available [facility] (Lab) [address] [place], [address], 07/06/2020 19:20:42 07/07/1907/06/2020 CMP, serum or plasm a carbon dioxide 25 mmol/ L 22-30 Not Available [facility] (Lab) [address] [place], [address], 07/06/2020 19:20:42 07/07/19 21 07/06/2020 CMP, serum or plasm a agap 10.1 mmol/ L 14-22 low Not Available [facility] (Lab) [address] [place], [address], 07/06/2020 19:20:42 07/07/19 21 07/06/2020 CMP, serum or plasm a glucose 107 mg/dL 70-99 high Not Available [facility] (Lab) [address] [place], [address], 07/06/2020 19:20:42 07/07/19 21 07/06/2020 CMP, serum or plasm a BUN 28 mg/dL 8-19 high Not Available [facility] (Lab) [address] [place], [address], 07/06/2020 19:20:42 07/07/19 21 07/06/2020 CMP, serum or plasm a creatinine 0.52 mg/dL 0.66-1 .25 low Not Available [facility] (Lab) [address] [place], [address], 07/06/2020 19:20:42 07/07/19 21 07/06/2020 CMP, serum or plasm a GFR >60 Refer ence Range : [place] ge GFR Healt hy Adult : >60 mL/mi n/1.7 3 m2 Chron ic Kidne y Disea se: 15-60 mL/mi n/1.7 3 m2 Kidne y Failu re: <15/m L/min /1.73 m2 www.n iddk. nih.g ov MDRD study equat ion hasn' t been valid ated in child julia <18 yrs of age, pregn ant women , the elder ly >85 yrs of age, or in some racia l or ethni c subgr oups, suc as Hispa nics. Outsi de the valid ated lewis eters , estim ated GFR is less accur ate requi ring clini corey judgm ent on a case by case basis . Clini corey inter preta tion for other races and ages must be made by the clini chacorta . Futhe rmore , any of th e limit ation s with the use of serum creat inine relat ed to nutri leeann l statu s o r medic ation usage hasn' t accou nted for the MDRD Study equat ion. For perso ns < 18 yrs of age, a pedia tric GFR calcu lator can be locat ed on the [facility] websi te: https ://ezequiel w.kid mariam.o rg/pr ofess ional s/kdo qi/gf r_cal culat or Not Available [facility] (Lab) [address] [place], [address], 07/06/2020 19:20:42 07/07/19 21 07/06/2020 CMP, serum or plasm a alkaline phosphatase 67 U/L 38-126 Not Available [facility] (Lab) [address] [place], [address], 07/06/2020 19:20:42 07/07/19 21 07/06/2020 CMP, serum or plasm a alanine aminotransfe rase 19 U/L 0-35 Not Available [facility] (Lab) [address] [place], [address], 07/06/2020 19:20:42 07/07/19 21 07/06/2020 CMP, serum or plasm a aspartate aminotransfe rase 24 U/L 15-37 Not Available [facility] (Lab) [address] [place], [address], 07/06/2020 19:20:42 07/07/19 21 07/06/2020 CMP, serum or plasm a bilirubin, total 0.90 mg/dL 0.20-1 .30 Not Available [facility] (Lab) [address] [place], [address], 07/06/2020 19:20:42 07/07/19 21 07/06/2020 CMP, serum or plasm a calcium 9.5 mg/dL 8.4-10 .2 Not Available [facility] (Lab) [address] [place], [address], 07/06/2020 19:20:42 07/07/19 21 07/06/2020 CMP, serum or plasm a total protein 7.1 g/dL 6.3-8. 2 Not Available [facility] (Lab) [address] [place], [address], 07/06/2020 19:20:42 07/07/19 21 07/06/2020 CMP, serum or plasm a albumin 4.6 g/dL 3.4-5. 0 Not Available [facility] (Lab) [address] [place], [address], 07/06/2020 19:20:42 07/07/19 21 07/06/2020 CMP, serum or plasm a globulin 2.5 g/dL 2.6-4. 2 low Not Available [facility] (Lab) [address] [place], [address], 07/06/2020 19:20:42 07/07/19 21 07/06/2020 CMP, serum or plasm a A/G ratio 1.8 ratio 1.0-2. 0 Not Available [facility] (Lab) [address] [place], [address], 07/06/2020 19:20:42 07/07/19 21 07/06/2020 lipid panel , serum cholesterol 188 mg/dL 140-19 9 [facility] SINCERE NSUS RECOM MENDA TION FOR FIOR STERO L: ADULT CHILD LOW RISK: <200 <170 BORDE RLINE : <200- 239 ----- HIGH RISK: >240 >200 Not Available [facility] (Lab) [address] [place], [address], 07/06/2020 19:20:35 07/07/19 21 07/06/2020 lipid panel , serum triglyceride s 97 mg/dL 0-150 NIH SINCERE NSUS REPOR T RECOM MENDA TION FOR TRIGL YCERI ONEAL: ADULT CHILD LOW RISK: <150 ----- BODER LINE: 150-1 99 ----- HIGH RISK: >200 ----- Not Available [facility] (Lab) [address] [place], [address], 07/06/2020 19:20:35 07/07/19 21 07/06/2020 lipid panel , serum HDL cholesterol 63 mg/dL 40- Not Available [facility] (Lab) [address] [place], [address], 07/06/2020 19:20:35 07/07/19 21 07/06/2020 lipid panel , serum LDL cholesterol, calculated 106 mg/dL 0-130 [facility] SINCERE NSUS REPOR T RECOM MENDA TIONS FOR LDL: ADULT CHILD LOW RISK <130 <110 (OPTI MAL LDL) <100 ----- BORDE RLINE : 130-1 59 ----- HIGH RISK: >160 >130 A TRIGL YCERI DE RESUL T >400 INVAL IDATE S THE CALCU LATIO N FOR LDL FRACT IONAT ION - THE LDL RESUL T WILL NOT BE REPOR NATALYA. Not Available [facility] (Lab) [address] [place], [address], 07/06/2020 19:20:35 07/07/19 21 07/06/2020 C react tenzin prote in, QN, serum or plasm a C-reactive protein 0.09 mg/dL 0.0-0. 5 Not Available [facility] (Lab) [address] [place], [address], 07/06/2020 19:19:45 10/22/19 22 10/21/2021 LIPID PANEL cholesterol 183 mg/dL 140-19 9 [facility] SINCERE NSUS RECOM MENDA TION FOR FIOR STERO L: ADULT CHILD LOW RISK: <200 <170 BORDE RLINE : <200- 239 ----- HIGH RISK: >240 >200 Not Available [facility] (Lab) [address] [place], [address], 10/21/2021 13:07:57 10/22/19 22 10/21/2021 LIPID PANEL triglyceride s 89 mg/dL 0-150 [facility] SINCERE NSUS REPOR T RECOM MENDA TION FOR TRIGL YCERI ONEAL: ADULT CHILD LOW RISK: <150 ----- BODER LINE: 150-1 99 ----- HIGH RISK: >200 ----- Not Available [facility] (Lab) [address] [place], [address], 10/21/2021 13:07:57 10/22/19 22 10/21/2021 LIPID PANEL HDL cholesterol 72 mg/dL 40- Not Available [facility] (Lab) [address] [place], [address], 10/21/2021 13:07:57 10/22/19 22 10/21/2021 LIPID PANEL LDL cholesterol, calculated 93 mg/dL 0-130 [facility] SINCERE NSUS REPOR T RECOM MENDA TIONS FOR LDL: ADULT CHILD LOW RISK <130 <110 (OPTI MAL LDL) <100 ----- BORDE RLINE : 130-1 59 ----- HIGH RISK: >160 >130 A TRIGL YCERI DE RESUL T >400 INVAL IDATE S THE CALCU LATIO N FOR LDL FRACT IONAT ION - THE LDL RESUL T WILL NOT BE REPOR NATALYA. Not Available [facility] (Lab) [address] [place], [address], 10/21/2021 13:07:57 10/22/19 22 10/21/2021 COMPR EHENS TENZIN METAB OLIC PANEL sodium 137 mmol/ L 137-14 5 Not Available [facility] (Lab) [address] [place], [address], 10/21/2021 13:07:54 10/22/19 22 10/21/2021 COMPR EHENS TENZIN METAB OLIC PANEL potassium 4.7 mmol/ L 3.5-5. 1 Not Available [facility] (Lab) [address] [place], [address], 10/21/2021 13:07:54 10/22/19 22 10/21/2021 COMPR EHENS TENZIN METAB OLIC PANEL chloride 103 mmol/ L 98-107 Not Available [facility] (Lab) [address] [place], [address], 10/21/2021 13:07:54 10/22/19 22 10/21/2021 COMPR EHENS TENZIN METAB OLIC PANEL carbon dioxide 28 mmol/ L 22-30 Not Available [facility] (Lab) [address] [place], [address], 10/21/2021 13:07:54 10/22/19 22 10/21/2021 COMPR EHENS TENZIN METAB OLIC PANEL anion gap 10.7 mmol/ L 14-22 low Not Available [facility] (Lab) [address] [place], [address], 10/21/2021 13:07:54 10/22/19 22 10/21/2021 COMPR EHENS TENZIN METAB OLIC PANEL glucose 117 mg/dL 70-99 high Not Available [facility] (Lab) [address] [place], [address], 10/21/2021 13:07:54 10/22/19 22 10/21/2021 COMPR EHENS TENZIN METAB OLIC PANEL BUN 18 mg/dL 8-19 Not Available [facility] (Lab) [address] [place], [address], 10/21/2021 13:07:54 10/22/19 22 10/21/2021 COMPR EHENS TENZIN METAB OLIC PANEL creatinine 0.53 mg/dL 0.66-1 .25 low Not Available [facility] (Lab) [address] [place], [address], 10/21/2021 13:07:54 10/22/19 22 10/21/2021 COMPR EHENS TENZIN METAB OLIC PANEL GFR >60 Refer ence Range : [place] ge GFR Healt hy Adult : >60 mL/mi n/1.7 3 m2 Chron ic Kidne y Disea se: 15-60 mL/mi n/1.7 3 m2 Kidne y Failu re: <15/m L/min /1.73 m2 www.n iddk. nih.g ov The MDRD study equat ion has not been valid ated in child julia <18 years of age; pregn ant women ; the elder ly >85 years of age; or in some racia l or ethni c subgr oups, such as Hispa nics. Outsi de the valid ated lewis eters , estim ated GFR is less accur ate, requi ring clini corey judgm ent on a case- by-ca se basis . Clini corey inter preta tion for other races and ages must be made by the clini chacorta. The MDRD study equat ion has not been valid ated for the evalu ation of serum creat inine relat ed to nutri leeann l statu s or medic ation usage . For perso ns <18 years of age, a pedia tric GFR calcu lator is avail able on the [facility] websi te: https ://ezequiel solis.trudy becerra.o rg/pr ofess ional s/kdo qi/gf r_cal culat or Not Available [facility] (Lab) [address] [place], [address], 10/21/2021 13:07:54 10/22/19 22 10/21/2021 COMPR EHENS TENZIN METAB OLIC PANEL alkaline phosphatase 78 U/L 38-126 Not Available [facility] (Lab) [address] [place], [address], 10/21/2021 13:07:54 10/22/19 22 10/21/2021 COMPR EHENS TENZIN METAB OLIC PANEL alanine aminotransfe rase 19 U/L 0-35 Not Available [facility] (Lab) [address] [place], [address], 10/21/2021 13:07:54 10/22/19 22 10/21/2021 COMPR EHENS TENZIN METAB OLIC PANEL aspartate aminotransfe rase 24 U/L 15-37 Not Available [facility] (Lab) [address] [place], [address], 10/21/2021 13:07:54 10/22/19 22 10/21/2021 COMPR EHENS TENZIN METAB OLIC PANEL bilirubin, total 0.40 mg/dL 0.20-1 .30 Not Available [facility] (Lab) [address] [place], [address], 10/21/2021 13:07:54 10/22/19 22 10/21/2021 COMPR EHENS TENZIN METAB OLIC PANEL calcium 9.3 mg/dL 8.4-10 .2 Not Available [facility] (Lab) [address] [place], [address], 10/21/2021 13:07:54 10/22/19 22 10/21/2021 COMPR EHENS TENZIN METAB OLIC PANEL total protein 7.0 g/dL 6.3-8. 2 Not Available [facility] (Lab) [address] [place], [address], 10/21/2021 13:07:54 10/22/19 22 10/21/2021 COMPR EHENS TENZIN METAB OLIC PANEL albumin 4.3 g/dL 3.4-5. 0 Not Available [facility] (Lab) [address] [place], [address], 10/21/2021 13:07:54 10/22/19 22 10/21/2021 COMPR EHENS TENZIN METAB OLIC PANEL globulin 2.7 g/dL 2.6-4. 2 Not Available [facility] (Lab) [address] [place], [address], 10/21/2021 13:07:54 10/22/19 22 10/21/2021 COMPR EHENS TENZIN METAB OLIC PANEL A/G ratio 1.6 ratio 1.0-2. 0 Not Available [facility] (Lab) [address], [place], [address], 10/21/2021 13:07:54 12/17/1912/16/2021 hemog lobin A1C, finge rstic k HgbA1C 5.2% Not Available [facility] [address] , [address], [place], [address], 12/16/2021 12:31:57 12/17/1912/16/2021 urina lysis , dipst ick Leukocytes (reference range: negative ranjith/ l) Trace Not Available [facility] [address] , [address], [place], [address], 12/16/2021 12:28:29 12/17/19 22 12/16/2021 urina lysis , dipst ick Nitrite (reference rage: negative mg/dl) negati ve Not Available [facility] [address] , [address], [place], [address], 12/16/2021 12:28:29 12/17/19 22 12/16/2021 urina lysis , dipst ick Urobilinogen (reference range: 0.2-1 mg/dl) 0.2 Not Available [facility] [address] , [address], [place], [address], 12/16/2021 12:28:29 12/17/19 22 12/16/2021 urina lysis , dipst ick Protein (reference range: negative mg/dl) 30 Not Available [facility] [address] , [address], [place], [address], 12/16/2021 12:28:29 12/17/19 22 12/16/2021 urina lysis , dipst ick pH (reference range: 5-7) 5.5 Not Available [address] , [address], [place], [address], 12/16/2021 12:28:29 12/17/19 22 12/16/2021 urina lysis , dipst ick Blood (reference range: negative Serjio/ l) Large Not Available [address] , [address], [place], [address], 12/16/2021 12:28:29 12/17/1912/16/2021 urina lysis , dipst ick Specific [place] (reference range: 1.005-1.030) 1.025 Not Available [address] , [address], [place], [address], 12/16/2021 12:28:29 12/17/19 22 12/16/2021 urina lysis , dipst ick Ketone (reference range: negative mg/dl) Negati ve Not Available [address] , [address], [place], [address], 12/16/2021 12:28:29 12/17/19 22 12/16/2021 urina lysis , dipst ick Bilirubin (reference range: negative mg/dl) Negati ve Not Available [address] , [address], [place], [address], 12/16/2021 12:28:29 12/17/1912/16/2021 urina lysis , dipst ick Glucose (reference range: negative mg/dl) Negati ve Not Available [address] , [address], [place], [address], 12/16/2021 12:28:29 12/17/19 22 12/16/2021 urina lysis , dipst ick Appearance Cloudy Not Available [address] , [address], [place], [address], 12/16/2021 12:28:29 12/17/19 22 12/16/2021 urina lysis , dipst ick Color Pale Yellow Not Available [address] , [address], [place], [address], 12/16/2021 12:28:29 08/18/19 21 08/17/2020 LDCT, chest , for lung cance r scree esther No observ ation record ed. [id number] [facility] (Imaging) [address] [facility], [place], [address], 04/30/2022 23:07:29 12/25/19 22 12/23/2021 CT, abdom en + pelvi s, w/o contr ast No observ ation record ed. [id number] [facility] [address], [place], [address], 04/30/2022 23:07:29 12/25/19 22 12/23/2021 imagi ng/di agnos tic resul t No observ ation record ed. [id number] [facility] [address], [place], [address], 04/30/2022 23:07:29 12/25/19 22 12/23/2021 imagi ng/di agnos tic resul t No observ ation record ed. [id number] [facility] [address], [place], [address], 04/30/2022 23:07:29 01/21/20 22 12/23/2021 imagi ng/di agnos tic resul t No observ ation record ed. [id number] [facility] [address], [place], [address], 04/30/2022 23:07:29 01/21/20 22 12/23/2021 imagi ng/di agnos tic resul t No observ ation record ed. [id number] [facility] [address], [place], [address], 04/30/2022 23:07:29 08/13/19 23 08/12/2022 CT, abdom en + pelvi s, w/ contr ast No observ ation record ed. [address], [place], [address], 08/14/2022 08:26:21 01/12/20 24 01/12/2024 XR, lumbo sacra l spine , 2 or 3 view, bendi ng only No observ ation record ed. [email or web address], [place], [address], 01/12/2024 13:50:01 Result Notes None recorded. Problems Name Problem SNOMED Code Status Onset Date Resolution Date Notes Provider Name and Address Organization Details Recorded Time Chronic obstructive pulmonary disease 23700840 Active 2020 Not Available [facility] 23:05:35 Problem Notes None recorded. Procedures Surgical History None recorded. Imaging Results Imaging Date Name Status LastModified by Organiz ation Details LastModified Time 08/17/2020 LDCT, chest, for lung cancer screening completed [id number] [facility] (Imaging) [address] [place], [address], 04/30/2022 23:07:29 12/23/2021 CT, abdomen + pelvis, w/o contrast completed [id number] [facility] [address], [place], [address], 04/30/2022 23:07:29 12/23/2021 imaging/diagnos tic result completed [id number] [facility] [address], [place], [address], 04/30/2022 23:07:29 12/23/2021 imaging/diagnos tic result completed [id number] [facility] [address], [place], [address], 04/30/2022 23:07:29 12/23/2021 imaging/diagnos tic result completed [id number] [facility] [address], [place], [address], 04/30/2022 23:07:29 12/23/2021 imaging/diagnos tic result completed [id number] [facility] [address], [place], [address], 04/30/2022 23:07:29 08/12/2022 CT, abdomen + pelvis, w/ contrast completed [address] [place] [address], [address], 08/14/2022 08:26:21 01/12/2024 XR, lumbosacral spine, 2 or 3 view, bending only completed [id number], [address], 01/12/2024 13:50:01 Procedure Notes None recorded. Medical Equipment None Reported. Medications Name Sig Start Date Stop Date Status Note LastModified by Organization Details LastModified Time trazodone 50 mg tablet active Not Available Not Available Not Available azithromyci n 250 mg tablet TAKE 2 TABLETS (500 MG) BY ORAL ROUTE ONCE DAILY FOR 1 DAY THEN 1 TABLET (250 MG) BY ORAL ROUTE ONCE DAILY FOR 4 DAYS 12/16 completed Not Available Not Available Not Available fluconazole 150 mg tablet TAKE 1 TABLET BY MOUTH TODAY 01/30 completed Not Available Not Available Not Available benzonatate 200 mg capsule 10/21 completed Not Available Not Available Not Available hydrocodone 5 mg-acetamin ophen 325 mg tablet TAKE 1 TABLET BY MOUTH EVERY 6 HOURS NEEDED FOR PAIN active Not Available Not Available No t Available phenazopyri dine 200 mg tablet TAKE 1 TABLET BY MOUTH THREE TIMES DAILY NEEDED FOR BLADDER SPASMS active Not Available Not Available No t Available terconazole 0.8 % vaginal cream INSERT ONE APPLICATO RFUL VAGINALLY AT BEDTIME FOR 3 CONSECUTI VE DAYS active Not Available Not Available No t Available lidocaine 4 % topical cream APPLY TO THE AFFECTED AREA EXTERNALL Y TWICE DAILY NEEDED 10/21 completed Not Available Not Available Not Available metronidazo le 500 mg tablet TAKE 1 TABLET BY MOUTH TWICE DAILY 10/21 completed Not Available Not Available Not Available sulfamethox azole 800 mg-trimetho prim 160 mg tablet TAKE 1 TABLET BY MOUTH EVERY 12 HOURS FOR 7 DAYS 10/21 completed Not Available Not Available Not Available cephalexin 500 mg capsule 12/16 completed Not Available Not Available Not Available albuterol sulfate HFA 90 mcg/actuati on aerosol inhaler INHALE 2 PUFFS BY MOUTH EVERY 6 HOURS NEEDED FOR WHEEZING active Not Available Not Available No t Available amoxicillin 875 mg-potassiu m clavulanate 125 mg tablet Take 1 tablet every 12 hours by oral route. active Not Available Not Available No t Available hydroxyzine pamoate 25 mg capsule active Not Available Not Available N ot Available cyclobenzap rine 5 mg tablet Take 1 tablet 3 times a day by oral route. 10/21 completed Not Available Not Available Not Available bupropion HCl XL 150 mg 24 hr tablet, extended release active Not Available Not Available Not Available nitrofurant oin monohydrate /macrocryst als 100 mg capsule TAKE 1 CAPSULE BY MOUTH TWICE DAILY FOR 7 DAYS 10/21 completed Not Available Not Available Not Available Breztri Aerosphere 160 mcg-9mcg-4. 8mcg/actuat ion HFA aerosol inhaler Inhale 2 puffs twice a day by inhalatio n route for 30 days. active Not Available Not Available No t Available Vitals Date Recorded Body mass index (BMI) Body height Oxygen saturation Oxygen saturation in Arterial blood by Pulse oximetry Heart rate Body temperature Body weight Systolic blood pressure Diastolic blood pressure Provider Name and Address Organization Details Last Updated DateTime 1 25.7 kg/m2 162.56 cm 98 % 98 % 86 /min 97.1 [degF] 65265.8 6 g 127 mm[Hg] 64 mm[Hg] Not Available [facility] 3 23:04:32 Date Recorded Body mass index (BMI) Body height Oxygen saturation Oxygen saturation in Arterial blood by Pulse oximetry Heart rate Body temperature Body weight Systolic blood pressure Diastolic blood pressure Provider Name and Address Organization Details Last Updated DateTime 2 26.6 kg/m2 162.56 cm 96 % 96 % 91 /min 96.4 [degF] 26969.8 2 g 122 mm[Hg] 80 mm[Hg] Not Available [facility] 3 23:04:33 Date Recorded Body mass index (BMI) Body height Oxygen saturation Oxygen saturation in Arterial blood by Pulse oximetry Heart rate Body temperature Body weight Systolic blood pressure Diastolic blood pressure Provider Name and Address Organization Details Last Updated DateTime 2 27.1 kg/m2 162.56 cm 98 % 98 % 90 /min 97.4 [degF] 19845.5 9 g 116 mm[Hg] 80 mm[Hg] Not Available [facility] 3 23:04:33 Date Recorded Body mass index (BMI) Body height Oxygen saturation Oxygen saturation in Arterial blood by Pulse oximetry Heart rate Body temperature Body weight Systolic blood pressure Diastolic blood pressure Provider Name and Address Organization Details Last Updated DateTime 2 27.1 kg/m2 162.56 cm 98 % 98 % 94 /min 97.4 [degF] 26026.5 9 g 140 mm[Hg] 80 mm[Hg] Not Available [facility] 3 23:04:33 Social History Question Answer Notes LastModified by Organizat ion Details LastModified Time Tobacco Smoking Status Former Smoker Not Available [facility] 04/30/2022 23:03:56 What Is Your Level Of Alcohol Consumption? None [id number] Information not available 04/30/2022 What Is Your Level Of Caffeine Consumption? Moderate [id number] Information not available 04/30/2022 How Much Tobacco Do You Chew? None [id number] Information not available 04/30/2022 In The 14 Days Before Symptom Onset, Have You Had Close Contact With A Laboratory-confir med COVID-19 While That Case Was Ill? No [id number] Information not available 04/30/2022 In The 14 Days Before Symptom Onset, Have You Had Close Contact With A Person Who Is Under Investigation For COVID-19 While That Person Was Ill? No [id number] Information not available 04/30/2022 What Type Of Diet Are You Following? REGULAR [id number] Information not available 04/30/2022 Do You Or Have You Ever Used E-cigarettes Or Vape? Never Used Electronic Cigarettes [id number] Information not available 04/30/2022 Do You Or Have You Ever Used Smokeless Tobacco? Never Used Smokeless Tobacco [id number] Information not available 04/30/2022 How Much Tobacco Do You Smoke? 1 PPW [id number] Information not available 04/30/2022 How Many Years Have You Smoked Tobacco? 40 [id number] Information not available 04/30/2022 Sex: Unknown Functional Status None recorded. Mental Status None recorded. Family History Relationship Description Onset Age of this Age Resolved Age Notes LastModified by Organization Details LastModified Time Father Heart disease [id number] Not available 04/30/2022 23:04:17 Medical History No medical history recorded. Gynecological HistoryNo gynecological history recorded. Obstetrics History GPAL:G 0 P 0 0 0 0 Immunizations Vaccine Type Date Status Note Provider Nam e and Address Organization Details Recorded Time COVID-19, mRNA, LNP-S, PF, 100 mcg/0.5mL dose or 50 mcg/0.25mL dose 07/05/2020 completed Not Available [facility]10 Past Encounters Encounter ID Performer Location Encounter Start Date Encounter Closed Date Diagnosis/Indication Diagnosis SNOMED-CT Code Diagnosis ICD10 Code Diagnosis Note [id number] S_GMG [facility] Edyta nair [address] [facility] [place] [id number] 07/06/2020 00:00:00 07/06/2020 10:34:19 [id number] [facility] Edyta nair [address] [facility] [place] [id number] 10/21/2021 00:00:00 10/21/2021 10:47:16 [id number] [facility] Edyta nair [address] [place], [place] [address] [id number] 12/16/2021 00:00:00 12/16/2021 19:34:43 [id number] [facility] Edyta nair [address] [place] [address] 01/30/2022 00:00:00 01/31/2022 05:51:58 Health Concerns Section Related Observation LastModified by Organization Detai ls LastModified Time None Recorded Concern Status LastModified by Organization Details LastModified Time None Recorded Advance Directives Directive None Recorded Payers None recorded. OBGyn Episode No OBEpisode recorded.
--- OUTSIDE RECORDS SUMMARY | 2024-06-08 16:58 | XMS_ITS | Clinical Summary ---
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
--- OUTSIDE RECORDS SUMMARY | 2024-06-08 16:58 | XMS_ITS | Encounter Summary ---
Author Organization [facility] Address 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
--- OUTSIDE RECORDS SUMMARY | 2024-06-08 16:58 | XMS_ITS | Clinical Summary ---
Author Organization [facility] Address [address] [place] [address] Care Team Providers Care Antisqueak Chalker Name Role Phone Anibal Sewell MD Primary Care Provider [phone] Source Comments [facility],non-owned Affiliates and Associated Physician Practices is amultiple site organization consisting of ambulatory clinics and hospital sitesin [place], [place], [place] and [place]. This disclosure is being madepursuant to the Care Everywhere program and may not contain all information available regarding this patient. Last updated 17.[facility] Allergies No known active allergies Medications Be aware that medications may not be up to date on this document. Always verify current medications with the patient. No known medications Social History Tobacco Use Types Packs/Day Years Used Date Smoking Tobacco: Every Day Sex and Gender Information Value Date Recorded Sex Assigned at Not on file Gender Identity Not on file Sexual Orientation Not on file Last Filed Vital Signs Vital Sign Reading Time Taken Comments Blood Pressure 112/68 08/07/2017 9:57 AM CDT Pulse 84 08/07/2017 9:57 AM CDT Temperature 37 C (98.6 F) 08/07/2017 9:57 AM CDT Respiratory Rate - - Oxygen Saturation 97% 08/07/2017 9:57 AM CDT Inhaled Oxygen Concentration - - Weight 78 kg (172 lb) 08/07/2017 9:57 AM CDT Height 162.6 cm (5' 4 ) 08/07/2017 9:57 AM CDT Body Mass Index 29.52 08/07/2017 9:57 AM CDT Plan of Treatment Health Maintenance Due Date Last Done Comments KE (AGES 45-75) - COL ON CA SCREENING 1965 COLON MONITORING 1965 COLONOSCOPY - COLON CA SCREENING 1965 CT COLONOGRAPHY - COLON CA SCREENING 1965 Colorectal Cancer Screening 1965 FIT - COLON CA SCREENING 1965 FLEX SIG - COLON CA SCREENING 1965 LIPID TESTING 1965 MAMMOGRAM 1965 PAP SMEAR 1965 HIV SCREENING 1980 HEPATITIS C SCREENING 05/21/1983 DTAP/TDAP/TD VACCINES (1 - Tdap) 1984 HEPATITIS B VACCINE (1 of 3 - 19+ 3-dose series) 1984 PNEUMOCOCCAL VACCINE (1 of 2 - PCV) 1984 PNEUMOCOCCAL VACCINE 50+ (1 of 1 - PCV) 05/26/2015 ZOSTER VACCINE (1 of 2) 05/26/2015 SCREENING FOR DIABETES 08/07/2017 COVID-19 VACCINE (1 - 2023-2 5 season) 2023 DEPRESSION SCREENING 03/02/2024 INFLUENZA VACCINE (Season Ended) 2024 HIB VACCINE Aged Out No longer eligi ble based on patient's age to complete this topic HPV VACCINE Aged Out No longer eligi ble based on patient's age to complete this topic MENINGOCOCCAL (Group B) VACC INE SHARED DECISION-MAKING Aged Out No longer eligibl e based on patient's age to complete this topic MENINGOCOCCAL GROUPS A/C/Y/W VACCINE Aged Out No longer eligible b ased on patient's age to complete this topic Care Teams Antisqueak Chalker Relationship Specialty Start Date End Date Anibal Sewell MD [address] [place] [address] [address] [place] [address] PCP - General Internal Medicine 03/21/16
--- OUTSIDE RECORDS SUMMARY | 2024-06-08 17:45 | XMS_ITS | Clinical Summary ---
Author Organization 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
--- OUTSIDE RECORDS SUMMARY | 2024-06-08 17:45 | XMS_ITS | Encounter Summary ---
Author Organization [facility] Address [address] [place] [address] Care Team Providers Care Fire Prevention Captain Name Role Phone Unavailable Primary Care Provider Unavailabl e Encounter Details Date Type Department Care Team (Late st Contact Info) Description 05/18/2003 Outpatient Historical 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
--- OUTSIDE RECORDS SUMMARY | 2024-06-08 17:46 | XMS_ITS | Clinical Summary ---
Author Organization [facility] Address [address] [place] [address] Care Team Providers Care Dried Fruit Washer Name Role Phone Anibal Sewell MD Primary Care Provider Source Comments [facility],non-owned Affiliates and Associated Physician Practices is amultiple site organization consisting of ambulatory clinics and hospital sitesin [place], [place], [place] and [place]. This disclosure is being madepursuant to the Care Everywhere program and may not contain all information available regarding this patient. Last updated 17.[facility] Allergies No known active allergies Medications Be [...] age to complete this topic Care Teams Dried Fruit Washer Relationship Specialty Start Date End Date Anibal Sewell MD [address] [place] [address] [address] [place] [address] PCP - General Internal Medicine 03/21/16
[2024-06-08 18:10] VITALS: BP 121/61; PULSE 64; RESP 14; TEMP 36.6; O2SAT 100
--- NOTE | 2024-06-08 18:48 | ECG_ITS ---
Test Date: 2024-06-08 19:19:12 Measurements Intervals [place] Rate: 63 P: -21 TX: 155 QRS: -2 QRSD: 78 T: 5 QT: 396 QTc: 408 Interpretive Statements SINUS RHYTHM POSSIBLE RIGHT VENTRICULAR CONDUCTION DELAY BORDERLINE ST-T WAVE ABNORMALITY- INFERIOR LEADS BORDERLINE ECG No previous ECG available for comparison Electronically Signed On 06-08-2024 20:09:37 CDT by Lee Barnard D.O.
--- NOTE | 2024-06-08 18:50 | ED_ITS ---
HPI - General Adult General Chief complaint: Unspecified Stated complaint: bump on anus dizzy Time Seen by Provider: 06/08/24 17:27 History of Present Illness HPI narrative: 59-year-old female with a reported history of bladder cancer in remission for 1 year, cystectomy with urostomy bag, vertigo presents to emergency department for intermittent dizziness for the past week and ?bumps? to her anus for the past couple of weeks. Patient states when she turns her head she gets dizzy for a few seconds and then the dizziness self-resolves. She reportedly has not had vertigo in several years and is not taking anything for her vertigo. She states she did have some tinnitus in her ears 1 week ago but has not had any since. She also notes bilateral ear fullness and intermittent pain to the left ear. No vision changes, focal numbness or weakness. Patient also reporting to bumps to her anus and states 1 is painful. She has not noticed any drainage, melena or hematochezia. Denies abdominal pain or fever. Related Data Allergies Allergy/AdvReac Type Severity Reaction Status Date / Time No Known Drug Allergies Allergy Unknown Unknown Verified 01/25/24 07:48 Review of Systems 2 Review of Systems: All systems reviewed & are unremarkable except as noted in HPI and below PMFSH Past Medical History Medical History History of COPD Family History Family History Grandparent Hypertension Father Family history of coronary artery disease Patient's father is Other Family history of malignant neoplasm of cervix Family history of malignant neoplasm of male breast Social History Social History Smoking status: Current every day smoker Alcohol intake: never Substance use: current Substance use type: marijuana Exam 2 Narrative: GENERAL: Well-appearing, well-nourished, and in no acute distress. HEAD: Normocephalic, atraumatic. EYES: PERRLA and EOMI. No nystagmus ENT: Nares clear, no rhinorrhea or epistaxis. Mucous membranes moist. Bilateral TMs are abreu and nonbulging with normal canals NECK: Supple. CHEST: Clear to auscultation. No respiratory distress. HEART: Regular rate and rhythm. No murmur heard. Normal peripheral pulses. ABDOMEN: Soft, nontender, nondistended, normal active bowel sounds. No rebound, guarding or rigidity. Urostomy bag to the right lower quadrant draining clear yellow urine with no surrounding skin changes. RECTAL: Chaperoned by Mirna Juan: 2 external hemorrhoids to the posterior aspect of the anus, 1 of the hemorrhoids is small and thrombosed and tender to palpation. No active drainage no gross melena hematochezia EXTREMITIES: Normal range of motion. No edema. SKIN: Warm, dry, no rash. NEURO: No focal deficits. Alert and oriented x4. Cranial nerves 2-12 intact. Strength 5/5 in BUE and BLE. Sensation intact throughout. Course Vital Signs Vital signs: Vital Signs Temperature 97.9 F 06/08/24 15:52 Pulse Rate 73 06/08/24 15:52 Respiratory Rate 16 06/08/24 15:52 Blood Pressure 139/65 06/08/24 15:52 Pulse Oximetry 100 06/08/24 15:52 Oxygen Delivery Room Air 06/08/24 15:52 Temperature 98 F 06/08/24 18:10 Pulse Rate 69 06/08/24 19:12 Respiratory Rate 18 06/08/24 21:20 Blood Pressure 116/63 06/08/24 19:12 Pulse Oximetry 100 06/08/24 19:12 Oxygen Delivery Room Air 06/08/24 18:10 Medical Decision Making MDM Narrative Medical decision making narrative: 59-year-old female presents to the emergency department for intermittent vertigo for the past week and to ?bumps? to her anus the past couple of weeks. Triage vitals are stable. Patient is neurovascularly intact without focal deficits. She does have a history of vertigo and is describing benign vertigo - worse with position change, lasts seconds and immediately resolves. She has no neurologic deficits, TM exam is unremarkable. Her lab work shows no leukocytosis and no electrolyte derangements. Her EKG shows nonspecific ST and T-wave abnormalities to the inferior leads, no ST elevations or depressions. Troponin undetectable. Rectal exam shows 2 external hemorrhoids, 1 of which appears small nonthrombosed. I did offer to I&D the thrombosed hemorrhoid, however patient politely declines and would like to trial topical steroids and follow-up with GI. Patient received meclizine for vertigo. When I went to evaluate the patient, she was very hostile, dressed in her street clothes and stating she is ready to leave. She became verbally aggressive and stated several times that no one had been in to check on her and that she had pressed the call light several times without any responses. She told me she felt she was not taken care of despite the fact that I had examined her on 2 separate occasions. I apologized to the patient several times and attempted to deescalate the situation by explaining the busy state of the department and that we want her to feel cared for, however she persistently was verbally aggressive. She is ambulatory with a steady gait and discharged with prescription for meclizine, preparation H and GI follow up. Vital Signs Vital Signs: Vital Signs Temperature 97.9 F 06/08/24 15:52 Pulse Rate 73 06/08/24 15:52 Respiratory Rate 16 06/08/24 15:52 Blood Pressure 139/65 06/08/24 15:52 Pulse Oximetry 100 06/08/24 15:52 Oxygen Delivery Room Air 06/08/24 15:52 Temperature 98 F 06/08/24 18:10 Pulse Rate 69 06/08/24 19:12 Respiratory Rate 18 06/08/24 21:20 Blood Pressure 116/63 06/08/24 19:12 Pulse Oximetry 100 06/08/24 19:12 Oxygen Delivery Room Air 06/08/24 18:10 Lab Data 06/08/24 19:16 06/08/24 19:16 Labs: Lab Results 06/08/24 Range/Units 19:16 WBC 7.5 (4.5-10.0) K/mm3 RBC 4.28 (4.2-5.4) M/mm3 Hgb 13.6 (12.0-15.0) g/dL Hct 40.5 (37.0-47.0) % MCV 94.6 (80-100) fl MCH 31.8 (26-34) pg MCHC 33.6 (32-36) g/dl RDW 12.3 (11.5-14.5) % Plt Count 205 (150-375) k/mm3 MPV 9.7 (7.4-10.4) fl Immature Gran % (Auto) 0.4 (0-0.5) % Neut % (Auto) 67.8 (45.5-73.1) % Lymph % (Auto) 23.3 (18.3-44.2) % Woodward % (Auto) 5.7 (2.6-8.5) % Eos % (Auto) 2.3 (0-4.4) % Baso % (Auto) 0.5 (0.2-1.2) % Lymph # (Auto) 1.75 (0.9-3.2) K/mm3 Woodward # (Auto) 0.4 (0.1-0.6) K/mm3 Eos # (Auto) 0.2 (0-0.3) K/mm3 Baso # (Auto) 0.0 (0.0-0.1) K/mm3 Abs Immat Gran (auto) 0.03 (0.00-0.031) K/mm3 Absolute Neuts (auto) 5.1 (1.3-6.7) K/mm3 Absolute Nucleated RBC 0.000 (0.0-0.012) K/mm3 Nucleated RBC % 0.0 (0.0-0.2) % Sodium 140 (137-145) mmol/L Potassium 3.7 (3.4-5.0) mmol/L Chloride 108 H (98-107) mmol/L Carbon Dioxide 26 (22-30) mmol/L Anion Gap 6 (4-12) mmol/L BUN 20 H (7-17) mg/dL Creatinine 0.95 (0.7-1.0) mg/dL Estim Creat Clear Calc 48 ml/min Estimated GFR 60 (59 - ) Glucose 99 (65-110) mg/dL Calcium 9.1 (8.4-10.2) mg/dL Total Bilirubin 0.4 (0.2-1.3) mg/dL AST 23 (14-36) U/L ALT 20 (6-35) U/L Alkaline Phosphatase 74 (38-126) U/L Troponin I < 0.012 (0.000-0.034) ng/mL Total Protein 7.0 (6.3-8.2) g/dL Albumin 4.0 (3.5-5.1) g/dL Discharge Plan Discharge Clinical Impression: External hemorrhoid Benign paroxysmal positional vertigo Qualifiers: Laterality: unspecified laterality Qualified Code(s): H81.10 - Benign paroxysmal vertigo, unspecified ear Patient Disposition: Home Condition: Stable Instructions: Antibiotic Form, Hemorrhoids (DC), Benign Paroxysmal Positional Vertigo (DC) Additional Instructions: Return to the emergency department for any new or worsening symptoms. Patient Language: Mexican Prescriptions: New Preparation H 0.25-14-74.9 % ointment 1 applic RECTAL QAM AND QHS Qty: 28 0RF meclizine 25 mg tablet 25 mg PO BID PRN (Reason: dizziness) Qty: 14 0RF No Action ciprofloxacin HCl 500 mg tablet 500 mg PO Q12H 5 Days Qty: 10 0RF metronidazole [Flagyl] 500 mg tablet 500 mg PO Q8H 5 Days Qty: 15 0RF Follow-up/Referrals: Micheal Long MD [Physician] - UNKNOWN,DOCTOR [Primary Care Provider] -
[2024-06-08 19:12] VITALS: BP 116/63; PULSE 69; RESP 16; O2SAT 100
[2024-06-08 19:21] LABS: Basophils Percent Auto 0.5 % (0.2-1.2); Eosinophils Absolute Auto 0.2 K/mm3 (0-0.3); Eosinophils Percent Auto 2.3 % (0-4.4); Hematocrit 40.5 % (37.0-47.0); Hemoglobin 13.6 g/dL (12.0-15.0); Immature Granulocyte Absolute 0.03 K/mm3 (0.00-0.031); Immature Granulocyte Percent A 0.4 % (0-0.5); Lymphocytes Absolute Auto 1.75 K/mm3 (0.9-3.2); Lymphocytes Percent Auto 23.3 % (18.3-44.2); Mean Corpuscular HGB Conc 33.6 g/dl (32-36); Mean Corpuscular Hemoglobin 31.8 pg (26-34); Mean Corpuscular Volume 94.6 fl (80-100); Mean Platelet Volume 9.7 fl (7.4-10.4); Monocytes Absolute Auto 0.4 K/mm3 (0.1-0.6); Monocytes Percent Auto 5.7 % (2.6-8.5); Neutrophils Absolute Auto 5.1 K/mm3 (1.3-6.7); Neutrophils Percent Auto 67.8 % (45.5-73.1); Platelet Count Result 205 k/mm3 (150-375); Red Blood Count 4.28 M/mm3 (4.2-5.4); Red Cell Distribution Width 12.3 % (11.5-14.5); White Blood Count 7.5 K/mm3 (4.5-10.0)
[2024-06-08] MEDS: MECLIZINE HCL 25 MG TABLET PO (19:27)
[2024-06-08 19:34] LABS: Alanine Aminotransferase 20 U/L (6-35); Alkaline Phosphatase 74 U/L (38-126); Anion Gap 6 mmol/L (4-12); Aspartate Amino Transferase 23 U/L (14-36); Bilirubin,Total 0.4 mg/dL (0.2-1.3); Blood Urea Nitrogen 20 mg/dL (7-17); Calcium 9.1 mg/dL (8.4-10.2); Carbon Dioxide 26 mmol/L (22-30); Chloride 108 mmol/L (98-107); Estimated CRCL calculation 48 ml/min; Estimated Glomerular Filt Rate 60; Glucose 99 mg/dL (65-110); Potassium 3.7 mmol/L (3.4-5.0); Sodium 140 mmol/L (137-145)
[2024-06-08 20:50] LABS: Troponin I < 0.012 ng/mL (0.000-0.034)
[2024-06-08 21:20] VITALS: RESP 18
== END 2024-06-08 21:20 | disposition home or self-care (01) ==
PROVIDERS: Emergency Provider Physician Assistant
DX: H81.10 Benign paroxysmal vertigo, unspecified ear (principal); K64.4 Residual hemorrhoidal skin tags; J44.9 Chronic obstructive pulmonary disease, unspecified
CPT/HCPCS: 36415; 80053; 84484; 85025; 93005; 99284; A9270

== ENCOUNTER 2024-08-22 00:30 | Day surgery (SDC) | payer BC, MEDICARE, SELFPAY ==
[2024-08-10 15:23] VITALS: BMI 25.8
[2024-08-22 13:10] VITALS: BP 137/93; PULSE 64; RESP 18; TEMP 37.1; O2SAT 100; BMI 25.4
[2024-08-22] MEDS: LACTATED RINGERS 1,000 ML 150 ML IV CONT (13:31)
[2024-08-22] MEDS: SIMETHICONE ORAL SUSPENSION 20 MG/0.3 ML 30 ML BOTTLE 1.8 ML PO (13:32)
--- NOTE | 2024-08-22 14:46 | PM.IMHP ---
H&P: HPI History of Present Illness Date/Time: 08/22/24 14:46 Chief Complaint: History of bladder cancer -screening colonoscopy-nausea Narrative: the patient was diagnosed with bladder cancers 3 years ago, undergoing chemotherapy, radical cystectomy and immunotherapy which finished in November 2023. Screening colonoscopy was attempted last year and was not prepped. In addition she has been complaining of persistent nausea and was referred for EGD in addition to her screening colonoscopy which was prepped for 2 days. Review of Systems Review of Systems: All systems reviewed & are unremarkable except as noted in HPI and below PMFSH Past Medical History Medical History (Updated 08/20/24 @ 13:05 by Jose Mirza DO) Bladder cancer Colitis History of COPD Family History Family History Grandparent Hypertension Father Family history of coronary artery disease Patient's father is Other Family history of malignant neoplasm of cervix Family history of malignant neoplasm of male breast Social History Social History Years smoked: 40 Smoking status: Current some day smoker Tobacco type: cigarettes Alcohol intake: never Substance use: current Substance use type: marijuana Other substance usage details: smoke and uses edibles Living arrangements: with family Meds Home Medications and Allergies Home Medications ?Medication ?Instructions ?Recorded ?Confirmed ?Type meclizine 25 mg tablet 25 mg PO BID PRN dizziness #14 tabs 06/08/24 08/22/24 Rx phenylephrine 0.25 %-mineral oil 1 applic RECTAL QAM AND QHS #28 06/08/24 08/22/24 Rx 14 %-petrolatm 74.9 % rectal grams ointment (Preparation H) Allergies Allergy/AdvReac Type Severity Reaction Status Date / Time No Known Drug Allergies Allergy Unknown Unknown Verified 08/22/24 13:21 Vital Signs Vital Signs - 24 hr 08/22/24 13:10 Temperature 98.7 F Pulse Rate 64 Respiratory Rate 18 Blood Pressure 137/93 H Pulse Oximetry 100 Oxygen Delivery Room Air Exam Narrative: urostomy bag in the right lower quadrant. Const: General: cooperative and healthy appearing Resp: Effort & Inspection: normal respiratory effort and able to speak in complete sentences Auscultation: clear to auscultation bilaterally Cardio: Rate: regular rate Rhythm: regular rhythm GI: Inspection: normal to inspection GI Palp: No No hepatosplenomegaly present Auscultation: normal bowel sounds Rectal Exam: deferred Skin: General skin exam: normal color Psych: Appearance: grossly normal Mental Status: mental status grossly normal Assessment and Plan Assessment and plan (1) Colon cancer screening: Code(s): Z12.11 - Encounter for screening for malignant neoplasm of colon Status: Acute Assessment and Plan: The patient is deemed a good candidate for the procedure. Consent signed. Will proceed. (2) Nausea: Code(s): R11.0 - Nausea Status: Acute
--- NOTE | 2024-08-22 15:04 | S_PTH ---
PATIENT: Gladys Herrera LOC: JULIANE Davis#:[id number] AGE/SX: 59/F ROOM: RE08/22/[address]: Cm Joseph MD : 1965 BED: DIS: 08/22/2024 SPEC #: [id number] RECD: 08/23/24 07:58 STATUS: ELEANOR RE #: [id number] SHANTANU: 08/22/24 15:[address]: Cm Joseph DEPT: [facility] Surgical RECD BY: Malinda Billy ENTERED: 08/23/24 07:59 SP TYPE: Surgical OTHR DR: Robin ValenciaMD Tissues: A - Gastric Biopsy B - Gastric Biopsy C - Colon Polypectomy D - Colon Polypectomy Procedures: Hematoxylin and Eosin Stain Gross and Microscopic Level 4 H.Pylori
--- NOTE | 2024-08-22 15:05 | SUR.OPER ---
EGD start 1453 end 1458, Colonoscopy start 150
--- NOTE | 2024-08-22 15:06 | SUR.OPER ---
SCHOOL PHOTOGRAPHER used oral suction during procedure for excess oral secretions.
[2024-08-22] MEDS: SIMETHICONE ORAL SUSPENSION 20 MG/0.3 ML 30 ML BOTTLE 0.6 ML IRRIGATION (15:10)
[2024-08-22 15:41] VITALS: BP 106/63; PULSE 78; RESP 24; O2SAT 94
[2024-08-22 15:51] VITALS: BP 111/78; PULSE 75; RESP 20
[2024-08-22 16:01] VITALS: BP 136/76; PULSE 72; RESP 20
--- NOTE | 2024-08-22 16:25 | SUR.PHASEII ---
going over discharge instructions and gave her the card for the resolution clip that was placed during colonoscopy. instructed pt that she would need to present this if she was to have an mri. pt mentioned she has an mri scheduled in one week. strongly recommended she call the place where she is getting the mri and tell them she had a clip placed. pt upset, states she needs this done and will loses insurance after next week. again, strongly recomend she call and speak with the facility that does the mri and they would be able to make the decision on the mri. pt also had to call sergio to drive her and her friend home.it took some time for her to connect with a bobcat driver/labor. pt did voice understanding of all instructions. left per sergio accompained by friend.
--- NOTE | 2024-08-23 08:19 | P.PNAN_ITS ---
Anes - Initial Pre Proc Eval Procedure: Operation Date: 08/22/24 14:15 Proposed Procedures p EGD & Screening Colonoscopy - Cm Joseph MD Date/Time: 08/23/24 08:19 Surgeon: Cm Joseph MD Pre Op Diagnosis: Unspecified hemorrhoids, Nausea, Screening Patient Data Age: 59 Gender: F Height: 1.63 m Weight: 67.2 kg Last Vital Signs Temp 37.1 C 08/22/24 13:10 Pulse 72 08/22/24 16:01 Resp 20 08/22/24 16:01 BP 136/76 08/22/24 16:01 Pulse Ox 94 08/22/24 15:41 O2 Del Method Room Air 08/22/24 16:01 Allergies Allergy/AdvReac Type Severity Reaction Status Date / Time No Known Drug Allergies Allergy Unknown Unknown Verified 08/22/24 13:21 Home Medications ?Medication ?Instructions ?Recorded ?Confirmed ?Type meclizine 25 mg tablet 25 mg PO BID PRN dizziness #14 tabs 06/08/24 08/22/24 Rx phenylephrine 0.25 %-mineral oil 1 applic RECTAL QAM AND QHS #28 06/08/24 08/22/24 Rx 14 %-petrolatm 74.9 % rectal grams ointment (Preparation H) Patient hx anesthesia problems: none Family hx anesthesia problems: none Results Review: All pre-operative results and documents have been reviewed as part of the pre- operative evaluation. [facility] Past Medical History Medical History Bladder cancer Colitis History of COPD Family History Family History Grandparent Hypertension Father Family history of coronary artery disease Patient's father is Other Family history of malignant neoplasm of cervix Family history of malignant neoplasm of male breast Social History Social History Years smoked: 40 Smoking status: Current some day smoker Tobacco type: cigarettes Alcohol intake: never Substance use: current Substance use type: marijuana Other substance usage details: smoke and uses edibles Living arrangements: with family Anes - Eval Final PreProcedure Day of Procedure 08/23/24 08:19 Patient weight: normal Heart: regular rate and rhythm Lungs: decreased breath sounds Airway: Mallampati scale class II Neurological: alert and oriented Last oral intake: >/= 8 hours ASA classification: III Emergent: no Anesthetic plan: proceed Anesthesia type and monitoring: general GIVS and standard monitoring Results Review: All pre-operative results and documents have been reviewed as part of the pre- operative evaluation. Informed Consent: The patient's anesthetic plan and its attendant risks and benefits were discussed with the patient/family/POA. Questions were solicited and answers provided to the satisfaction of the patient/family/POA.
== END 2024-08-22 16:25 | disposition home or self-care (01) ==
PROVIDERS: PCP Family Medicine; Referring Provider Nurse Practitioner Family; Visit Provider Internal Medicine Gastroenterology
PROC: 0DJ08ZZ Inspection of Upper Intestinal Tract, Via Natural or Artificial Opening Endoscopic (ICD-10-PCS; CPT 45378; principal; 2024-08-22 14:15)
DX: Z09 Encounter for follow-up examination after completed treatment for conditions other than malignant neoplasm (principal); D12.2 Benign neoplasm of ascending colon; K57.30 Diverticulosis of large intestine without perforation or abscess without bleeding; K29.30 Chronic superficial gastritis without bleeding; B96.81 Helicobacter pylori [H. pylori] as the cause of diseases classified elsewhere; Z85.51 Personal history of malignant neoplasm of bladder; Z92.21 Personal history of antineoplastic chemotherapy; F17.210 Nicotine dependence, cigarettes, uncomplicated; F12.90 Cannabis use, unspecified, uncomplicated
CPT/HCPCS: 45381; 45385; 43239; 88305; 88342; J2003; J2704; J7120

== ENCOUNTER 2024-12-01 11:55 | Outpatient (CLI) | payer MEDICARE, SELFPAY ==
--- OUTSIDE RECORDS SUMMARY | 2024-12-01 12:06 | XMS_ITS | Encounter Summary ---
Author Organization [facility] Healthcare Address [address] [place] [address] Care Team Providers Care Dot Etcher Apprentice Name Role Phone Marcus Bentley MD Primary Care Provider + [phone] Kim Griffiths MD Unavailable [phone] Chapin Patricia MD Unavailable [phone], Physician Primary Care Provider Anibal Sewell MD Primary Care Provider [phone] Robin Valencia MD Primary Care Provider Diego Tavarez MD Unavailable [phone] Mackenzie Ortega MD Unavailable [phone] Kim Griffiths MD Unavailable [phone] Merry Hunter NP Unavailable [phone] Encounter Details Date Type Department Care Team (Late st Contact Info) Description 08/04/[address] 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 Was working for [employer] in [employer] (until 11/2021). Not on file Not on file Not on file documented as of this encounter Plan of Treatment Not on file documented as of this encounter Visit Diagnoses Not on filedocumented in this encounter Additional Health Concerns Infection Onset Date Last Indicated Resolved Time COVID: Suspected 08/13/2022 08/13/2022 08/13/2022 9:55 AM CDT documented as of this encounter Care Teams Dot Etcher Apprentice Relationship Specialty Start Date End Date Marcus Bentley MD [facility] [place] [address] PCP - General Family Medicine 07/08/20 07/12/23 No, Physician PCP - General 07/16/23 08/09/23 Anibal Sewell MD [address] [facility] [address] [place] [address] PCP - General Internal Medicine 08/10/23 07/13/24 Robin Valencia MD [address] [facility] [address] [place] [address] PCP - General Family Medicine 07/14/24 Kim Griffiths MD [address] [place] [address] Medical Oncologist/Data Processing Systems Project Planner Medical Oncology 02/27/22 Chapin Patricia MD [address] [place] [address] Consulting Physician Urology 08/04/22 10/11/23 Diego Tavarez MD [address] [facility] [address] [place] [address] Surgeon Ophthalmology 07/14/24 Mackenzie Ortega MD [address] [facility] [place] [address] Urology 07/14/24 Kim Griffiths MD [address] [place] [address] Medical Oncologist/Data Processing Systems Project Planner Medical Oncology 07/14/24 07/14/24 Merry Hunter NP [address] [place] [address] Nurse Practitioner Psychiatry 07/14/24 documented as of this encounter
--- OUTSIDE RECORDS SUMMARY | 2024-12-01 12:06 | XMS_ITS ---
Author Organization [facility] [address] [place] [address] Care Team Providers Care Hydropress Operator Name Role Phone Kim Griffiths MD Unavailable [phone] Robin Valencia MD Primary Care Provider Diego Tavarez MD Unavailable [phone] Mackenzie Ortega MD Unavailable [phone] Merry Hunter NP Unavailable [phone] Active Problems Problem Noted Date Diagnosed Date Trochanteric bursitis of right hip 10/17/2024 Assessment & Plan (10/25/2024 1:48 PM CDT): Chronic pain involving right hip (trochanteric bursitis), right knee, and hands Chronic pain in multiple joints, including right hip, right knee, and hands. Right hip pain previously managed with an injection six months ago, which provided temporary relief. Right knee pain is severe, causing difficulty standing. Pain in hands is significant, affecting daily activities. Differential includes possible inflammatory arthritis given family history of rheumatoid arthritis. She is not seeking pain medication and is looking for affordable treatment options. - Order rheumatologic blood tests to evaluate for inflammatory arthritis - Order x-rays of right hip and right knee --> done 09/2024 with results as shown below - recommend Orthopedics, referral placed for steroid trochanteric bursa injection which will likely alleviate her symptoms XR HIP RIGHT 2 OR 3 VIEWS 10/17/2024 Normal right hip joint space evaluation Orders: Ambulatory referral to Orthopedic Surgery; Future Assessment & Plan (10/17/2024 5:27 AM CDT): Chronic pain involving right hip (trochanteric bursitis), right knee, and hands Chronic pain in multiple joints, including right hip, right knee, and hands. Right hip pain previously managed with an injection six months ago, which provided temporary relief. Right knee pain is severe, causing difficulty standing. Pain in hands is significant, affecting daily activities. Differential includes possible inflammatory arthritis given family history of rheumatoid arthritis. She is not seeking pain medication and is looking for affordable treatment options. - Order rheumatologic blood tests to evaluate for inflammatory arthritis - Order x-rays of right hip and right knee - Consider referral for physical therapy if affordable options are available - Offer injection for right hip pain if needed Polyarthralgia 09/27/2024 Assessment & Plan (10/25/2024 1:48 PM CDT): Multiple joint pains raise suspicion for inflammatory arthritis, especially given family history of rheumatoid arthritis. Blood tests are necessary to confirm diagnosis. - reports family hx of mother with Rheumatoid arthritis - limited rheumatological workup for polyarthralgia with unremarkable findings 09/2024 - If interested, offered potential for further evaluation via rheumatology but declined Assessment & Plan (10/17/2024 5:30 AM CDT): Multiple joint pains raise suspicion for inflammatory arthritis, especially given family history of rheumatoid arthritis. Blood tests are necessary to confirm diagnosis. - reports her mother had severe Rheumatoid arthritis - Order rheumatologic blood tests Chronic pain of right knee 09/27/2024 Assessment & Plan (10/25/2024 1:48 PM CDT): Chronic right knee pain, affected by prolonged standing - Has already had lab work to look for inflammatory arthritis and rheumatological conditions - obtained x-rays of right knee --> done 09/2024 as shown below, shows mild OA changes only - referral placed to orthopedics XR KNEE RIGHT 4 OR MORE VIEWS 10/17/2024 Minimal medial and mild patellofemoral bicompartmental right knee osteoarthritis. Orders: Ambulatory referral to Orthopedic Surgery; Future Assessment & Plan (10/17/2024 5:32 AM CDT): Right knee pain is severe, causing difficulty standing. Pain in hands is significant, affecting daily activities. Differential includes possible inflammatory arthritis given family history of rheumatoid arthritis. She is not seeking pain medication and is looking for affordable treatment options. - Order rheumatologic blood tests to evaluate for inflammatory arthritis - Order x-rays of right hip and right knee - Consider referral for physical therapy if affordable options are available - Offer injection for right hip pain if needed Chronic right hip pain 09/27/2024 Overview (10/25/2024): Used to see [facility] Assessment & Plan (10/17/2024 5:33 AM CDT): Chronic pain involving right hip (trochanteric bursitis), right knee, and hands Chronic pain in multiple joints, including right hip, right knee, and hands. Right hip pain previously managed with an injection six months ago, which provided temporary relief. However, due to cost she has not gone back to them. She was also referred by them to physical therapy which was not done - Order rheumatologic blood tests to evaluate for inflammatory arthritis - Order x-rays of right hip and right knee - Consider referral for physical therapy if affordable options are available - Offer injection for right hip pain if needed Gastritis without bleeding 09/27/2024 Assessment & Plan (10/17/2024 5:28 AM CDT): Nausea and gastritis, likely H. pylori-associated Nausea occurring daily, possibly related to gastritis and H. pylori infection. Previous endoscopy showed gastritis, and treatment for H. pylori was initiated. Follow-up testing is needed to confirm eradication of H. pylori. - Advise follow-up breath test for H. pylori after completing antibiotics - Continue current medications for gastritis - Advise dietary modifications to avoid exacerbating gastritis Menopausal vaginal dryness 07/14/2024 Assessment & Plan (07/14/2024 8:58 AM CDT): - uses Estradiol vaginal cream as needed for menopausal vaginal dryness Alternating constipation and diarrhea 07/14/2024 Overview (07/14/2024): Following with GI at [place] Assessment & Plan (07/14/2024 10:09 AM CDT): Likely Irritable bowel syndrome Long-standing diarrhea and constipation. Scheduled for a colonoscopy and endoscopy in July 2024 to further evaluate gastrointestinal symptoms. Reports nausea and heartburn post-surgery and chemotherapy. - Proceed with scheduled colonoscopy and endoscopy in July 2024 Neuropathy 07/14/2024 Assessment & Plan (07/14/2024 10:10 AM CDT): Experiencing chronic pain, including neuropathy in the left foot post-bladder surgery. Pain management is challenging due to financial constraints and preference to avoid opioids. Gabapentin is used for neuropathy. Reports pain in the hip and foot, with a history of receiving a hip injection for pain relief. - Continue gabapentin as needed for neuropathy, Prescribed 100 mg TID but only taking it daily per patient as it has improved Recovering alcoholic in remission 07/14/2024 Assessment & Plan (07/14/2024 10:12 AM CDT): - recovering alcoholic, sober for decades per patient - keep it up Presence of urostomy 07/14/2024 Assessment & Plan (10/25/2024 1:48 PM CDT): - follows with Urology - post-radical cystectomy for bladder cancer - doing well with mild skin irritation and redness around the urostomy site. Reports she was Advised to visit wound clinic at [place] by Urology but has not yet done so. Currently managing with head and shoulders soap and calamine lotion. --> referral placed to wound care locally via [facility] for peristomal dermatitis again for her, printed and provided contact information for her as well Assessment & Plan (10/17/2024 5:27 AM CDT): - follows with Urology - post-radical cystectomy for bladder cancer - doing well with mild skin irritation and redness around the urostomy site. Reports she was Advised to visit wound clinic at [place] by Urology but has not yet done so. Currently managing with head and shoulders soap and calamine lotion. --> referral placed to wound care locally via [facility] for peristomal dermatitis Assessment & Plan (07/14/2024 10:16 AM CDT): - follows with Urology - post-radical cystectomy for bladder cancer - doing well with mild skin irritation and redness around the urostomy site. Reports she was Advised to visit wound clinic at [place] by Urology but has not yet done so. Currently managing with head and shoulders soap and calamine lotion. She would benefit eventually with wound care at [facility] when it opens History of colon polyps 10/27/2023 Overview (07/14/2024): has Colonoscopy scheduled for 07/2024 via [facility] Assessment & Plan (10/17/2024 5:24 AM CDT): - up to date with colonoscopy S/P Colonoscopy 08/22/2024 at [facility], Polyps removed 7 mm and 12 mm polyp, repeat in 3 years Colonoscopy 10/2023 Impression: Normal appearing mucosa as far as I could go until encountering solid stool and procedure was aborted. I biopsied to rule out checkpoint inhibitor related diarrhea or microscopic colitis. I took off one polyp I saw; however, most of the mucosa was obscrued by stool this was not adequate for screening., The rectum was also full of stool and as such I couldn't evaluate for her complaints or rectal pain. - One 10 mm polyp in the descending colon, removed with a cold snare. Resected and retrieved. - Stool in the entire examined colon. Biopsied. - Internal hemorrhoids. Recommendation: - Await pathology results. - Will need two day prep for screening colonoscopy if one is desired - Cancer history noted. This was inadequate for screening and procedure was prematurely aborted. Assessment & Plan (07/14/2024 9:02 AM CDT): - past due for repeat colonoscopy, has Colonoscopy scheduled for 07/2024 via [facility] - last colonoscopy as shown below, hx of colon polyp and was incompelte prep Colonoscopy 10/2023 Impression: Normal appearing mucosa as far as I could go until encountering solid stool and procedure was aborted. I biopsied to rule out checkpoint inhibitor related diarrhea or microscopic colitis. I took off one polyp I saw; however, most of the mucosa was obscrued by stool this was not adequate for screening., The rectum was also full of stool and as such I couldn't evaluate for her complaints or rectal pain. - One 10 mm polyp in the descending colon, removed with a cold snare. Resected and retrieved. - Stool in the entire examined colon. Biopsied. - Internal hemorrhoids. Recommendation: - Await pathology results. - Will need two day prep for screening colonoscopy if one is desired - Cancer history noted. This was inadequate for screening and procedure was prematurely aborted. Rectal pain 09/07/2023 Assessment & Plan (07/14/2024 10:15 AM CDT): - States she was told she has hemorrhoids vitamin ER doctor, has been seen by Gastroenterology but has not had a rectal exam as scheduled for colonoscopy in few weeks Visual disturbance 03/25/2023 Overview (07/14/2024): Left eye, chronic, legally blind per patient Assessment & Plan (07/14/2024 9:00 AM CDT): - got evaluated by Neuro editing intern - legally blind in left eye, has optic neuritis in left eye - had to go back and see neuro editing intern for insurance and legal issue for disability according to patient - has been told nothing that can be done GERD (gastroesophageal reflux disease) Assessment & Plan (07/14/2024 10:09 AM CDT): - chronic condition, not at goal - has stopped taking Famotidine - has EGD set up with GI via [place] provider - reports worse since chemotherapy/immunotherapy for bladder cancer - has been told will not be prescribe until she does procedure Experiencing waves of nausea and heartburn, particularly post-surgery and chemotherapy. Not currently on medication for GERD as GI specialist requires endoscopy results before prescribing. 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 Underwent six months of chemotherapy followed by radical cystectomy. Experienced complications post-surgery including kidney infections and urethral blockage. Currently cancer-free but at high risk for recurrence, with a 50% risk of recurrence within five years. Smoking history is a significant risk factor for recurrence. Undergoing CT scans of chest, abdomen, and pelvis every three months. - Continue CT scans of chest, abdomen, and pelvis every three months - Follow up with oncologist Dr. Kim Griffiths every three months Bladder cancer 07/30/2022 Generalized anxiety disorder 04/02/2022 Overview (07/14/2024): Follows with psychiatry Assessment & Plan (10/25/2024 1:48 PM CDT): - chronic condition, not at goal with persistent symptoms - diagnosed with treatment resistant depression and anxiety - Underwent ECT, TMS, and ketamine treatments with limited success. Currently on Cymbalta 120 mg daily and hydroxyzine 25 mg PRN for anxiety. Reports ongoing issues with motivation, agitation, anger, and sleep disturbances. Recently completed a partial hospitalization program for depression and anxiety. - states the TMS worked and the others did not but was not convenient and expensive as well - Continue Cymbalta 120 mg daily - Use hydroxyzine 25 mg as needed for anxiety - follows and managed by Psychiatry, but clearly still having significant anxiety along with personal and financial situation that is impacting her day-to-day functioning Assessment & Plan (07/14/2024 10:18 AM CDT): - chronic condition, not at goal with persistent symptoms - diagnosed with treatment resistant depression and anxiety - Underwent ECT, TMS, and ketamine treatments with limited success. Currently on Cymbalta 120 mg daily and hydroxyzine 25 mg PRN for anxiety. Reports ongoing issues with motivation, agitation, anger, and sleep disturbances. Recently completed a partial hospitalization program for depression and anxiety. - states the TMS worked and the others did not but was not convenient and expensive as well - Continue Cymbalta 120 mg daily - Use hydroxyzine 25 mg as needed for anxiety - follows and managed by Psychiatry Severe episode of recurrent major depressive disorder, without psychotic features 04/02/2022 Overview (07/14/2024): Follows with psychiatry Assessment & Plan (07/14/2024 10:18 AM CDT): - chronic condition, not at goal with persistent symptoms - diagnosed with treatment resistant depression and anxiety - Underwent ECT, TMS, and ketamine treatments with limited success. Currently on Cymbalta 120 mg daily and hydroxyzine 25 mg PRN for anxiety. Reports ongoing issues with motivation, agitation, anger, and sleep disturbances. Recently completed a partial hospitalization program for depression and anxiety. - states the TMS worked and the others did not but was not convenient and expensive as well - Continue Cymbalta 120 mg daily - Use hydroxyzine 25 mg as needed for anxiety - follows and managed by Psychiatry Malignant neoplasm of overlapping sites of bladd er 03/05/2022 Malignant neoplasm of overlapping sites of bladd er 02/12/2022 Assessment & Plan (09/24/2022 6:26 AM CDT): bladder cancer s/p neoadjuvant and cystectomy (07/30/22) with bladder conduits - onc hx detained in history section, fup with Dr malcolm, and dr Patricia Chronic obstructive pulmonary disease 10/07/2021 Assessment & Plan (10/25/2024 1:48 PM CDT): - Chronic condition, stable - Reports improvement of symptoms with decrease in summer heat - Question if she is taking the Breztri consistently but discussed that she should be taking the Breztri maintenance inhaler regularly - Uses air supra for flare-ups as well as acute treatment - Counseled and aware of the importance of tobacco smoking cessation as she has an active daily tobacco smoker, trying to quit, currently smoking 5-10 cigarettes on a daily basis Orders: Airsupra 90-80 mcg/actuation HFA aerosol inhaler; Inhale 1 each every 6 (six) hours as needed (wheezing, shortness of breath) Assessment & Plan (07/14/2024 10:09 AM CDT): Managed with inhalers. Uses fluticasone daily and an emergency inhaler as needed. Reports shortness of breath but no wheezing during the visit. - Continue fluticasone daily - Use emergency inhaler as needed - Counseled and aware of the importance of tobacco smoking cessation as she has an active daily tobacco smoker, trying to quit Optic neuropathy, left 10/19/2017 Overview (07/14/2024): - evaluated by neuro editing intern Assessment & Plan (07/14/2024 9:01 AM CDT): - got evaluated by Neuro editing intern - legally blind in left eye, has optic neuritis in left eye - had to go back and see neuro editing intern for insurance and legal issue for disability according to patient - has been told nothing that can be done Functional visual loss 10/19/2017 Allergic rhinitis 09/08/2017 Nicotine dependence with current use 09/08/2017 Assessment & Plan (07/14/2024 8:56 AM CDT): Social History Tobacco Use Smoking Status Former Current packs/day: 0.50 Average packs/day: 2.0 packs/day for 42.9 years (84.2 ttl pk-yrs) Types: Cigarettes Start date: 1980 Quit date: 12/2021 Passive exposure: Past Smokeless Tobacco Never Tobacco Comments Counseled on importance of quitting, advised to speak with pcp for assistance, instructed not to smoke for 24 hrs prior to surgery. Hasn't smoked in 1.5 weeks 04/14/2022 - chronic condition, not at goal - assessed patient readiness for tobacco smoking cessation - discussed the importance of tobacco smoking cessation with goal of being tobacco free - known bladder cancer, getting CT Chest Abdomen pelvis every 3 months via Oncology - has known bladder cancer - she was given nicotine patches but due to fear has not tried them Vitamin D deficiency 09/08/2017 Assessment & Plan (10/25/2024 1:48 PM CDT): - chronic, not goal - hx of vitamin D deficiency - has not been taking vitamin D3 5000 international units supplementation, refill provided to restart therapy Lab Results Component Value Date 25HYDROVITD 26.0 (L) 10/17/2024 Orders: cholecalciferol (VITAMIN D-3) 5,000 unit tablet; Take 1 tablet (5,000 Units total) by mouth daily Assessment & Plan (07/14/2024 10:18 AM CDT): - chronic, uncontrolled - hx of vitamin D deficiency - has not been taking vitamin D3 5000 international units supplementation - recheck labs, order placed No results found for: 25HYDROVITD Current Treatment and Therapy Plans ALTEPLASE (CATHFLO [...] mGy 9 6.5 mGy 0 mGy DLP 8,771 mGycm 8,771 mGycm 0 mGycm Resolved Problems Problem Noted Date Diagnosed Date Resolved Date Hydronephrosis with ureteral stricture 12/25/2022 07/14/2024 Hydronephrosis 12/08/2022 07/14/2024 Bacteremia due to Klebsiella pneumoniae 09/24/2022 07/14/2024 Assessment & Plan (09/28/2022 12:02 AM CDT): [...] was obscured by surgical anastomosis site. Updated manager decision support urology fellow. They stated they will follow [...] S/p bicarbx1; administer as clinically warranted, improving Pelvic fluid collection 08/12/202206/30 High grade urothelial carcin kelsy present on urine cytology 02/12/2022 02/12/2022 Bladder mass 12/31/2021 07/14/2024 Overview (12/31/2021): Added automatically from request for surgery [id number] Pseudophakia of right eye 03/24/2018 Postop check 03/11/2018 07/14/2024 Pseudophakia of left eye 01/06/2018 Overview (01/06/2018): - status post (s/p) phaco/IOL OS 01/06/18 Assessment & Plan (01/07/2018 10:37 AM DIRECTOR MBA): POD1 EXTRACTION CATARACT - PHACOEMULSIFICATION AND LENS [...] reschedule Nuclear sclerotic cataract of both eyes 12/04/2017 07/14/2024 Overview (12/04/2017): Added automatically from request for surgery [id number] Nuclear sclerosis of both eyes 12/01/2017 07/14/2024 Assessment & Plan (12/01/2017 2:36 PM CDT): [...] to follow 3 weeks later. IOLM Optic neuritis 10/19/2017 07/14/2024 Chronic obstructive lung disease 09/08/2017 07/14/2024 Depressive disorder 09/08/2017 07/15/19 25 Overweight 09/08/2017 07/14/2024 Pain in thoracic spine 09/08/201707/14 Breast pain 11/20/2016 07/14/2024 Mitral valve disease 07/08/2014 025 Chest pain 06/29/2014 07/14/2024 Perimenopause 10/17/2013 07/14/2024 Depression 07/16/2013 07/14/2024 Assessment & Plan (09/24/2022 6:25 AM CDT): Continue wellbutrin Menstrual migraine 07/16/2013 Atypical angina 06/24/2013 07/14/2024 Abnormal electrocardiography 06/24/2013 07/14/2024 Hyperlipidemia 06/24/2013 07/14/2024 Pain in shoulder 06/23/2013 07/14/2024
--- OUTSIDE RECORDS SUMMARY | 2024-12-01 12:06 | XMS_ITS | Data Portability ---
Author Organization [facility] Address [address] [place] [address] Care Team Providers Care Hard Hat Diver Name Role Phone UBALDO DIANNE Primary Care Provider Assessment Encounter Date Assessment [...] 0.01% (0.1 mg/gram) vaginal cream 2023 024 [place] [id number], [address], [place], [id number], 16:05:29 Patient TargetsNo targets recorded. Patient InstructionsNo [...] Repor t Case: [id number] Autho tony g Provi sudeep: Nicolette Wynn MD Colle cted: 01/12 1638 Order ing Locat ion: [place] [facility] loggurmeet Recei nereyda: 01/13 0211 First Scree n: [...] Atrop hic cell amadou dill. Elect anthony xie by Meena Roberson, CT on 01/20 at [...] as clini toñito warra nted. Not Available [facility] ([facility]) [address], [place], [address], 01/21/2024 10:43:17 Result Notes None recorded. Problems Name Problem SNOMED Code Status Onset Date Resolution Date Notes Provider Name and Address Organization Details Recorded Time Malignant neoplasm of urinary bladder 911287599 Active 2023 had cystectomy 07/30/2022 they removed bladder and patient had bag. Patient went through Chemo. Kristin minaya [facility] 15:49:09 Problem Notes None recorded. Procedures Surgical History Date Name Laterality Status Provider Name and Address Organization Details Recorded Time 07/31/19 23 complete cystectomy completed Kristin Reeves [facility] 05/11/2023 15:57:05 04/02/19 23 shunt of portal vein to vena cava completed Kristin Reeves [facility] 05/11/2023 16:00:02 03/02/19 23 chemotherapy completed [facility] 05/11/2023 16:02:41 03/02/19 23 immune checkpoint inhibitor therapy completed [facility] 05/11/2023 16:04:35 03/02/19 16 Endometrial Ablation completed [facility] 05/11/2023 16:00:51 03/02/19 11 sinusotomy, multiple completed [facility] 05/11/2023 16:01:43 03/02/18 90 termination of completed [facility] 05/11/2023 16:07:55 03/02/18 80 termination of completed [facility] 05/11/2023 16:07:49 03/02/18 71 Tonsillectomy completed [facility] 05/11/2023 16:01:06 Imaging Results [...] Available estradiol 0.01% (0.1 mg/gram) vaginal cream APPLY 1 GRAM IN THE VAGINA EVERY NIGHT FOR 1 MONTH, THEN TWICE A WEEK THEREAFTE R 2024 active Not Available Not Available Not Avai lable ondansetron 4 mg disintegrat ing tablet 01/12 [...] Body mass index (BMI) Body weight Systolic And Diastolic Provider Name and Address Organization Details Last Updated DateTime 05/11/2023 161.29 cm 27.5 kg/m2 33633.59 g 93/64 mm[Hg] Kristin Reeves [facility] 05/11/2023 15:47:06 Date Recorded Body height Body mass index (BMI) Body weight Systolic And Diastolic Provider Name and Address Organization Details Last Updated DateTime 01/13/2024 161.29 cm 26.3 kg/m2 31125.45 g 133/88 mm[Hg] Karin Snyder [facility] 01/13/2024 15:57:57 Social History Question Answer Notes LastModified by Organizat ion Details LastModified Time Tobacco Smoking Status Current Some Day Smoker Kristin Reeves [facility], [facility] 05/11/2023 15:54:44 Are You Blind Or Do You Have Difficulty Seeing? No [email or web address] Information not available 05/11/2023 What Is Your Level Of Caffeine Consumption? Occasional [email or web address] Information not available 05/11/2023 In The 14 Days Before Symptom Onset, Have You Had Close Contact With A Laboratory-confir med COVID-19 While That Case Was Ill? No [email or web address] Information not available 05/11/2023 In The 14 Days Before Symptom Onset, Have You Had Close Contact With A Person Who Is Under Investigation For COVID-19 While That Person Was Ill? No Information not available 05/11/2023 Have You Been To An Area Known To Be High Risk For COVID-19? No [email or web address] Information not available 05/11/2023 Are You Deaf Or Do You Have Serious Difficulty Hearing? No [email or web address] Information not available 05/11/2023 What Type Of Diet Are You Following? REGULAR [email or web address] Information not available 05/11/2023 Do You Use Your Seat Belt Or Car Seat Routinely? Yes [email or web address] Information not available 05/11/2023 Are You Sexually Active? Yes [email or web address] Information not available 05/11/2023 Do You Have Smoke And Carbon Monoxide Detectors In Your Home? Yes [email or web address] Information not available 05/11/2023 Do You Use Sunscreen Routinely? Yes [email or web address] Information not available 05/11/2023 Has Tobacco Cessation Counseling Been Provided? No [email or web address] Information not available 05/11/2023 Do You Have Difficulty Walking Or Climbing Stairs? No [email or web address] Information not available 05/11/2023 Sex: Unknown Functional Status Question Answer Note LastModified by Organizat ion Details LastModified Time Do you use any illicit or recreational drugs? Yes marijuana [email or web address] Information not available 05/11/2023 Do you or have you ever used any other forms of tobacco or nicotine? No [email or web address] Information not available 05/11/2023 What is your level of alcohol consumption? None recovering alcoholic quit in 1990 [email or web address] Information not available 05/11/2023 Are you able to walk independently without assistance or assistive devices? YESWOREST [email or web address] Information not available 05/11/2023 Are you able to care for yourself independently? Yes [email or web address] Information not available 05/11/2023 Do you have difficulty dressing, bathing, grooming, or toileting? No [email or web address] Information not available 05/11/2023 What is your exercise level? Occasional [email or web address] Information not available 05/11/2023 Mental Status Question Answer Note LastModified by Organization D etails LastModified Time Do you feel stressed (tense, restless, nervous, or anxious, or unable to sleep at night)? [id number] [email or web address] Information not available 05/11/2023 Family History Relationship Description Onset Age of this Age Resolved Age Notes LastModified by Organization Details LastModified Time Maternal Aunt Malignant neoplasm of breast [email or web address] Not available 05/10 15:52:31 Medical History Condition Response Allergies (Food, seasonal, environmental ) N Other N Breast Cancer N Drug/Latex Allergies/Reactions N Blood Transfusion N Dermatologic Disorders N Lung Disease N Defects or Inherited Disease N Breast Problem N Gestational Diabetes N Hematologic disorders N Anesthesia Complications N History of STI N Deep Vein Thrombosis N Polycystic ovary syndrome N Anxiety Disorder Y Autoimmune disease N Arthritis N Infertility N Polyps N Acid Reflux (GERD) N History of abnormal pap N Cancer Y Stroke N Varicosities N Neurologic/Epilepsy Y Endometriosis N High Cholesterol N Headaches N Fibromyalgia N Kidney Disease N Heart Problems N Kidney or Bladder Problems Y Thyroid Problems N GI Problems N Eating Disorder N Anemia [...] Diagnosis SNOMED-CT Code Diagnosis ICD10 Code Diagnosis IMO Codes Diagnosis Note [id number] Simeon Wynn MD [place] [address] [address] 05/11/2023 15:06:04 05/11/2023 16:49:56 Atrophic vulvovaginitis 59776368 N95.2 this patient is a 57-year-ol d [...] She will follow up in 1 month. [id number] Simeon Wynn MD [place] [address] [address] 01/13/2024 15:32:09 01/13/2024 16:55:52 Gynecologic examination [id number] Z01.419 Annual gynecologi corey exam performed. Patient [...] Recorded Advance Directives Directive None Recorded Payers Insurance Date Sequence Insurance Name Policy Number Policy Perdomo Covered Member ID Perdomo Member ID Guarantor Name 01/11/2024 1 [place] [id number] Gladys Sharon [id number] Glad[address] Herrera Notes Date Note Type Note Provider Name and Address Organization Details Recorded Time 05/11/19 24 text/htm l this patient is a 57-year-old female with [...] treatment options. We spent over 20 minutes [id number]. More than 50% was counseling. We agreed to treat with vaginal estrogen. She will follow up in 1 month. Simeon Wynn MD [address], [place], [address], [facility] 05/11/2023 16:35:50 01/13/20 24 text/htm l Annual GYNReported by PatientHistoryFor history, patient reportsno gynecologic complaints.Genitourinary symptomsFor menstrual cycle, patient reportsnormal menses. For urinary symptoms, patient reportsno hematuria. For vulva, patient reportsno genital lesion. For vagina, patient reportsnormal vaginal discharge.Breast symptomsFor breast, patient reportsno breast painandno breast lump.Endocrine symptomsFor sexual complaints, patient reportsno sexual complaintsandno pain during intercourse. For menopausal symptoms, patient reportsno menopausal symptoms.Psychological symptomsFor psychological symptoms, patient reportsdepressionandanxiety (txed).Preventative measuresFor preventive measures, patient reportsencourage self breast examinationandencourage regular exercise. Simeon Wynn MD [address], [place], [address], [facility] 01/13/2024 16:40:30 OBGyn Episode Ob Episode Information Episode Created Date Number of Fetuses Patient Bloodtype Patient rh Status Prepregnancy Weight lbs Domestic Partner Domestic Partner Phone Father Name Farrowing Manager Status 05/11/19 24 1 CLOSED Fetus Data First Name Last Name Admitted to NICU Weight (g) Sex Living Outcome Pediatric Complications Fetus ID Race Codes Race Delivery Type , Induced [id number] Madhu Calculation Initial Madhu Date Initial Exam [...] Domestic Partner Domestic Partner Phone Father Name Farrowing Manager Status 05/11/19 24 1 CLOSED Fetus Data First Name Last Name Admitted to NICU Weight (g) Sex Living Outcome Pediatric Complications Fetus ID Race Codes Race Delivery Type , Induced [id number] Madhu Calculation Initial Madhu Date Initial Exam [...]
--- OUTSIDE RECORDS SUMMARY | 2024-12-01 12:06 | XMS_ITS | Encounter Summary ---
Author Organization [facility] Address [address] [place] [address] Phone Care Team Providers Care Video Clerk Name Role Phone Kim Griffiths MD Unavailable [phone] Anibal Sewell MD Primary Care Provider [phone] Robin Valencia MD Primary Care Provider Diego Tavarez MD Unavailable [phone] Mackenzie Ortega MD Unavailable [phone] Kim Griffiths MD Unavailable [phone] Merry Hunter EDUCATIONAL ADVISER Unavailable [phone] Encounter Details Date Type Department Care Team [...] or pharmacy Never 09/16/2022 Social Connection and Isolation Panel Answer Date Recorded In a typical week, how many times do you talk on the phone with family, friends, or neighbors? More than three times a week 08/13/2022 How often do you get togethe r with friends or relatives? More than three times a week 08/13/2022 How often do you attend chur ch or evangelical services? Never 08/13/2022 Do you belong to any clubs o r organizations such as synagogue groups, unions, fraternal or athletic groups, or [...] place to sleep or slept in a residential (including now)? No 08/13/2022 Personal Safety Answer Date Recorded Have you ever been in or are you currently in a harmful physical or emotional relationship or is someone making you feel afraid or unsafe? Denies 10/23/2023 Comments No Sex and Gender Information Value Date Recorded Sex Assigned at Not on file Legal Sex Female 2:13 AM DEVELOPMENT WRITER Gender Identity Not on file Sexual Orientation Not on file Occupation Industry Job Start Date Job End Date Unemployed/working on [employer]. Was working for [employer] in [employer] (until 11/2021). Not on file Not on [...] on filedocumented in this encounter Care Teams Video Clerk Relationship Specialty Start Date End Date Anibal Sewell MD [address] [facility] 100 [place] [address] PCP - General Internal Medicine 08/10/23 07/13/24 Robin Valencia MD [address] [facility] 130 [place] [address] PCP - General Family Medicine 07/14/24 Kim Griffiths MD Medical Oncologist/Uniform Attendant Medical Oncology 02/27/22 Diego Tavarez MD [address] [facility] 6 [place] [address] Surgeon Ophthalmology 07/14/24 Mackenzie Ortega MD [address] [facility] [place] [address] Urology 07/14/24 Kim Griffiths MD [address] [place] [address] Medical Oncologist/Uniform Attendant Medical Oncology 07/14/24 07/14/24 Merry Hunter NP [address] [facility] [address] [place] [address] Nurse Practitioner Psychiatry 07/14/24 documented as of this encounter
--- OUTSIDE RECORDS SUMMARY | 2024-12-01 12:06 | XMS_ITS | Encounter Summary ---
Author Organization [facility] Address [address] [place] [address] Phone Care Team Providers Care Looping Machine Operator Name Role Phone Kim Griffiths MD Unavailable [phone] Anibal Sewell MD Primary Care Provider [phone] Robin Valencia MD Primary Care Provider Diego Tavarez MD Unavailable [phone] Mackenzie Ortega MD Unavailable [phone] Kim Griffiths MD Unavailable [phone] Merry Hunter RESTAURANT CREW PERSON Unavailable [phone] Encounter Details Date Type Department Care Team [...] often do you attend chur ch or mu-ism services? Never 08/13/2022 Do you belong to any clubs o r organizations such as lutheran groups, unions, fraternal or athletic groups, or [...] place to sleep or slept in a mcc (including now)? No 08/13/2022 Personal Safety Answer Date Recorded Have you ever been in or are you currently in a harmful physical or emotional relationship or is someone making you feel afraid or unsafe? Denies 10/23/2023 Comments No Sex and Gender Information Value Date Recorded Sex Assigned at Not on file Legal Sex Female 2:13 AM STAFF PSYCHIATRIST Gender Identity Not on file Sexual Orientation Not on file Occupation Industry Job Start Date Job End Date Unemployed/working on [employer]. Was working for [employer] in [employer] (until 11/2021). Not on file Not on [...] on filedocumented in this encounter Care Teams Looping Machine Operator Relationship Specialty Start Date End Date Anibal Sewell MD [address] [facility] 100 [place] [address] PCP - General Internal Medicine 08/10/23 07/13/24 Robin Valencia MD [address] [facility] [address] [place] [address] PCP - General Family Medicine 07/14/24 Kim Griffiths MD Medical Oncologist/Sand Conditioner Machine Medical Oncology 02/27/22 Diego Tavarez MD [address] [facility] 6 [place] [address] Surgeon Ophthalmology 07/14/24 Mackenzie Ortega MD [address] [facility] [place] [place] [address] Urology 07/14/24 Kim Griffiths MD [address] [place] [address] Medical Oncologist/Sand Conditioner Machine Medical Oncology 07/14/24 07/14/24 Merry Hunter NP [address] [place] [address] Nurse Practitioner Psychiatry 07/14/24 documented as of this encounter
--- OUTSIDE RECORDS SUMMARY | 2024-12-01 12:06 | XMS_ITS | Encounter Summary ---
Author Organization [facility] Address [address] [place] [address] Phone Care Team Providers Care Travel Journalist Name Role Phone Kim Griffiths MD Unavailable [phone] Anibal Sewell MD Primary Care Provider [phone] Robin Valencia MD Primary Care Provider Diego Tavarez MD Unavailable [phone] Mackenzie Ortega MD Unavailable [phone] Kim Griffiths MD Unavailable [phone] Merry Hunter DATA SECURITY ANALYST Unavailable [phone] Encounter Details Date Type Department Care Team [...] often do you attend chur ch or congregational services? Never 08/13/2022 Do you belong to any clubs o r organizations such as yazidi groups, unions, fraternal or athletic groups, or [...] on file Legal Sex Female 2:13 AM SCREEN MAKING SUPERVISOR Gender Identity Not on file Sexual Orientation Not on file Occupation Industry Job Start Date Job End Date Unemployed/working on [employer]. Was working for [employer] in [place] (until 11/2021). Not on file Not on file Not on file documented as of this encounter Plan of Treatment Not on file documented as of this encounter Procedures Procedure Name Priority Date/Time Associated Diagnosis Comments SCAN - PATHOLOGY 12/11/2023 11:45 AM CDT documented in this encounter Results * SCAN - PATHOLOGY (12/11/2023 11:45 AM CDT) Provider Scanning Final Result documented in this encounter Visit Diagnoses Not on filedocumented in this encounter Care Teams Travel Journalist Relationship Specialty Start Date End Date Anibal Sewell MD [address] [facility] [address] [place] [address] PCP - General Internal Medicine 08/10/23 07/13/24 Robin Valencia MD [address] [facility] [address] [place] [address] PCP - General Family Medicine 07/14/24 Kim Griffiths MD Medical Oncologist/Casting Assistant Medical Oncology 02/27/22 Diego Tavarez MD [address] [facility] [address] [place] [address] Surgeon Ophthalmology 07/14/24 Mackenzie Ortega MD [address] [facility] [place] [address] Urology 07/14/24 Kim Griffiths MD [address] [place] [address] Medical Oncologist/Casting Assistant Medical Oncology 07/14/24 07/14/24 Merry Hunter NP [address] [place] [address] Nurse Practitioner Psychiatry 07/14/24 documented as of this encounter
--- OUTSIDE RECORDS SUMMARY | 2024-12-01 12:07 | XMS_ITS | Encounter Summary ---
Author Organization [facility] Address [address] [place] [address] Phone Care Team Providers Care Compliance Specialist Name Role Phone Kim Griffiths MD Unavailable [phone] Robin Valencia MD Primary Care Provider Diego Tavarez MD Unavailable [phone] Mackenzie Ortega MD Unavailable [phone] Merry Hunter NP Unavailable [phone] Encounter Details Date Type Department Care Team (Late st Contact Info) Description 12/01/2024 Orders Only [facility] Medicine Oncology [address] [facility] Floor 5 [place] [address] Kim Griffiths MD [address] [facility] [address] [place] [address] Malignant neoplasm of overlapping sites of bladder (HCC) (Primary Dx) Social History Tobacco Use Types Packs/Day Years Used Date Smoking Tobacco: Every Day Cigarettes 2 43.3 Started: 1980; Last attempted to quit: 12/2021 Passive Smoke Exposure: Past Smokeless Tobacco: Never [...] often do you attend chur ch or judaism services? Never 08/13/2022 Do you belong to any clubs o r organizations such as christian groups, unions, fraternal or athletic groups, or [...] points, staff should administer the PHQ-9) 0 10/25/2024 Hunger Vital Sign Answer Date Recorded Within [...] place to sleep or slept in a assisted (including now)? No 08/13/2022 Personal Safety Answer Date Recorded Have you ever been in or are you currently in a harmful physical or emotional relationship or is someone making you feel afraid or unsafe? Denies 10/23/2023 Comments No Sex and Gender Information Value Date Recorded Sex Assigned at Not on file Legal Sex Female 2:13 AM INSURANCE HEALTHCARE CONSULTANT Gender Identity Not on file Sexual Orientation Not on file Occupation Industry Job Start Date Job End Date Unemployed/working on [employer]. Was working for [employer] in [employer] (until 11/2021). Not on file Not on file Not on file documented as of this encounter Plan of Treatment Scheduled Orders Name Type Priority Associated Diagnoses Orde r Schedule Protime-INR Lab Routine Malignant neoplasm of overlapping sites of bladder (HCC) Expected: 12/12/2024, Expires: 12/01/2025 documented as of this encounter Visit Diagnoses Diagnosis Malignant neoplasm of overlapping sites of bladder (HCC)- Primary documented in this encounter Care Teams Compliance Specialist Relationship Specialty Start Date End Date Robin Valencia MD [address] [facility] 130 [place] [address] PCP - General Family Medicine 07/14/24 Kim Griffiths MD Medical Oncologist/Optometrist/Practice Owner Medical Oncology 02/27/22 Diego Tavarez MD [address] [facility] 6 [place] [address] Surgeon Ophthalmology 07/14/24 Mackenzie Ortega MD [address] [facility] [place] [address] Urology 07/14/24 Merry Hunter NP [address] [facility] [address] [place] [address] Nurse Practitioner Psychiatry 07/14/24 documented as of this encounter
--- OUTSIDE RECORDS SUMMARY | 2024-12-01 12:07 | XMS_ITS | Encounter Summary ---
Author Organization [facility] Address [address] [place] [address] Phone Care Team Providers Care Machine Ceramic Coater Name Role Phone Kim Griffiths MD Unavailable [phone] Robin Valencia MD Primary Care Provider Diego Tavarez MD Unavailable [phone] Mackenzie Ortega MD Unavailable Merry Hunter NP Unavailable [phone] Encounter Details Date Type Department Care Team (Late st Contact Info) Description 12/01/2024 Documentation [facility] Medicine Oncology [address] [facility] Floor 8 [place] [address] Lucy Cabrera LCSW Social History Tobacco Use Types Packs/Day Years [...] often do you attend chur ch or adventism services? Never 08/13/2022 Do you belong to any clubs o r organizations such as baptism groups, unions, fraternal or athletic groups, or [...] on file Legal Sex Female 2:13 AM BDC MANAGER Gender Identity Not on file Sexual Orientation Not on file Occupation Industry Job Start Date Job End Date Unemployed/working on [employer]. Was working for [employer] in [employer] (until 11/2021). Not on file Not on file Not on file documented as of this encounter Progress Notes * Lucy Cabrera LCSW - 12/01/2024 11:15 AM CDT [facility] [employer] Locker Room Attendant Brief Intervention Social Work received phone call from patient today regarding: Transportation Assistance A referral was completed to: [facility] ([phone]). Transportation has been arranged for: DATE: 12/12 PICK-UP TIME: 715am PICK-UP TIME FOR RETURN TRIP: Will call TRIP NUMBER: N/A CONTACT TELEPHONE #: N/A Patient is aware of these arrangements and in agreement with plan. documented in this encounter Plan of Treatment Not on file documented as of this encounter Visit Diagnoses Not on filedocumented in this encounter Care Teams Machine Ceramic Coater Relationship Specialty Start Date End Date Robin Valencia MD [address] [address] PCP - General Family Medicine 07/14/24 Kim Griffiths MD Medical Oncologist/Press Hand Supervisor Medical Oncology 02/27/22 Diego Tavarez MD [address] [facility] 6 [place] [address] Surgeon Ophthalmology 07/14/24 Mackenzie Ortega MD [address] [facility] [place] [address] Urology 07/14/24 Merry Hunter NP [address] [facility] 122 [place] [address] Nurse Practitioner Psychiatry 07/14/24 documented as of this encounter
--- OUTSIDE RECORDS SUMMARY | 2024-12-01 12:07 | XMS_ITS | Encounter Summary ---
Author Organization [facility] Address [address] [place] [address] Care Team Providers Care Light Adjuster Name Role Phone Unavailable Primary Care Provider Unavailabl e Encounter Details Date Type Department Care Team (Late st Contact Info) Description 05/18/2003 Outpatient Historical [facility] [place] [address] [place] [address] Virginia Aviles MD [address] [address] Social History Tobacco Use Types Packs/Day Years Used Date Smoking Tobacco: Never Assessed Comments Unknown Sex and Gender Information Value Date Recorded Sex Assigned at Not on file Legal Sex Female 3:17 AM SOCIAL WORK FACULTY MEMBER Gender Identity Not on file Sexual Orientation Not on file documented as of this encounter Plan of Treatment Not on file documented as of this encounter Visit Diagnoses Not on filedocumented in this encounter
--- OUTSIDE RECORDS SUMMARY | 2024-12-01 12:07 | XMS_ITS | Clinical Summary ---
[facility] Organization [facility] Address [address] [facility] Attn: Epic Prelude ADT BLAKE FOST[place] JAKUB [id number] Care Team Providers Care Reel Tender Name Role Phone Unavailable Primary Care Provider Unavailabl e Social History Tobacco Use Types Packs/Day Years Used Date Smoking Tobacco: Never Assessed Comments Unknown Sex and Gender Information Value Date Recorded Sex Assigned at Not on file Legal Sex Female 3:17 AM ELECTROPHYSIOLOGY TECHNOLOGIST Gender Identity Not on file Sexual Orientation [...] (1 of 2) 05/26/2015 INFLUENZA VACCINE (#1) 2024
--- OUTSIDE RECORDS SUMMARY | 2024-12-01 12:07 | XMS_ITS | Data Portability ---
Author Organization [facility] [employer], [employer] Address [address] [address] Care Team Providers Care [employer] Spanish Teacher Name Role Phone CYDNEY UNDERWOOD Agency Cashier MISHA RIDER Psychiatrist KIM GRIFFITHS Medical Oncologist [phone] VENANCIO PATRICIA Urologist Assessment Encounter Date Assessment Date Assessment LastModified by Organization Details LastModified Time 07/28/2023 07/28/[address] John Elizondo -- Not available 07/28/2023 16:07:35 10/07/2023 10/07/2023 Patient presented for follow up. Studies ordered as below. Discussed plan with patient/careg romulo, who expressed understanding . Follow up as noted below. PCP Dr John Elizondo -- Not available 10/07/2023 11:56:42 01/14/2024 [...] HbA1c (hemoglobi n A1c), blood 2024 025 [employer] [facility], [address], [address], [place], [address], 5 21:32:25 uric acid, serum or plasma [address] [facility], [address], [address], [place], [address], 5 21:32:25 lipid panel, serum [address] [facility], [address], [address], [place], [address], 4 11:30:08 CBC w/ auto diff [address] [facility], [address], [address], [place], [address], 4 11:30:09 CMP, serum or plasma 2023 024 [facility], [address], [address], [place], [address], 4 08:43:22 urinalysis complete, reflex culture 2023 024 [facility], [address], [address], [place], [address], 4 08:43:22 uric acid, serum or plasma [address] [place] [address] [facility], [address], [address], [place], [address], 4 11:30:10 HIV 1 + 2, meaningful use set 2023 024 [facility], [address], [address], [place], [address], 4 08:43:22 HbA1c (hemoglobi n A1c), blood [address] [facility], [address], [address], [place], [address], 4 11:30:11 hepatitis C virus Ab, serum [address] [facility], [address], [address], [place], [address], 4 11:30:06 vitamin B6 (pyridoxin e), plasma [address] [facility], [address], [address], [place], [address], 4 08:20:12 vitamin B1 (thiamine) , blood [address] [facility], [address], [place], [address], 4 08:20:12 vitamin B12, serum [address] [facility], [address], [place], [address], 4 08:20:12 HIV 1 + 2, meaningful use set [address] [facility], [address], [place], [address], 4 08:20:11 vitamin D, 25-hydroxy , total, serum [address] [facility], [address], [place], [address], 4 08:20:12 hepatitis C virus Ab, serum [address] [facility], [address], [place], [address], 4 03:29:51 TSH + free T4, serum 2023 024 [employer] [facility], [address], [address], [place], [address], 4 08:20:12 T3, free, serum or plasma [address] [facility], [facility] [address] [facility], [address], [place], [address], 4 08:20:12 CBC w/ auto diff 2023 024 [employer] [facility], [address], [place], [address], 4 03:29:51 CMP, serum or plasma [address] [facility], [facility] [address], [place], [address], 4 08:20:12 lipid panel, serum [address] [facility], [facility] [address], [place], [address], 4 03:29:46 vitamin B1 (thiamine) , blood [address], [address] [place] [address], [address], 4 08:29:18 vitamin B6 (pyridoxin e), plasma [address], [address] [place] [address], [address], 4 08:29:18 vitamin B12, serum [address], [address] [place] [address], [address], 4 08:29:18 HIV 1 + 2, meaningful use set 2023 024 [facility], [address] [place] [address], [address], 4 16:18:42 vitamin D, 25-hydroxy , total, serum [address], [address] [place] [address], [address], 4 08:29:17 hepatitis C virus Ab, serum 2023 024 [facility], [address] [place] [address], [address], 4 16:18:42 TSH + free T4, serum [address], [address] [place] [address], [address], 4 08:29:18 T3, free, serum or plasma [address], [address] [place] [address], [address], 4 08:29:18 CBC w/ auto diff 2023 024 [facility], [address] [place] [address], [address], 4 16:18:42 CMP, serum or plasma [address], [address] [place] [address], [address], 4 08:29:18 lipid panel, serum 2023 024 [facility], [address] [place] [address], [address], 16:18:43 urinalysis complete, reflex culture 2017 018 [email or web address] Not available 8 08:38:[address] referral 2024 025 fátima Wynn MD, [address], [place], [address], 07:57:28 physical therapist referral 2024 025 [facility] [place], [address], [place], [address], 21:49:55 dermatolog ist referral 2024 025 [facility], [facility] [place], [address], 21:52:[address] referral 2023 024 [facility], [address], [place], [address], 11:29:24 pain management referral 2023 024 [facility], [facility] [address], [place], [address], 4 10:29:[address] referral 2023 024 [email or web address] Simeon Wynn MD, [address], [place], [address], 19:05:33 oncologist referral 2023 024 [facility] Kim Griffiths MD, [address], [facility], [place], [address], 20:28:28 urologist referral 2023 024 fátima Ortega MD, [address], Div Surg Urology, [address] [place] [address], [address], 5 08:10:23 ophthalmol ogist referral 2023 024 [email or web address] Vilchis, [address] [place], [address], 4 20:38:[address] referral 2023 024 fát[place], [address] [address], [address], [place], [address], 4 08:23:[address] referral 2023 024 [email or web address] Simeon Wynn MD, [address], [place], [address], 4 17:11:04 oncologist referral 2023 024 fátima Griffiths MD, [address], [address], [place], [address], 4 16:33:42 urologist referral 2023 024 fátima Ortega MD, [address], Div Surg Urology, [facility], [place], [address], 5 09:47:57 ophthalmol ogist referral 2023 024 fátima Vilchis, [address] [place], [address], 4 09:54:[address] referral 2023 024 [email or web address], [address] [address], [facility], [place], [address], 4 17:11:03 gastroente rologist referral - -- pt has diarrhea 2023 fátima Patricia MD, 3 [facility], [address], [address], 4 16:33:42 Procedures None recorded. Surgeries None recorded. Imaging MRI, lumbar spine, w/o contrast 2024 [facility], [address] [place] [address], [address], 5 08:10:59 LDCT, chest, for lung cancer screening - -- due on 04/29/242024 [facility], [address] [place] [address], [address], 5 08:10:59 US, screening for abdominal aortic aneurysm 2024 [facility], [address] [place] [address], [address], 5 08:10:59 XR, foot, 3 or more view - -- Rt great toe pain 2024 025 [facility], [address] [place] [address], [address], 5 08:10:59 DEXA 2024 025 [facility], [address] [place] [address], [address], 5 08:10:59 MAMMO, screening, digital, bilateral 2024 [facility], [address] [place] [address], [address], 5 21:34:34 XR, foot, 3 or more view 11/14/ 2024 11/14/2 024 [facility], [address] [place] [address], [address], 4 08:43:15 LDCT, chest, for lung cancer screening - -- due on 04/29/242023 025 [facility], [address] [place] [address], [address], 5 08:26:47 US, screening for abdominal aortic aneurysm 2023 024 [facility], [address] [place] [address], [address], 4 08:43:15 DEXA 2023 024 [facility], [address] [place] [address], [address], 4 08:43:15 MAMMO, screening, digital, bilateral 2023 024 [facility], [address] [place] [address], [address], 4 11:33:00 XR, lumbar spine 2023 024 [facility], [address] [place] [address], [address], 4 08:20:03 MAMMO, screening, digital, bilateral 2023 024 [facility], [address] [place] [address], [address], 4 12:05:11 MAMMO, screening, digital, bilateral 2023 024 [facility], [address] [place] [address], [address], 4 16:33:41 Medication Orders duloxetine 30 mg capsule,de layed release 2023 025 [facility], [address] [place] [address], [id number], 5 20:59:48 duloxetine 60 mg capsule,de layed release 2023 025 [facility]15297, [address] [place] [address], [id number], 5 21:00:40 clotrimazo le 1 % topical cream 2023 025 [facility]77, [address] [place] [address], [id number], 5 17:14:30 Diflucan 150 mg tablet 2023 025 [facility]67187, [address] [place] [address], [id number], 5 17:21:31 duloxetine 30 mg capsule,de layed release [address] [facility]74, [address] [place] [address], [id number], 5 20:59:38 duloxetine 60 mg capsule,de layed release [address] [facility]22345, [address] [place] [address], [id number], 5 21:00:32 Breztri Aerosphere 160 mcg-9mcg-4 .8mcg/actu ation HFA aerosol inhaler [address] [facility]36106, [address], [place], [id number], 4 13:45:48 Airsupra 90 mcg-80 mcg/actuat ion HFA aerosol inhaler [address] [facility]54444, [address] [place], [place], [id number], 4 13:45:01 Breztri Aerosphere 160 mcg-9mcg-4 .8mcg/actu ation HFA aerosol inhaler [address] [facility]04557, [address] [place], [place], [id number], 13:45:48 Airsupra 90 mcg-80 mcg/actuat ion HFA aerosol inhaler [address] [facility]70522, [address] [place], [place], [id number], 4 13:45:01 duloxetine 30 mg capsule,de layed release [address] [facility]22774, [address] [place], [place], [id number], 5 20:59:38 duloxetine 60 mg capsule,de layed release [address] [facility]33809, [address] [place], [place], [id number], 5 21:00:32 Auvelity 45 mg-105 mg tablet, extended release 2023 024 [facility] [employer], [facility], [address] [facility], [place] [address], [place], [address], 4 11:45:21 Chantix Starting Month Box 0.5 mg (11)-1 mg (42) tablets in dose pack [address]3259, [address] [place], [address], 4 11:46:31 Chantix Continuing Month Box 1 mg tablet [address]/[facility] #3259, [address] [place], [address], 4 11:46:55 amitriptyl ine 25 mg tablet [address]/Ph[facility]acy #3259, [address] [place], [address], 4 11:47:03 Patient TargetsNo targets recorded. Patient Instructions Encounter Date Encounter Id Patient Instructions Last Modified By Organization Details Last Modified Time 08/20/2017 [id number] frequent urination: care instructions Not available 08/20/2017 16:36:34 learning about mood disorders Not available 08/20/2017 16:36:34 chronic obstructive pulmonary disease (COPD): care instructions Not available 08/20/2017 16:36:34 learning about copd and how to prevent lung infections Not available 08/20/2017 16:36:34 07/28/2023 [id number] spirometry testing* BI Not available 07/31/2023 09:37:38 advised to quit smoking Not available 07/28/2023 16:17:06 advised to lose weight Not available 07/28/2023 16:17:06 .opened chart around 12:30 pm, entered room around 1:50 pm, and finished charting around 3:18 pm Not available 07/28/2023 16:18:30 10/07/2023 [id number] advised to quit smoking Not available 10/07/2023 11:57:31 advised to lose weight Not available 10/07/2023 11:57:32 01/14/2024 [id number] advised to quit smoking Not available 01/14/2024 11:29:23 advised to lose weight Not available 01/14/2024 11:29:23 05/05/2024 [id number] advised to quit smoking Not available 05/05/2024 21:31:43 advised to lose weight Not available 05/05/2024 21:31:44 I spent 1 hour 9 min w/ patient on Telehealth (not including charting) Not available 05/05/2024 21:44:02 Reason for Referral Referring Physician: Rylie Sal, Encounter Date: 07/28/2023 Xray Tech Referral for Pe rineal pain Referring Physician: Rylie Sal, Encounter Date: 07/28/2023 Agency Cashier Referral for Functional visual loss Referring Physician: Rylie Sal, Encounter Date: 07/28/2023 Urologist Referral for 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 Referring Physician: Rylie Sal, Encounter Date: 07/28/2023 Xray Tech Referral for Gy necologic examination Referring Physician: Rylie Sal, Encounter Date: 07/28/2023 [employer] Referral for Screening for malignant neoplasm of colon -- pt has diarrhea Referring Physician: Rylie Sal, Encounter Date: 07/28/2023 Referring Physician: Rylie Sal, Encounter Date: 10/07/2023 Xray Tech Referral for Pe rineal pain Referring Physician: Rylie Sal, Encounter Date: 10/07/2023 Agency Cashier Referral for Functional visual loss Referring Physician: Rylie Sal, Encounter Date: 10/07/2023 Urologist Referral for 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 Referring Physician: Rylie Sal, Encounter Date: 10/07/2023 Xray Tech Referral for Gy necologic examination Referring Physician: [facility], Encounter Date: 10/07/2023 Pain Management Referral for Trochanteric bursitis of right hip Referring Physician: Anibal [facility], Encounter Date: 01/14/2024 Xray Tech Referral for Gy necologic examination Referring Physician: Anibal [facility], Encounter Date: 01/14/2024 Xray Tech Referral for Gy necologic examination Referring Physician: Anibal [facility], Encounter Date: 05/05/2024 [employer]pe Sc[employer]per Referral for P ruritic rash Referring Physician: Anibal [facility]ell [facility], Encounter Date: 05/05/2024 Physical Therapist Referral for Low back pain Referring Physician: Anibal [facility]ell [facility], Encounter Date: 05/05/2024 Results Created Date Observation Date Name Description Value Unit Range Abnormal Flag Note LastModifiedBy Organization Detail LastModifiedTime 08/08/19 18 08/09/2017 Bacte marco ident ified in Urine by Cultu re urine culture routine Final report Urine Cultu re Routi ne Final repor t [facility] RP ACCOU NT BILL Not Available Not Available 06/20/2024 18:56:29 08/08/19 18 08/09/2017 Bacte marco ident ified in Urine by Cultu re result 1 Resul t 1 [facility] RP ACCOU NT BILL Not Available Not Available 06/20/2024 18:56:29 08/08/19 18 08/09/2017 Bacte marco ident ified in Urine by Cultu re Unknown Analyte [facility] Jude [address] [facility] [id number] 269 [facility] [place] [address] [facility] [address] Not Available Not Available 06/20/2024 18:56:29 08/08/19 18 08/07/2017 Urina lysis dipst ick panel - Urine by Autom ated test strip clarity UA poct cloudy Carol ty UA POCT cloud y Not Available Not Available 06/20/2024 18:56:29 08/08/19 18 08/07/2017 Urina lysis dipst ick panel - Urine by Autom ated test strip color UA poct yellow Color UA POCT yello w Not Available Not Available 06/20/2024 18:56:29 08/08/19 18 08/07/2017 Urina lysis dipst ick panel - Urine by Autom ated test strip leukocyte UA neg text: negati ve Leuko cyte UA neg Negat tenzin Not Available Not Available 06/20/2024 18:56:29 08/08/19 18 08/07/2017 Urina lysis dipst ick panel - Urine by Autom ated test strip nitrite UA poct neg text: negati ve Nitri te UA POCT neg Negat tenzin Not Available Not Available 06/20/2024 18:56:29 08/08/19 18 08/07/2017 Urina lysis dipst ick panel - Urine by Autom ated test strip urobilinogen UA 0.2 low: 0.1hig h: 1 Urobi linog en UA 0.2 0.1 - 1.0 Not Available Not Available 06/20/2024 18:56:29 08/08/19 18 08/07/2017 Urina lysis dipst ick panel - Urine by Autom ated test strip protein UA poct 30 text: negati ve Prote in UA POCT 30 Negat tenzin Not Available Not Available 06/20/2024 18:56:29 08/08/19 18 08/07/2017 Urina lysis dipst ick panel - Urine by Autom ated test strip pH UA 5 text: 5.0 - 8.0 pH units pH UA 5.0 5.0 - 8.0 pH units Not Available Not Available 06/20/2024 18:56:29 08/08/19 18 08/07/2017 Urina lysis dipst ick panel - Urine by Autom ated test strip blood UA + text: negati ve Blood UA + Negat tenzin Not Available Not Available 06/20/2024 18:56:29 08/08/19 18 08/07/2017 Urina lysis dipst ick panel - Urine by Autom ated test strip specific gravity UA poct 1.03 low: 1.002h igh: 1.03 Speci fic Gravi ty UA POCT 1.030 1.002 - 1.030 Not Available Not Available 06/20/2024 18:56:29 08/08/19 18 08/07/2017 Urina lysis dipst ick panel - Urine by Autom ated test strip ketone UA neg text: negati ve Keton e UA neg Negat tenzin Not Available Not Available 06/20/2024 18:56:29 08/08/19 18 08/07/2017 Urina lysis dipst ick panel - Urine by Autom ated test strip bilirubin UA poct neg text: negati ve Bilir ubin UA POCT neg Negat tenzin Not Available Not Available 06/20/2024 18:56:29 08/08/19 18 08/07/2017 Urina lysis dipst ick panel - Urine by Autom ated test strip glucose UA neg text: negati ve Gluco se UA neg Negat tenzin Not Available Not Available 06/20/2024 18:56:29 08/08/19 18 08/07/2017 Urina lysis dipst ick panel - Urine by Autom ated test strip expiration date [id number] Expir ation Date [id number] 19 Not Available Not Available 06/20/2024 18:56:29 08/08/19 18 08/07/2017 Urina lysis dipst ick panel - Urine by Autom ated test strip lot or batch number [id number] Lot # [id number] Not Available Not Available 06/20/2024 18:56:29 08/08/19 18 08/07/2017 Urina lysis dipst ick panel - Urine by Autom ated test strip QC verified Yes text: yes QC Verif ied Yes Yes Not Available Not Available 06/20/2024 18:56:29 07/07/1907/06/2020 C react tenzin prote in [Mass /volu me] in Serum or Plasm a C-reactive protein text: 0.0-0. 5 C-ruben ctive prote in Not Available Not Available 06/20/2024 18:56:27 07/07/1907/06/2020 Lipid 1996 panel - Serum or Plasm a cholesterol text: 140-19 9 burak stero l Not Available Not Available 06/20/2024 18:56:27 07/07/19 21 07/06/2020 Lipid 1996 panel - Serum or Plasm a triglyceride s text: 0-150 trigl yceri margarita Not Available Not Available 06/20/2024 18:56:27 07/07/19 21 07/06/2020 Lipid 1996 panel - Serum or Plasm a HDL cholesterol text: 40- HDL burak stero l Not Available Not Available 06/20/2024 18:56:27 07/07/19 21 07/06/2020 Lipid 1996 panel - Serum or Plasm a cholesterol in LDL [mass/volume ] in serum or plasma text: 0-130 LDL burak stero l, calcu lated Not Available Not Available 06/20/2024 18:56:27 07/07/19 21 07/06/2020 Compr ehens tenzin metab olic 1999 panel - Serum or Plasm a sodium text: 137-14 5 sodiu m Not Available Not Available 06/20/2024 18:56:27 07/07/19 21 07/06/2020 Compr ehens tenzin metab olic 2000 panel - Serum or Plasm a potassium text: 3.5-5. 1 potas sium Not Available Not Available 06/20/2024 18:56:27 07/07/19 21 07/06/2020 Compr ehens tenzin metab olic 1999 panel - Serum or Plasm a chloride text: 98-107 high chlor hudson Not Available Not Available 06/20/2024 18:56:27 07/07/19 21 07/06/2020 Compr ehens tenzin metab olic 1999 panel - Serum or Plasm a carbon dioxide text: 22-30 carbo n dioxi de Not Available Not Available 06/20/2024 18:56:27 07/07/19 21 07/06/2020 Compr ehens tenzin metab olic 1999 panel - Serum or Plasm a agap text: 14-22 low agap Not Available Not Available 06/20/2024 18:56:27 07/07/19 21 07/06/2020 Compr ehens tenzin metab olic 1999 panel - Serum or Plasm a glucose text: 70-99 high gluco se Not Available Not Available 06/20/2024 18:56:27 07/07/19 21 07/06/2020 Compr ehens tenzin metab olic 2000 panel - Serum or Plasm a BUN text: 8-19 high BUN Not Available Not Available 06/20/2024 18:56:27 07/07/19 21 07/06/2020 Compr ehens tenzin metab olic 1999 panel - Serum or Plasm a creatinine text: 0.66-1 .25 low creat inine Not Available Not Available 06/20/2024 18:56:27 07/07/19 21 07/06/2020 Compr ehens tenzin metab olic 2000 panel - Serum or Plasm a GFR >60 GFR Not Available Not Availa ble 06/20/2024 18:56:27 07/07/19 21 07/06/2020 Compr ehens tenzin metab olic 2000 panel - Serum or Plasm a alkaline phosphatase text: 38-126 alkal ine phosp hatas e Not Available Not Available 06/20/2024 18:56:27 07/07/19 21 07/06/2020 Compr ehens tenzin metab olic 2000 panel - Serum or Plasm a alanine aminotransfe rase text: 0-35 lalitha ne amino trans feras e Not Available Not Available 06/20/2024 18:56:27 07/07/19 21 07/06/2020 Compr ehens tenzin metab olic 2000 panel - Serum or Plasm a aspartate aminotransfe rase text: 15-37 aspar simmons amino trans feras e Not Available Not Available 06/20/2024 18:56:27 07/07/19 21 07/06/2020 Compr ehens tenzin metab olic 2000 panel - Serum or Plasm a bilirubin, total text: 0.20-1 .30 bilir ubin, total Not Available Not Available 06/20/2024 18:56:27 07/07/19 21 07/06/2020 Compr ehens tenzin metab olic 2000 panel - Serum or Plasm a calcium text: 8.4-10 .2 calci um Not Available Not Available 06/20/2024 18:56:27 07/07/19 21 07/06/2020 Compr ehens tenzin metab olic 2000 panel - Serum or Plasm a total protein text: 6.3-8. 2 total prote in Not Available Not Available 06/20/2024 18:56:27 07/07/19 21 07/06/2020 Compr ehens tenzin metab olic 2000 panel - Serum or Plasm a albumin text: 3.4-5. 0 album in Not Available Not Available 06/20/2024 18:56:27 07/07/19 21 07/06/2020 Compr ehens tenzin metab olic 1999 panel - Serum or Plasm a globulin text: 2.6-4. 2 low globu ishaan Not Available Not Available 06/20/2024 18:56:27 07/07/19 21 07/06/2020 Compr ehens tenzin metab olic 2000 panel - Serum or Plasm a A/G ratio text: 1.0-2. 0 A/G ratio Not Available Not Available 06/20/2024 18:56:27 10/22/19 22 10/21/2021 Compr ehens tenzin metab olic 2000 panel - Serum or Plasm a sodium text: 137-14 5 sodiu m Not Available Not Available 06/20/2024 18:56:27 10/22/19 22 10/21/2021 Compr ehens tenzin metab olic 2000 panel - Serum or Plasm a potassium text: 3.5-5. 1 potas sium Not Available Not Available 06/20/2024 18:56:27 10/22/19 22 10/21/2021 Compr ehens tenzin metab olic 2000 panel - Serum or Plasm a chloride text: 98-107 chlor hudson Not Available Not Available 06/20/2024 18:56:27 10/22/19 22 10/21/2021 Compr ehens tenzin metab olic 2000 panel - Serum or Plasm a carbon dioxide text: 22-30 carbo n dioxi de Not Available Not Available 06/20/2024 18:56:27 10/22/19 22 10/21/2021 Compr ehens tenzin metab olic 2000 panel - Serum or Plasm a anion gap text: 14-22 low anion gap Not Available Not Available 06/20/2024 18:56:27 10/22/19 22 10/21/2021 Compr ehens tenzin metab olic 2000 panel - Serum or Plasm a glucose text: 70-99 high gluco se Not Available Not Available 06/20/2024 18:56:27 10/22/19 22 10/21/2021 Compr ehens tenzin metab olic 2000 panel - Serum or Plasm a BUN text: 8-19 BUN Not Available Not Available 06/20/2024 18:56:27 10/22/19 22 10/21/2021 Compr ehens tenzin metab olic 2000 panel - Serum or Plasm a creatinine text: 0.66-1 .25 low creat inine Not Available Not Available 06/20/2024 18:56:27 10/22/19 22 10/21/2021 Compr ehens tenzin metab olic 1999 panel - Serum or Plasm a GFR >60 GFR Not Available Not Availa ble 06/20/2024 18:56:27 10/22/19 22 10/21/2021 Compr ehens tenzin metab olic 2000 panel - Serum or Plasm a alkaline phosphatase text: 38-126 alkal ine phosp hatas e Not Available Not Available 06/20/2024 18:56:27 10/22/19 22 10/21/2021 Compr ehens tenzin metab olic 2000 panel - Serum or Plasm a alanine aminotransfe rase text: 0-35 lalitha ne amino trans feras e Not Available Not Available 06/20/2024 18:56:27 10/22/19 22 10/21/2021 Compr ehens tenzin metab olic 2000 panel - Serum or Plasm a aspartate aminotransfe rase text: 15-37 aspar simmons amino trans feras e Not Available Not Available 06/20/2024 18:56:27 10/22/19 22 10/21/2021 Compr ehens tenzin metab olic 1999 panel - Serum or Plasm a bilirubin, total text: 0.20-1 .30 bilir ubin, total Not Available Not Available 06/20/2024 18:56:27 10/22/19 22 10/21/2021 Compr ehens tenzin metab olic 2000 panel - Serum or Plasm a calcium text: 8.4-10 .2 calci um Not Available Not Available 06/20/2024 18:56:27 10/22/19 22 10/21/2021 Compr ehens tenzin metab olic 2000 panel - Serum or Plasm a total protein text: 6.3-8. 2 total prote in Not Available Not Available 06/20/2024 18:56:27 10/22/19 22 10/21/2021 Compr ehens tenzin metab olic 2000 panel - Serum or Plasm a albumin text: 3.4-5. 0 album in Not Available Not Available 06/20/2024 18:56:27 10/22/19 22 10/21/2021 Compr ehens tenzin metab olic 1999 panel - Serum or Plasm a globulin text: 2.6-4. 2 globu ishaan Not Available Not Available 06/20/2024 18:56:27 10/22/19 22 10/21/2021 Compr ehens tenzin metab olic 2000 panel - Serum or Plasm a A/G ratio text: 1.0-2. 0 A/G ratio Not Available Not Available 06/20/2024 18:56:27 10/22/19 22 10/21/2021 Lipid 1996 panel - Serum or Plasm a cholesterol text: 140-19 9 burak stero l Not Available Not Available 06/20/2024 18:56:27 10/22/19 22 10/21/2021 Lipid 1996 panel - Serum or Plasm a triglyceride s text: 0-150 trigl yceri margarita Not Available Not Available 06/20/2024 18:56:27 10/22/19 22 10/21/2021 Lipid 1996 panel - Serum or Plasm a HDL cholesterol text: 40- HDL burak stero l Not Available Not Available 06/20/2024 18:56:27 10/22/19 22 10/21/2021 Lipid 1996 panel - Serum or Plasm a cholesterol in LDL [mass/volume ] in serum or plasma text: 0-130 LDL burak stero l, calcu lated Not Available Not Available 06/20/2024 18:56:27 12/17/19 22 12/16/2021 Hemog lobin A1c measu remen t devic e panel HGBA1C 5.2% HgbA1 C Not Available Not Available 06/20/2024 18:56:27 08/04/19 24 08/04/2023 paula metry testi ng* Spirometry Not Available [facility], [address], [place], [address], 07/28/2023 16:09:23 01/12/20 24 01/16/2024 LIPID PANEL , STAND MINNIE cholesterol, total 178 mg/dL <200 normal Not Available [facility] [address] [place], [address], 01/16/2024 03:29:46 01/12/20 24 01/16/2024 LIPID PANEL , STAND MINNIE HDL cholesterol 55 mg/dL > or = 50 normal Not Available [facility] [id number] [place] [address], [address], 01/16/2024 03:29:46 01/12/20 24 01/16/2024 LIPID PANEL , STAND MINNIE triglyceride s 152 mg/dL <150 high Not Available [address], [address], 01/16/2024 03:29:46 01/12/20 24 01/16/2024 LIPID PANEL , STAND MINNIE LDL-choleste rol 98 mg/dL _(corey c) normal Refer ence range : <100 Patrick able range <100 mg/dL for prima ry preve ntion ; <70 mg/dL for patie nts with CHD or diabe tic patie nts with > or = 2 CHD risk facto rs. LDL-C is now calcu lated using the Liz covington-Hop kins calcu robert n, which is a valid ated novel metho d provi ding rashad r accur acy than the Fried lily equat ion in the estim ation of LDL-C . Liz covington SS et al. TITO. 2013; 310(1 9): 2061- 2068 (http ://ed ucati on.C3DNA shannanGreenpie. [employer]/f aq/FA Q164) Not Available [address], [address], 01/16/2024 03:29:46 01/12/20 24 01/16/2024 LIPID PANEL , STAND MINNIE chol/HDLC ratio 3.2 (calc ) <5.0 normal Not Available [facility] [address], [address], 01/16/2024 03:29:46 01/12/20 24 01/16/2024 LIPID PANEL , STAND MINNIE non HDL cholesterol 123 mg/dL _(corey c) <130 normal For patie nts with diabe vane plus 1 major ASCVD risk facto r, treat ing to a non-H DL-C goal of <100 mg/dL (LDL- C of <70 mg/dL ) is consi dered a thera peuti c optio n. Not Available [facility] [address] [address], [place], [address], 01/16/2024 03:29:46 01/12/2001/16/2024 HIV 1/2 ANTIG EN/AN TIBOD Y,FOU RTH [...] state law prohi bits you from norma chahal er discl osure of the infor matio n witho ut the speci fic writt en conse nt of the perso n to whom it perta ins, or as other cuenca permi tted by law. A gener al autho brett ion for the relea se of medic al or other infor matio n is NOT suffi cient for this purpo se. For addit ional infor matio n pleas e refer to http: //[facility] catzina covington.que stdia gnost ics.c om/fa q/FAQ 106 (This link is being provi ded for infor matio nal/ educa leeann l purpo ses only. ) The perfo rmanc e of this assay has not been clini toñito valid ated in patie nts less than 2 years old. Not Available [facility] [address] [address], [place], [address], 01/16/2024 03:29:48 01/12/20 24 01/16/2024 TSH+F REE T4 TSH 0.72 mIU/L 0.40-4 .50 normal Not Available [address], [address], 01/16/2024 03:29:48 01/12/20 24 01/16/2024 TSH+F REE T4 T4, free 1.3 NG/dL 0.8-1. 8 normal Not Available [address], [address], 01/16/2024 03:29:48 01/12/20 24 01/16/2024 COMPR EHENS TENZIN METAB OLIC PANEL glucose 105 mg/dL 65-99 high Fasti ng refer ence inter niya For someo ne witho ut known diabe vane, a gluco se value betwe en 100 and 125 mg/dL is consi stent with predi abete s and shoul d be confi rmed with a follo w-up test. Not Available [address], [address], 01/16/2024 03:29:50 01/12/20 24 01/16/2024 COMPR EHENS TENZIN METAB OLIC PANEL urea nitrogen (BUN) 16 mg/dL 7-25 normal Not Available [address], [address], 01/16/2024 03:29:50 01/12/20 24 01/16/2024 COMPR EHENS TENZIN METAB OLIC PANEL creatinine 0.89 mg/dL 0.50-1 .03 normal Not Available [address], [address], 01/16/2024 03:29:50 01/12/20 24 01/16/2024 COMPR EHENS TENZIN METAB OLIC PANEL eGFR 75 mL/mi n/1.7 3m2 > or = 60 normal Not Available [address], [address], 01/16/2024 03:29:50 01/12/20 24 01/16/2024 COMPR EHENS TENZIN METAB OLIC PANEL BUN/creatini ne ratio SEE NOTE: (calc ) 6-22 Not Repor dilan: BUN and Creat inine are withi n refer ence range . Not Available [address], [address], 01/16/2024 03:29:50 01/12/20 24 01/16/2024 COMPR EHENS TENZIN METAB OLIC PANEL sodium 141 mmol/ L 135-14 6 normal Not Available [address], [address], 01/16/2024 03:29:50 01/12/20 24 01/16/2024 COMPR EHENS TENZIN METAB OLIC PANEL potassium 3.9 mmol/ L 3.5-5. 3 normal Not Available [address], [address], 01/16/2024 03:29:50 01/12/20 24 01/16/2024 COMPR EHENS TENZIN METAB OLIC PANEL chloride 107 mmol/ L 98-110 normal Not Available [address], [address], 01/16/2024 03:29:50 01/12/20 24 01/16/2024 COMPR EHENS TENZIN METAB OLIC PANEL carbon dioxide 23 mmol/ L 20-32 normal Not Available [address], [address], 01/16/2024 03:29:50 01/12/20 24 01/16/2024 COMPR EHENS TENZIN METAB OLIC PANEL calcium 9.7 mg/dL 8.6-10 .4 normal Not Available [address], [address], 01/16/2024 03:29:50 01/12/20 24 01/16/2024 COMPR EHENS TENZIN METAB OLIC PANEL protein, total 7.0 g/dL 6.1-8. 1 normal Not Available [address] [place], [address], 01/16/2024 03:29:50 01/12/20 24 01/16/2024 COMPR EHENS TENZIN METAB OLIC PANEL albumin 4.4 g/dL 3.6-5. 1 normal Not Available [address], [address], 01/16/2024 03:29:50 01/12/20 24 01/16/2024 COMPR EHENS TENZIN METAB OLIC PANEL globulin 2.6 g/dL_ (calc ) 1.9-3. 7 normal Not Available [address], [address], 01/16/2024 03:29:50 01/12/20 24 01/16/2024 COMPR EHENS TENZIN METAB OLIC PANEL albumin/glob ulin ratio 1.7 (calc ) 1.0-2. 5 normal Not Available [address], [address], 01/16/2024 03:29:50 01/12/20 24 01/16/2024 COMPR EHENS TENZIN METAB OLIC PANEL bilirubin, total 0.7 mg/dL 0.2-1. 2 normal Not Available [address], [address], 01/16/2024 03:29:50 01/12/20 24 01/16/2024 COMPR EHENS TENZIN METAB OLIC PANEL alkaline phosphatase 78 U/L 37-153 normal Not Available [facility] [address] [address] [place], [address], 01/16/2024 03:29:50 01/12/20 24 01/16/2024 COMPR EHENS TENZIN METAB OLIC PANEL AST 17 U/L 10-35 normal Not Available [address], [address], 01/16/2024 03:29:50 01/12/20 24 01/16/2024 COMPR EHENS TENZIN METAB OLIC PANEL ALT 15 U/L 6-29 normal Not Available [address], [address], 01/16/2024 03:29:50 01/12/20 24 01/16/2024 CBC (INCL UDES DIFF/ PLT) white blood cell count 8.2 thous and/u L 3.8-10 .8 normal Not Available [address], [address], 01/16/2024 03:29:50 01/12/2001/16/2024 CBC (INCL UDES DIFF/ PLT) red blood cell count 4.92 seven on/uL 3.80-5 .10 normal Not Available [address], [address], 01/16/2024 03:29:50 01/12/20 24 01/16/2024 CBC (INCL UDES DIFF/ PLT) hemoglobin 15.5 g/dL 11.7-1 5.5 normal Not Available [address], [address], 01/16/2024 03:29:50 01/12/20 24 01/16/2024 CBC (INCL UDES DIFF/ PLT) hematocrit 46.3 % 35.0-4 5.0 high Not Available [address], [address], 01/16/2024 03:29:50 01/12/20 24 01/16/2024 CBC (INCL UDES DIFF/ PLT) MCV 94.1 fL 80.0-1 00.0 normal Not Available [address], [address], 01/16/2024 03:29:50 01/12/20 24 01/16/2024 CBC (INCL UDES DIFF/ PLT) MCH 31.5 pg 27.0-3 3.0 normal Not Available [address], [address], 01/16/2024 03:29:50 01/12/20 24 01/16/2024 CBC (INCL UDES DIFF/ PLT) MCHC 33.5 g/dL 32.0-3 6.0 normal For adult s, a sligh t decre ase in the calcu lated MCHC value (in the range of 30 to 32 g/dL) is most likel y not clini toñito signi fican t; tiffanieev er, it shoul d be inter prete d with cauti on in corre latio n with other red cell lewis eters and the patie nt's clini corey condi tion. Not Available [address], [address], 01/16/2024 03:29:50 01/12/20 24 01/16/2024 CBC (INCL UDES DIFF/ PLT) RDW 12.8 % 11.0-1 5.0 normal Not Available [address], [address], 01/16/2024 03:29:50 01/12/20 24 01/16/2024 CBC (INCL UDES DIFF/ PLT) platelet count 225 thous and/u L 140-40 0 normal Not Available [address], [address], 01/16/2024 03:29:50 01/12/20 24 01/16/2024 CBC (INCL UDES DIFF/ PLT) MPV 10.5 fL 7.5-12 .5 normal Not Available [address], [address], 01/16/2024 03:29:50 01/12/20 24 01/16/2024 CBC (INCL UDES DIFF/ PLT) absolute neutrophils 6298 cells /uL 1500-7 800 normal Not Available [address], [address], 01/16/2024 03:29:50 01/12/20 24 01/16/2024 CBC (INCL UDES DIFF/ PLT) absolute lymphocytes 1419 cells /uL 850-39 00 normal Not Available [address], [address], 01/16/2024 03:29:50 01/12/20 24 01/16/2024 CBC (INCL UDES DIFF/ PLT) absolute monocytes 287 cells /uL 200-95 0 normal Not Available [address], [address], 01/16/2024 03:29:50 01/12/20 24 01/16/2024 CBC (INCL UDES DIFF/ PLT) absolute eosinophils 148 cells /uL 15-500 normal Not Available [address], [address], 01/16/2024 03:29:50 01/12/20 24 01/16/2024 CBC (INCL UDES DIFF/ PLT) absolute basophils 49 cells /uL 0-200 normal Not Available [address], [address], 01/16/2024 03:29:50 01/12/20 24 01/16/2024 CBC (INCL UDES DIFF/ PLT) neutrophils 76.8 % normal Not Available [address], [address], 01/16/2024 03:29:50 01/12/20 24 01/16/2024 CBC (INCL UDES DIFF/ PLT) lymphocytes 17.3 % normal Not Available [address], [address], 01/16/2024 03:29:50 01/12/20 24 01/16/2024 CBC (INCL UDES DIFF/ PLT) monocytes 3.5 % normal Not Available [address], [address], 01/16/2024 03:29:50 01/12/20 24 01/16/2024 CBC (INCL UDES DIFF/ PLT) eosinophils 1.8 % normal Not Available [address], [address], 01/16/2024 03:29:50 01/12/20 24 01/16/2024 CBC (INCL UDES DIFF/ PLT) basophils 0.6 % normal Not Available [address], [address], 01/16/2024 03:29:50 01/12/20 24 01/16/2024 HEPAT ITIS [...] a test for HCV RNA (test code 10941 ) is sugge ronaldd. For addit ional infor madhav sepulveda e refer to http: //lizz fernandez stdia gnost ics.c om/fa q/FAQ 22v1 (This link is being provi ded for infor madhav layne/ educa leeann l purpo ses only. ) Not Available [address], [address], 01/16/2024 03:29:51 01/12/20 24 01/16/2024 VITAM IN B12 vitamin B12 418 pg/mL 200-11 00 normal Not Available [address], [address], 01/16/2024 03:29:52 01/12/20 24 01/16/2024 T3, FREE T3, free 3.8 pg/mL 2.3-4. 2 normal Not Available [address] , [place], [address], 01/16/2024 03:29:53 01/12/20 24 01/16/2024 VITAM IN [...] /MS is recom jameson d: order code 92539 (greta ents >2yrs ). See Note 1 Note 1 For addit ional infor coco coronado e refer to http: //[facility] esa [place].Hever stDia gnost ics.c om/fa q/FAQ 199 (This link is being provi ded for infor madhav layne/ eagle saab purpo ses only. ) Not Available [facility] [address] [place], [address], 01/16/2024 03:29:54 01/12/20 24 01/16/2024 VITAM IN B6, PLASM A vitamin B6, plasma 6.7 NG/mL 2.1-21 .7 (Note ) Vitam in suppl ement ation withi n 24 hours prior to blood draw may affec t the accur acy of resul ts. This test was genevieve mccoy and its addie tical perfo rmanc e kathleen cteri stics have been deter mined by [facility]. It has not been clear ed or appro nereyda by the FDA. This assay has been valid ated pursu ant to the CLIA regul ation s and is used for clini corey purpo ses. MDF med fusio n [address] [facility] [address] [facility] [address] [phone] Aaliyah Stark MD, PhD Not Available [facility] [address] [place], [address], 01/16/2024 03:29:54 01/12/20 24 01/16/2024 VITAM IN B1 (THIA MINE) , BLOOD , LC/MS /MS vitamin B1 (thiamine), blood, lc/MS/MS 93 nmol/ L 78-185 (Note ) Vitam in suppl ement ation withi n 24 hours prior to blood draw may affec t the accur acy of the [facility] ts. This test was devel oped and its addie tical perfo rmanc e kathleen cteri stics have been deter mined by [facility]. It has not been clear ed or appro nereyda by FDA. This assay has been valid ated pursu ant to the CLIA regul ation s and is used for clini corey purpo ses. MDF med fusio n [address] [facility] [address] [facility] [address] [phone] Aaliyah Stark MD, PhD Not Available [facility] [address] [place], [address], 01/16/2024 03:29:55 07/28/19 24 04/30/2023 CT, chest + abdom en + pelvi s, w/ contr ast No observ ation record ed. [facility] Not Available 2023 16:21:18 07/31/19 24 07/28/2023 paula metry testi ng* No observ ation record ed. [facility], [address], [place], [address], 08/04/2023 13:47:10 01/15/20 24 01/12/2024 XR, lumba r spine No observ ation record ed. [facility] [address] [facility], [place], [address], 05/05/2024 21:20:16 05/10/19 25 02/26/2024 CT, chest + abdom en + pelvi s, w/ contr ast No observ ation record ed. Not Available 2024 18:32:15 Result Notes None recorded. Problems Name Problem SNOMED Code Status Onset Date Resolution Date Notes Provider Name and Address Organization Details Recorded Time Depressiv e disorder 81500829 [facility] 14[facility] Pain in thoracic spine 327668118 Active [facility] 14:49:22 Allergic rhinitis 77404279 Active Amry Krystal [facility] 14:49:34 Chronic obstructi ve pulmonary disease 64216485 Active Marysaad Rice [facility] 14:49:43 Vitamin D deficienc y 56426574 Active Mary Hainesn [facility] 14:49:52 Overweigh t 118452661 Active Mary Krystal [facility] 14:50:00 Nicotine dependenc e 51061514 Active Mary Hainesn [facility] 14:50:12 Optic neuritis 80820918 Active [address] Cydney Underwood on 09/2017. Pt has stable neuro ophthalmi c exam. 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 Does have cataracts that are symtomati c. Dr Underwood referred pt to Dr Dennison for cataract extractio n. See pt in 1 year or as needed Anibal Sewell MD [address] [place], [place], [address] , [facility] 8 16:08:33 Trochante scarlet bursitis of right hip 86370781010 9100 Active 2024 Anibal Sewell MD [address] [place], [place], [address] , [facility] 5 21:31:59 Problem Notes None recorded. Procedures Surgical History Date Name Laterality Status Provider Name and Address Organization Details Recorded Time 01/13/20 24 Date of Last Pap Smear completed [facility] 01/13/2024 18:06:29 07/31/19 23 radical cystectomy completed MD Gagan Sal [facility] [address], [place], [address], [facility] 07/28/2023 15:49:13 03/02/19 23 ureterectomy completed [facility] 07/29/2023 19:23:22 01/15/20 22 Date of Last Mammogram completed [facility] 07/28/2023 15:26:06 10/29/19 18 Hysteroscopy completed MD Gagan Sal [facility] [address], [place], [address], [facility] 11/06/2017 22:23:15 Imaging Results None recorded. Procedure Notes None recorded. Medical Equipment None Reported. Allergies Allergen ID Allergen Name Allergen Category Reaction Reaction Severity Criticality Documentation Date Start Date Code Code System Note Provider Name and Address Organization Details Recorded Time 3237 Prozac medicatio n Not available Not available Not available 10/05/2015 52454 RxNorm -- pt carol fy that Proza c makes her nervo us ( no angio edema or anaph ylaxi s) MD Kendrick Sal[address] [facility] [address], [place], [address], [facility] 7 16:28:50 3238 Substance with sulfonami de structure and antibacte rial mechanism of action (substanc e) medicatio n Not available Not available Not available 10/05/2015 59927 8003 [facility]OMED [facility] 6 14:48:59 Medications Name Sig Start Date [...] 50 mcg/dose blistr powdr for inhalatio n INHALE 1 PUFF BY MOUTH TWICE DAILY active Not Available Not Available No t Available fluconazo le 150 mg tablet Take 1 tablet every other day by oral route. 03/20 completed Not Available Not Available Not [...] clotrimaz ole 1 % topical cream APPLY TO THE AFFECTED AND SURROUND ING AREAS OF SKIN BY TOPICAL ROUTE 2 TIMES PER DAY IN THE MORNING AND EVENING 03/20 completed -- changed to clotrima [...] -- pt reports that she back on Genaro n as the Auvelity is not working. [...] Respiratory rate Body temperature Heart rate Systolic And Diastolic Provider Name and Address Organization Details Last Updated DateTime 4 31847.4 1 g 26.8 kg/m2 162.56 cm 16 /min 97.8 [degF] 82 /min 127/86 mm[Hg] [facility] 4 15:28:44 Date Recorded Body height Respiratory rate Body mass index (BMI) Body weight Heart rate Systolic And Diastolic Provider Name and Address Organization Details Last Updated DateTime 8 162.56 cm 16 /min 29.7 kg/m2 26095.4 8 g 73 /min 124/85 mm[Hg] Raysa Denia [facility] 8 15:55:33 Date Recorded Body height Heart rate Respiratory rate Body temperature Body mass index (BMI) Body weight Systolic And Diastolic Provider Name and Address Organization Details Last Updated DateTime 4 162.56 cm 99 /min 16 /min 97.5 [degF] 26.8 kg/m2 43235.4 1 g 112/62 mm[Hg] Mary Alcantara [facility] 4 17:34:22 Date Recorded Heart rate Provider Name an d Address Organization Details Last Updated DateTime 10/07/2023 80 /min Anibal Sewell MD [address] [facility] [address], [place], [address], [facility] 10/07/2023 11:39:51 Date Recorded Body height Respiratory rate Body temperature Body mass index (BMI) Body weight Systolic And Diastolic Provider Name and Address Organization Details Last Updated DateTime 4 162.56 cm 16 /min 97.1 [degF] 26.4 kg/m2 86510.2 2 g 107/73 mm[Hg] Mary Alcantara [facility] 4 10:30:06 Date Recorded Body height Heart rate Respiratory rate Body temperature Body mass index (BMI) Body weight Systolic And Diastolic Provider Name and Address Organization Details Last Updated DateTime 4 162.56 cm 82 /min 16 /min 97.3 [degF] 25.4 kg/m2 04335.6 7 g 127/82 mm[Hg] Mary Alcantara [facility] 4 10:03:41 Social History Question Answer Notes LastModified by Organizat ion Details LastModified Time Tobacco Smoking Status Current Every Day Smoker Not Available [facility] 12/16/2019 03:11:40 Do You Have An Advance Directive? No Information not available 07/28/2023 Do You Wear A Helmet When Biking? No Information not available 07/28/2023 Are You Blind Or Do You Have Difficulty Seeing? 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 Yes Information not available 07/28/2023 What Is Your Level Of Caffeine Consumption? Heavy Information not available 07/28/2023 What Type Of Departure Clerk Do You Use? None Information not available 07/28/2023 What Is Your Code Status? DNR Information not available 07/28/2023 In The 14 Days Before Symptom Onset, Have You Had Close Contact With A Laboratory-confi rmed COVID-19 While That Case Was Ill? No Information not available 07/28/2023 In The 14 Days Before Symptom Onset, Have You Had Close Contact With A Person Who Is Under Investigation For COVID-19 While That Person Was Ill? No Information not available 07/28/2023 Have You Been To An Area Known To Be High Risk For COVID-19? No Information not available 07/28/2023 Are You Deaf [...] Or The Highest Degree You Have Received? [id number] Information not available 07/29/2023 Have There Been [...] Much Tobacco Do You Smoke? 1 PPD [id number] Information not available 12/16/2019 What Types Of Sporting Activities Do You Participate In? No Information not available 07/28/2023 Do You Use Sunscreen Routinely? No Information not available 07/28/2023 How Many Years Have You Smoked Tobacco? 18 [id number] Information not available 12/16/2019 Do You Have Difficulty Walking Or Climbing Stairs? Yes Information not available 07/28/2023 Sex: Unknown Functional Status Question Answer Note LastModified by Organizat ion Details LastModified Time Do you use any illicit or recreational drugs? Yes Information not available 07/29/2023 Do you or have you ever used any other forms of tobacco or nicotine? No Information not available 07/28/2023 What is your level of alcohol consumption? None Recovering Alcoholic...so marianela for 32 years now Information not available 07/29/2023 Are you currently employed? No [employer]//off work due to cancer Information not available 07/28/2023 Do you have transportation difficulties? Yes gets medical rides Information not available 07/28/2023 Do you have difficulty doing errands alone? Yes Information not available 07/28/2023 Are you able to care for yourself independently? Yes needs help at times Information not available 07/28/2023 Do you have difficulty dressing, bathing, grooming, or toileting? Yes sometimes Information not available 07/28/2023 What is your exercise level? None Information not available 07/28/2023 Mental Status Question Answer Note LastModified by Organizat ion Details LastModified Time Do you feel stressed (tense, restless, nervous, or anxious, or unable to sleep at night)? [id number] Information not available 07/28/2023 Do you have difficulty concentrating, remembering or making decisions? Yes Information no t available 07/28/2023 Family History Relationship Description Onset Age of this Age Resolved Age Notes LastModified by Organization Details LastModified Time Maternal Aunt Malignant neoplasm of breast [email or web address] Not available 2015 14:51:10 Mother Asthma [email or web address] Not available 14:31:21 Mother Hypertensive disorder [email or web address] Not available 2023 14:31:37 Mother Arthritis [email or web address] Not available 07/28/2023 14:32:38 Maternal Grandmother Arthritis mbenfer Not available 07/01 14:32:37 Maternal Grandmother Depressive disorder mbenfer Not available 2023 14:32:52 Maternal Grandfather Harmful pattern of use of alcohol mbenfer Not available 2023 14:33:22 Maternal Grandfather Heart disease mbenfer Not available 2023 14:34:45 Father Harmful pattern of use of alcohol mbenfer Not available 2023 14:33:22 Father Osteoporosis mbenfer Not availa ble 07/28/2023 14:35:10 Paternal Grandfather Family history of malignant neoplasm brain mbenfer Not available 2023 14:34:05 Paternal Grandfather Heart disease mbenfer Not available 2023 14:34:45 Medical History Condition Response Anxiety Disorder Y Pulmonary Embolism Cancer Y Gynecological History Statement/Question Response If Post Menopausal, Age at Menopause 55 Date of Last Pap Smear 01/13/2024 Date of Last Mammogram 01/14/2022 Date of Last Colonoscopy Obstetrics History GPAL:G 0 P 0 0 0 0 Past Encounters Encounter ID Performer Location Encounter Start Date Encounter Closed Date Diagnosis/Indication Diagnosis SNOMED-CT Code Diagnosis ICD10 Code Diagnosis IMO Codes Diagnosis Note [id number] Anibal Sewell MD [employer] [facility] [address] [place] [address] 01/17/2016 15:58:39 01/17/2016 18:18:02 Depressive disorder 32966113 F32.89 -- pt willing to add Bupropion b/c she has lack of motivation . Chronic ob structive pulmonary disease 02214323 J44.9 -- stable w/o exascerbat ion Vitamin D deficiency 347 81933 E55.9 Nicotine dependence 5629 4008 F17.200 -- advised to Quit smoking Optic neuritis 36507495 H46.9 (almost blind in her left eye) -- saw Ophthalmol ogist at [facility] [address] Hyperlipid emia screening 216009336 Z13.220 Serum hansa min B12 below reference range 776573660 R79.89 Screening for malignant neoplastic disease 13331079 Z12.9 Active or passive immunization 445730742 Z23 [id number] Anibal Sewell MD [employer] [facility] [address] [place] [address] 10/06/2016 15:01:35 10/06/2016 16:26:23 Depressive disorder 70337758 F32.9 -- pt willing to add Bupropion b/c she has lack of motivation . Adult heal th examination 439601995 Z00.00 Chronic ob structive pulmonary disease 83369963 J44.9 -- stable w/o exascerbat ion Optic neuritis 47708890 H46.9 (almost blind in her left eye) -- saw Ophthalmol ogist at [place] [address] Nicotine dependence 5629 4008 F17.200 -- advised to Quit smoking because of increased risk for Stroke, cancers, emphysema/ bronchitis , aneurysm, & premature . Vitamin D deficiency 347 77232 E55.9 Serum hansa min B12 below reference range 869188810 R79.89 Hyperlipid emia screening 322588980 Z13.220 Active or passive immunization 886724251 Z23 Screening for malignant neoplasm of colon 409349959 Z12.11 Screening for malignant neoplasm of breast 532246384 Z12.31 Screening for malignant neoplasm of cervix 883717011 Z12.4 Body mass index 30+ - obesity 780839751 Z68.39 -- advised weight loss; pt lost 4 # since her last visit-- pt's BMI today is 30 (ideal is between 20-25). Acute sinusitis 83047055 J01.90 [id number] Anibal Sewell MD [employer] [facility] [address] [address] [address] 08/20/2017 14:52:26 08/20/2017 16:38:58 Migraine 46578246 G43.909 (15 to 20 days of migraines a month) Chronic ob structive pulmonary disease 35371499 J44.9 -- stable w/o exascerbat ion Depressive disorder 3548 9007 F32.9 -- Psychiatri st Dr Daphney Esposito has got insurance approval to have pt start Transcrani al Magnetic Stimulatio n. Increased frequency of urination 909551825 R35.0 ? interstitu al cystitis Nicotine dependence 5629 4008 F17.200 -- advised to Quit smoking because of increased risk for Stroke, cancers, emphysema/ bronchitis , aneurysm, & premature . 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 Reviewed at [facility]. There are filling defects in the left [...] and TURBT with Dr. Sunny Vasquez at [facility]. Tumor measuring 4 cm involving the left lateral wall, 1.5 mg tumor anteriorly . Resection of both tumors performed. Pathology reviewed at [facility]. High grade invasive papillary urothelial carcinoma. Tumor [...] thickening . Following oncologist Kim Griffiths @ [facility]. Last appt on 07/13/2023 -- currently has Urostomy Bag with clean stoma and clear light urine Pt supposed to f/u w/ urologist as well Perineal pain 633684908 R10.2 described as left sided gluteal pain. She is not sure if it vaginal pain.Per oncologist , no concerning findings on most recent CT scan to correlate with symptoms. Peripheral sensory neuropathy 581621522 G62.9 involving the bilateral feet- unchanged- continue gabapentin 100 mg TID. Functional visual loss 139800642 H54.7 w/ optic neuropathy (L)Was seen by ophthal Dr Cydney Underwood on 03/25/2023 . Pt has been stable for over 8 years with no further visual or neurologic events. Dr Underwood suggested patient to f/u w/ Dr Vilchis in August 2023 to establish a [place] eye care provider. Severe ivanna or depression 849624005 F32.2 Patient has previously tried: Prozac-SEs Zoloft-SEs (no appetite) Effexor-SE s Celexa-SEs Lexapro-SE s Cymbalta-S Es Remeron-SE s Viibryd--S Es Amitriptyl ine About 10 years ago she was hospitaliz ed for depression and suicidal ideation.R eceived ECT and it was helpful. Had headaches and some confusion as side effects.At [facility] intensive outpatient program twice one years agoDid intensive outpatient program via zoom last year through [facility] ( records on file)She had TMS with Dr. Barrios in [facility] 5 - 6 year ago. She improved. [...] premature . Chronic ob structive pulmonary disease 89861617 J44.9 -- stable w/o exacerbati on Optic neuritis 47598329 H46.9 (almost blind in her left eye) -- saw Ophthalmol ogist at [facility] [address] around Apr 2023 Vitamin D deficiency 347 97597 E55.9 Body mass index 30+ - obesity 813969115 Z68.39 -- advised weight loss; pt lost 4 # since her last visit-- pt's BMI today is 30 (ideal is between 20-25). Hepatitis C screening 41 7399472 Z11.59 HIV screening 966827575 Z11.4 CDC recommends that everyone between the ages of 13 and 64 get tested for HIV at least once as part of routine health care. 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 Reviewed at [facility]. There are filling defects in the left [...] and TURBT with Dr. Sunny Vasquez at [facility]. Tumor measuring 4 cm involving the left lateral wall, 1.5 mg tumor anteriorly . Resection of both tumors performed. Pathology reviewed at [facility]. High grade invasive papillary urothelial carcinoma. Tumor [...] thickening . Following oncologist Kim Griffiths @ [facility]. Last appt on 07/13/2023 -- currently has Urostomy Bag with clean stoma and clear light urine Pt supposed to f/u w/ urologist as well Perineal pain 211357348 R10.2 described as left sided gluteal pain. She is not sure if it vaginal pain.Per oncologist , no concerning findings on most recent CT scan to correlate with symptoms. Peripheral sensory neuropathy 143198831 G62.9 involving the bilateral feet- unchanged - continue gabapentin 100 mg TID. Functional visual loss 179222863 H54.7 w/ optic neuropathy (L)Was seen by ophthal Dr Cydney Underwood on 03/25/2023 . Pt has been stable for over 8 years with no further visual or neurologic events. Dr Underwood suggested patient to f/u w/ Dr Vilchis in August 2023 to [facility]. Severe ivanna or depression 981277252 F32.2 Patient has previously tried: Prozac-SEs Zoloft-SEs (no appetite) Effexor-SE s Celexa-SEs Lexapro-SE s Cymbalta-S Es Remeron-SE s Viibryd--S Es Amitriptyl ine About 10 years ago she was hospitaliz ed for depression and suicidal ideation.R eceived ECT and it was helpful. Had headaches and some confusion as side effects.At [facility] intensive outpatient program twice one years agoDid intensive outpatient program via zoom last year through [facility] ( records on file)She had TMS with Dr. Barrios in [facility] 5 - 6 year ago. She improved. [...] premature . Chronic ob structive pulmonary disease 80520823 J44.9 -- stable w/o exacerbati on Optic neuritis 44107958 H46.9 (almost blind in her left eye) -- saw Ophthalmol ogist at [facility] [address] around Apr 2023 Vitamin D deficiency 347 84539 E55.9 Body mass index 30+ - obesity 908849604 Z68.39 -- advised weight loss; pt lost 4 # since her last visit-- pt's BMI today is 30 (ideal is between 20-25). Hepatitis C screening 41 7272445 Z11.59 HIV screening 446437878 Z11.4 CDC recommends that everyone between the ages of 13 and 64 get tested for HIV at least once as part of routine health care. Active or passive immunization 405863514 Z23 Screening for malignant neoplasm of colon 677873368 Z12.11 -- pt reported she has colonoscop y scheduled for [facility] 2 weeks from 10/07/23 Screening for malignant neoplasm of breast 334260085 Z12.31 Gynecologi c examination 31999447 Z01.419 [id number] Anibal Sewell MD [facility] [employer] [place] [address] [facility] ,[address] [address] 01/14/2024 09:13:21 01/14/2024 11:10:33 Low back pain 552913792 M54.50 -- pt just had xrays at [facility] but report not available- - has not taken her Duloxetine recently as she lost her pills Trochanter ic bursitis of right hip 5809461699 75537 M70.61 -- tender to touch at Rt lateral hip, and cannot lay on Rt hip at night. Tinea corporis 18354931 B35.4 (under Rt Breast) Pain of to e of right foot 5876890320 19550 M79.674 Chronic ob structive pulmonary disease 55384577 J44.9 -- stable w/o exacerbati on Body mass index 25-29 - overweight 120088247 Z68.25 -- pt lost 6 # since her last visit & is minimally overweight -- pt's BMI today is 25.4 (ideal is between 20-25) Hepatitis C screening 41 3953466 Z11.59 HIV screening 493450370 Z11.4 CDC recommends that everyone between the ages of 13 and 64 get tested for HIV at least once as part of routine health care. Active or passive immunization 434626778 Z23 Screening for malignant neoplasm of colon 243455248 Z12.11 -- pt reported she had colonoscop y scheduled for [facility] 2 weeks from 10/07/23 Screening for malignant neoplasm of breast 140003712 Z12.31 Gynecologi c examination 21908964 Z01.419 -- on 01/14/24, pt reported she has female wellness exam with Dr. Bush yesterday. Screening for osteoporosis 347224175 Z13.820 Depressive disorder 3548 9007 F32.9 -- Previously pt reported that her psychiatri st Dr Daphney Esposito has got insurance approval to have pt start Transcrani al Magnetic Stimulatio n.-- today, pt reported she has major depression & anxiety; and she is starting ketamine treatments next Thursday01/18/24 Pain of ri ght knee region 2374792927 34692 M25.561 -- pt has appt w/ Ortho Dr. Padilla on 01/25/24.- - pt has no apparent difficulty getting up from chair or walking out in the hallway. Primary ur othelial carcinoma of overlapping sites of urinary organs 497494157 C68.8 muscle invasive urothelial carcinoma Nov 2021: presented with gross hematuria Dec 23 2021: CT A/P with contrast at [facility] in [place]. Reviewed at [facility] There are filling defects in the left [...] and TURBT with Dr. Sunny Vasquez at [facility]. Tumor measuring 4 cm involving the left lateral wall, 1.5 mg tumor anteriorly . Resection of both tumors performed. Pathology reviewed at [facility]. High grade invasive papillary urothelial carcinoma. Tumor [...] t and thickening . Following oncologist Kim Tunde @ [facility]. Last appt on 07/13/2023 -- currently has Urostomy Bag with clean stoma and clear light urine -- pt reported that she is still followng w/ urologist Nicotine d ependence with current use 600229071 F17.210 Optic neuritis 20463074 H46.9 (blind in her left eye) -- saw Ophthalmol ogist at [place] [address] around Apr 2023 Hyperlipid emia screening 838736175 Z13.220 [id number] Anibal Sewell MD [facility] [address] [facility] ,[address] [place] [address] 05/05/2024 16:08:00 05/12/2024 16:28:20 Low back pain 013516288 M54.50 -- pt just had xrays at [facility] but report not available- - previously , [...] to Trochanter ic bursitis of right hip 3013377276 19901 M70.61 -- tender to touch at Rt lateral hip, and cannot lay on Rt hip at night.-- pain has improved a lot and is very mild (rates it 1-2/10)-- pt also does not want any shot to her hip due to cost (and sx is almost gone) Tinea corporis 57615958 B35.4 (under Rt Breast) -- A1c ordered but pt states she had not done it yet-- pt reports the Clotirmazo le and Diflucan clears the rash; but rash comes back later; pt does not want med refill-- pt states she will discuss this w/ her Dermatolog y Pain of to e of right foot 3266536356 61833 M79.674 -- uric acid lab ordered but pt did not get done.-- pt felt that her Rt foot has also improved a lot Chronic ob structive pulmonary disease 60275575 J44.9 -- stable w/o exacerbati on and has not used her rescue inhaler for over 2 months.-- pt feels her breathing has improved since she has cut down her smoking to half ppd 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 Reviewed at [facility]. There are filling defects in the left [...] and TURBT with Dr. Sunny Vasquez at [facility]. Tumor measuring 4 cm involving the left lateral wall, 1.5 mg tumor anteriorly . Resection of both tumors performed. Pathology reviewed at [facility]. High grade invasive papillary urothelial carcinoma. Tumor [...] thickening . Following oncologist Kim Griffiths @ [facility]. Last appt on 07/13/2023 -- currently has Urostomy Bag with clean stoma and clear light urine -- pt reported that she is still followng w/ urologist Pain of ri ght knee region 6262771997 34359 M25.561 -- pt has appt w/ Ortho Dr. Padilla on 01/25/24.- - pt has no apparent difficulty getting up from chair or walking out in the hallway. Optic neuritis 81616736 H46.9 (blind in her left eye) -- saw Ophthalmol ogist at [facility] [address] around 02/29/24 Nicotine d ependence with current use 385243708 F17.210 -- pt reports she has decreased her cigarettes to 0.5 ppd now Body mass index 25-29 - overweight 947857043 Z68.25 -- pt lost 6 # since her last visit & is minimally overweight -- pt's BMI today is 25.4 (ideal is between 20-25) Hyperlipid emia screening 750296387 Z13.220 -- LDL was 90 on 01/12/24; based on BP of 127/82 the current ASCVD risk calculatio n is Screening for osteoporosis 804917522 Z13.820 Hepatitis C screening 41 6146319 Z11.59 -- tested negative for Hepatitis C on 01/12/24 HIV screening 637340817 Z11.4 -- tested negative for HIV on 01/12/24 Active or passive immunization 332045811 Z23 Screening for malignant neoplasm of colon 603369836 Z12.11 -- pt reported she had colonoscop y done fall but colonoscop y was incomplete as her bowel still had stool; pt reported she has not made appt for repeat colonoscop y yet. Screening for malignant neoplasm of breast 999812972 Z12.31 Gynecologi c examination 74507570 Z01.419 -- on 01/14/24, pt reported she has female wellness exam with Dr. Bush yesterday. Pruritic rash 72389263 L 28.2 (hard to evaluate due to [...] to Mixed anxi ety and depressive disorder 790974276 F41.8 -- pt reported she had ECT at [facility] over 10 years ago (but does not [...] her energy-- pt started on Ketamine at [facility] but she does not want to drive to [place] anymore (no longer with Dr Evan Barrios; [...] None Recorded Advance Directives Directive N: Payers Insurance Date Sequence Insurance Name Policy Number Policy Perdomo Covered Member ID Perdomo Member ID Guarantor Name 05/12/2024 1 [place] [id number] Gladys L Haven [id number] Gladys L Haven 01/13/2024 2 [place] Gladys L Haven [id number] Gladys L Haven 01/13/2024 1 [place] [id number] Gladys L Haven [id number] Gladys L Haven 01/13/2024 1 [place] [id number] Gladys L Haven [id number] Gladys L Haven 01/13/2024 1 [employer]ET[employer] (POS) [id number] Gladys L Haven [id number] Gladys L Haven 01/13/2024 1 [employer] [id number] Gladys L Haven [id number] Gladys L Haven 01/13/2024 1 [employer] (HMO) [id number] Gladys L Haven [id number] Gladys L Haven Notes Date Note Type Note Provider Name and Address Organization Details Recorded Time 8 text/html HeadacheReported by PatientHPIFor quality, patient reportsthrobbingbut reportsnot the worst headache everandsimilar to previous headaches. For associated symptoms, patient reportsnausea (occasional)andphotophob iabut reportstearing/watery eyes,no confusion,no slurred speech,no double vision, andnormal feeling/sensation. For location, patient reportsunilateral (start unillaterally then bilaterally). For duration, patient reportsintermittent. For onset/timing, patient reportsgradualandintermi ttent episodes lasting:. For context, patient reportsnot related to trauma. For aggravating factors, patient reportsloud noise. For alleviating factors, patient reportslaying in a dark room. For severity, (-- mild to severe). MD Gagan Sal [facility] [address], [place], [address], [facility] 08/20/2017 16:43:04 4 text/html Pt with h/o primary urothelial carcinoma, perineal pain, peripheral neuropathy, depression [...] sx, n/v, any angina equivalent symptoms, etc. MD Gagan Sal [facility] [address], [place], [address], [facility] 07/28/2023 16:24:58 4 text/html Pt comes in for LBP, COPD, Vit D def, and weight monitoring. Pt feels well and has no c/o. Pt has no new sx and no increasing sx. Patient denies any jaw or neck discomfort, left arm pain/left arm discomfort, chest discomfort/pain, diaphoresis, breathing symptoms/chest tightness, indigestion sx, n/v, any angina equivalent symptoms, etc. MD Gagan Sal [facility] [address], [place], [address], [facility] 10/07/2023 12:06:52 4 text/html Pt reported she has major depression [...] sx, n/v, any angina equivalent symptoms, etc. MD Gagan Sal [facility] [address], [place], [address], [facility] 01/14/2024 11:31:49 5 text/html Pt on EATON for itch rash all over but now [...] sx, n/v, or confusion. Anibal Sewell MD [address] [facility] [address], [place], [address], [facility] 05/05/2024 21:44:17 OBGyn Episode No OBEpisode recorded.
--- OUTSIDE RECORDS SUMMARY | 2024-12-01 12:07 | XMS_ITS | Clinical Summary ---
Author Organization [facility] [employer] Address [address] [facility] [place] [address] Care Team Providers Care Grades 9 Thru 12 Visiting Teacher Name Role Phone Anibal Sewell MD Primary Care Provider [phone] Source Comments [facility] [employer],non-owned Affiliates and Associated Physician Practices is amultiple site organization consisting of ambulatory clinics and hospital sitesin [place], [place], [place] and [place]. This disclosure is being madepursuant to the Care Everywhere program and may not contain all information available regarding this patient. Last updated 17.[facility] [employer] Allergies No known active allergies Medications * Be aware that medications may not be up to date on this document. Alwaysverify current medications with the patient. 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[employer] Gender Identity Not on file Sexual Orientation [...] 9:57 AM CDT Height 162.6 cm (5' 4) 08/07/2017 9:57 AM CDT Body Mass Index 29.52 08/07/2017 9:57 AM CDT Plan of Treatment Health Maintenance Due Date Last Done Comments COLOGUARD (AGES 45-75) - COL ON CA SCREENING 1965 COLON MONITORING 1965 COLONOSCOPY - COLON CA SCREENING 1965 CT COLONOGRAPHY - COLON CA SCREENING 1965 Colorectal Cancer Screening 1965 FIT - COLON CA SCREENING 1965 FLEX SIG - COLON CA SCREENING 1965 LIPID TESTING 1965 MAMMOGRAM 1965 MEDICARE AWV 12 MONTHS 1965 HIV SCREENING 1980 HEPATITIS C SCREENING 05/21/1983 DTAP/TDAP/TD VACCINES (1 - Tdap) 1984 HEPATITIS B VACCINE (1 of 3 - 19+ 3-dose series) 1984 PNEUMOCOCCAL VACCINE 50+ (1 of 2 - PCV) 1984 PAP SMEAR 1986 ZOSTER VACCINE (1 of 2) 05/26/2015 SCREENING FOR DIABETES 08/07/2017 DEPRESSION SCREENING 03/02/2024 COVID-19 VACCINE (1 - 2023-2 5 season) 2024 INFLUENZA VACCINE (#1) 2024 HIB VACCINE Aged Out No longer [...] on patient's age to complete this topic Insurance ANTH [facility]THEM [facility] MEDICARE SELF PAY NO INSURANCE Member Subscriber Plan / Payer (Ef fective for All Dates) Name:Gladys Herrera Member ID:Not on file Relation to Subscriber:Not on file Name:GLADYS HERRERA Subscriber ID:Not on file (Home) Address: [address] [place] [phone] Payer ID:Not on file Group ID:Not on file Type:Self Pay Address: [facility] Care Teams Grades 9 Thru 12 Visiting Teacher Relationship Specialty Start Date End Date Anibal Sewell MD [facility] [address] [facility] [address] [place] [address] PCP - General Internal Medicine 03/21/16
--- OUTSIDE RECORDS SUMMARY | 2024-12-01 12:07 | XMS_ITS | Encounter Summary ---
Author Organization [facility] Healthcare Address [address] [place] [address] Care Team Providers Care Agriculture Department Chair Name Role Phone Kim Griffiths MD Unavailable [phone] Robin Valencia MD Primary Care Provider Diego Tavarez MD Unavailable [phone] Mackenzie Ortega MD Unavailable [phone] Merry Hunter NP Unavailable Encounter Details Date Type Department Care Team (Latest Contact Info) Description 10/17/2024 Results Follow-Up [facility] Medical Group Primary Care at [place] [address] [place] [address] Robin Valencia MD [address] [place] [address] [address] [place] [address] Rheumatoid factor, CRP (acute phase), Erythrocyte sedimentation rate, Additional followed-up results: 9 Social History Tobacco Use Types Packs/Day Years [...] often do you attend chur ch or anabaptism services? Never 08/13/2022 Do you belong to any clubs o r organizations such as anabaptism groups, unions, fraternal or athletic groups, or [...] points, staff should administer the PHQ-9) 0 09/27/2024 Hunger Vital Sign Answer Date Recorded Within [...] place to sleep or slept in a long-term (including now)? No 08/13/2022 Personal Safety Answer Date Recorded Have you ever been in or are you currently in a harmful physical or emotional relationship or is someone making you feel afraid or unsafe? Denies 10/23/2023 Comments No Sex and Gender Information Value Date Recorded Sex Assigned at Not on file Legal Sex Female 2:13 AM [employer] Gender Identity Not on file Sexual Orientation Not on file Occupation Industry Job Start Date Job End Date Unemployed/working on [employer]. Was working for [employer] in [email or web address] (until 11/2021). Not on file Not on file Not on file documented as of this encounter Miscellaneous Notes * Result Encounter Note - Robin Valencia MD - 10/17/2024 4:57 PM CDT Results reviewed. Results will be addressed and discussed in office visit with patient. documented in this encounter Plan of Treatment Not on file documented as of this encounter Visit Diagnoses Not on filedocumented in this encounter Care Teams Agriculture Department Chair Relationship Specialty Start Date End Date Robin Valencia MD [address] [facility] [address] [place] [address] PCP - General Family Medicine 07/14/24 Kim Griffiths MD Medical Oncologist/Supervisor Road Administrator Medical Oncology 02/27/22 Diego Tavarez MD [address] [facility] [address] [place] [address] Surgeon Ophthalmology 07/14/24 Mackenzie Ortega MD [address] [facility] [place] [address] Urology 07/14/24 Merry Hunter NP [address] [facility] [address] [place] [address] Nurse Practitioner Psychiatry 07/14/24 documented as of this encounter
--- OUTSIDE RECORDS SUMMARY | 2024-12-01 12:07 | XMS_ITS | Clinical Summary ---
Author Organization [facility] 2 Address [address] [facility] [place] [address] Care Team Providers Care Electromechanical Technologist Name Role Phone Kim Griffiths MD Unavailable [phone] Robin Valencia MD Primary Care Provider Diego Tavarez MD Unavailable [phone] Mackenzie Ortega MD Unavailable [phone] Merry Hunter NP Unavailable [phone] Allergies No known active allergies Medications estradioL (ESTRACE) 0.01 % (0.1 mg/gram) vaginal cream Insert 2 g into the vagina daily 4 Active hydrOXYzine (ATARAX) 25 mg tabletIndicatio ns:anxiety Take 1 tablet (25 mg total) by mouth every 8 (eight) hours as needed for anxiety Take 1-2 tablets three times daily as needed for anxiety 90 tablet 1 4 Active clotrimazole 1 % cream APPLY TOPICALLY TO THE AFFECTED AND SURROUNDING AREAS TWICE DAILY IN THE MORNING AND IN THE EVENING [address] (CYMBALTA) 60 mg capsule 5 Active fluticasone propion-salmete roL (ADVAIR DISKUS) 250-50 mcg/dose diskus inhaler Inhale 1 puff twice a day by inhalation route. Active gabapentin (NEURONTIN) 100 mg capsule Take 1 capsule (100 mg total) by mouth 3 (three) times a day Active Breztri Aerosphere 160-9-4.8 mcg/actuation inhaler Inhale 2 puffs 2 (two) times a day [address] (PROTONIX) 40 mg EC tablet TAKE 1 TABLET BY MOUTH TWICE DAILY FOR 14 DAYS 5 Active cholecalciferol (VITAMIN D-3) 5,000 unit tabletIndicatio ns:Vitamin D Deficiency Take 1 tablet (5,000 Units total) by mouth daily 90 tablet 3 5 Active Airsupra 90-80 mcg/actuation HFA aerosol inhalerIndicati ons:bronchospas m prevention with asthma Inhale 1 each every 6 (six) hours as needed (wheezing, shortness of breath) 5.9 g 2 5 Active Active Problems Problem Noted Date Diagnosed [...] pain 09/27/2024 Overview (10/25/2024): Used to see APG Assessment & Plan (10/17/2024 5:33 AM CDT): [...] 07/14/2024 Overview (07/14/2024): Following with GI at [facility] Assessment & Plan (07/14/2024 10:09 AM CDT): [...] was Advised to visit wound clinic at [place] by Urology but has not yet done so. Currently managing with head and shoulders soap and calamine lotion. 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 Reports she was Advised to visit wound clinic at [place] by Urology but has not yet done so. Currently managing with head and shoulders soap and calamine lotion. --> referral placed to wound care locally via [facility] for peristomal dermatitis Assessment & Plan (07/14/2024 10:16 AM CDT): - follows with Urology - post-radical cystectomy for bladder cancer - doing well with mild skin irritation and redness around the urostomy site. Reports she was Advised to visit wound clinic at [place] by Urology but has not yet done so. Currently managing with head and shoulders soap and calamine lotion. She would benefit eventually with wound care at [place] when it opens History of colon polyps 10/27/2023 Overview (07/14/2024): has Colonoscopy scheduled for 07/2024 via [facility] Assessment & Plan (10/17/2024 5:24 AM CDT): - up to date with colonoscopy S/P Colonoscopy 08/22/2024 at [facility], Polyps removed 7 mm and 12 [...] colonoscopy, has Colonoscopy scheduled for 07/2024 via [facility] - last colonoscopy as shown below, hx [...] AM CDT): - got evaluated by Neuro pluck trimmer - legally blind in left eye, has optic neuritis in left eye - had to go back and see neuro pluck trimmer for insurance and legal issue for disability according to patient - has been told nothing that can be done GERD (gastroesophageal reflux disease) Assessment & Plan (07/14/2024 10:09 AM CDT): - chronic condition, not at goal - has stopped taking Famotidine - has EGD set up with GI via [facility] provider - reports worse since chemotherapy/immunotherapy for [...] 10/19/2017 Overview (07/14/2024): - evaluated by neuro pluck trimmer Assessment & Plan (07/14/2024 9:01 AM CDT): - got evaluated by Neuro pluck trimmer - legally blind in left eye, has optic neuritis in left eye - had to go back and see neuro pluck trimmer for insurance and legal issue for disability [...] order placed No results found for: 25HYDROVITD Resolved Problems Problem Noted Date Diagnosed Date [...] was obscured by surgical anastomosis site. Updated instructor of education urology fellow. They stated they will follow [...] (12/31/2021): Added automatically from request for surgery [id number] Pseudophakia of right eye 03/24/2018 Postop check 03/11/2018 07/14/2024 Pseudophakia of left eye 01/06/2018 Overview (01/06/2018): - status post (s/p) phaco/IOL OS 01/06/18 Assessment & Plan (01/07/2018 10:37 AM MEDICAL CODING AUDITOR): POD1 EXTRACTION CATARACT - PHACOEMULSIFICATION AND LENS [...] (12/04/2017): Added automatically from request for surgery [id number] Nuclear sclerosis of both eyes 12/01/2017 07/14/2024 [...] 06/24/2013 07/14/2024 Pain in shoulder 06/23/2013 07/14/2024 Encounters Date Type Department Care Team Description 12/01/2024 Documentation [facility] Floor [address] [place] [phone] Lucy Cabrera LCSW 12/01/2024 Orders Only [facility] Floor [address] [place] [phone] Kim Griffiths MD Malignant neoplasm of overlapping sites of bladder (HCC) (Primary Dx) 10/26/2024 Orders Only [facility] Primary Care at [address] [phone] Robin Valencia MD Presence of urostomy (HCC) (Primary Dx); Hx of bladder cancer 10/25/2024 10:45 AM CDT Office Visit [facility] Primary Care at [address] [phone] Robin Valencia MD Polyarthralgia (Primary Dx); Vitamin D deficiency; Chronic obstructive pulmonary disease, unspecified COPD type (HCC); Encounter for screening mammogram for malignant neoplasm of breast; Chronic pain of right knee; Trochanteric bursitis of right hip; Generalized anxiety disorder; Presence of urostomy (HCC) 10/25/2024 Orders Only [facility] Primary Care at [address] [phone] Robin Valencia MD Presence of urostomy (HCC) (Primary Dx); Hx of bladder cancer 10/17/2024 9:30 AM CDT - 10/17/2024 11:59 PM CDT Hospital Encounter [address] [address] Chronic right hip pain; Chronic pain of right knee Discharge Disposition: Discharge to home or self care 10/17/2024 9:25 AM CDT Lab [address] [address] Polyarthralgia; Screening for lipid disorders; Generalized anxiety disorder; Neuropathy; Vitamin D deficiency; Need for hepatitis B screening test; Encounter for hepatitis C screening test for low risk patient 10/17/2024 Results Follow-Up [facility] Primary Care at [address] [phone] Robin Valencia MD Rheumatoid factor, CRP (acute phase), Erythrocyte sedimentation rate, Additional followed-up results: 9 09/27/2024 11:00 AM CDT Office Visit [facility] Care at [address] [phone] Robin Valencia MD History of colon polyps (Primary Dx); Presence of urostomy (HCC); Polyarthralgia; Chronic right hip pain; Chronic pain of right knee; Trochanteric bursitis of right hip; Loud snoring; Bilateral hand pain; H. pylori infection; Other gastritis without hemorrhage, unspecified chronicity from Last 3 Months Immunizations Immunization Administration Dates Next Due Influenza, Unspecified 10/25/2024(Deferr ed: Patient Refused),10/19/2024(Deferred: Patient Refused),07/14/2024(Deferred: Patient Refused),03/02/2024(Deferred: Patient Refused),03/02/2023(Deferred: Patient Refused) Moderna SARS-CoV-2 Monovalen t Vaccination (12+ YRS) 07/05/2020 Surgical History Surgery Date Site/Laterality Comments [...] often do you attend chur ch or rastafari services? Never 08/13/2022 Do you belong to any clubs o r organizations such as orthodoxy groups, unions, fraternal or athletic groups, or [...] place to sleep or slept in a intermediate (including now)? No 08/13/2022 Personal Safety Answer Date Recorded Have you ever been in or are you currently in a harmful physical or emotional relationship or is someone making you feel afraid or unsafe? Denies 10/23/2023 Comments No Sex and Gender Information Value Date Recorded Sex Assigned at Not on file Legal Sex Female 2:13 AM MEDICAL CODING AUDITOR Gender Identity Not on file Sexual Orientation Not on file Occupation Industry Job Start Date Job End Date Unemployed/working on [employer]. Was working for [employer] in [place] (until 11/2021). Not on file Not on file Not on file Obstetrics History Para Term AB IAB SAB Ectopic Multiple Livin g Live Births 2 2 2 0 0 0 Date Outcome GA Total Labor Labor/2nd/3rd Weight Sex Type Anes PTL Lucía A1 A5 Name Clin IAB D&C IAB D&C Last Filed Vital Signs Vital Sign Reading Time Taken Comments Blood Pressure 134/76 10/25/2024 10:58 AM CDT Pulse 80 10/25/2024 10:58 AM CDT Temperature 36.7 C (98.1 F) 10/25/2024 10:58 AM CDT Respiratory Rate 18 08/29/2024 1:22 PM CDT Oxygen Saturation 98% 10/25/2024 10:58 AM CDT Inhaled Oxygen Concentration - - Weight 70.4 kg (155 lb 3.2 oz) 10/25/2024 10:58 AM CDT Height 162.6 cm (5' 4) 10/25/2024 10:58 AM CDT Body Mass Index 26.64 10/25/2024 10:58 AM CDT Plan of Treatment Health Maintenance Due Date Last Done Comments DTaP/Tdap/Td Vaccine (1 - Tdap) 1976 Regular Well Visit/Exam 18-64 05/26/1983 Pneumococcal vaccine <65 (1 of 2 - PCV) 1984 Breast Cancer Screening-Mammogram 10/17/2014 014 Zoster Vaccine (1 of 2) 05/26/2015 Cervical Cancer Screening 01/01/2023 01/01/2022 Covid-19 Vaccine (5 2024-2 6 season) 2024 05/01/2021, 07/05/2020, 07/05/2020, Additional history exists Influenza Vaccine (#1) 2024 Lung Cancer Screening 08/29/2025 08/29/2024 Depression Screening 10/25/2025 10/25/2024, 09/27/2024, 07/14/2024, Additional history exists Colon Cancer Screening-Colonoscopy 08/22/2034 08/22/2024, 10/23/2023 Colon Cancer Screening-CT Colonography Discontinued 08/22/2024, 10/23/2023 Colon Cancer Screening-DNA Stool Discontinued 08/23/19 25, 10/23/2023 Colon Cancer Screening-FIT Discontinued 08/22/2024, Colon Cancer Screening-Sigmoidoscopy Discontinued 08/22/2024, 10/23/2023 Hepatitis B Screening Completed 10/17/2024 Hepatitis C Screening Completed 10/17/2024 Medical Devices Implanted Type Area Senior Grants Officer Device Identifier Shelf Expiration Date Model / Serial / Lot [employer] Symmetry Vesolock Large Clip Internal [id number] - Sn/A - [id number] Implanted:Qty: 1 on 07/30/2022 by Chapin Patricia MD at [facility] Clip N/A: Pelvis [employer] [id number] 03/02/2025 [id number] / N/A / [id number] [employer] Symmetry Vesolock Large Clip Internal [id number] - Sn/A - [id number] Implanted:Qty: 1 on 07/30/2022 by Chapin Patricia MD at [facility] Clip N/A: Pelvis [employer] [id number] 03/02/2025 [id number] / N/A / [id number] [employer] Symmetry Vesolock Large Clip Internal [id number] - Sn/A - [id number] Implanted:Qty: 1 on 07/30/2022 by Chapin Patricia MD at [facility] Clip N/A: Pelvis [employer] [id number] 03/02/2025 [id number] / N/A / [id number] [employer] Sn60wf.235 Acrysof Iq Natural Stableforce Acrysert 6mm 13mm 1 Piece Foldable - [id number] - [id number] Implanted:Qty: 1 on 01/06/2018 by Nora Dennison MD at [facility] L[facility] Left: Eye [employer] [id number] 07/30/2022 SN60WF .23 5 / [id number] / 0 [employer] Sn60wf.240 Acrysof Iq Natural Stableforce Acrysert 6mm 13mm 1 Piece Foldable - [id number] - [id number] Implanted:Qty: 1 on 03/10/2018 by Nora Dennison MD at [facility] Right: Eye [employer] [id number] 07/30/2022 SN60WF .24 0 / [id number] / 0 Oxford Scientific Estee 7fr 80cm Open Tip Luer Lock Adapter Guidewire Graduate Straight Latex Free 160-210 - Sn/A - [id number] Implanted:Qty: 2 on 07/30/2022 by Chapin Patricia MD at [facility] Explanted:Qty: 1 on 12/25/2022 by Chapin Patricia MD Stent Bilateral: Kidney [employer] Estee [id number] 03/26/2026 160-210 / N/A / [id number] Description:Right J stent re placed in surgery on 12/25/22 leaving Left J stent inplace. Angio Dynamics Xcela Power Port 8fr [id number] - [id number] Implanted:Qty: 1 on 03/04/2022 at [facility] Ang[employer] 11/19/2026 [id number] / / [id number] Explanted Type Area Senior Grants Officer Device Identifier Shelf Expiration Date Model / Serial / Lot [employer] Estee 7fr 80cm Open Tip Luer Lock Adapter Guidewire Graduate Straight Latex Free 160-210 - [id number] - [id number] Implanted:Qty: 1 on 12/25/2022 by Chapin Patricia MD at [facility] Explanted:Qty: 1 on 01/26/2023 by Chapin Patricia MD Stent Right: Ureter [employer] Estee [id number] 08/31/2026 [id number] / [id number] / [id number] Description:Left J stent in place from 07/30/22 per op notes Procedures Procedure Name Priority Date/Time Associated Diagnosis Comments XR KNEE RIGHT 4 OR MORE VIEWS Schedule Routine, Read Routine (OP Routine) 10/17/2024 9:52 AM CDT Chronic pain of right knee XR HIP RIGHT 2 OR 3 VIEWS Schedule Routine, Read Routine (OP Routine) 10/17/2024 9:52 AM CDT Chronic right hip pain VITAMIN D 25 HYDROXY Routine 10/17/2024 9:39 AM CDT Vitamin D deficiency VITAMIN B12 Routine 10/17/2024 9:39 AM CDT Neuropathy FOLATE Routine 10/17/2024 9:39 AM CDT Neuropathy THYROID FUNCTION CASCADE Routine 10/17/2024 9:39 AM CDT Generalized anxiety disorder LIPID PANEL Routine 10/17/2024 9:39 AM CDT Screening for lipid disorders PREETHI SCREEN W/REFLEX GABINO+DSDNA Routine 10/17/2024 9:39 AM CDT Polyarthralgia ERYTHROCYTE SEDIMENTATION RATE Routine 10/17/2024 9:39 AM CDT Polyarthralgia CRP (ACUTE PHASE) Routine 10/17/2024 9:3 9 AM CDT Polyarthralgia CYCLIC CITRUL PEPTIDE ANTIBODY, IGG Routine 10/17/2024 9:39 AM CDT Polyarthralgia RHEUMATOID FACTOR Routine 10/17/2024 9:3 9 AM CDT Polyarthralgia HEPATITIS C ANTIBODY Routine 10/17/2024 9:39 AM CDT Encounter for hepatitis C screening test for low risk patient HEPATITIS B SURFACE ANTIBODY (IMMUNE STATUS) Routine 10/17/2024 9:39 AM CDT Need for hepatitis B screening test HEPATITIS B CORE ANTIBODY, TOTAL Routine 10/17/2024 9:39 AM CDT Need for hepatitis B screening test HEPATITIS B SURFACE ANTIGEN Routine 10/17/2024 9:39 AM CDT Need for hepatitis B screening test COLONOSCOPY Routine 08/22/2024 PAP AND HIGH RISK HPV, REFLEX TO GENOTYPING Routine 01/01/2022 11:12 AM CDT Screening for malignant neoplasm of cervix SCREENING MAMMOGRAM W ADIEL Routine 10/17/2013 2:31 PM CDT from Last 3 Months or Most Recently Relevant to Health Maintenance Results * XR Knee Right 4+ Vw (10/17/2024 9:52 AM CDT) Anatomical Region Laterality Modality Lower Extremities, Knee Right Computed Radiography 10/17/2024 7:29 PM CDT Narrative 10/17/2024 7:37 PM CDT EXAM DESCRIPTION: 1. XR HIP RIGHT 2 OR 3 VIEWS 2. XR KNEE RIGHT 4 OR MORE VIEWS REASON FOR STUDY: right hip pain chronic right knee pain Chronic Rt Hip and knee pain for about a year. No known injury. Rt knee has been locking up. FINDINGS: Two views right hip and four views right knee submitted with comparison 08/29/2024. Right hip: No acute fracture. The femoral head is well seated. The right hip joint space is normal. Right knee: No acute fracture. Minimal medial and mild patellofemoral bicompartmental right knee osteoarthritis. No effusion. IMPRESSION: 1. Normal right hip joint space evaluation. 2. Minimal medial and mild patellofemoral bicompartmental right knee osteoarthritis. THIS IS AN ELECTRONICALLY VERIFIED FINAL REPORT 10/17/2024 7:37 PM - Electronically signed by Esteban Leary M.D. T: Report ID: [id number] Reading Location: [id number] Procedure Note Esteban Leary MD - 10/17/2024 EXAM DESCRIPTION: 1. XR HIP RIGHT 2 OR 3 VIEWS 2. XR KNEE RIGHT 4 OR MORE VIEWS REASON FOR STUDY: right hip pain chronic right knee pain Chronic Rt Hip and knee pain for about a year. No known injury. Rt kneehas been locking up. FINDINGS: Two views right hip and four views right knee submitted with comparison 08/29/2024. Right hip: No acute fracture. The femoral head is well seated. The right hip joint space is normal. Right knee: No acute fracture. Minimal medial and mild patellofemoral bicompartmental right knee osteoarthritis. No effusion. IMPRESSION: 1. Normal right hip joint space evaluation. 2. Minimal medial and mild patellofemoral bicompartmental right knee osteoarthritis. THIS IS AN ELECTRONICALLY VERIFIED FINAL REPORT 10/17/2024 7:37 PM - Electronically signed by Esteban Leary M.D. T: Report ID: [id number] Reading Location: [id number] Robin Esteban Valencia MD IMG XR PROCEDURES Final Result * XR Hip Right 2+ Vw (10/17/2024 9:52 AM CDT) Anatomical Region Laterality Modality Lower Extremities, Hip, Pelvis Right C omputed Radiography 10/17/2024 7:29 PM CDT Narrative 10/17/2024 7:37 PM CDT EXAM DESCRIPTION: 1. XR HIP RIGHT 2 OR 3 VIEWS 2. XR KNEE RIGHT 4 OR MORE VIEWS REASON FOR STUDY: right hip pain chronic right knee pain Chronic Rt Hip and knee pain for about a year. No known injury. Rt knee has been locking up. FINDINGS: Two views right hip and four views right knee submitted with comparison 08/29/2024. Right hip: No acute fracture. The femoral head is well seated. The right hip joint space is normal. Right knee: No acute fracture. Minimal medial and mild patellofemoral bicompartmental right knee osteoarthritis. No effusion. IMPRESSION: 1. Normal right hip joint space evaluation. 2. Minimal medial and mild patellofemoral bicompartmental right knee osteoarthritis. THIS IS AN ELECTRONICALLY VERIFIED FINAL REPORT 10/17/2024 7:37 PM - Electronically signed by Esteban Leary M.D. T: Report ID: [id number] Reading Location: [id number] Procedure Note Esteban Leary MD - 10/17/2024 EXAM DESCRIPTION: 1. XR HIP RIGHT 2 OR 3 VIEWS 2. XR KNEE RIGHT 4 OR MORE VIEWS REASON FOR STUDY: right hip pain chronic right knee pain Chronic Rt Hip and knee pain for about a year. No known injury. Rt kneehas been locking up. FINDINGS: Two views right hip and four views right knee submitted with comparison 08/29/2024. Right hip: No acute fracture. The femoral head is well seated. The right hip joint space is normal. Right knee: No acute fracture. Minimal medial and mild patellofemoral bicompartmental right knee osteoarthritis. No effusion. IMPRESSION: 1. Normal right hip joint space evaluation. 2. Minimal medial and mild patellofemoral bicompartmental right knee osteoarthritis. THIS IS AN ELECTRONICALLY VERIFIED FINAL REPORT 10/17/2024 7:37 PM - Electronically signed by Esteban Leary M.D. T: Report ID: [id number] Reading Location: [place] [address] Robin Valencia MD IMG XR PROCEDURES Final Result * PREETHI screen w/rflx GABINO+dsDNA (10/17/2024 9:39 AM CDT) PREETHI Negative Comment: Interpretive Data Normal range for PREETHI Qualitative Antibody = Negative. 1. PREETHI is performed using indirect immunofluorescence against HEp-2 cells 2. PREETHI titers are performed on all positive qualitative results. 3. A significantly positive PREETHI result is defined as a positive nuclear fluorescence at a titer of 1:80 or greater. 4. 15% of normal people above age 65 have significantly positive RPEETHI results. 5% or less of normal people age 65 or under have significantly positive PREETHI results. Current interpretive data was last revised on 2019. Testing performed by: [facility], [address] [facility], [place]., [address] Blood 10/17/2024 9:39 AM CDT 10/17/2024 1:08 PM CDT Robin Valencia MD LAB BLOOD ORDERABLES Fi nal Result Performing Organization Address [facility] Co de Phone Number [facility] [address] [facility] Department [place] [address] * Thyroid Function [place] (10/17/2024 9:39 AM CDT) TSH 0.72 0.30 - 4.20 mcIUnit/mL Blood 10/17/2024 9:39 AM CDT 10/17/2024 1:36 PM CDT Robin Valencia MD LAB BLOOD ORDERABLES Fi nal Result Performing Organization Address City/[facility] Co de Phone Number [facility] [address] [place] [address] * Hepatitis C antibody Blood (10/17/2024 9:39 AM CDT) Hep C Ab Nonreactive Nonreactive Comment: Antibodies to HCV not detected. Does NOT exclude the possibility of recent exposure to HCV. Current interpretive data was last revised on 21 Interpretive Data Nonreactive: Antibodies to HCV not detected. Does NOT exclude the possibility of recent exposure to HCV. Equivocal: Equivocal for HCV antibodies. Supplemental molecular testing will be automatically performed to determine infection status in accordance with current CDC screening recommendations. Reactive: Positive for HCV antibodies. This may represent current or past HCV infection. Supplemental molecular testing will be automatically performed to determine current infection status in accordance with current CDC screening recommendations. Interpretive data was last revised on 2019. Blood 10/17/2024 9:39 AM CDT 10/17/2024 1:36 PM CDT Robin Valencia MD LAB MICROBIOLOGY - GENE RAL ORDERABLES Final Result Performing Organization Address [facility] de Phone Number [facility] [place] [address] * Cyclic citrul peptide antibody, IgG (10/17/2024 9:39 AM CDT) Pathologist [facility] CCP Ab <0.5 <=2.9 units/mL Comment: Interpretive data Negative: <3 units/mL Positive: > or equal to 3 units/mL Current interpretive data was last revised on 2016. Testing performed by: [facility], [address] [facility], [place]., [address] Blood 10/17/2024 9:39 AM CDT 10/17/2024 1:08 PM CDT Robin Valencia MD LAB BLOOD ORDERABLES Fi nal Result Performing Organization Address [facility] Co de Phone Number [facility] [address] [place] [id number] * Hepatitis B core antibody, total Blood (10/17/2024 9:39 AM CDT) [facility] Hep B core IgG/IgM Nonreactive Nonreactive Comment:Testing performed by : [facility], [address] [facility], [place]., [address] Blood 10/17/2024 9:39 AM CDT 10/17/2024 3:36 PM CDT Robin Valencia MD LAB MICROBIOLOGY - GENE RAL ORDERABLES Final Result Performing Organization Address City/[facility]/ZIP Co de Phone Number [address] [address] * (ABNORMAL) Vitamin D 25 hydroxy (10/17/2024 9:39 AM CDT) [facility] Vitamin D 25-OH 26.0(L) 30.0 - 80.0 ng/mL Blood 10/17/2024 9:39 AM CDT 10/17/2024 1:36 PM CDT Robin Valencia MD LAB BLOOD ORDERABLES Fi nal Result Performing Organization Address City/[facility]/ZIP Co de Phone Number [address] [address] * Hepatitis B surface antibody (immune status) Blood (10/17/2024 9:39 AM CDT) [facility] HBsAb (immune status) Reactive Comment: Interpretive Data Nonreactive: This result is consistent with a lack of immunity to Hepatitis B Virus when used in the setting of routine screening. Equivocal: The immune status of the individual should be further assessed, if appropriate, after consideration of clinical status, risk factors, and additional diagnostic information. Reactive: This result is consistent with immunity to Hepatitis B Virus when used in the setting of routine screening. Current interpretive data was last revised on 19. HBsAb (immune status) index 51.0 mIUnits/m L [facility] Blood 10/17/2024 9:39 AM CDT 10/17/2024 1:36 PM CDT Robin Valencia MD LAB MICROBIOLOGY - GENE RAL ORDERABLES Final Result Performing Organization Address [facility] Co de Phone Number [address] [place] [address] * Hepatitis B Surface Antigen Blood (10/17/2024 9:39 AM CDT) Pathologist [facility] HepBsAg Nonreactive Nonreactive Blood 10/17/2024 9:39 AM CDT 10/17/2024 1:36 PM CDT Robin Valencia MD LAB MICROBIOLOGY - GENE RAL ORDERABLES Final Result Performing Organization Address [facility] de Phone Number [address] [place] [address] * Erythrocyte sedimentation rate (10/17/2024 9:39 AM CDT) Pathologist [facility] Erythrocyte sedimentation rate 7 1 - 30 mm/hr Blood 10/17/2024 9:39 AM CDT 10/17/2024 10:51 AM CDT Robin Valencia MD LAB BLOOD ORDERABLES Fi nal Result Performing Organization Address [facility] Co de Phone Number [address] [address] * Rheumatoid factor (10/17/2024 9:39 AM CDT) Pathologist [facility] Rheumatoid factor, quant <10.0 <=15.0 IUnits/mL Blood 10/17/2024 9:39 AM CDT 10/17/2024 1:36 PM CDT Robin Valencia MD LAB BLOOD ORDERABLES Fi nal Result [address] [place] [address] * CRP (acute phase) (10/17/2024 9:39 AM CDT) Pathologist [facility] CRP 1.5 <=10.0 mg/L Blood 10/17/2024 9:39 AM CDT 10/17/2024 1:36 PM CDT Robin Valencia MD LAB BLOOD ORDERABLES Fi nal Result Performing Organization Address City/[facility] Co de Phone Number [address] [place] [address] * Folate (10/17/2024 9:39 AM CDT) Pathologist [facility] Folic acid 10.2 >=5.0 ng/mL Blood 10/17/2024 9:39 AM CDT 10/17/2024 1:36 PM CDT Robin Valencia MD LAB BLOOD ORDERABLES Fi nal Result Performing Organization Address City/[facility]/ZIP Co de Phone Number [address] [place] [address] * Vitamin B12 (10/17/2024 9:39 AM CDT) [facility] Vitamin B12 334 230 - 1,250 pg/mL Blood 10/17/2024 9:39 AM CDT 10/17/2024 1:36 PM CDT Robin Valencia MD LAB BLOOD ORDERABLES Fi nal Result Performing Organization Address City/[facility]/ZIP Co de Phone Number [address] [place] [address] * (ABNORMAL) Lipid panel (10/17/2024 9:39 AM CDT) Pathologist [facility] Cholesterol 208(H) 30 - 199 mg/dL Comment: Interpretive Data Ages < or = 19 years Acceptable: <170 mg/dL Borderline high: 170-199 mg/dL High: >or= 200 mg/dL Ages > or = 20 years Desirable: <200 mg/dL Borderline high: 200-239 mg/dL High: >or= 240 mg/dL Literature References: 1. Expert Panel on Integrated Guidelines for Cardiovascular Health and Risk Reduction in Children and Adolescents. Pediatrics 2011;128:S213 2. NCEP Expert Panel. Circulation 2004;110:227 Current Interpretive Data was last revised on 2017. Triglycerides 95 <=149 mg/dL AXEL Comment: Interpretive Data Ages < or = 9 years Acceptable: <75 mg/dL Borderline high: 75-99 mg/dL High: >or= 100 mg/dL Ages 10 to 20 years Acceptable: <90 mg/dL Borderline high: 90-129 mg/dL High: >or= 130 mg/dL Ages > or = 20 years Desirable: <150 mg/dL Borderline high: 150-199 mg/dL High: 200-499 mg/dL Very high: >or= 499 mg/dL Literature References: 1. Expert Panel on Integrated Guidelines for Cardiovascular Health and Risk Reduction in Children and Adolescents. Pediatrics 2011;128:S213 2. NCEP Expert Panel. Circulation 2004;110:227 Current Interpretive Data was last revised on 2017. HDL 71 >=40 mg/dL AXEL Comment: Interpretive Data Ages < or = 19 years Acceptable: >45 mg/dL Borderline low: 40-45 mg/dL Low: <40 mg/dL Ages > or = 20 years Desirable: >or= 60 mg/dL Low: <40 mg/dL Literature References: 1. Expert Panel on Integrated Guidelines for Cardiovascular Health and Risk Reduction in Children and Adolescents. Pediatrics 2011;128:S213 2. NCEP Expert Panel. Circulation 2004;110:227 Current Interpretive Data was last revised on 2017. LDL, calculated 120 <=129 mg/dL AXEL Comment: Interpretive Data Ages < or = 19 years Acceptable: <110 mg/dL Borderline high: 110-129 mg/dL High: >or= 130 mg/dL Ages > or = 20 years Optimal: <100 mg/dL Near optimal: 100-129 mg/dL Borderline high: 130-159 mg/dL High: >160 mg/dL Calculated using the Radhames LDL-C estimating equation. This equation was implemented on 2023. Prior to this date LDL-C was estimated using the Friedewald equation. Literature References: 1. Expert Panel on Integrated Guidelines for Cardiovascular Health and Risk Reduction in Children and Adolescents. Pediatrics 2011;128:S213 2. NCEP Expert Panel. Circulation 2004;110:227 3. Radhames Dodson et al. TITO Cardiol. 2019June 30;5(5):540-548. doi: 10.1001/jamacardio.2020.0013 Current Interpretive Data was last revised on 2023. Non-HDL Cholesterol 137 mg/dL AXEL ZHANG Comment: Interpretive Data Ages < or = 19 years Acceptable: <120 mg/dL Borderline high: 120-144 mg/dL High: >145 mg/dL Ages > or = 20 years When triglycerides are >200 mg/dL, Non-HDL cholesterol is a secondary target of therapy with treatment goals that are 30 mg/dL greater than the LDL cholesterol target. Literature References: 1. Expert Panel on Integrated Guidelines for Cardiovascular Health and Risk Reduction in Children and Adolescents. Pediatrics 2011;128:S213 2. NCEP Expert Panel. Circulation 2004;110:227 Current Interpretive Data was last revised on 2017. Chol/HDL ratio 3 AXEL Blood 10/17/2024 9:39 AM CDT 10/17/2024 1:36 PM CDT Narrative AXEL - 10/17/2024 2:25 PM CDT Has the patient been fasting for 8 hours or more?->No Robin Valencia MD LAB BLOOD ORDERABLES Fi nal Result AXEL [address] [facility] Department [place] [address] * Colonoscopy (08/22/2024) Anatomical Region Laterality Modality Other us Historical Provider ENDOSCOPY PROCEDURES Catarina l Result * Pap and High Risk HPV, reflex to Genotyping (01/01/2022 11:12 AM CDT) Thin prep (Pap test) 01/01/2022 11:12 AM CDT 01/01/2022 11:12 AM CDT Narrative PATHOLOGY CH - 01/03/2022 12:28 PM CDT [facility] Department of Pathology [address] [place], [place] [id number] Final Report with Addendum Note to Patients: [...] the details. Patient Name: GLADYS SALMON Address: [address] [place] [address] Gender: F : 1965 (Age: 56) Service: Laboratory Location: N : [id number] [facility] #: [id number] Patient Type: SPECIMEN Taken: 01/01/2022 Received: 01/01/2022 [...] determined by the Surgical Pathology Department at [facility] as part of an ongoing corporate quality engineer program and in compliance with federally mandated [...] characteristics determined by the Surgical Pathology Department [facility]. It has not been cleared or approved by the U. S. Food and Drug Administration. Melva Vallejo MD LAB CYTOLOGY ORDERABLES Final Result PATHOLOGY [address] [place] [address] * Screening Mammogram W Adiel (10/17/2013 2:31 PM CDT) Anatomical Region Laterality Modality Breast N/A Mammography 10/17/2013 2:31 PM CDT Narrative 10/18/2013 9:48 AM CDT LORIN HALL M.D. FINAL REPORT ACC# Date Time Exam [id number] Oct 17, 2013 14:31:00 [facility] [id number] Bilateral screen w adiel Technologist(s): Antonietta Solis; ; EXAMINATION: Mammogram Technique: Bilateral Bilateral Full-Field Digital Screening Mammogram and Digital Breast Tomosynthesis were performed. Views obtained: bilateral craniocaudal and bilateral mediolateral oblique. Computer Aided Detection of the 2D images was performed with [employer] 1.3 version 9.3. Mammogram Findings: The present examination has been compared to prior imaging studies performed at [facility] on 04/21/2011, 10/18/2009 and 09/25/2009. The breasts [...] M.D. FINAL REPORT ACC# Date Time Exam [id number] Oct 17, 2013 14:31:00 [facility] [id number] Bilateral screen w adiel Technologist(s): Antonietta Solis; ; EXAMINATION: Mammogram Technique: Bilateral Bilateral Full-Field Digital Screening Mammogram and Digital Breast Tomosynthesis were performed. Views obtained: bilateral craniocaudal and bilateral mediolateral oblique. Computer AidedDetection of the 2D images was performed with [employer] 1.3 version 9.3. Mammogram Findings: The present examination has been compared to prior imaging studies performed at [facility] on 04/21/2011, 10/18/2009 and 09/25/2009. The breasts [...] HALL M.D. on Oct 18 2013 9:47A Historical Provider MD [facility] MAMMO PROCEDURES Catarina l Result from Last 3 Months or Most Recently Relevant to Health Maintenance Insurance MEDICARE [employer] PLAN MEDICARE Advance Directives For more information, please contact: [phone] * Full Code (Latest Code Status on [...] 8:27 PM 08/04/2022 5:31 PM Care Teams Electromechanical Technologist Relationship Specialty Start Date End Date Robin Valencia MD [address] [facility] [address] [place] [address] PCP - General Family Medicine 07/14/24 Kim Griffiths MD Medical Oncologist/Internal Control Manager Medical Oncology 02/27/22 Diego Tavarez MD [address] [facility] [address] [place] [address] Surgeon Ophthalmology 07/14/24 Mackenzie Ortega MD [address] [facility] [place] [address] Urology 07/14/24 Merry Hunter NP [address] [facility] [address] [place] [address] Nurse Practitioner Psychiatry 07/14/24
--- OUTSIDE RECORDS SUMMARY | 2024-12-01 12:07 | XMS_ITS | Data Portability ---
Author Organization [place] - [facility] [employer], Main Office Address [address] [place] [address] Assessment No assessment recorded. Plan of Treatment [...] 139 mmol/ L 137-14 5 Not Available [facility] (Lab) [address] [place], [address], 07/06/2020 19:20:42 07/07/1907/06/2020 CMP, serum or plasm a potassium 4.1 mmol/ L 3.5-5. 1 Not Available [facility] (Lab) [address] [place], [address], 07/06/2020 19:20:42 07/07/19 21 07/06/2020 CMP, serum or plasm a chloride 108 mmol/ L 98-107 high Not Available [facility] (Lab) [address] [place], [address], 07/06/2020 19:20:42 07/07/19 21 07/06/2020 CMP, serum or plasm a carbon dioxide 25 mmol/ L 22-30 Not Available [facility] (Lab) [address] [place], [address], 07/06/2020 19:20:42 07/07/19 21 07/06/2020 CMP, serum or plasm a agap 10.1 mmol/ L 14-22 low Not Available [facility] (Lab) [address] [place], [address], 07/06/2020 19:20:42 07/07/19 21 07/06/2020 CMP, serum or plasm a glucose 107 mg/dL 70-99 high Not Available [facility] (Lab) [address] [place], [address], 07/06/2020 19:20:42 07/07/19 21 07/06/2020 CMP, serum or plasm a BUN 28 mg/dL 8-19 high Not Available [facility] (Lab) [address] [place], [address], 07/06/2020 19:20:42 07/07/19 21 07/06/2020 CMP, serum or plasm a creatinine 0.52 mg/dL 0.66-1 .25 low Not Available [facility] (Lab) [address] [place], [address], 07/06/2020 19:20:42 07/07/19 21 07/06/2020 CMP, serum or plasm a GFR >60 Refer ence Range : Eugene ge GFR Healt hy Adult : >60 [...] be locat ed on the [facility] websi te: https ://ww w.kid mariam.o rg/pr ofess ional s/kdo qi/gf r_cal culat or Not Available [facility] (Lab) [address] [place], [address], 07/06/2020 19:20:42 07/07/19 21 07/06/2020 CMP, serum or plasm a alkaline phosphatase 67 U/L 38-126 Not Available [facility] (Lab) [address] [place], [address], 07/06/2020 19:20:42 07/07/19 21 07/06/2020 CMP, serum or plasm a alanine aminotransfe rase 19 U/L 0-35 Not Available [facility] (Lab) [address] [place], [address], 07/06/2020 19:20:42 07/07/19 21 07/06/2020 CMP, serum or plasm a aspartate aminotransfe rase 24 U/L 15-37 Not Available [facility] (Lab) [address] [place], [address], 07/06/2020 19:20:42 07/07/19 21 07/06/2020 CMP, serum or plasm a bilirubin, total 0.90 mg/dL 0.20-1 .30 Not Available [facility] (Lab) [address] [place], [address], 07/06/2020 19:20:42 07/07/19 21 07/06/2020 CMP, serum or plasm a calcium 9.5 mg/dL 8.4-10 .2 Not Available [facility] (Lab) [address] [place], [address], 07/06/2020 19:20:42 07/07/19 21 07/06/2020 CMP, serum or plasm a total protein 7.1 g/dL 6.3-8. 2 Not Available [facility] (Lab) [address] [place], [address], 07/06/2020 19:20:42 07/07/19 21 07/06/2020 CMP, serum or plasm a albumin 4.6 g/dL 3.4-5. 0 Not Available [facility] (Lab) [address] [place], [address], 07/06/2020 19:20:42 07/07/19 21 07/06/2020 CMP, serum or plasm a globulin 2.5 g/dL 2.6-4. 2 low Not Available [facility] (Lab) [address] [place], [address], 07/06/2020 19:20:42 07/07/19 21 07/06/2020 CMP, serum or plasm a A/G ratio 1.8 ratio 1.0-2. 0 Not Available [facility] (Lab) [address] [place], [address], 07/06/2020 19:20:42 07/07/19 21 07/06/2020 lipid panel , serum cholesterol 188 mg/dL 140-19 9 NIH SINCERE NSUS RECOM MENDA TION FOR FIOR STERO L: ADULT CHILD LOW RISK: <200 <170 BORDE RLINE : <200- 239 ----- HIGH RISK: >240 >200 Not Available [facility] (Lab) [address] [place], [address], 07/06/2020 19:20:35 07/07/19 21 07/06/2020 lipid panel , serum triglyceride s 97 mg/dL 0-150 NIH SINCERE NSUS REPOR T RECOM MENDA TION FOR TRIGL YCERI ONEAL: ADULT CHILD LOW RISK: <150 ----- BODER LINE: 150-1 99 ----- HIGH RISK: >200 ----- Not Available [facility] (Lab) [address] [place], [address], 07/06/2020 19:20:35 07/07/19 21 07/06/2020 lipid panel , serum HDL cholesterol 63 mg/dL 40- Not Available [facility] (Lab) [address] [place], [address], 07/06/2020 19:20:35 07/07/19 21 07/06/2020 lipid panel [...] WILL NOT BE REPOR NATALYA. Not Available [facility] (Lab) [address] [place], [address], 07/06/2020 19:20:35 07/07/19 21 07/06/2020 C react tenzin prote in, QN, serum or plasm a C-reactive protein 0.09 mg/dL 0.0-0. 5 Not Available [facility] (Lab) [address] [place], [address], 07/06/2020 19:19:45 10/22/19 22 10/21/2021 LIPID PANEL cholesterol 183 mg/dL 140-19 9 NIH SINCERE NSUS RECOM MENDA TION FOR FIOR STERO L: ADULT CHILD LOW RISK: <200 <170 BORDE RLINE : <200- 239 ----- HIGH RISK: >240 >200 Not Available [facility] (Lab) [address] [place], [address], 10/21/2021 13:07:57 10/22/19 22 10/21/2021 LIPID PANEL triglyceride s 89 mg/dL 0-150 NIH SINCERE NSUS REPOR T RECOM MENDA TION FOR TRIGL YCERI ONEAL: ADULT CHILD LOW RISK: <150 ----- BODER LINE: 150-1 99 ----- HIGH RISK: >200 ----- Not Available [facility] (Lab) [address] [place], [address], 10/21/2021 13:07:57 10/22/19 22 10/21/2021 LIPID PANEL HDL cholesterol 72 mg/dL 40- Not Available [facility] (Lab) [address] [place], [address], 10/21/2021 13:07:57 10/22/19 22 10/21/2021 LIPID PANEL [...] WILL NOT BE REPOR NATALYA. Not Available [facility] (Lab) [address] [place], [address], 10/21/2021 13:07:57 10/22/19 22 10/21/2021 COMPR EHENS TENZIN METAB OLIC PANEL sodium 137 mmol/ L 137-14 5 Not Available [facility] (Lab) [address] [place], [address], 10/21/2021 13:07:54 10/22/19 22 10/21/2021 COMPR EHENS TENZIN METAB OLIC PANEL potassium 4.7 mmol/ L 3.5-5. 1 Not Available [facility] (Lab) [address] [facility] [place], [address], 10/21/2021 13:07:54 10/22/19 22 10/21/2021 COMPR EHENS TENZIN METAB OLIC PANEL chloride 103 mmol/ L 98-107 Not Available [facility] (Lab) [address] [place], [address], 10/21/2021 13:07:54 10/22/19 22 10/21/2021 COMPR EHENS TENZIN METAB OLIC PANEL carbon dioxide 28 mmol/ L 22-30 Not Available [facility] (Lab) [address] [place], [address], 10/21/2021 13:07:54 10/22/19 22 10/21/2021 COMPR EHENS TENZIN METAB OLIC PANEL anion gap 10.7 mmol/ L 14-22 low Not Available [facility] (Lab) [address] [place], [address], 10/21/2021 13:07:54 10/22/19 22 10/21/2021 COMPR EHENS TENZIN METAB OLIC PANEL glucose 117 mg/dL 70-99 high Not Available [facility] (Lab) [address] [place], [address], 10/21/2021 13:07:54 10/22/19 22 10/21/2021 COMPR EHENS TENZIN METAB OLIC PANEL BUN 18 mg/dL 8-19 Not Available [facility] (Lab) [address] [place], [address], 10/21/2021 13:07:54 10/22/19 22 10/21/2021 COMPR EHENS TENZIN METAB OLIC PANEL creatinine 0.53 mg/dL 0.66-1 .25 low Not Available [facility] (Lab) [address] [place], [address], 10/21/2021 13:07:54 10/22/19 22 10/21/2021 COMPR EHENS TENZIN METAB OLIC PANEL GFR >60 Refer ence Range : Eugene ge GFR Healt hy Adult : >60 mL/mi n/1.7 3 m2 Chron ic Kidne y Disea se: 15-60 mL/mi n/1.7 3 m2 Kidne y Failu re: <15/m L/min /1.73 m2 www.n iddk. [facility].g ov The MDRD study equat ion has [...] is avail able on the [facility] websi te: https ://ezequiel solis.trudy ebcerra.o rg/pr ofess ional s/kdo qi/gf r_cal culat or Not Available [facility] (Lab) [address] [place], [address], 10/21/2021 13:07:54 10/22/19 22 10/21/2021 COMPR EHENS TENZIN METAB OLIC PANEL alkaline phosphatase 78 U/L 38-126 Not Available [facility] (Lab) [address] [place], [address], 10/21/2021 13:07:54 10/22/19 22 10/21/2021 COMPR EHENS TENZIN METAB OLIC PANEL alanine aminotransfe rase 19 U/L 0-35 Not Available [facility] (Lab) [address] [place], [address], 10/21/2021 13:07:54 10/22/19 22 10/21/2021 COMPR EHENS TENZIN METAB OLIC PANEL aspartate aminotransfe rase 24 U/L 15-37 Not Available [facility] (Lab) [address] [place], [address], 10/21/2021 13:07:54 10/22/19 22 10/21/2021 COMPR EHENS TENZIN METAB OLIC PANEL bilirubin, total 0.40 mg/dL 0.20-1 .30 Not Available [facility] (Lab) [address] [place], [address], 10/21/2021 13:07:54 10/22/19 22 10/21/2021 COMPR EHENS TENZIN METAB OLIC PANEL calcium 9.3 mg/dL 8.4-10 .2 Not Available [facility] (Lab) [address] [place], [address], 10/21/2021 13:07:54 10/22/19 22 10/21/2021 COMPR EHENS TENZIN METAB OLIC PANEL total protein 7.0 g/dL 6.3-8. 2 Not Available [facility] (Lab) [address] [place], [address], 10/21/2021 13:07:54 10/22/19 22 10/21/2021 COMPR EHENS TENZIN METAB OLIC PANEL albumin 4.3 g/dL 3.4-5. 0 Not Available [facility] (Lab) [address] [place], [address], 10/21/2021 13:07:54 10/22/19 22 10/21/2021 COMPR EHENS TENZIN METAB OLIC PANEL globulin 2.7 g/dL 2.6-4. 2 Not Available [facility] (Lab) [address] [place], [address], 10/21/2021 13:07:54 10/22/1910/21/2021 COMPR EHENS TENZIN METAB OLIC PANEL A/G ratio 1.6 ratio 1.0-2. 0 Not Available [facility] (Lab) [address] [place], [address], 10/21/2021 13:07:54 12/17/1912/16/2021 hemog lobin A1C, finge rstic k HgbA1C 5.2% Not Available [facility] , [address], [place], [address], 12/16/2021 12:31:57 12/17/1912/16/2021 urina lysis , dipst ick Leukocytes (reference range: negative ranjith/ l) Trace Not Available [facility] c_[address] , [address], [place], [address], 12/16/2021 12:28:29 12/17/1912/16/2021 urina lysis , dipst ick Nitrite (reference rage: negative mg/dl) negati ve Not Available [facility] , [address], [place], [address], 12/16/2021 12:28:29 12/17/1912/16/2021 urina lysis , dipst ick Urobilinogen (reference range: 0.2-1 mg/dl) 0.2 Not Available [facility] c_[address] , [address], [place], [address], 12/16/2021 12:28:29 12/17/19 22 12/16/2021 urina lysis , dipst ick Protein (reference range: negative mg/dl) 30 Not Available [facility] [address] , [address], [place], [address], 12/16/2021 12:28:29 12/17/1912/16/2021 urina lysis , dipst ick pH (reference range: 5-7) 5.5 Not Available [address] , [address], [place], [address], 12/16/2021 12:28:29 12/17/1912/16/2021 urina lysis , dipst ick Blood (reference range: negative Serjio/ l) Large Not Available [address] , [address], [place], [address], 12/16/2021 12:28:29 12/17/1912/16/2021 urina lysis , dipst ick Specific [place] (reference range: 1.005-1.030) 1.025 Not Available [address] , [address], [place], [address], 12/16/2021 12:28:29 12/17/19 22 12/16/2021 urina lysis , dipst ick Ketone (reference range: negative mg/dl) Negati ve Not Available [address] , [address], [place], [address], 12/16/2021 12:28:29 12/17/1912/16/2021 urina lysis , dipst ick Bilirubin (reference range: negative mg/dl) Negati ve Not Available [address] , [address], [place], [address], 12/16/2021 12:28:29 12/17/1921 1212/16/2021 urina lysis , dipst ick Glucose (reference range: negative mg/dl) Negati ve Not Available [address], [place], [address], 12/16/2021 12:28:29 12/17/19 22 12/16/2021 urina lysis , dipst ick Appearance Cloudy Not Available [address], [place], [address], 12/16/2021 12:28:29 12/17/1912/16/2021 urina lysis , dipst ick Color Pale Yellow Not Available [address], [place], [address], 12/16/2021 12:28:29 08/18/19 21 08/17/2020 LDCT, chest , for lung cance r scree esther No observ ation record ed. MIGRATION. [facility] (Imaging) [address] [place], [address], 04/30/2022 23:07:29 12/25/19 22 12/23/2021 CT, abdom en + pelvi s, w/o contr ast No observ ation record ed. [id number] [facility] [address], [place], [address], 04/30/2022 23:07:29 12/25/19 22 12/23/2021 imagi ng/di agnos tic resul t No observ ation record ed. MIGRATION. [facility] [address], [place], [address], 04/30/2022 23:07:29 12/25/19 22 12/23/2021 imagi ng/di agnos tic resul t No observ ation record ed. [id number] [facility] [address], [place], [address], 04/30/2022 23:07:29 01/21/20 22 12/23/2021 imagi ng/di agnos tic resul t No observ ation record ed. [id number] [facility] [address], [place], [address], 04/30/2022 23:07:29 01/21/20 22 12/23/2021 imagi ng/di agnos tic resul t No observ ation record ed. [id number] [facility] [address], [place], [address], 04/30/2022 23:07:29 08/13/19 23 08/12/2022 CT, abdom en + pelvi s, w/ contr ast No observ ation record ed. [place] [id number], [place], [address], 08/14/2022 08:26:21 01/12/20 24 01/12/2024 XR, lumbo sacra l spine , 2 or 3 view, bendi ng only No observ ation record ed. [email or web address] [id number] [facility] [address], [place], [address], 01/12/2024 13:50:01 Result Notes None recorded. Problems Name Problem SNOMED Code Status Onset Date Resolution Date Notes Provider Name and Address Organization Details Recorded Time Chronic obstructive pulmonary disease 75258526 Active 2020 Not Available [facility] 23:05:35 Problem Notes None recorded. Medical Equipment None Reported. [...] Heart rate Body temperature Body weight Systolic And Diastolic Provider Name and Address Organization Details Last Updated DateTime 1 25.7 kg/m2 162.56 cm 98 % 98 % 86 /min 97.1 [degF] 63351.8 6 g 127/64 mm[Hg] Not Available [facility] 23:04:32 Date Recorded Body mass index (BMI) Body height Oxygen saturation Oxygen saturation in Arterial blood by Pulse oximetry Heart rate Body temperature Body weight Systolic And Diastolic Provider Name and Address Organization Details Last Updated DateTime 2 26.6 kg/m2 162.56 cm 96 % 96 % 91 /min 96.4 [degF] 49118.8 2 g 122/80 mm[Hg] Not Available [facility] 23:04:33 Date Recorded Body mass index (BMI) Body height Oxygen saturation Oxygen saturation in Arterial blood by Pulse oximetry Heart rate Body temperature Body weight Systolic And Diastolic Provider Name and Address Organization Details Last Updated DateTime 2 27.1 kg/m2 162.56 cm 98 % 98 % 90 /min 97.4 [degF] 65100.5 9 g 116/80 mm[Hg] Not Available [facility] 23:04:33 Date Recorded Body mass index (BMI) Body height Oxygen saturation Oxygen saturation in Arterial blood by Pulse oximetry Heart rate Body temperature Body weight Systolic And Diastolic Provider Name and Address Organization Details Last Updated DateTime 2 27.1 kg/m2 162.56 cm 98 % 98 % 94 /min 97.4 [degF] 69333.5 9 g 140/80 mm[Hg] Not Available [facility] 23:04:33 Social History Question Answer Notes LastModified by Organizat ion Details LastModified Time Tobacco Smoking Status Former Smoker Not Available [facility] 04/30/2022 23:03:56 What Is Your Level Of Caffeine Consumption? Moderate [id number] Information not available 04/30/2022 How Much Tobacco Do You Chew? None [id number] Information not available 04/30/2022 In The 14 Days Before Symptom Onset, Have You Had Close Contact With A Laboratory-confirm ed COVID-19 While That Case Was Ill? No [id number] Information not available 04/30/2022 In The 14 Days Before Symptom Onset, Have You Had Close Contact With A Person Who Is Under Investigation For COVID-19 While That Person Was Ill? No [id number] Information not available 04/30/2022 What Type Of Diet Are You Following? REGULAR [id number] Information not available 04/30/2022 How Much Tobacco Do You Smoke? 1 PPW [id number] Information not available 04/30/2022 How Many Years Have You Smoked Tobacco? 40 [id number] Information not available 04/30/2022 Sex: Unknown Functional Status Question Answer Note LastModified by Organizat ion Details LastModified Time What is your level of alcohol consumption? None [id number] Information not available 04/30/2022 Do you or have you ever used smokeless tobacco? Never used smokeless tobacco [id number] Information not available 04/30/2022 Do you or have you ever used e-cigarettes or vape? Never used electronic cigarettes [id number] Information not available 04/30/2022 Mental Status None recorded. Family History Relationship Description Onset Age of this Age Resolved Age Notes LastModified by Organization Details LastModified Time Father Heart disease [id number] Not available 04/30/2022 23:04:17 Medical History No medical history recorded. Gynecological HistoryNo gynecological history recorded. Obstetrics History GPAL:G 0 P 0 0 0 0 Immunizations Vaccine Type Date Status Note Provider Nam e and Address Organization Details Recorded Time COVID-19, mRNA, LNP-S, PF, 100 mcg/0.5mL dose or 50 mcg/0.25mL dose 07/05/2020 completed Not Available [facility] 23:07:10 Past Encounters Encounter ID Performer Location Encounter Start Date Encounter Closed Date Diagnosis/Indication Diagnosis SNOMED-CT Code Diagnosis ICD10 Code Diagnosis IMO Codes Diagnosis Note [id number] Marcus Bentley MD [facility] [address] [facility] [address] , [place] [address] 07/06/2020 00:00:00 07/06/2020 10:34:19 [id number] Marcus Bentley MD [facility] [place] [address] 10/21/2021 00:00:00 10/21/2021 10:47:16 [id number] Marcus Bentley MD [facility] [address] [place], [place] [address] [place] [address] 12/16/2021 00:00:00 12/16/2021 19:34:43 [id number] Marcus Bentley MD [facility] [place] [address] 01/30/2022 00:00:00 01/31/2022 05:51:58 Health Concerns Section Related Observation LastModified by Organization Detai ls LastModified Time None Recorded Concern Status LastModified by Organization Details LastModified Time None Recorded Advance Directives Directive None Recorded Payers Insurance Date Sequence Insurance Name Policy Number Policy Perdomo Covered Member ID Perdomo Member ID Guarantor Name 08/31/[address] [facility] ([facility] [id number] Gladys Herrera [id number] Gladys Herrera OBGyn Episode No OBEpisode recorded.
== END 2024-12-01 11:56 | disposition home or self-care (01) ==
LOC: ANHLAB 11:58
PROVIDERS: PCP Family Medicine; Visit Provider Nurse Practitioner Family
DX: A04.8 Other specified bacterial intestinal infections (principal)
CPT/HCPCS: 83013